=== PATIENT | female | born 1985 | race Caucasian/White ===

== ENCOUNTER 2021-06-15 12:58 | Emergency (ER) | payer OTHER, SELFPAY ==
[2021-06-15 12:59] VITALS: BP 177/148; PULSE 75; RESP 18; TEMP 36.6; O2SAT 100; BMI 33.0
--- NOTE | 2021-06-15 14:34 | CT_ITS ---
EXAM: CT ABDOMEN AND PELVIS WITH INTRAVENOUS CONTRAST CLINICAL INDICATION: LLQ pain TECHNIQUE: Helically acquired images were obtained of the abdomen and pelvis with intravenous contrast. This CT exam was performed using one or more of the following dose reduction techniques: automated exposure control, adjustment of the mA and/or kV according to patient size, and/or use of iterative reconstruction technique. This report was created using [employer] report generation technology. CONTRAST: IV 100mL Isovue-370 COMPARISON: None. FINDINGS: LOWER THORAX: Unremarkable. Lung bases are clear. No cardiomegaly. No significant pericardial effusion. ABDOMEN: LIVER: Unremarkable. Homogeneous. No focal mass. GALLBLADDER AND BILE DUCTS: Unremarkable. No calcified gallstones. No gallbladder distention or wall edema. No intra- or extrahepatic biliary ductal dilation. PANCREAS: Unremarkable. No focal cystic or solid mass. SPLEEN: Unremarkable. Normal size without focal cystic or solid mass. ADRENALS: Unremarkable. No nodules. KIDNEYS AND URETERS: 4 mm proximal left ureter calculus with mild hydronephrosis and delayed left renal enhancement. Mild stranding adjacent to the left kidney. Normal renal size and position. STOMACH AND BOWEL: Unremarkable. No stomach or bowel distention. No focal inflammatory change. PELVIS: APPENDIX: No evidence of acute appendicitis. BLADDER: Unremarkable. REPRODUCTIVE: Unremarkable as visualized. No mass. ABDOMEN and PELVIS: INTRAPERITONEAL SPACE: Unremarkable. No ascites or other fluid collection. No free air. BONES/JOINTS: Unremarkable. No suspicious lytic or blastic abnormality. SOFT TISSUES: Unremarkable. No discrete abdominal or pelvic wall hernia. VASCULATURE: Unremarkable. Abdominal aorta is non-dilated. LYMPH NODES: Unremarkable. No enlarged lymph nodes. CT/Abdomen/Pelvis W IV Cont ONLY IMPRESSION: 4 mm proximal left ureter calculus with mild hydronephrosis and delayed left renal enhancement. Electronically Signed: Gonzalez Robertson MD (Brooks) at 16:45 EST , Service support ,
--- NOTE | 2021-06-15 14:56 | EDS_ITS ---
HPI HPI - GI History of Present Illness Chief Complaint: Abd Pain Narrative Narrative: 36-year-old female presenting with left lower quadrant abdominal pain. She states that this started last evening and gradually progressed. She states it feels like pressure and sharp. Patient denies any diarrhea or constipation. She has no dysuria or hematuria. No history of kidney stones. Patient has no history of diverticulitis. She expresses that she has nausea wit hout vomiting. She states that she has had chills and subjective fevers overnight. She has no concern for . PFSH PFSH Medical History no medical history Home Medications norgestimate-ethinyl estradiol [Tri-Sprintec (28)] 1 tab PO DAILY 06/15/21 [History Last Taken Unknown] ondansetron 4 mg PO Q8H PRN PRN #14 tab 06/15/21 [Rx Last Taken Unknown] oxycodone 5 mg PO BID PRN 3 Days #12 cap 06/15/21 [Rx Last Taken Unknown] Allergy/AdvReac Type Severity Reaction Status Date / Time Penicillins Allergy Hives Verified 06/15/21 13:01 Social History Smoking Status: Never smoker ROS ROS ED Constitutional Constitutional ED: Reports chills and subjective ENT ENT ED: Denies rhinorrhea or sore throat Cardiovascular Cardiovascular: Denies chest pain or palpitations Respiratory/Chest Respiratory/Chest: Denies cough, dyspnea or sputum Gastrointestinal Gastrointestinal: Reports abdominal pain and nausea; Denies constipation, diarrhea or vomiting Genitourinary Genitourinary ED: Denies dysuria or hematuria Musculoskeletal Musculoskeletal: Denies arthralgias or myalgias Integumentary Denies rash Neurologic Neurologic: Denies headache(s), paresthesias or weakness EXAM Physical Exam Const Vital Signs: 06/15/21 12:59 Temperature 98 F Temperature Source Oral Pulse Rate 75 Respiratory Rate 18 Blood Pressure 177/148 H Blood Pressure Mean 157 Pulse Ox 100 Oxygen Delivery Method Room Air Positive well nourished General Appearance ED: NAD; Negative for pallor HEENT Reports moist mucous membranes normocephalic and atraumatic Eyes PERRL and EOMs intact bilaterally Resp normal respiratory effort and clear to auscultation bilaterally Cardio regular rate and regular rhythm GI GI Narrative: Tenderness to palpation of the left lower quadrant. No CVA tenderness. Palpation: soft Back/Spine no CVA tenderness Neuro Sensorium / Orientation: alert, oriented to person, oriented to place and oriented to time Psych mental status grossly normal and thought process normal Skin General Skin Exam: Negative for jaundice or pallor MDM MDM MDM Narrative Medical decision making narrative: Patient presenting with left lower quadrant abdominal pain. Patient given morphine and Zofran for pain and nausea. She was given a liter of IV fluids. Blood work was obtained and she has a leukocytosis of 11.7 with a slight left shift. Hemoglobin factor stable. Platelets are normal. Renal function electrolytes are normal. LFTs are normal. Urinalysis negative for infection it is noted that there is 50 occult blood. Patient reevaluated at 1615 and she is sitting on the edge of the bed. She states she feels fine if she is sitting in this position and does not want to lay back. He is offered more pain medication but declines. Lab work was discussed with her. She is currently pending a CT scan. CT of the abdomen pelvis shows a 4 mm left proximal ureteral stone. This was reevaluated at 1715 and stating that her pain is returning patient given morphine and oxycodone. She will be given follow-up with urology as well as a prescription for oxycodone and Zofran. Patient amenable this plan. Patient given return cautions. Impression: 1. Left ureteral stone 2. hematuria Lab Data Attestation: I reviewed the patient's lab results. Labs: Laboratory Results - last 24 hr 06/15/21 06/15/21 06/15/21 13:35 13:35 15:05 WBC 11.7 H RBC 4.35 Hgb 12.0 Hct 37.3 MCV 85.7 MCH 27.6 MCHC 32.2 RDW Std Deviation 43.7 RDW Coeff of [place] 14.0 Plt Count 350 MPV 10.5 Immature Gran % (Auto) 0.400 Neut % (Auto) 78.7 H Lymph % (Auto) 14.2 L [place] % (Auto) 6.4 Eos % (Auto) 0.1 Baso % (Auto) 0.2 Absolute Neuts (auto) 9.2 H Absolute Lymphs (auto) 1.65 Nucleated RBC % 0 Sodium 140 Potassium 3.5 Chloride 110 H Carbon Dioxide 22.0 Anion Gap 8 BUN 9 Creatinine 0.83 Estim Creat Clear Calc 72.07 Est GFR (MDRD) Af Amer 101 Est GFR (MDRD) Non-Af 83 BUN/Creatinine Ratio 10.8 Glucose 99 Calcium 8.9 Total Bilirubin 0.30 AST 19 ALT 19 Alkaline Phosphatase 40 L Total Protein 7.6 Albumin 3.5 Globulin 4.1 Albumin/Globulin Ratio 0.9 Lipase 56 L HCG, Quant Urine Color Yellow Urine Clarity Clear Urine pH 6.5 Ur Specific [place] 1.015 Urine Protein 15 H Urine Glucose (UA) Normal Urine Ketones 5 H Urine Occult Blood 50 H Urine Nitrite Negative Urine Bilirubin Negative Urine Urobilinogen Normal Ur Leukocyte Esterase Negative Urine RBC 0-5 SEEN Urine WBC 0-5 SEEN Ur Squamous Epith Cells 0-5 SEEN Urine Bacteria 0 SEEN Urine Mucus 0 SEEN 06/15/21 15:33 WBC RBC Hgb Hct MCV MCH MCHC RDW Std Deviation RDW Coeff of [place] Plt Count MPV Immature Gran % (Auto) Neut % (Auto) Lymph % (Auto) [place] % (Auto) Eos % (Auto) Baso % (Auto) Absolute Neuts (auto) Absolute Lymphs (auto) Nucleated RBC % Sodium Potassium Chloride Carbon Dioxide Anion Gap BUN Creatinine Estim Creat Clear Calc Est GFR (MDRD) Af Amer Est GFR (MDRD) Non-Af BUN/Creatinine Ratio Glucose Calcium Total Bilirubin AST ALT Alkaline Phosphatase Total Protein Albumin Globulin Albumin/Globulin Ratio Lipase HCG, Quant < 1 Urine Color Urine Clarity Urine pH Ur Specific [place] Urine Protein Urine Glucose (UA) Urine Ketones Urine Occult Blood Urine Nitrite Urine Bilirubin Urine Urobilinogen Ur Leukocyte Esterase Urine RBC Urine WBC Ur Squamous Epith Cells Urine Bacteria Urine Mucus Radiography Diagnostic Testing: Clinical Impression(s) from Imaging Studies Abdomen/Pelvis CT 06/15/21 14:34 IMPRESSION: 4 mm proximal left ureter calculus with mild hydronephrosis and delayed left renal enhancement. Electronically Signed: Gonzalez Robertson MD (Brooks) at 16:45 EST , Service support , Discharge Plan Triage Chief Complaint: Abd Pain ED Provider: Carter Dhillon Dx/Rx/DC Orders Instructions: ED Kidney Stone w/ Colic Prescriptions: New oxycodone 5 mg capsule 5 mg PO BID PRN (Reason: pain) 3 Days Qty: 12 RF: 0 ondansetron 4 mg tablet,disintegrating 4 mg PO Q8H PRN PRN (Reason: Nausea) Qty: 14 RF: 0 No Action norgestimate-ethinyl estradiol [Tri-Sprintec (28)] 0.18/0.215/0.25 mg-35 mcg (28) tablet 1 tab PO DAILY RF: 0 Primary Care Provider: Care Physician,No Primary Referrals: Hema Londono MD [STAFF PHYSICIAN] - As soon as possible Care Physician,No Primary [Primary Care Provider] - Disposition Disposition: Home, Self Care
[2021-06-15] MEDS: Morphine 4 MG/ML Syringe IV ×2 (15:00→17:21)
[2021-06-15] MEDS: Ondansetron 4 MG/2 ML Vial IV (15:00)
[2021-06-15] MEDS: 0.9% Normal Saline 1,000 ML 1000 ML IV (15:00)
[2021-06-15 15:01] LABS: Absolute Lymphocyte Count 1.65 X10^3/uL (0.83-4.51); Absolute Neutrophil Count 9.2 X10^3/uL (2.0-7.7); Basophil# 0.02 X10^3/uL; Basophil% 0.2 % (0-1); Eosinophil# 0.01 X10^3/uL; Eosinophils% 0.1 % (0-5); Hematocrit 37.3 % (37-47); Lymphocyte # 1.65 X10^3/ul (0.83-4.51); Lymphocyte % 14.2 % (19-41); Mean Corp Hgb Conc 32.2 g/dL (32-36); Mean Corpuscular Hgb 27.6 pg (27.0-32.0); Mean Corpuscular Volume 85.7 fL (81-99); Mean Platelet Vol. 10.5 fl (6.2-12.0); Monocyte# 0.75 X10^3/uL; Monocyte% 6.4 % (0-10); NRBC Flagged by Analyzer 0 % (0-5); Neutrophil # 9.17 X10^3/uL (2.7-7.7); Neutrophil % 78.7 % (47-70); Platelet Count 350 K/mm3 (150-450); RBC Distribution Width SD 43.7 fl (35.1-43.9); Red Blood Count 4.35 M/mm3 (4.2-5.4); White Blood Count 11.7 K/mm3 (4.4-11.0)
[2021-06-15 15:12] LABS: Bacteria 0 SEEN /hpf (None Seen); Mucous, Urine 0 SEEN /hpf (<or=2+)
[2021-06-15 15:14] LABS: Color, Urine Yellow (Yellow); Glucose, Dipstick Normal (Normal); Ketone-Dipstick 5 mg/dl (Negative); Leukocyte Esterase-Dipstick Negative /ul (Negative); Nitrite-Dipstick Negative (Negative); Occult Blood-Urine 50 /ul (Negative); Protein-Dipstick 15 mg/dl (Negative); Specific Gravity, Urine 1.015 (1.002-1.030); Urine Bilirubin Dipstick Negative (Negative); Urine Clarity Clear (Clear); Urine Urobilinogen Normal (Normal); Urine pH 6.5 (5.0 - 8.0)
[2021-06-15 15:16] LABS: ALB/GLOB Ratio 0.9 RATIO (0.9-2.4); AST(SGOT) 19 U/L (15-37); Alanine Aminotransfer ALT/SGPT 19 U/L (13-56); Albumin, Serum 3.5 g/dL (3.2-5.0); Alkaline Phosphatase 40 U/L (45-117); Anion Gap 8 (5-15); BUN 9 mg/dL (7-18); BUN/Creat Ratio 10.8 RATIO (10-20); Calcium,Total 8.9 mg/dL (8.5-10.1); Chloride 110 mmol/L (98-107); Creatinine, Serum 0.83 mg/dL (0.55-1.02); EST Glomerular Filtration Rate 83 mL/min (>60); Est Glom Filt Rate - Afr Amer 101 mL/min (>60); Estimated Creatinine Clearance 72.07 ml/min; Globulin 4.1 g/dL (2.2-4.2); Glucose 99 mg/dL (74-106); Lipase 56 U/L (73-393); Potassium 3.5 mmol/L (3.5-5.1); Protein, Total 7.6 g/dL (6.4-8.2); Sodium Level 140 mmol/L (136-145)
[2021-06-15 15:20] LABS: Red Blood Cells-Urine 0-5 SEEN /hpf (0-5)
[2021-06-15 15:21] LABS: Squamous Epithelial Cells - UA 0-5 SEEN /hpf (5-10); White Blood Cells 0-5 SEEN /hpf (0-5)
[2021-06-15 16:18] LABS: hCG Titer Quant., Serum < 1 mIU/mL (1-3)
[2021-06-15] MEDS: oxyCODONE 5 MG Tablet PO (17:33)
[2021-06-15 17:34] VITALS: BP 125/77; PULSE 81; RESP 16; O2SAT 100
== END 2021-06-15 17:37 | disposition home or self-care (01) ==
PROVIDERS: Emergency Provider Student in an Organized Health Care Education/Training Program
DX: N20.1 Calculus of ureter (principal)
CPT/HCPCS: 74177; 80053; 81001; 83690; 84702; 85025; 87426; 96361; 96374; 96375; 96376; 99284; Q9967; A4216; J2405

== ENCOUNTER 2021-06-16 19:52 | Observation (INO) | payer OTHER, SELFPAY ==
[2021-06-16 19:52] VITALS: BP 136/90; PULSE 78; RESP 16; TEMP 36.3; O2SAT 97; BMI 35.4
--- NOTE | 2021-06-16 20:14 | EX.ED.DYSGE1 ---
HPI History of Present Illness Chief Complaint: Flank Pain Informant: patient and parent Narrative Narrative: 36-year-old female arriving to the emergency department with left flank pain. Patient was seen in the emergency department yesterday and was diagnosed with a proximal left 4 mm ureteral stone. This is her first time ureterolithiasis. Patient was discharged home on oxycodone and Zofran. The patient states she made it through the night last night without any pain medicine woke up this morning took her pain medicine was doing good until around 1600 hrs. when she began to have severe pain in the left lower quadrant and into the back. Mom became concerned when the amount of urine she was producing was very small. Patient notes nausea and vomiting. She states today's pain is worse than yesterday's. Mom states the patient has been having intermittent fevers. But they have not been taking her temperature and it seems that whenever she breaks out into a sweat she feels very flushed and warm this is generally around the time she feels very nauseated and severe pain. PFSH PFS Medical History (Updated 06/16/21 @ 22:[address] Alonzo Agrawal DO) Kidney stones Home Medications norgestimate-ethinyl estradiol [Tri-Sprintec (28)] 1 tab PO DAILY 06/15/21 [History Last Taken Unknown] ondansetron 4 mg PO Q8H PRN PRN #14 tab 06/15/21 [Rx Last Taken Unknown] oxycodone 5 mg PO BID PRN 3 Days #12 cap 06/15/21 [Rx Last Taken Unknown] Allergy/AdvReac Type Severity Reaction Status Date / Time Penicillins Allergy Hives Verified 06/16/21 19:54 Social History (Updated 06/16/21 @ 20:[address] Alonzo Agrawal DO) Smoking Status: Never smoker substance use type: does not use ROS ROS ED Constitutional Constitutional ED: Denies chills or weight loss Eyes Eyes: Denies change in vision or diplopia ENT ENT ED: Denies ear pain, rhinorrhea or sore throat Cardiovascular Cardiovascular: Denies chest pain, orthopnea, palpitations or racing heartbeat Respiratory/Chest Respiratory/Chest: Denies cough, dyspnea or orthopnea Gastrointestinal Gastrointestinal: Reports abdominal pain, nausea and vomiting; Denies diarrhea Genitourinary Genitourinary ED: Reports other Details: Left flank pain ; Denies dysuria, hematuria or urinary frequency Musculoskeletal Musculoskeletal: Denies arthralgias or myalgias Integumentary Denies abscess or rash Neurologic Neurologic: Denies headache(s) or weakness Psychiatric Psychiatric: Denies anxiety, depression, suicidal ideation or suicidal thoughts Endocrine Endocrinology: Denies polydipsia, polyphagia or polyuria Allergic/Immunologic Allergic/Immunologic ED: Denies mouth swelling, tongue swelling or urticaria EXAM Physical Exam Narrative Exam Narrative: Patient appears in pain. Const Vital Signs: 06/16/21 19:52 Temperature 97.3 F L Temperature Source Temporal Pulse Rate 78 Respiratory Rate 16 Blood Pressure 136/90 H Blood Pressure Mean 105 Pulse Ox 97 Oxygen Delivery Method Room Air Positive well nourished and well developed General Appearance ED: well developed HEENT Reports normocephalic, head/scalp atraumatic, TM's clear and moist mucous membranes Negative for trauma Tympanic Membrane ED: Yes TM's clear Eyes PERRL and EOMs intact bilaterally Neck no lymphadenopathy, supple and no JVD Resp normal respiratory effort and clear to auscultation bilaterally Cardio regular rate, regular rhythm and no murmurs GI normal to inspection, nondistended, normoactive bowel sounds and non-tender Palpation: soft Back/Spine no CVA tenderness and normal ROM Extremity normal to inspection General Extremety ED: Negative for edema General Extremity: Negative for edema Neuro oriented x3 and CN's II-XII intact bilaterally Sensorium / Orientation: alert Motor Exam: strength 5/5 throughout Psych mental status grossly normal Mood & Affect: Negative for depressed or tearful Skin no rashes or lesions noted and no wounds MDM MDM MDM Narrative Medical decision making narrative: Creatinine 0.91. Urinalysis shows no overt infection. Patient received Toradol morphine and Zofran as well as IV fluids. She required redosing of morphine and Zofran. I spoke at length with the patient and her mother regarding outpatient pain management versus inpatient. The patient would like to stay for pain control. Lab Data Attestation: I reviewed the patient's lab results. Labs: Laboratory Results - last 24 hr 06/16/21 06/16/21 20:05 20:28 Sodium 137 Potassium 3.9 Chloride 108 H Carbon Dioxide 21.0 Anion Gap 8 BUN 9 Creatinine 0.91 Estim Creat Clear Calc 65.73 Est GFR (MDRD) Af Amer 91 Est GFR (MDRD) Non-Af 75 BUN/Creatinine Ratio 9.9 L Glucose 108 H Calcium 8.6 Urine Color Yellow Urine Clarity Sl. Cloudy Urine pH 7.0 Ur Specific [place] 1.015 Urine Protein Negative Urine Glucose (UA) Normal Urine Ketones 5 H Urine Occult Blood 25 H Urine Nitrite Negative Urine Bilirubin Negative Urine Urobilinogen Normal Ur Leukocyte Esterase 25 H Urine RBC 0-5 SEEN Urine WBC 0-5 SEEN Ur Squamous Epith Cells 0-5 SEEN Urine Bacteria 1+ Urine Mucus 1+ Discharge Plan Triage Chief Complaint: Flank Pain ED Provider: Alonzo Agrawal Dx/Rx/DC Orders Clinical Impression: Ureterolithiasis, Renal colic on left side, Vomiting, Intractable pain Prescriptions: No Action norgestimate-ethinyl estradiol [Tri-Sprintec (28)] 0.18/0.215/0.25 mg-35 mcg (28) tablet 1 tab PO DAILY RF: 0 oxycodone 5 mg capsule 5 mg PO BID PRN (Reason: pain) 3 Days Qty: 12 RF: 0 ondansetron 4 mg tablet,disintegrating 4 mg PO Q8H PRN PRN (Reason: Nausea) Qty: 14 RF: 0 Primary Care Provider: Care Physician,No Primary Referrals: Care Physician,No Primary [Primary Care Provider] - Disposition Disposition: [facility]
[2021-06-16] MEDS: 0.9% Normal Saline 1,000 ML 999 ML IV (20:22)
[2021-06-16] MEDS: Ketorolac 30 MG/ML Syringe IV (20:22)
[2021-06-16] MEDS: Morphine 4 MG/ML Syringe IV ×2 (20:22→22:12)
[2021-06-16] MEDS: Ondansetron 4 MG/2 ML Vial IV ×2 (20:22→22:12)
[2021-06-16 20:39] LABS: Anion Gap 8 (5-15); BUN 9 mg/dL (7-18); BUN/Creat Ratio 9.9 RATIO (10-20); Calcium,Total 8.6 mg/dL (8.5-10.1); Chloride 108 mmol/L (98-107); Creatinine, Serum 0.91 mg/dL (0.55-1.02); EST Glomerular Filtration Rate 75 mL/min (>60); Est Glom Filt Rate - Afr Amer 91 mL/min (>60); Estimated Creatinine Clearance 65.73 ml/min; Glucose 108 mg/dL (74-106); Potassium 3.9 mmol/L (3.5-5.1); Sodium Level 137 mmol/L (136-145)
[2021-06-16 20:42] LABS: Color, Urine Yellow (Yellow); Glucose, Dipstick Normal (Normal); Ketone-Dipstick 5 mg/dl (Negative); Leukocyte Esterase-Dipstick 25 /ul (Negative); Nitrite-Dipstick Negative (Negative); Occult Blood-Urine 25 /ul (Negative); Protein-Dipstick Negative (Negative); Specific Gravity, Urine 1.015 (1.002-1.030); Urine Bilirubin Dipstick Negative (Negative); Urine Clarity Sl. Cloudy (Clear); Urine Urobilinogen Normal (Normal)
[2021-06-16 20:55] LABS: Mucous, Urine 1+ /hpf (<or=2+); Squamous Epithelial Cells - UA 0-5 SEEN /hpf (5-10)
[2021-06-16 20:56] LABS: Bacteria 1+ /hpf (None Seen); Red Blood Cells-Urine 0-5 SEEN /hpf (0-5)
[2021-06-16 21:02] LABS: White Blood Cells 0-5 SEEN /hpf (0-5)
[2021-06-16 22:31] VITALS: BP 115/64; PULSE 71; RESP 18; TEMP 36.6; O2SAT 100
[2021-06-16 22:34] LABS: Internal QC Validated? YES +Cl - CLEAR BKGD; Pregnancy, Urine Negative Negative
--- NOTE | 2021-06-16 22:51 | HP.PCM.HOS_ITS ---
HPI - General General Date of Admission: 06/16/21 HPI Narrative URI CASTRO, is a 36 F with no previous significant medical history who presents to the emergency department with left lower quadrant pain that started 2 days before presentation. The pain is progressively getting worse and now it radiates to her left lower back. Movement made the pain worse. Sitting up and bending over and applying pressure improves the pain. States that her symptoms is nausea and vomiting. Patient was at the hospital a day before presentation and she was given oxycodone. She reported that even with taking oxycodone pain was not improving so she came to the emergency department for further evaluation and treatment. [facility] Medical History Kidney stones Home Medications norgestimate-ethinyl estradiol [Tri-Sprintec (28)] 1 tab PO DAILY 06/15/21 [History Last Taken Unknown] ondansetron 4 mg PO Q8H PRN PRN #14 tab 06/15/21 [Rx Last Taken Unknown] oxycodone 5 mg PO BID PRN 3 Days #12 cap 06/15/21 [Rx Last Taken Unknown] Allergy/AdvReac Type Severity Reaction Status Date / Time Penicillins Allergy Hives Verified 06/16/21 19:54 Family History Other Cancer Heart disease Surgical History no surgical history no surgical history Social History (Updated 06/16/21 @ 20:[address] Alonzo Agrawal, ) Smoking Status: Never smoker substance use type: does not use ROS ROS Narrative Constitutional: Reports objective fever and chills. Denies , fatigue, anorexia and change in weight Eyes: Denies blurry vision, change in eye color, change in vision, discharge from eye(s), double vision, erythema, eye pain, loss of vision or other HEENT: Denies abnormal hearing, dysphagia, ear pain, epistaxis, headache(s), hearing loss, nasal congestion, nasal discharge, post nasal drip, sinus pressure, sore throat or other Cardiovascular: Denies chest pain or palpitations. Denies dyspnea on exertion, orthopnea and paroxysmal nocturnal dyspnea Respiratory/Chest: Denies cough, excessive phlegm production, shortness of breath with exertion and wheezing Gastrointestinal: Reports nausea and vomiting denies abdominal pain, coffee ground emesis, constipation, diarrhea, dyspepsia, hematemesis, hematochezia, loose stools, melena, or other Genitourinary: Denies burning urination, difficulty urinating, dysuria, hematuria, nocturia, urinary frequency, urinary hesitancy, urinary incontinence, urinary urgency or other Musculoskeletal: Reports back pain. Denies arthralgias, joint pain, joint stiffness, joint swelling, myalgias, neck pain or other Neurologic: Denies abnormal gait, abnormal speech, confusion, disequilibrium, dizziness, focal weakness, headache(s), numbness, paresthesias, seizure-like activity, seizures, syncope, tingling, tremor(s) or other Psychiatric: Denies anxiety, depression, homicidal ideation, suicidal ideation or other Endocrinology: Denies change in body appearance, cold intolerance, excessive sweating, heat intolerance, polydipsia, polyuria or other Hematologic/Lymphatic: Denies anemia, easy bleeding, easy bruising, lymphadenopathy or other Integumentary: Denies rashes Allergic/Immunologic: Denies rhinitis, hives, eczema, asthma or other Vital Signs Vital Signs Vital Signs: 06/16/21 19:52 06/16/21 22:31 Temperature 97.3 F L 97.9 F Temperature Source Temporal Temporal Pulse Rate 78 71 Respiratory Rate 16 18 Blood Pressure 136/90 H 115/64 Blood Pressure Mean 105 81 Pulse Ox 97 100 Oxygen Delivery Method Room Air Room Air Weight Weight: 85 kg Body Mass Index (BMI) 35.4 Physical Exam Narrative Physical exam: General: Well-nourished, well-developed. Head: Normocephalic, atraumatic, no tenderness Eyes: PERRLA, EOMI ENT, no trauma, moist mucous membranes, no rhinorrhea Neck: Nontender, full range of motion, no spinal tenderness, deformities, step- off CVS: Regular rate and rhythm. S1-S2 present. No murmur, gallop or rub. Respiratory : clear to auscultation bilaterally, chest wall nontender, no wheezing Abdomen: Soft, nontender, nondistended, normal bowel sounds, no masses : Deferred Back: Nontender, no CVA tenderness, no midline spinal tenderness, deformities, step-offs Extremities: Nontender full range of motion, no trauma Skin: Normal color, no trauma, abrasions Neuro: Alert, oriented, cranial nerves II through XII grossly intact. Psychiatry: Normal mood. Normal affect. Not depressed. Not anxious. Results Lab / Micro Data Result Diagrams: 06/16/21 20:05 06/16/21 20:05 Labs: Laboratory Results - last 24 hr 06/16/21 20:05: Sodium 137, Potassium 3.9, Chloride 108 H, Carbon Dioxide 21.0, Anion Gap 8, BUN 9, Creatinine 0.91, Estim Creat Clear Calc 65.73, Est GFR (MDRD) Af Amer 91, Est GFR (MDRD) Non-Af 75, BUN/Creatinine Ratio 9.9 L, Glucose 108 H, Calcium 8.6 06/16/21 20:28: Urine Color Yellow, Urine Clarity Sl. Cloudy, Urine pH 7.0, Ur Specific [place] 1.015, Urine Protein Negative, Urine Glucose (UA) Normal, Urine Ketones 5 H, Urine Occult Blood 25 H, Urine Nitrite Negative, Urine Bilirubin Negative, Urine Urobilinogen Normal, Ur Leukocyte Esterase 25 H, Urine RBC 0-5 SEEN, Urine WBC 0-5 SEEN, Ur Squamous Epith Cells 0-5 SEEN, Urine Bacteria 1+, Urine Mucus 1+ 06/16/21 20:28: Urine Test Negative Assessment & Plan Assessment/Plan (1) Ureterolithiasis: PLAN: Ureterolithiasis Abdominal/pelvis CT on 06/15/2021 was remarkable for a 4 mm proximal left ureteral calculus with mild hydronephrosis and delayed left renal enhancement. Actual abdomen pelvis CT was independently interpreted and agree with the latest interpretation. Urinalysis showed urine occult blood of 25; urine leukocyte esterase of 25 IV Toradol and IV morphine as needed ordered. Flomax ordered. White count on 06/15/2021 showed mildly elevated white counts with neutrophilia and lymphopenia. BMP on 06/16/2021 was not impressive. Clear liquid ordered. DVT prophylaxis: Low risk. Charges/Coding Visit Charges OBSV E&M: 49094 Initial observation care L2
[2021-06-16 22:59] VITALS: BP 125/79; PULSE 76; RESP 17; TEMP 36.9; O2SAT 99
[2021-06-16 23:07] VITALS: BMI 35.3
[2021-06-16] MEDS: 0.9% Normal Saline 1,000 ML 75 ML IV (23:24)
[2021-06-16] MEDS: Tamsulosin HCl 0.4 MG Capsule PO (23:24)
--- NOTE | 2021-06-17 00:04 | PCS.PANDOC ---
PANDEMIC DOCUMENTATION INITIATED: Date: 03/05/2021 Time: 190
[2021-06-17] MEDS: Morphine 4 MG/ML Syringe IV ×2 (02:03→08:41)
[2021-06-17] MEDS: Ondansetron 4 MG/2 ML Vial IV (05:20)
[2021-06-17] MEDS: Ketorolac 30 MG/ML Syringe IV ×2 (05:23→11:56)
[2021-06-17 05:43] VITALS: BP 98/55; PULSE 72; RESP 17; TEMP 36.8; O2SAT 98
[2021-06-17 06:56] LABS: Absolute Lymphocyte Count 3.39 X10^3/uL (0.83-4.51); Absolute Neutrophil Count 6.1 X10^3/uL (2.0-7.7); Basophil# 0.03 X10^3/uL; Basophil% 0.3 % (0-1); Eosinophil# 0.03 X10^3/uL; Eosinophils% 0.3 % (0-5); Hematocrit 30.5 % (37-47); Lymphocyte # 3.39 X10^3/ul (0.83-4.51); Lymphocyte % 32.2 % (19-41); Mean Corp Hgb Conc 32.8 g/dL (32-36); Mean Corpuscular Volume 85.4 fL (81-99); Mean Platelet Vol. 10.5 fl (6.2-12.0); Monocyte# 0.91 X10^3/uL; Monocyte% 8.7 % (0-10); NRBC Flagged by Analyzer 0 % (0-5); Neutrophil # 6.12 X10^3/uL (2.7-7.7); Neutrophil % 58.1 % (47-70); Platelet Count 267 K/mm3 (150-450); RBC Distribution Width CV 14.2 % (11.6-14.6); RBC Distribution Width SD 44.2 fl (35.1-43.9); Red Blood Count 3.57 M/mm3 (4.2-5.4); White Blood Count 10.5 K/mm3 (4.4-11.0)
[2021-06-17 07:07] LABS: Anion Gap 7 (5-15); BUN 6 mg/dL (7-18); BUN/Creat Ratio 9.8 RATIO (10-20); Calcium,Total 7.6 mg/dL (8.5-10.1); Chloride 111 mmol/L (98-107); Creatinine, Serum 0.61 mg/dL (0.55-1.02); EST Glomerular Filtration Rate 119 mL/min (>60); Est Glom Filt Rate - Afr Amer 144 mL/min (>60); Estimated Creatinine Clearance 98.06 ml/min; Glucose 87 mg/dL (74-106); Potassium 3.2 mmol/L (3.5-5.1); Sodium Level 142 mmol/L (136-145)
[2021-06-17] MEDS: 0.9% Saline Lock 10 ML Syringe IV ×2 (08:41→11:57)
[2021-06-17 09:49] VITALS: BP 100/68; PULSE 71; RESP 18; TEMP 36.7; O2SAT 99
--- NOTE | 2021-06-17 10:08 | DCINST_ITS ---
Discharge Instructions Diet Discharge Diet: No restrictions Activity Discharge Activity: Return to Normal Activity Dressing / Incision Call your doctor if you observe: Fever of 101 or Higher, Shortness of breath, Dizziness, Fainting spells, Swelling in the ankles, Chest pain and Increased palpitations (irregular heartbeat) Follow Up Care Test Results: Test results from this visit will be discussed in further detail at your follow-up appointment, if applicable. Discharge Plan Admission Admit Date/Time: 06/16/21 22:16 Attending Provider: Alex Wilkins Primary Care Provider: Jg Phillips,Cleo Primary Instructions Additional Instructions / Restrictions: If pain worsens or does not resolve in the next 24 to 48 hours with passage of the 4 mm kidney stone, would recommend going to a different ER as we do not have urological coverage until early June Discharge Orders/Prescriptions Prescriptions: Continued norgestimate-ethinyl estradiol [Tri-Sprintec (28)] 0.18/0.215/0.25 mg-35 mcg ( 28) tablet 1 tab PO DAILY RF: 0 oxycodone 5 mg capsule 5 mg PO BID PRN (Reason: pain) 3 Days Qty: 12 RF: 0 ondansetron 4 mg tablet,disintegrating 4 mg PO Q8H PRN PRN (Reason: Nausea) Qty: 14 RF: 0 Referrals / Follow Up: Care Physician,No Primary [Primary Care Provider] - Disposition Disposition (needs filled in before D/C Order can be placed): Home, Self Care
--- NOTE | 2021-06-17 10:11 | PCM.DC.SUM ---
Providers Date of Admission: 06/16/21 Primary Care Physician: No Primary Care Phys Reason For Visit: URETERAL STONE Diagnosis Discharge Diagnosis (1) Ureterolithiasis: Status: Acute Code(s): N20.1 - Calculus of ureter Medications at Discharge Home Medications norgestimate-ethinyl estradiol [Tri-Sprintec (28)] 1 tab PO DAILY 06/15/21 ondansetron 4 mg PO Q8H PRN PRN #14 tab 06/15/21 oxycodone 5 mg PO BID PRN 3 Days #12 cap 06/15/21 tamsulosin 0.4 mg PO DAILY@1730 #7 cap 06/17/21 Hospital Course Operations None Procedures None Summary of Care Provided Minutes Spent on Discharge: 35 Hospital Course: Per HPI: URI CASTRO, is a 36 F with no previous significant medical history who presents to the emergency department with left lower quadrant pain that started 2 days before presentation. The pain is progressively getting worse and now it radiates to her left lower back. Movement made the pain worse. Sitting up and bending over and applying pressure improves the pain. States that her symptoms is nausea and vomiting. Patient was at the hospital a day before presentation and she was given oxycodone. She reported that even with taking oxycodone pain was not improving so she came to the emergency department for further evaluation and treatment. Hospital Course: 1. Left urolithiasis with mild hydronephrosis?36-year-old female has never had a kidney stone before presented to the hospital few days ago with left flank pain. She was discharged home with oxycodone and Zofran and we presented to the hospital with continued pain. She was having some issues with nausea and vomiting at home and cannot keep anything down so she presented to the hospital. Unfortunate there is no urological coverage therefore there is no intervention that could be provided here that cannot be done at home. She is feeling much better today and I discussed with her that if her pain worsens or does not resolve within the next 24 to 48hours that she should go to a different hospital that potentially has urological coverage as we do not have urology until about early June. We will continue with her previous home descriptions of Zofran and oxycodone and can also give her some Flomax. Also continue to encourage significant fluid intake to flush her kidneys. A 4 mm stone should pass. She did have a minor UA with leukocyte esterase of 25 and 1+ bacteria 1+ mucus, will hold off on any antibiotics at this time secondary to kidney stone and the fact that she gets a yeast infection with antibiotics. I do recommend that she follow-up with her PCP in 3 to 5 days and if he develops fevers to be started on antibiotic at that time. Physical Exam Const alert, oriented x3 and no apparent distress General Appearance: cooperative HEENT normocephalic and moist oral mucous membranes Eyes PERRL, EOMs intact bilaterally and conjunctivae normal Neck supple and no JVD Resp normal respiratory effort, no retractions, no use of accessory muscles and clear to auscultation bilaterally Auscultation: Negative for crackles, rales, rhonchi or wheezes Cardio regular rate, regular rhythm, S1 normal heart sound, S2 normal heart sound and no murmurs GI soft to palpation, non-tender and non-distended; Negative for hepatosplenomegaly no CVA tenderness Extremity no clubbing, cyanosis or edema Skin no rashes or lesions noted Neuro no focal motor deficits and no sensory deficits noted Psych affect normal Appearance: appropriate Weight / BMI Weight Weight: 186 lb 15.232 oz Body Mass Index (BMI) 35.3 ABG / Lab / Microbiology Data Result Diagrams: 06/17/21 06:01 06/17/21 06:01 Laboratory: Laboratory Results - last 24 hr 06/16/21 20:05: Sodium 137, Potassium 3.9, Chloride 108 H, Carbon Dioxide 21.0, Anion Gap 8, BUN 9, Creatinine 0.91, Estim Creat Clear Calc 65.73, Est GFR (MDRD) Af Amer 91, Est GFR (MDRD) Non-Af 75, BUN/Creatinine Ratio 9.9 L, Glucose 108 H, Calcium 8.6 06/16/21 20:28: Urine Color Yellow, Urine Clarity Sl. Cloudy, Urine pH 7.0, Ur Specific [place] 1.015, Urine Protein Negative, Urine Glucose (UA) Normal, Urine Ketones 5 H, Urine Occult Blood 25 H, Urine Nitrite Negative, Urine Bilirubin Negative, Urine Urobilinogen Normal, Ur Leukocyte Esterase 25 H, Urine RBC 0-5 SEEN, Urine WBC 0-5 SEEN, Ur Squamous Epith Cells 0-5 SEEN, Urine Bacteria 1+, Urine Mucus 1+ 06/16/21 20:28: Urine Test Negative 06/17/21 06:01: WBC 10.5, RBC 3.57 L, Hgb 10.0 L, Hct 30.5 L, MCV 85.4, MCH 28.0, MCHC 32.8, RDW Std Deviation 44.2 H, RDW Coeff of [place] 14.2, Plt Count 267, MPV 10.5, Immature Gran % (Auto) 0.400, Neut % (Auto) 58.1, Lymph % (Auto) 32.2, [place] % (Auto) 8.7, Eos % (Auto) 0.3, Baso % (Auto) 0.3, Absolute Neuts (auto) 6.1, Absolute Lymphs (auto) 3.39, Nucleated RBC % 0 06/17/21 06:01: Sodium 142, Potassium 3.2 L, Chloride 111 H, Carbon Dioxide 24.0, Anion Gap 7, BUN 6 L, Creatinine 0.61, Estim Creat Clear Calc 98.06, Est GFR (MDRD) Af Amer 144, Est GFR (MDRD) Non-Af 119, BUN/Creatinine Ratio 9.8 L, Glucose 87, Calcium 7.6 L D/C Instructions Discharge Diet: No restrictions Call your doctor if you observe: Fever of 101 or Higher, Shortness of breath, Dizziness, Fainting spells, Swelling in the ankles, Chest pain and Increased palpitations (irregular heartbeat) Meaningful Use Info Meaningful Use Diagnoses (Choose all that apply): None applicable Discharge Plan Admission Admit Date/Time: 06/16/21 22:16 Attending Provider: Alex Wilkins Primary Care Provider: Care Physician,No Primary Instructions Additional Instructions / Restrictions: If pain worsens or does not resolve in the next 24 to 48 hours with passage of the 4 mm kidney stone, would recommend going to a different ER as we do not have urological coverage until early June Discharge Orders/Prescriptions Prescriptions: New tamsulosin 0.4 mg Capsule 0.4 mg PO DAILY@1730 Qty: 7 RF: 0 Continued norgestimate-ethinyl estradiol [Tri-Sprintec (28)] 0.18/0.215/0.25 mg-35 mcg (28) tablet 1 tab PO DAILY RF: 0 oxycodone 5 mg capsule 5 mg PO BID PRN (Reason: pain) 3 Days Qty: 12 RF: 0 ondansetron 4 mg tablet,disintegrating 4 mg PO Q8H PRN PRN (Reason: Nausea) Qty: 14 RF: 0 Referrals / Follow Up: Care Physician,No Primary [Primary Care Provider] - Disposition Disposition (needs filled in before D/C Order can be placed): Home, Self Care Charges/Coding Visit Charges OBSV E&M: 38940 Observation care discharge
[2021-06-17] MEDS: Potassium Chloride Oral Tablet 20 MEQ 60 MEQ PO (10:26)
[2021-06-17] MEDS: 0.9% Normal Saline 1,000 ML 75 ML IV (10:27)
[2021-06-17 14:03] VITALS: BP 118/71; PULSE 70; RESP 18; TEMP 36.6; O2SAT 100
== END 2021-06-17 10:10 | disposition home or self-care (01) ==
LOC: ED 22:10 → PCU 22:48
PROVIDERS: Admitting Provider Hospitalist; Emergency Provider Emergency Medicine; Visit Provider Family Medicine
DX: N13.2 Hydronephrosis with renal and ureteral calculous obstruction (principal)
CPT/HCPCS: 36415; 80048; 81001; 81025; 85025; 96361; 96374; 96375; 96376; 99218; 99285; J7030; A4216; G0378; J2405

== ENCOUNTER → 2021-06-19 10:26 | Outpatient (CLI) | payer OTHER, SELFPAY ==
[2021-06-19 11:12] LABS: Hematocrit 36.6 % (37-47); Hemoglobin 11.7 g/dL (12.0-15.0); Mean Corpuscular Hgb 27.3 pg (27.0-32.0); Mean Corpuscular Volume 85.5 fL (81-99); Mean Platelet Vol. 10.3 fl (6.2-12.0); Platelet Count 339 K/mm3 (150-450); RBC Distribution Width CV 14.1 % (11.6-14.6); RBC Distribution Width SD 43.8 fl (35.1-43.9); Red Blood Count 4.28 M/mm3 (4.2-5.4); White Blood Count 8.2 K/mm3 (4.4-11.0)
[2021-06-19 11:25] LABS: Anion Gap 7 (5-15); BUN 6 mg/dL (7-18); BUN/Creat Ratio 6.8 RATIO (10-20); Calcium,Total 9.1 mg/dL (8.5-10.1); Chloride 105 mmol/L (98-107); Creatinine, Serum 0.88 mg/dL (0.55-1.02); EST Glomerular Filtration Rate 78 mL/min (>60); Est Glom Filt Rate - Afr Amer 94 mL/min (>60); Glucose 90 mg/dL (74-106); Potassium 3.9 mmol/L (3.5-5.1); Sodium Level 139 mmol/L (136-145)
== END ==
PROVIDERS: Referring Provider Urology; Visit Provider Urology
DX: Z01.812 Encounter for preprocedural laboratory examination (principal)
CPT/HCPCS: 36415; 80048; 85027

== ENCOUNTER → 2021-06-25 15:40 | Outpatient (CLI) | payer OTHER, SELFPAY ==
--- NOTE | 2021-06-25 | CALC_PTH ---
PATIENT: URI CASTRO LOC: [facility] U#:[id number] AGE/SX: 40/F ROOM: RE06/25/[address]: Dr. Hema Londono MD : 1985 BED: DIS: SPEC #: [id number] RECD: 06/25/21 15:01 STATUS: KIMBERLY ERAN #: [id number] PHUONG: 06/25/21 00:[address]: Hema Londono DEPT: SURGICAL PATHOLOGY RECD BY: Yfn Lira ENTERED: 06/26/21 12:47 SP TYPE: Calculi OTHR DR: No Primary Care Phys [facility] Tissues: CALCULI Procedures: Surgery Specimen Level I HEADER OPERATION: Left ureteroscopy, laser stone PRE-OP DIAGNOSIS: Calculus of left ureter TISSUE SUBMITTED: Left ureteral calculi GROSS DIAGNOSIS Left ureteral calculi, removal: Fragment of unremarkable calculus (gross diagnosis only). AM:zoe 06/27/2021 COMMENT The calculus is submitted in its entirety for chemical stone analysis. The results from this study will be reported separately. GROSS DESCRIPTION Received without fixative labeled with the patient's name and designated left ureteral calculi. The specimen consists of a light youngblood calculus measuring <0.1 x <0.1 x <0.1 cm. The entire specimen is submitted for stone analysis. / AM:zoe 06/26/21 CPT: 75458
== END ==
PROVIDERS: Visit Provider Urology
DX: N20.1 Calculus of ureter (principal)
CPT/HCPCS: 82360; 88300

== ENCOUNTER → 2023-08-26 | Outpatient (CLI) | payer BC, SELFPAY ==
--- NOTE | 2023-08-26 10:40 | CT_ITS ---
STUDY: CT ABDOMEN AND PELVIS WITHOUT CONTRAST REASON FOR EXAM: Female, 38 years old. R/O KIDNEY STONE. Left flank pain for one week. Gross hematuria. RADIATION DOSAGE (If Supplied By Facility): CTDIvol = ( 9.77 ) mGy, DLP = ( 485.62 ) mGycm TECHNIQUE: Transaxial images were obtained from the dome of the diaphragm to the symphysis pubis without oral contrast, and without intravenous contrast. Sagittal and coronal images were reconstructed. Individualized dose optimization techniques were used for this CT. COMPARISON: None. FINDINGS: The visualized lung bases are unremarkable. The visualized portions of the heart are within normal limits. Normal liver. Normal gallbladder and extrahepatic biliary system. Normal spleen. Normal pancreas. Normal bilateral adrenal glands. Nonobstructive punctate calculus in the upper pole calyx of the right kidney. Tiny nonobstructive punctate calculi seen in the lower pole calyx of the left kidney. Normal visualized stomach. Normal small intestine. Normal colon. The appendix is visualized and appears normal. Normal abdominal aorta. Normal inferior vena cava. Normal retroperitoneum. Normal urinary bladder. There is a 3.4 cm x 2.5 cm cyst in the right ovary. Normal abdominal wall. Normal osseous structures. CT/Abdomen/Pelvis without Cont IMPRESSION: Tiny bilateral nonobstructive intrarenal calculi. 3.4 cm right ovarian cyst. Electronically Signed: Sukhdeep Sawant MD at 11:12 EST ,
--- OUTSIDE RECORDS SUMMARY | 2023-08-26 12:34 | XMS RPT_ITS | CCD ---
Author Name Unknown Address [address] [place] [address] Organization [facility] Care Team Providers Care Rice Farmer Name Role Phone Jorge Saucedo Unavailable Unavailable Jorge Saucedo Unavailable Unavailable No Doctor Assigned, Nodr Unavailable Unavail able JIGNA PHAN Admitting Unavailable JIGNA PHAN Attending Unavailable JIGNA PHAN Primary Care Unavailable ERICA MONTANO Attending Unavailable ERICA MONTANO Primary Care Unavailable ERICA MONTANO Admitting Unavailable DILEEP LAWLER MD Primary Care Physician DILEEP LAWLER MD Attending Unavailable DILEEP LAWLER MD Primary Care Unavailable DILEEP LAWLER MD Attending Unavailable DILEEP LAWLER MD Primary Care Unavailable Allergies Allergy Classification Reported Allergen(s) Allergy Type Date of Onset Reaction(s) Facility (1 source) Penicillins; Translations: [penicillins] Propensity to adverse reactions to drug (disorder) [facility] Repository (1 source) Penicillin; Translations: [penicillin] Drug Allergy Weal (disorder) [facility] Medications Current Medications Medication Drug Class(es) Dates Sig (Normalized) Sig (Original) acetaminophen 325 mg / HYDROcodone bitartrate 5 mg oral tablet (1 source) Opioid Agonist Start: 09-06-2022 End: 09-13-2022 take 1 tablet by mouth every six hours as needed for pain [place] 325- 5 mg oral tablet Dose = 1 tab(s), Oral, q6h, PRN for pain, X 7 day(s), # 20 tab(s), 0 Refill(s), Pharmacy: [id number], Dysuria Low back pain, 161, cm, 09/06/22 10:53:00 EST, Height, 89.8 Start Date: 09/06/22 Stop Date: 09/13/22 Status: Ordered 200 actuat albuterol 0.09 mg/actuat dry powder inhaler (1 source) beta2-Adrenergic Agonist Start: 12-20-2021 take 2 puff(s) by inhalation every four hours as needed albuterol 90 mcg/inh inhalation powder 2 puff(s), Inhalation, q4h, PRN as needed, # 1 EA, 0 Refill(s) Start Date: 12/20/21 Status: Ordered {7 (Ethinyl Estradiol 0.035 MG / norgestimate 0.18 MG Oral Tablet) / 7 (Ethinyl Estradiol 0.035 MG / norgestimate 0.215 MG Oral Tablet) / 7 (Ethinyl Estradiol 0.035 MG / norgestimate 0.25 MG Oral Tablet) / 7 (Inert Ingredients 1 MG Oral Tablet) } Pack [Tr (1 source) Progestin, Estrogen Start: 12-07-2021 take 1 tablet by mouth once daily Tri-Sprintec oral tablet Dose = 1 tab(s), Oral, Daily, # 28 tab(s), 0 Refill(s) Start Date: 12/07/21 Status: Ordered fluconazole 100 mg oral tablet (1 source) Azole Antifungal Start: 09-06-2022 End: 09-13-2022 fluconazole 100 mg oral tablet Dose : 100 mg = 1 tab(s), Oral, qDay, X 7 day(s), # 7 tab(s), 0 Refill(s), 09/13/22 11:33:00 EST, Pharmacy: [id number], Nausea Headache, 161, cm, 09/06/22 10:53:00 EST, Height, 89.8 Start Date: 09/06/22 Stop Date: 09/13/22 Status: Ordered levoFLOXacin 750 mg oral tablet (1 source) Quinolone Antimicrobial Start: 09-06-2022 End: 09-16-2022 levoFLOXacin 750 mg oral tablet Dose : 750 mg = 1 tab(s), Oral, q24h, X 10 day(s), # 10 tab(s), 0 Refill(s), 09/16/22 11:33:00 EST, Pharmacy: [id number], Nausea Headache, 161, cm, 09/06/22 10:53:00 EST, Height, 89.8 Start Date: 09/06/22 Stop Date: 09/16/22 Status: Ordered ondansetron 4 mg oral tablet (1 source) Serotonin-3 Receptor Antagonist Start: 09-06-2022 End: 09-11-2022 Zofran 4 mg oral tablet Dose : 4 mg = 1 tab(s), Oral, q8h, PRN Nausea/Vomiting, X 5 day(s), # 15 tab(s), 0 Refill(s), 09/11/22 11:35:00 EST, Pharmacy: [id number], Nausea Headache, 161, cm, 09/06/22 10:53:00 EST, Height Start Date: 09/06/22 Stop Date: 09/11/22 Status: Ordered Problems Active Problems Problem Classification Problem Date Documented Date Episodic/Chronic Attention-deficit, conduct, and disruptive behavior disorders (1 source) Attention deficit hyperactivity disorder, 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 Genitourinary symptoms and ill-defined conditions (2 sources) Dysuria; Translations: [Stone in urine] 09-06-2022 Episodic Headache; including migraine (1 source) Headache 09-06-2022 Episodic Headache; including migraine (2 sources) Headache; including migraine; Translations: [Headache, unspecified] Onset: 09-06-2022 Immunizations and screening for infectious disease (2 sources) Contact with and (suspected) exposure to other viral communicable diseases; Translations: [Contact with and (suspected) exposure to other viral communicable diseases] Onset: 07-24-2020 Episodic Spondylosis; intervertebral disc disorders; other back problems (1 source) Low back pain 09-06-2022 Episodic Unclassified (1 source) COVID-19; Translations: [COVID-19] Onset: 07-24-2020 Unclassified (1 source) Low back pain, unspecified; Translations: [Low back pain, unspecified] Onset: 09-06-2022 Urinary tract infections (1 source) Cystitis 12-07-2021 Episodic Viral infection (1 source) Disease caused by 2019-nCoV 12-07-2021 Past or Other Problems Problem Classification Problem Date Documented Da te Episodic/Chronic Abdominal pain (3 sources) Left lower quadrant pain; Translations: [Left lower quadrant pain] Onset: 09-06-2022 09-06-2022 Episodic Calculus of urinary tract (3 sources) History of calculus of kidney; Translations: [Personal history of urinary calculi] Onset: 09-06-2022 12-07-2021 Episodic Nausea and vomiting (3 sources) Nausea; Translations: [Nausea] Onset: 09-06-2022 09-06-2022 Episodic Unclassified (1 source) Low back pain, unspecified; Translations: [Low back pain, unspecified] Onset: 09-06-2022 Results Test Name Value Interpretation Reference Range Facil ity Encounters Encounter Date Encounter Type Care Provider Facility Start: 09-11-2022 End: 09-12-2022 ambulatory DILEEP LAWLER MD Facility:B Start: 09-06-2022 End: 09-11-2022 ambulatory DILEEP LAWLER MD Facility:[facility] Start: 09-06-2022 End: 09-10-2022 Outreach Lab DILEEP LAWLER MD [facility] Start: 07-24-2020 End: 07-24-2020 Patient encounter procedure ERICA MONTANO [facility] Start: 02-17-2020 End: 02-17-2020 Patient encounter procedure JIGNA PHAN [facility] Start: 12-24-2017 End: 12-24-2017 Ambulatory Jorge Saucedo Facility:[facility] Payers Date Payer Category Payer Unknown [id number] 2017 Self-pay 1985 Unknown [id number] 1985 Unknown [id number] 1985 Unknown [id number] Unknown Social History Date Type Detail Facility Start: 12-07-2021 Tobacco smoking status Never s moked tobacco (finding) [facility] Sex Assigned At Sex [facility] Clinical Note 09-09-2022 Note Date & Type Note Facility 09-09-2022 Note . MICRO - Microbiology PROCEDURE: Urine Culture [*1] SOURCE: Urine, Clean Catch BODY SITE: COLLECTED DATE/TIME: 09/06/2022 16:51 EST RECEIVED DATE/TIME: 09/07/2022 16:07 EST START DATE/TIME: 09/07/2022 16:08 EST FREE TEXT SOURCE: FINAL REPORTS Final Report [] Verified Date/Time/Personnel: 09/09/2022 07:23 EST 10,000 - 50,000 cfu/ml Mixed growth consistent with normal urogenital anselmo. PRELIMINARY REPORTS Preliminary Report [] Verified Date/Time/Personnel: 09/08/2022 15:09 EST Culture results pending. Performing Locations *1: This test was performed at: [facility], [address] [place] [address] ([place]) Evaluation + Plan note LaboratoryRadiology Note Date & Type Note Facility Evaluation + Plan note Future Appointments Appointment Date:09/11/2022 02:00:00 PM Scheduled Provider: Location:[facility] Appointment Type:CT Abdomen and Pelvis w/o Contrast Future Scheduled TestsUrine Culture 09/06/22Urine Culture 09/03/22CT Abdomen and Pelvis w/o contrast 09/11/22 [facility] Hospital course Narrative Note Date & Type Note Facility Hospital course Narrative No data available for this section [facility] Hospital Discharge instructions Note Date & Type Note Facility Hospital Discharge instructions No data available for this section [facility] Progress note Note Date & Type Note Facility Progress note No data available for this section [facility] Summary Purpose Family History No Family History Records FoundNo Family History Records FoundNo Family History Records FoundNo Family History Records FoundNo Family History Records FoundNo Family History Records FoundNo Family History Records Found Advance Directives No Advanced Directives Records FoundNo Advanced Directives Records FoundNo Advanced Directives Records FoundNo Advanced Directives Records FoundNo Advanced Directives Records FoundNo Advanced Directives Records FoundNo Advanced Directives Records Found Additional Source Comments INFORMATION SOURCE (unrecogn ized section and content) DATE CREATED AUTHOR AUTHOR'S ORGANIZ ATION 01/26/2019 [facility] DATE CREATED AUTHOR AUTHOR'S ORGANIZ ATION 07/27/2020 [facility] DATE CREATED AUTHOR AUTHOR'S ORGANIZ ATION 07/29/2020 [facility] DATE CREATED AUTHOR AUTHOR'S ORGANIZ ATION 09/13/2021 [facility] DATE CREATED AUTHOR AUTHOR'S ORGANIZ ATION 09/15/2021 [facility] DATE CREATED AUTHOR AUTHOR'S ORGANIZ ATION 12/31/2022 Replaced by [facility] ([place]) Care Team (unrecognized sect ion and content) Care Team Personnel Name: DILEEP LAWLER MD Position: P4 Physician - Primary Care Member Role: Primary Care Physician Address: Address: [address] [place] [id number] [place] [address] Care Team Related Persons Name: NONE, NONE FOR RECORDS PERTAINING TO PATIENTS WHO ARE OR HAVE BEEN ENROLLED IN A CHEMICAL DEPENDENCY/SUBSTANCEABUSE PROGRAM, SOME INFORMATION MAY BE OMITTED. This clinical summary was aggregated from multiple sources. Caution should be exercised in using it in the provision of clinical care. This summary normalizes information from multiple sources, and as a consequence, information in this document may materially change the coding, format and clinical context of patient data. In addition, data may be omitted in some cases. CLINICAL DECISIONS SHOULD BE BASED ON THE PRIMARY CLINICAL RECORDS. [facility] [employer] [facility]. provides no warranty or guarantee of the accuracy or completeness of information in this document.
== END | disposition home or self-care (01) ==
PROVIDERS: PCP Family Medicine; Referring Provider Urology; Visit Provider Urology
DX: N20.0 Calculus of kidney (principal)
CPT/HCPCS: 74176

== ENCOUNTER 2023-09-24 14:13 | Emergency (ER) | payer BC, SELFPAY ==
[2023-09-24 14:14] VITALS: BP 148/105; PULSE 91; RESP 18; TEMP 36.2; O2SAT 100; BMI 33.7
[2023-09-24] MEDS: Ondansetron 4 MG/2 ML Vial IV (14:55)
[2023-09-24] MEDS: Ketorolac 15 MG/ML Vial IV (14:56)
[2023-09-24 15:00] LABS: Bacteria 0 SEEN /hpf (None Seen); Mucous, Urine 0 SEEN /hpf (<or=2+); Red Blood Cells-Urine 0 SEEN /hpf (0-5); Squamous Epithelial Cells - UA 0 SEEN /hpf (5-10); White Blood Cells 0 SEEN /hpf (0-5)
[2023-09-24] MEDS: 0.9% Normal Saline (1000mL) 1,000 ML 250 ML IV (15:01)
[2023-09-24 15:02] LABS: Absolute Lymphocyte Count 2.99 X10^3/uL (0.83-4.51); Absolute Neutrophil Count 5.2 X10^3/uL (2.0-7.7); Basophil# 0.06 X10^3/uL; Basophil% 0.7 % (0-1); Eosinophil# 0.04 X10^3/uL; Eosinophils% 0.5 % (0-5); Hematocrit 41.9 % (37-47); Lymphocyte # 2.99 X10^3/ul (0.83-4.51); Lymphocyte % 33.7 % (19-41); Mean Corp Hgb Conc 33.4 g/dL (32-36); Mean Corpuscular Hgb 30.1 pg (27.0-32.0); Mean Corpuscular Volume 90.1 fL (81-99); Monocyte# 0.53 X10^3/uL; NRBC Flagged by Analyzer 0 % (0-5); Neutrophil # 5.23 X10^3/uL (2.7-7.7); Neutrophil % 58.9 % (47-70); Platelet Count 295 K/mm3 (150-450); RBC Distribution Width CV 12.7 % (11.6-14.6); RBC Distribution Width SD 41.9 fl (35.1-43.9); Red Blood Count 4.65 M/mm3 (4.2-5.4); White Blood Count 8.9 K/mm3 (4.4-11.0)
[2023-09-24 15:12] LABS: Internal QC Validated? YES +Cl - CLEAR BKGD; Pregnancy, Serum, hCG Quali. NEGATIVE Negative
[2023-09-24 15:13] LABS: Record Kit Lot#, Serum Preg. HCG0000718086
[2023-09-24 15:15] LABS: Anion Gap 5 (5-15); BUN 8 mg/dL (7-18); BUN/Creat Ratio 10.7 RATIO (10-20); Chloride 110 mmol/L (98-107); Creatinine, Serum 0.74 mg/dL (0.55-1.02); EST Glomerular Filtration Rate 93 mL/min (>60); Est Glom Filt Rate - Afr Amer 113 mL/min (>60); Estimated Creatinine Clearance 101.44 ml/min; Glucose 106 mg/dL (74-106); Potassium 3.5 mmol/L (3.5-5.1); Sodium Level 141 mmol/L (136-145)
[2023-09-24 15:20] LABS: Color, Urine Yellow (Yellow); Glucose, Dipstick Normal (Normal); Ketone-Dipstick Negative (Negative); Leukocyte Esterase-Dipstick Negative /ul (Negative); Nitrite-Dipstick Negative (Negative); Occult Blood-Urine Negative /ul (Negative); Protein-Dipstick Negative (Negative); Urine Bilirubin Dipstick Negative (Negative); Urine Clarity Sl. Cloudy (Clear); Urine Urobilinogen Normal (Normal)
--- NOTE | 2023-09-24 15:23 | EDS_ITS ---
HPI History of Present Illness Chief Complaint: Complaint Detail of Chief Complaint: Numerous complaints and concerns Informant: patient Onset/Context/Timing Onset: Days and Weeks Context: Sudden Onset Timing: Intermittent Quality: Left-sided abdominal and flank pain. Location: Nausea Current Severity: Mild Worsened by: Nothing specific Relieved by: Nothing Associated Symptoms Associated Symptoms: Nausea, dysuria, frequency without gross hematuria Narrative Narrative: Patient is a 38-year-old woman. She has been seen by Dr. Londono was seen in August. She has known stones. She reports dysuria, urgency without gross hematuria. She also states she has history ovarian cyst. Last ultrasound revealed ovarian cyst on the right. Her pain and symptoms are on the left. Patient denies fever or chills. Patient does endorse nausea without vomiting or diarrhea. There is no history of trauma. She has not noted any skin lesions. Patient denies abnormal Pap smear. She denies vaginal bleeding. She does not endorse any symptoms of . Prior similar symptoms: Yes Recent Illness/Hospitalization: No PFSH PFSH Medical History Kidney stones Home Medications norgestimate-ethinyl estradiol 0.18 mg/0.215mg/0.25mg-35 mcg(28)tablet (Tri- Sprintec (28)) 1 tab PO DAILY hormones 06/15/21 [History Last Taken Unknown] ondansetron 4 mg disintegrating tablet 4 mg PO Q8H PRN PRN Nausea #14 tabs 06/15/21 [Rx Last Taken Unknown] oxycodone 5 mg capsule 5 mg PO BID PRN pain 3 days #12 caps 06/15/21 [Rx Last Taken Unknown] tamsulosin 0.4 mg capsule 0.4 mg PO DAILY@1730 #7 caps 06/17/21 [Rx Last Taken Unknown] Allergy/AdvReac Type Severity Reaction Status Date / Time Penicillins Allergy Hives Verified 09/24/23 14:13 Family History Other Cancer Heart disease Social History Smoking Status: Never smoker substance use type: does not use ROS ROS ED Constitutional Constitutional ED: Denies chills, fever(s), subjective or sweats Eyes Eyes: Denies blurry vision or change in vision ENT ENT ED: Denies ear pain, rhinorrhea or sore throat Cardiovascular Cardiovascular: Denies chest pain, palpitations or racing heartbeat Respiratory/Chest Respiratory/Chest: Denies cough, dyspnea or dyspnea on exertion Gastrointestinal Gastrointestinal: Reports abdominal pain and nausea; Denies constipation, diarrhea, melena or vomiting Genitourinary Genitourinary ED: Reports dysuria and urinary frequency; Denies hematuria Musculoskeletal Musculoskeletal: Reports back pain; Denies arthralgias, myalgias or neck pain Integumentary Denies rash Neurologic Neurologic: Denies headache(s) or paresthesias Psychiatric Psychiatric: Reports anxiety Endocrine Endocrinology: Denies cold intolerance or heat intolerance Hematologic/Lymphatic Hematologic/Lymphatic: Reports systems reviewed and no addt'l complaints, except as documented EXAM Physical Exam Const Vital Signs: 09/24/23 14:14 Temperature 97.2 F L Temperature Source Temporal Pulse Rate 91 Respiratory Rate 18 Blood Pressure 148/105 H Blood Pressure Mean 119 Pulse Ox 100 Oxygen Delivery Method Room Air Positive well nourished, well developed and obese General Appearance ED: well developed and NAD; Negative for cyanotic, diaph oretic or pallor Nutritional Appearance: obese HEENT Reports moist mucous membranes HEENT Narrative: Head is atraumatic and normocephalic. Ears normal. Nares patent. Posterior pharynx is normal. Eyes PERRL and EOMs intact bilaterally General Eye ED: Negative for pale conjunctiva or scleral icterus Neck no lymphadenopathy, supple and no JVD Chest Wall inspection of chest normal and palpation of chest normal Resp normal respiratory effort and clear to auscultation bilaterally Cardio regular rate, regular rhythm, S1 normal heart sound, S2 normal heart sound and no murmurs GI normal to inspection, nondistended, normoactive bowel sounds, non-tender, non- distended and no masses; Negative for hepatosplenomegaly Auscultation: normoactive bowel sounds Palpation: soft Back/Spine no CVA tenderness Extremity normal to inspection General Extremety ED: Negative for edema or tenderness General Extremity: Negative for edema Neuro oriented x3, CN's II-XII intact bilaterally and no sensory deficits noted Sensorium / Orientation: alert Motor Exam: strength 5/5 throughout Psych mental status grossly normal Skin no rashes or lesions noted, no wounds and skin turgor normal General Skin Exam: elasticity normal; Negative for jaundice or pallor MDM MDM MDM Narrative Medical decision making narrative: Differential diagnosis could include urinary tract infection, pyelonephritis, obstructing ureteral stone. Since she has known right ovarian cyst and pains on the left doubt this is due to ovarian cyst. Need to rule out . If test is positive we will need to consider ectopic . Lab Data Attestation: I reviewed the patient's lab results. Lab results narrative: CBC differential normal. Electrolyte panel normal. He UA normal. Serum test negative Labs: Laboratory Results - last 24 hr 09/24/23 09/24/23 14:30 14:55 WBC 8.9 RBC 4.65 Hgb 14.0 Hct 41.9 MCV 90.1 MCH 30.1 MCHC 33.4 RDW Std Deviation 41.9 RDW Coeff of [place] 12.7 Plt Count 295 MPV 10.0 Immature Gran % (Auto) 0.200 Neut % (Auto) 58.9 Lymph % (Auto) 33.7 [place] % (Auto) 6.0 Eos % (Auto) 0.5 Baso % (Auto) 0.7 Absolute Neuts (auto) 5.2 Absolute Lymphs (auto) 2.99 Nucleated RBC % 0 Sodium 141 Potassium 3.5 Chloride 110 H Carbon Dioxide 26.0 Anion Gap 5 BUN 8 Creatinine 0.74 Estim Creat Clear Calc 101.44 Est GFR (MDRD) Af Amer 113 Est GFR (MDRD) Non-Af 93 BUN/Creatinine Ratio 10.7 Glucose 106 Calcium 9.0 Serum , Qual NEGATIVE Urine Color Yellow Urine Clarity Sl. Cloudy Urine pH 7.0 Ur Specific [place] 1.010 Urine Protein Negative Urine Glucose (UA) Normal Urine Ketones Negative Urine Occult Blood Negative Urine Nitrite Negative Urine Bilirubin Negative Urine Urobilinogen Normal Ur Leukocyte Esterase Negative Urine RBC 0 SEEN Urine WBC 0 SEEN Ur Squamous Epith Cells 0 SEEN Urine Bacteria 0 SEEN Urine Mucus 0 SEEN Treatment and Re-Evaluation :: Patient's workup is negative. Patient was informed the cause of her left-sided pain is unknown. She does have history ovarian cyst. Urine reveals no evidence of blood or infection. Discharge Plan Triage Chief Complaint: Complaint ED Provider: Toni Parikh Dx/Rx/DC Orders Clinical Impression: Acute left flank pain, Ovarian cyst, Hx of renal calculi Instructions: ED Flank Pain, Uncertain Cause Prescriptions: No Action norgestimate-ethinyl estradiol [Tri-Sprintec (28)] 0.18/0.215/0.25 mg-35 mcg (28) tablet 1 tab PO DAILY oxycodone 5 mg capsule 5 mg PO BID PRN (Reason: pain) 3 Days Qty: 12 0RF ondansetron 4 mg tablet,disintegrating 4 mg PO Q8H PRN PRN (Reason: Nausea) Qty: 14 0RF tamsulosin 0.4 mg Capsule 0.4 mg PO DAILY@1730 Qty: 7 0RF Primary Care Provider: Reyes Lira Referrals: Reyes Lira MD [Primary Care Provider] - 3-5 Days if not improving Activity Restrictions/Additional Instructions: Take ibuprofen or Aleve for your pain. Disposition Disposition: Home, Self Care
[2023-09-24 16:33] VITALS: BP 118/74; PULSE 95; RESP 16; TEMP 37; O2SAT 99
== END 2023-09-24 16:34 | disposition home or self-care (01) ==
PROVIDERS: Emergency Provider Emergency Medicine; PCP Family Medicine; Visit Provider Emergency Medicine
DX: R10.9 Unspecified abdominal pain (principal); N83.209 Unspecified ovarian cyst, unspecified side; E66.9 Obesity, unspecified
CPT/HCPCS: 80048; 81001; 84703; 85025; 96374; 96375; 99283; J7030; J2405

== ENCOUNTER → 2023-10-24 | Outpatient (CLI) | payer BC, SELFPAY ==
--- NOTE | 2023-10-24 | BRBX_PTH ---
PATIENT: URI CASTRO LOC: [facility] U#:[id number] AGE/SX: 38/F ROOM: RE10/24/[address]: Dr. Ole Perdue MD : 1985 BED: DIS: 10/24/2023 SPEC #: [id number] RECD: 10/24/23 15:06 STATUS: KIMBERLY BARILLAS #: [id number] PHUONG: 10/24/23 00:[address]: Ole Perdue DEPT: SURGICAL PATHOLOGY RECD BY: Yfn Lira ENTERED: 10/27/23 10:25 SP TYPE: BREAST BX OTHR DR: Dr. Reyes Lira MD Tissues: Right breast, NOS Procedures: Surgery Specimen Level IV HEADER OPERATION: Ultrasound guided needle core biopsy right breast PRE-OP DIAGNOSIS: Abnormal mammogram TISSUE SUBMITTED: Right breast biopsy MICROSCOPIC DIAGNOSIS Right breast, Ultrasound guided core biopsy: Fibrocystic changes. Negative for atypia or malignancy. See comment. DAGOBERTO/mr 10/28/23 COMMENT Correlation with clinical, radiologic findings and appropriate follow up are necessary. MICROSCOPIC DESCRIPTION Slides are reviewed. GROSS DESCRIPTION Received in fixative is one container labeled with the patient's name and designated Right breast biopsy. The specimen consists of two irregular fragment of youngblood tissue that measures 0.6 x 0.5 x <0.1 cm. The specimen is totally submitted in one cassette. FÁTIMA/ 10/27/23 TC:5 CPT:14405
--- NOTE | 2023-10-24 13:31 | BI_ITS ---
MAMMOGRAPHY - BILATERAL DIAGNOSTIC REASON FOR EXAM: Female, 38 years old. Postbiopsy clip placement. PERTINENT HISTORY: Nodular density in the deep upper medial aspect of the right breast. TECHNIQUE: Mediolateral and craniocaudad views of the right breast were obtained. CAD: Full Field Digital Mammography with Computer Added Detection was performed. COMPARISON: None. FINDINGS: Breast Composition: The breasts are heterogeneously dense, which may obscure small masses. A tissue clip marker is seen within a nodular density in the deep upper slightly medial aspect of the right breast. No other significant abnormalities are identified. BI/DIAG MAMM W/CAD, BILAT IMPRESSION: A tissue clip marker is seen within a nodular density in the deep upper slightly medial aspect of the right breast. ASSESSMENT CATEGORY: BIRADS Category 2: Benign. A letter regarding these results will be sent to the patient by the facility within 30 days. Approximately 10% of breast cancers are not detected by mammography. A normal mammogram should not delay biopsy of a clinically suspicious abnormality. Electronically Signed: Sukhdeep Sawant MD at 14:51 EDT ,
== END | disposition home or self-care (01) ==
PROVIDERS: PCP Family Medicine; Referring Provider Surgery; Visit Provider Surgery
DX: R92.8 Other abnormal and inconclusive findings on diagnostic imaging of breast (principal)
CPT/HCPCS: 77066; 88305

== ENCOUNTER → 2023-10-27 | Outpatient (CLI) | payer BC, SELFPAY | END | disposition home or self-care (01) | LOC: LABSPEC 15:30 | PROVIDERS: PCP Family Medicine; Referring Provider Urology; Visit Provider Urology | DX: N20.0 Calculus of kidney (principal) | CPT/HCPCS: 82360 ==

== ENCOUNTER → 2024-06-07 | Outpatient (CLI) | payer BC, SELFPAY ==
--- NOTE | 2024-06-07 10:30 | RAD_ITS ---
EXAM: XR ABDOMEN, 1 VIEW CLINICAL INDICATION: CALCULUS OF KIDNEY TECHNIQUE: Frontal supine view of the abdomen/pelvis. COMPARISON: No relevant prior studies available. FINDINGS: GASTROINTESTINAL TRACT: Normal bowel gas pattern. ORGANS: No organomegaly. BONES/JOINTS: No acute abnormality. VASCULATURE: 7 mm calcification within the right lower quadrant may represent an appendicolith. Small bilateral pelvic calcifications appear to be phleboliths. RAD/Abdomen Single View IMPRESSION: No discrete evidence of urinary tract stone disease. As above. Electronically Signed: Aaron Daniel MD at 13:14 EST ,
== END | disposition home or self-care (01) ==
LOC: RAD 10:14
PROVIDERS: PCP Family Medicine; Referring Provider Urology; Visit Provider Urology
DX: N20.0 Calculus of kidney (principal)
CPT/HCPCS: 74018

== ENCOUNTER 2024-08-30 15:25 | Emergency (ER) | payer BC, SELFPAY ==
[2024-08-30 15:27] VITALS: BP 136/103; PULSE 93; RESP 18; TEMP 36.7; O2SAT 99; BMI 34.5
--- NOTE | 2024-08-30 17:39 | EX.ED.DYSGE1 ---
HPI History of Present Illness Chief Complaint: Fever Detail of Chief Complaint: Fever and cough Informant: patient Narrative Narrative: Patient presents the emergency department complaint of not feeling well for the last 4 to 5 days. She complains of a cough that is productive with phlegm and at times makes her vomit. She continues to complain of nausea. She had fever up to 103 at home. Patient states that she has been dealing with Queenie-Cardona virus illness since April of last year and she is seeing an infectious disease specialist for that. Patient complaining of headache and bodyaches. Denies sick contacts. She did just returned back to work last week. [facility] Medical History (Updated 08/30/24 @ 20:[address] Jordin Ibarra, DO) Abnormal mammogram of right breast Ovarian cyst Renal colic on left side Ureterolithiasis Kidney stones Unspecified renal colic Home Medications ?Medication ?Instructions ?Recorded ?Last Taken ?Type norgestimate-ethinyl estradiol 1 tab PO DAILY hormones 06/15/21 Unknown History 0.18 mg/0.215mg/0.25mg-35 mcg(28)tablet (Tri-Sprintec (28)) B-complex with vitamin C 1 cap PO DAILY 10/24/23 Unknown History cholecalciferol (vitamin D3) 250 250 mcg PO DAILY 10/24/23 Unknown History mcg (10,000 unit) capsule dextroamphetamine-amphetamine 20 20 mg PO DAILY 10/24/23 Unknown History mg tablet (Adderall) multivitamin 1 tab PO DAILY 10/24/23 Unknown History polyethylene glycol 3350 17 17 g PO BID 10/24/23 Unknown History gram/dose oral powder benzonatate 200 mg capsule 200 mg PO TID PRN cough #20 caps 08/30/24 Unknown Rx linaclotide 290 mcg capsule 290 mcg PO DAILY 08/30/24 Unknown History (Linzess) ondansetron 4 mg disintegrating 4 mg PO Q8H PRN PRN Nausea #10 tabs 08/30/24 Unknown Rx tablet Allergy/AdvReac Type Severity Reaction Status Date / Time Penicillins Allergy Hives Verified 08/30/24 15:30 Family History (Updated 10/24/23 @ 13:17 by Ele Guillermo) Aunt Breast cancer Aunts x2 Other Cancer Heart disease Surgical History History of lithotripsy Social History (Updated 10/24/23 @ 13:18 by Ele Guillermo) Smoking Status: Never smoker alcohol intake: never substance use type: does not use ROS ROS ED Review of Systems ROS Unobtainable: other Constitutional Constitutional ED: Reports chills, fever(s) and lethargy; Denies sweats or weight loss Eyes Eyes: Denies blurry vision, change in vision or diplopia ENT ENT ED: Denies rhinorrhea or sore throat Cardiovascular Cardiovascular: Reports chest pain and racing heartbeat; Denies orthopnea Respiratory/Chest Respiratory/Chest: Reports cough and sputum; Denies dyspnea, dyspnea on exertion or orthopnea Gastrointestinal Gastrointestinal: Reports nausea and vomiting; Denies abdominal pain or diarrhea Genitourinary Genitourinary ED: Denies dysuria, hematuria or urinary frequency Musculoskeletal Musculoskeletal: Reports myalgias; Denies arthralgias, back pain or neck pain Integumentary Denies abscess, Abrasions or rash Neurologic Neurologic: Denies headache(s) or weakness Psychiatric Psychiatric: Denies anxiety, depression or suicidal thoughts Endocrine Endocrinology: Denies polydipsia, polyphagia or polyuria Hematologic/Lymphatic Hematologic/Lymphatic: Denies easy bleeding, easy bruising or lymphadenopathy Allergic/Immunologic Allergic/Immunologic ED: Denies mouth swelling, tongue swelling or urticaria EXAM Physical Exam Const Vital Signs: 08/30/24 15:27 08/30/24 18:00 08/30/24 18:05 Temperature 98.1 F 99.0 F Temperature Source Oral Oral Pulse Rate 93 94 Respiratory Rate 18 18 Respiratory Effort Normal Respiratory Pattern Normal Blood Pressure 136/103 H 132/78 H Blood Pressure Mean 114 96 Pulse Ox 99 99 Oxygen Delivery Method Room Air Room Air 08/30/24 19:00 08/30/24 20:00 Temperature 99 F 98.8 F Temperature Source Oral Oral Pulse Rate 77 96 Respiratory Rate 16 16 Respiratory Effort Respiratory Pattern Blood Pressure 126/72 H 128/78 H Blood Pressure Mean 90 94 Pulse Ox 98 99 Oxygen Delivery Method Room Air Room Air Positive well nourished and well developed General Appearance ED: well developed and NAD HEENT Reports TM's clear and moist mucous membranes normocephalic and atraumatic; Negative for trauma or tenderness Tympanic Membrane ED: Yes TM's clear Eyes PERRL and EOMs intact bilaterally General Eye ED: Negative for pale conjunctiva or scleral icterus Neck no lymphadenopathy, supple and no JVD General: Negative for tenderness Chest Wall inspection of chest normal and palpation of chest normal Chest: Negative for tenderness Resp normal respiratory effort and clear to auscultation bilaterally Effort and Inspection: Negative for respiratory distress or pain with movement Auscultation: Negative for rhonchi, wheezes or diminished lung sounds Cardio regular rate, regular rhythm, S1 normal heart sound, S2 normal heart sound and no murmurs Peripheral Pulses: pulses 2+ throughout GI normal to inspection, nondistended, normoactive bowel sounds, soft to palpation, non-tender, non-distended and no masses Back/Spine no CVA tenderness and no thoracic nor lumbar tenderness Extremity normal to inspection General Extremety ED: Negative for edema General Extremity: Negative for edema Neuro oriented x3, CN's II-XII intact bilaterally, no sensory deficits noted and gait normal Sensorium / Orientation: awake, alert, oriented to person, oriented to place and oriented to time Motor Exam: strength 5/5 throughout and strength abnormal Psych mental status grossly normal Skin no rashes or lesions noted and no wounds MDM MDM MDM Narrative Medical decision making narrative: Patient presents with nausea and vomiting as well as fever and cough. Clinically looks well. Suspect likely viral syndrome. IV line established. CBC with differential count of 5.2 with hemoglobin 15.2 and platelet count of 168. Chemistries unremarkable other than a depressed potassium at 3.1 for which I will give her 40 mEq of potassium chloride p.o. LFTs were normal. Urinalysis was negative for infection but did show 150 ketones. Serum Prag was negative. 1 view chest x-ray was negative for infiltrate or acute process. COVID flu and RSV testing was positive for influenza A. At this point she is outside the 2-day window for starting Tamiflu. Will start on Zofran and Tessalon Perles. Advised to push fluids and follow-up primary care physician 5 to 7 days. Advised to return if increasing shortness of breath or condition worsening way Lab Data Attestation: I reviewed the patient's lab results. Labs: Laboratory Results - last 24 hr 08/30/24 17:57 WBC 5.2 RBC 4.93 Hgb 15.2 H Hct 44.3 MCV 89.9 MCH 30.8 MCHC 34.3 RDW Std Deviation 38.9 RDW Coeff of [place] 11.9 Plt Count 168 MPV 11.2 Immature Gran % (Auto) 0.200 Neut % (Auto) 58.6 Lymph % (Auto) 26.8 [place] % (Auto) 13.8 H Eos % (Auto) 0.0 Baso % (Auto) 0.6 Absolute Neuts (auto) 3.1 Absolute Lymphs (auto) 1.40 Nucleated RBC % 0 Sodium 138 Potassium 3.1 L Chloride 106 Carbon Dioxide 20.0 L Anion Gap 12 BUN 10 Creatinine 0.76 Estim Creat Clear Calc 99.01 Est GFR (MDRD) Af Amer 110 Est GFR (MDRD) Non-Af 91 BUN/Creatinine Ratio 13.2 Glucose 74 Calcium 8.4 L Total Bilirubin 0.20 AST 24 ALT 24 Alkaline Phosphatase 41 L Total Protein 7.3 Albumin 3.4 Globulin 3.9 Albumin/Globulin Ratio 0.9 Serum , Qual NEGATIVE Urine Color Yellow Urine Clarity Clear Urine pH 6.0 Ur Specific [place] 1.020 Urine Protein 30 H Urine Glucose (UA) Normal Urine Ketones 150 A* Urine Occult Blood 25 H Urine Nitrite Negative Urine Bilirubin 1 H Urine Urobilinogen 1 H Ur Leukocyte Esterase 25 H Urine RBC 0-5 SEEN Urine WBC 0-5 SEEN Ur Squamous Epith Cells 0-5 SEEN Ur Transition Epith Cell 0-5 SEEN Urine Bacteria 2+ Urine Mucus 3+ Radiography Diagnostic Testing: Clinical Impression(s) from Imaging Studies Chest X-Ray 08/30/24 18:11 IMPRESSION: NEGATIVE CHEST. Reading Location: [facility] 1 view chest x-ray obtained interpreted by myself as no evidence for infiltrate or pneumothorax or acute disease process. Radiology in agreement. Discharge Plan Triage Chief Complaint: Fever ED Provider: Jordin Ibarra Dx/Rx/DC Orders Clinical Impression: Influenza A Instructions: ED Influenza (Adult) Prescriptions: New ondansetron 4 mg tablet,disintegrating 4 mg PO Q8H PRN PRN (Reason: Nausea) Qty: 10 0RF benzonatate 200 mg capsule 200 mg PO TID PRN (Reason: cough) Qty: 20 0RF No Action multivitamin Tablet 1 tab PO DAILY cholecalciferol (vitamin D3) 250 mcg (10,000 unit) capsule 250 mcg PO DAILY polyethylene glycol 3350 17 gram/dose powder 17 g PO BID dextroamphetamine-amphetamine [Adderall] 20 mg tablet 20 mg PO DAILY B-complex with vitamin C Capsule 1 cap PO DAILY norgestimate-ethinyl estradiol [Tri-Sprintec (28)] 0.18/0.215/0.25 mg-35 mcg (28) tablet 1 tab PO DAILY Linzess 290 mcg capsule 290 mcg PO DAILY Primary Care Provider: Reyes Lira Referrals: Reyes Lira MD [Primary Care Provider] - 5-7 Days Print Language: Uruguayan
[2024-08-30] MEDS: Ketorolac 15 MG/ML Vial IV (17:59)
[2024-08-30] MEDS: 0.9% Normal Saline (1000mL) 1,000 ML 1000 ML IV (17:59)
[2024-08-30 18:00] VITALS: BP 132/78; PULSE 94; RESP 18; TEMP 37.2; O2SAT 99
[2024-08-30] MEDS: Ondansetron 4 MG/2 ML Vial IV (18:00)
--- NOTE | 2024-08-30 18:11 | RAD_ITS ---
PROCEDURE: CHEST 1 VIEW (PORTABLE) REASON FOR EXAM: 39-year-old female, recently diagnosed with mono, cough and fever. TECHNIQUE: Frontal view of the chest. COMPARISON: None. FINDINGS: The heart size is normal. The lungs are clear. No focal consolidation, pleural effusion or pneumothorax. The bones are unremarkable. RAD/Chest 1 View (Portable) IMPRESSION: NEGATIVE CHEST. Reading Location: [id number]
[2024-08-30 18:26] LABS: Color, Urine Yellow (Yellow); Glucose, Dipstick Normal (Normal); Leukocyte Esterase-Dipstick 25 /ul (Negative); Nitrite-Dipstick Negative (Negative); Occult Blood-Urine 25 /ul (Negative); Protein-Dipstick 30 mg/dl (Negative); Urine Clarity Clear (Clear); Urine Urobilinogen 1 mg/dl (Normal)
[2024-08-30 18:28] LABS: Absolute Neutrophil Count 3.1 X10^3/uL (2.0-7.7); Basophil# 0.03 X10^3/uL; Basophil% 0.6 % (0-1); Hematocrit 44.3 % (37-47); Hemoglobin 15.2 g/dL (12.0-15.0); Lymphocyte % 26.8 % (19-41); Mean Corp Hgb Conc 34.3 g/dL (32-36); Mean Corpuscular Hgb 30.8 pg (27.0-32.0); Mean Corpuscular Volume 89.9 fL (81-99); Mean Platelet Vol. 11.2 fl (6.2-12.0); Monocyte# 0.72 X10^3/uL; Monocyte% 13.8 % (0-10); NRBC Flagged by Analyzer 0 % (0-5); Neutrophil # 3.07 X10^3/uL (2.7-7.7); Neutrophil % 58.6 % (47-70); Platelet Count 168 K/mm3 (150-450); RBC Distribution Width CV 11.9 % (11.6-14.6); RBC Distribution Width SD 38.9 fl (35.1-43.9); Red Blood Count 4.93 M/mm3 (4.2-5.4); White Blood Count 5.2 K/mm3 (4.4-11.0)
[2024-08-30 18:36] LABS: ALB/GLOB Ratio 0.9 RATIO (0.9-2.4); AST(SGOT) 24 U/L (15-37); Alanine Aminotransfer ALT/SGPT 24 U/L (13-56); Albumin, Serum 3.4 g/dL (3.2-5.0); Alkaline Phosphatase 41 U/L (45-117); Anion Gap 12 (5-15); BUN 10 mg/dL (7-18); BUN/Creat Ratio 13.2 RATIO (10-20); Calcium,Total 8.4 mg/dL (8.5-10.1); Chloride 106 mmol/L (98-107); Creatinine, Serum 0.76 mg/dL (0.55-1.02); EST Glomerular Filtration Rate 91 mL/min (>60); Est Glom Filt Rate - Afr Amer 110 mL/min (>60); Estimated Creatinine Clearance 99.01 ml/min; Globulin 3.9 g/dL (2.2-4.2); Glucose 74 mg/dL (74-106); Potassium 3.1 mmol/L (3.5-5.1); Protein, Total 7.3 g/dL (6.4-8.2); Sodium Level 138 mmol/L (136-145)
[2024-08-30 18:38] LABS: Internal QC Validated? YES +Cl - CLEAR BKGD; Pregnancy, Serum, hCG Quali. NEGATIVE Negative
[2024-08-30 19:00] VITALS: BP 126/72; PULSE 77; RESP 16; TEMP 37.2; O2SAT 98
[2024-08-30] MEDS: Potassium Chloride Oral Tablet 20 MEQ 40 MEQ PO (19:19)
[2024-08-30 19:21] LABS: Urine Bilirubin Dipstick 1 mg/dL (Negative)
[2024-08-30 19:23] LABS: Ketone-Dipstick 150 mg/dl (Negative)
[2024-08-30 19:31] LABS: Bacteria 2+ /hpf (None Seen); Mucous, Urine 3+ /hpf (<or=2+); Red Blood Cells-Urine 0-5 SEEN /hpf (0-5); Squamous Epithelial Cells - UA 0-5 SEEN /hpf (5-10); Transitional Epithelial - Ur 0-5 SEEN /hpf (0-5); White Blood Cells 0-5 SEEN /hpf (0-5)
[2024-08-30 20:00] VITALS: BP 128/78; PULSE 96; RESP 16; TEMP 37.1; O2SAT 99
== END 2024-08-30 20:39 | disposition home or self-care (01) ==
LOC: ED 18:01
PROVIDERS: Emergency Provider Emergency Medicine; PCP Family Medicine; Visit Provider Emergency Medicine
DX: J10.1 Influenza due to other identified influenza virus with other respiratory manifestations (principal); E87.6 Hypokalemia; Z88.0 Allergy status to penicillin
CPT/HCPCS: 71045; 80053; 81001; 84703; 85025; 87631; 96361; 96374; 96375; 99284; A4216; J2405

== ENCOUNTER → 2025-03-18 | Outpatient (CLI) | payer BC, SELFPAY ==
--- NOTE | 2025-03-18 13:34 | BI_ITS ---
EXAM: SCRN MAMM (CAD)W/ALEK BILAT DATE: 03/18/2025 CLINICAL HISTORY: F, Age 40 y/o , SCREENING TECHNIQUE: Procedure Code: [id number] Modality: MG Procedure: SCRN MAMM (CAD)W/ALEK BILAT COMPARISON: Prior exam(s) were compared FINDINGS: TISSUE DENSITY: The breasts are heterogeneously dense, which may obscure small masses. Bilateral Breast Mammographic Findings: Right breast: There is questionable mass in the retroareolar region seen best on the CC view. Recommend additional imaging with diagnostic right breast mammogram spot compression views and ultrasound scanning of the retroareolar region of the right breast. Left breast: No suspicious masses, calcifications or other abnormalities are identified. BI/SCRN MAMM (CAD)W/ALEK BILAT IMPRESSION: Incomplete evaluation. Additional imaging is recommended of the right breast a s detailed above. OVERALL FINAL ASSESSMENT BI-RADS 0: INCOMPLETE - NEED ADDITIONAL IMAGING EVALUATION. RECOMMENDATION: Additional Views obtained/call backs A letter with findings and recommendations will be mailed to the patient. Reading Location: [id number]
--- OUTSIDE RECORDS SUMMARY | 2025-03-18 17:01 | XMS RPT_ITS | CCD ---
Author Organization [facility] Care Team Providers Care Senior Care Provider Name Role Phone Jorge Saucedo Unavailable Unavailable Jorge Saucedo Unavailable Unavailable No Doctor Assigned, Nodr Unavailable Unavail able JIGNA PHAN Admitting Unavailable JIGNA PHAN Attending Unavailable JIGNA PHAN Primary Care Unavailable ERICA MONTANO Attending Unavailable ERICA MONTANO Primary Care Unavailable ERICA MONTANO Admitting Unavailable DILEEP LIRA MD Primary Care Physician SHANIQUE GARSIA MD Attending Unavailable DILEEP LIRA MD Primary Care Unavailable SHANIQUE GARSIA MD Attending Unavailable DILEEP LIRA MD Primary Care Unavailable SHANIQUE GARSIA MD Attending Unavailable DILEEP LIRA MD Primary Care Unavailable DILEEP LIRA MD Attending Unavailable DILEEP LIRA MD Primary Care Unavailable DILEEP LIRA MD Attending Unavailable DILEEP LIRA MD Primary Care Unavailable DILEEP LIRA MD Primary Care Unavailable DILEEP LIRA MD Attending Unavailable DILEEP LIRA MD Attending Unavailable DILEEP LIRA MD Primary Care Unavailable Dr. Dileep Lira Primary Care Provider [phone] Dr. Dileep Lira Referring Provider Dr. Ole Perdue Attending Provider [phone] BAL GUTHRIE DO Attending Unavailable DILEEP LIRA MD Primary Care Unavailable DILEEP LIRA MD Primary Care Unavailable DILEEP LIRA MD Attending Unavailable DILEEP LIRA MD Primary Care Unavailable DILEEP LIRA MD Attending Unavailable DR MAGGI SIMMONS DO Attending UnavailDLIEEP Guillen MD Primary Care Unavailable PRESTON SOLIS MD Attending DILEEP Hawk MD Primary Care Unavailable PRESTON SOLIS MD Attending UnavailDILEEP Mckenzie MD Primary Care Unavailable DILEEP LIRA MD Primary Care Unavailable SAMANTHA DURAN MD, DR ALLY GARCIA Attending UnavailDILEEP Mckenzie MD Primary Care Unavailable REBECCA DOHERTY Attending Unavail DILEEP Soares MD Primary Care Unavailable DILEEP LIRA MD Attending Unavailable DILEEP LIRA MD Primary Care Unavailable DILEEP LIRA MD Attending Unavailable Hema Londono Attending Unavailable Hema Londono Referring Unavailable Dileep Lira Primary Care Unavailable Jordin Ibarra Attending Unavailable Dileep Lira Primary Care Unavailable Shanique Garsia Attending Unavailable Shanique Garsia Referring Unavailable Dileep Lira Primary Care Unavailable Allergies Allergy Classification Reported Allergen(s) Allergy Type Date of Onset Reaction(s) Facility (5 sources) Penicillins; Translations: [penicillins] Propensity to adverse reactions to drug (disorder) [facility] (15 sources) Penicillin; Translations: [penicillin] Drug Allergy Weal (disorder) [facility] (9 sources) Amitriptyline; Translations: [amitriptyline] Drug Allergy Pins and needles (finding), Headache (finding) [facility] Medications Current Medications Medication Drug Class(es) Dates Sig (Normalized) Sig (Original) acetaminophen 325 mg / HYDROcodone bitartrate 5 mg oral tablet (1 source) Opioid Agonist Start: 09-06-2022 End: 09-13-2022 take 1 tablet by mouth every six hours as needed for pain [place] 325- 5 mg oral tablet Dose = 1 tab(s), Oral, q6h, PRN for pain, X 7 day(s), # 20 tab(s), 0 Refill(s), Pharmacy: [id number], Dysuria Low back pain, 161, cm, 09/06/22 10:53:00 EST, Height, 89.8 Start Date: 09/06/22 Stop Date: 09/13/22 Status: Ordered 200 actuat albuterol 0.09 mg/actuat dry powder inhaler (5 sources) beta2-Adrenergic Agonist Start: 12-20-2021 take 2 puff(s) by inhalation every four hours as needed albuterol 90 mcg/inh inhalation powder 2 puff(s), Inhalation, q4h, PRN as needed, # 1 EA, 0 Refill(s) Start Date: 12/20/21 Status: Ordered albuterol MDI (90 mcg/inh) CFC free inhalation aerosol (2 sources) Start: 06-30-2024 take 1 puff(s) by inhalation every four hours as needed for wheezing albuterol MDI (90 mcg/inh) CFC free inhalation aerosol 1 puff(s), Inhalation, q4h, PRN as needed for wheezing, # 18 gram(s), 0 Refill(s), Pharmacy: [facility]/pharmacy #[id number], Acute bronchitis, 159, cm, 06/30/24 10:40:00 EST, Height, kg, 06/30/24 10:40:00 EST, Dosing Weight Start Date: 06/30/24 Status: Ordered Quantity: 18.0 Unit: g Repeat number: 1 Indications: Acute bronchitis, unspecified; amphetamine aspartate 5 mg / amphetamine sulfate 5 mg / dextroamphetamine saccharate 5 mg / dextroamphetamine sulfate 5 mg oral tablet (15 sources) Central Nervous System Stimulant Start: 11-23-2024 End: 2025 Adderall 20 mg oral tablet Dose : 20 mg = 1 tab(s), Oral, BID, # 60 tab(s), 0 Refill(s), Pharmacy: [facility]/pharmacy #[id number], Attention deficit disorder, 159, cm, 12/23/24 14:05:00 EDT, Height, 81, kg, 12/23/24 14:05:00 EDT, Dosing Weight Start Date: 12/23/24 Stop Date: 01/22/25 Status: Ordered Quantity: 60.0 Unit: tab(s) Repeat number: 1 Indications: 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 childhood and adolescence; Start: 05-14-2024 End: 06-13-2024 Adderall 20 mg oral tablet D ose : 20 mg = 1 tab(s), Oral, TID, # 90 tab(s), 0 Refill(s), Pharmacy: [facility]/pharmacy #[id number], Attention deficit disorder, 157.5, cm, 05/04/24 8:29:00 EDT, Height, 75, kg, 05/04/24 8:29:00 EDT, Dosing Weight Start Date: 05/14/24 Stop Date: 06/13/24 Status: Ordered Start: 04-06-2024 End: 05-06-2024 Adderall 20 mg oral tablet D ose : 20 mg = 1 tab(s), Oral, TID, # 90 tab(s), 0 Refill(s), Pharmacy: [facility]/pharmacy #[id number], Attention deficit disorder, 161, cm, 01/28/24 13:55:00 EDT, Height, 77.8, kg, 01/28/24 13:55:00 EDT, Dosing Weight Start Date: 04/06/24 Stop Date: 05/06/24 Status: Ordered Start: 08-26-2023 End: 10-23-2023 take 1 tablet by mouth once daily Dextroamphetamine-Amphetamine (Adderall) 20 mg tablet Active 20 MG PO DAILY October 24, 2023 12:00am Ascorbic Acid (9 sources) Vitamin C Start: 09-11-2023 Vitamin C qDay, 0 Refill(s) Start Date: 09/11/23 Status: Ordered B-Complex With Vitamin C (2 sources) Start: 10-24-2023 take 1 capsule by mouth once daily B-Complex With Vitamin C Active 1 CAP PO DAILY October 24, 2023 12:00am benzonatate 100 mg oral capsule (2 sources) Non-narcotic Antitussive Start: 06-30-2024 Tessalon Perles 100 mg oral capsule Dose : 100 mg = 1 cap(s), Oral, q8h, PRN as needed for cough, # 30 cap(s), 0 Refill(s), Pharmacy: [facility]/pharmacy #[id number], Acute bronchitis, 159, cm, 06/30/24 10:40:00 EST, Height, kg, 06/30/24 10:40:00 EST, Dosing Weight Start Date: 06/30/24 Status: Ordered Quantity: 30.0 Unit: cap(s) Repeat number: 1 Indications: Acute bronchitis, unspecified; cholecalciferol 0.25 mg oral capsule (2 sources) Vitamin D Start: 10-24-2023 take 250 ug by mouth once daily Cholecalciferol (Vitamin D3) Active 250 MCG PO DAILY October 24, 2023 12:00am diazePAM 5 mg oral tablet (4 sources) Benzodiazepine Start: 04-23-2024 End: 05-23-2024 diazePAM 5 mg oral tablet Dose : 5 mg = 1 tab(s), Oral, q6h, PRN as needed for anxiety, X 30 day(s), # 60 tab(s), 0 Refill(s), 05/23/24 2:17:00 PM EST, [id number], Attention deficit disorder Constipation, 160, cm, 04/23/24 13:25:00 EDT, Height, 76.2, kg, 04/23/24 13:25:00 EDT, Dosing Weight Start Date: 04/23/24 Stop Date: 05/23/24 Status: Ordered {7 (Ethinyl Estradiol 0.035 MG / norgestimate 0.18 MG Oral Tablet) / 7 (Ethinyl Estradiol 0.035 MG / norgestimate 0.215 MG Oral Tablet) / 7 (Ethinyl Estradiol 0.035 MG / norgestimate 0.25 MG Oral Tablet) / 7 (Inert Ingredients 1 MG Oral Tablet) } Pack [Tr (20 sources) Progestin, Estrogen Start: 03-11-2024 End: 02-10-2025 take 1 tablet by mouth once daily Tri-Sprintec oral tablet Dose = 1 tab(s), Oral, qDay, brand only, # 84 tab(s), 3 Refill(s), YADI, [id number], 161, cm, 01/28/24 13:55:00 EDT, Height, kg, 01/28/24 13:55:00 EDT, Dosing Weight Start Date: 03/11/24 Stop Date: 02/10/25 Status: Ordered Quantity: 84.0 Unit: tab(s) Repeat number: 4 Start: 03-11-2024 End: 02-10-2025 take 1 tablet by mouth once daily Tri-Sprintec oral tablet Dose = 1 tab(s), Oral, qDay, brand only, # 84 tab(s), 3 Refill(s), YADI, [id number], 161, cm, 01/28/24 13:55:00 EDT, Height, kg, 01/28/24 13:55:00 EDT, Dosing Weight Start Date: 03/11/24 Stop Date: 02/10/25 Status: Ordered Start: 01-15-2024 End: 04-08-2024 take 1 tablet by mouth once daily Tri-Sprintec oral tablet 35 mcg Dose = 1 tab(s), Oral, qDay, [facility], # [facility] tab(s), 0 Refill(s), Pharmacy: [facility]/pharmacy #[id number], 161, cm, 01/08/24 10:18:00 EDT, Height, kg, 01/08/24 10:18:00 EDT, Dosing Weight Start Date: 01/15/24 Stop Date: 04/08/24 Status: Ordered Start: 09-11-2023 End: 08-12-2024 take 1 tablet by mouth once daily Tri-Sprintec oral tablet 35 mcg Dose = 1 tab(s), Oral, qDay, # 84 tab(s), 3 Refill(s), Pharmacy: [facility] #[id number], 161, cm, 09/11/23 9:03:00 EST, Height, kg, 09/11/23 9:03:00 EST, Dosing Weight Start Date: 09/11/23 Stop Date: 08/12/24 Status: Ordered Start: 12-07-2021 take 1 tablet by wendy th once daily Tri-Sprintec oral tablet Dose = 1 tab(s), Oral, Daily, # 28 tab(s), 0 Refill(s) Start Date: 12/07/21 Status: Ordered Start: 06-15-2021 take 1 tablet by wendy th once daily Norgestimate-Ethinyl Estradiol (Tri-Sprintec (28)) 0.18/0.215/0.25 mg-35 mcg (28) tablet Active 1 TABLET PO DAILY June 15, 2021 1:00am Start: 06-15-2021 take 1 tablet by wendy th once daily Norgestimate-Ethinyl Estradiol (Tri-Sprintec (28)) 0.18/0.215/0.25 mg-35 mcg (28) tablet Active 1 TABLET PO DAILY June 15, 2021 12:00am fluconazole 200 mg oral tablet (4 sources) Azole Antifungal Start: 04-28-2024 End: 05-08-2024 fluconazole 200 mg oral tablet Dose : 200 mg = 1 tab(s), Oral, qDay, X 10 day(s), # 10 tab(s), 0 Refill(s), 05/08/24 1:49:00 PM EDT, Pharmacy: [facility]/pharmacy #[id number], Queenie Cardona virus infection Thyromegaly, 160, cm, 04/28/24 13:12:00 EDT, Height, 76.6, kg, 04/28/24 13:12:00 EDT, Dosing Weight Start Date: 04/28/24 Stop Date: 05/08/24 Status: Ordered Start: 09-09-2023 End: 09-16-2023 fluconazole 100 mg oral tabl et Dose : 100 mg = 1 tab(s), Oral, qDay, X 7 day(s), # 7 tab(s), 0 Refill(s), 09/16/23 10:57:00 AM EST, Pharmacy: [facility] #[id number], 161, cm, 09/09/23 10:29:00 EST, Height, 80.9, kg, 09/09/23 10:29:00 EST, Dosing Weight Start Date: 09/09/23 Stop Date: 09/16/23 Status: Ordered Start: 08-27-2023 End: 09-06-2023 fluconazole 100 mg oral tabl et Dose : 100 mg = 1 tab(s), Oral, qDay, X 10 day(s), # 10 tab(s), 0 Refill(s), 09/06/23 5:11:00 PM EST, Pharmacy: [facility] #[id number], Ureteral calculi Right ovarian cyst, 63.4, cm, 08/27/23 16:20:00 EST, Height, 80.1, kg, 08/27/23 16:20:00 EST, Dosing Weight Start Date: 08/27/23 Stop Date: 09/06/23 Status: Ordered Start: 09-06-2022 End: 09-13-2022 fluconazole 100 mg oral tabl et Dose : 100 mg = 1 tab(s), Oral, qDay, X 7 day(s), # 7 tab(s), 0 Refill(s), 09/13/22 11:33:00 EST, Pharmacy: [id number], Nausea Headache, 161, cm, 09/06/22 10:53:00 EST, Height, 89.8 Start Date: 09/06/22 Stop Date: 09/13/22 Status: Ordered levoFLOXacin 750 mg oral tablet (1 source) Quinolone Antimicrobial Start: 09-06-2022 End: 09-16-2022 levoFLOXacin 750 mg oral tablet Dose : 750 mg = 1 tab(s), Oral, q24h, X 10 day(s), # 10 tab(s), 0 Refill(s), 09/16/22 11:33:00 EST, Pharmacy: [id number], Nausea Headache, 161, cm, 09/06/22 10:53:00 EST, Height, 89.8 Start Date: 09/06/22 Stop Date: 09/16/22 Status: Ordered linaclotide 0.29 mg oral capsule (9 sources) Guanylate Cyclase-C Agonist Start: 07-28-2024 Linzess 290 mcg oral capsule Dose : 290 mcg = 1 cap(s), Oral, qDay, # 30 cap(s), 0 Refill(s) Start Date: 07/28/24 Status: Ordered Quantity: 30.0 Unit: cap(s) Repeat number: 1 Start: 04-23-2024 End: 10-20-2024 Linzess 72 mcg oral capsule Dose : 72 mcg = 1 cap(s), Oral, qDay, do not crush or chew, # 30 cap(s), 5 Refill(s), Pharmacy: [facility]/pharmacy #[id number], Attention deficit disorder Constipation, 160, cm, 04/23/24 13:25:00 EDT, Height, kg, 04/23/24 13:25:00 EDT, Dosing Weight Start Date: 04/23/24 Stop Date: 10/20/24 Status: Ordered Start: 01-08-2024 take 1 capsule by mo uth once daily Linzess 145 mcg oral capsule take 1 capsule by mouth once daily Start Date: 01/08/24 Status: Ordered Multivitamin preparation (13 sources) Start: 10-24-2023 take 1 tablet by mouth once daily Multivitamin Active 1 TABLET PO DAILY October 24, 2023 12:00am Start: 09-11-2023 take 1 tablet by wendy th once daily Multivitamin Dose = 1 tab(s), Oral, Daily, 0 Refill(s) Start Date: 09/11/23 Status: Ordered Repeat number: 1 Start: 09-11-2023 take 1 tablet by wendy th once daily Multivitamin Dose = 1 tab(s), Oral, Daily, 0 Refill(s) Start Date: 09/11/23 Status: Ordered nitrofurantoin, macrocrystals 25 mg / nitrofurantoin, monohydrate 75 mg oral capsule (1 source) Nitrofuran Antibacterial Start: 05-31-2024 End: 06-05-2024 Macrobid 100 mg oral capsule Dose : 100 mg = 1 cap(s), Oral, BID, Take with food, X 5 day(s), # 10 cap(s), 0 Refill(s), 06/05/24 10:35:00 AM EST, Pharmacy: [facility]/pharmacy #[id number], UTI (urinary tract infection), 157.5, cm, 05/18/24 8:01:00 EDT, Height, 77.9, kg, 05/18/24 8:01:00 EDT, Dosing Weight Start Date: 05/31/24 Stop Date: 06/05/24 Status: Ordered ondansetron 4 mg disintegrating oral tablet (7 sources) Serotonin-3 Receptor Antagonist Start: 09-06-2022 End: 09-11-2022 Zofran 4 mg oral tablet Dose : 4 mg = 1 tab(s), Oral, q8h, PRN Nausea/Vomiting, X 5 day(s), # 15 tab(s), 0 Refill(s), 09/11/22 11:35:00 EST, Pharmacy: [id number], Nausea Headache, 161, cm, 09/06/22 10:53:00 EST, Height Start Date: 09/06/22 Stop Date: 09/11/22 Status: Ordered Start: 06-15-2021 End: 09-04-2023 take 4 mg by mouth every eight hours as needed Ondansetron Active 4 MG PO EVERY 8 HOURS NEEDED June 15, 2021 1:00am pantoprazole 40 mg delayed release oral tablet (4 sources) Proton Pump Inhibitor Start: 03-04-2023 pantoprazole 40 mg oral enteric coated tablet Dose : 40 mg = 1 tab(s), Oral, qDay, # 90 tab(s), 1 Refill(s), Pharmacy: [facility] #[id number], Attention deficit disorder Skin tags, multiple acquired, 161, cm, 01/23/23 14:50:00 EDT, Height, kg, 01/23/23 14:50:00 EDT, Dosing Weight Start Date: 03/04/23 Status: Ordered polyethylene glycol 3350 17818 mg powder for oral solution (2 sources) Osmotic Laxative Start: 10-24-2023 take 1 g by mouth twice daily Polyethylene Glycol 3350 Active GM PO TWICE A DAY October 24, 2023 12:00am sulfamethoxazole 800 mg / trimethoprim 160 mg oral tablet (1 source) Dihydrofolate Reductase Inhibitor Antibacterial, Sulfonamide Antimicrobial Start: 08-27-2023 End: 09-06-2023 take 1 tablet by mouth twice daily Bactrim DS 800 mg-160 mg oral tablet Dose = 1 tab(s), Oral, BID, X 10 day(s), # 20 tab(s), 0 Refill(s), Pharmacy: [facility] #[id number], 63.4, cm, 08/27/23 16:20:00 EST, Height, 80.1, kg, 08/27/23 16:20:00 EST, Dosing Weight Start Date: 08/27/23 Stop Date: 09/06/23 Status: Ordered Vitamin B12 1000 mcg oral tablet (5 sources) Start: 05-18-2024 Vitamin B12 1000 mcg oral tablet Dose : 1,000 mcg = 1 tab(s), Oral, qDay, # 30 tab(s), 0 Refill(s) Start Date: 05/18/24 Status: Ordered Quantity: 30.0 Unit: tab(s) Repeat number: 1 Start: 05-18-2024 Vitamin B12 10 00 mcg oral tablet Dose : 1,000 mcg = 1 tab(s), Oral, qDay, # 30 tab(s), 0 Refill(s) Start Date: 05/18/24 Status: Ordered Vitamin D3 (11 sources) Start: 09-11-2023 Vitamin D3 qDa y, 0 Refill(s) Start Date: 09/11/23 Status: Ordered Repeat number: 1 Start: 09-11-2023 Vitamin D3 qDa y, 0 Refill(s) Start Date: 09/11/23 Status: Ordered Completed/Discontinued Medications Medication Drug Class(es) Dates Sig (Normalized) Sig (Original) oxyCODONE hydrochloride 5 mg oral capsule (3 sources) Opioid Agonist Start: 06-15-2021 End: 10-24-2023 take 5 mg by mouth twice daily Oxycodone Discontinued 5 MG PO TWICE A DAY 12 June 15, 2021 October 24, 2023 1:20pm tamsulosin hydrochloride 0.4 mg oral capsule (3 sources) alpha-Adrenergic Armando Start: 06-17-2021 End: 10-24-2023 take 0.4 mg by mouth once daily Tamsulosin Discontinued 0.4 MG PO DAILY@1730 June 17, 2021 1:00am October 24, 2023 1:20pm tiZANidine 4 mg oral tablet (3 sources) Central alpha-2 Adrenergic Agonist Start: 09-04-2023 End: 09-11-2023 tiZANidine 4 mg oral tablet Dose : 4 mg = 1 tab(s), Oral, q8h, PRN as needed for muscle spasm, # 21 tab(s), 0 Refill(s), Pharmacy: [facility] #[id number], Abdominal pain, left lower quadrant Low back pain, 161, cm, 09/04/23 13:28:00 EST, Height, kg, 09/04/23 13:28:00 EST, Dosing Weight Start Date: 09/04/23 Stop Date: 09/11/23 Status: Ordered Problems Active Problems Problem Classification Problem Date Documented Da te Episodic/Chronic Abdominal pain (20 sources) Left lower quadrant pain; Translations: [Left flank pain] Onset: 4 09-06-2022 Episodic Acute bronchitis (2 sources) Acute bronchitis 07-08-2024 Episodic Anxiety disorders (19 sources) Anxiety disorder; Translations: [Anxiety disorder, unspecified] Onset: Chronic Attention-deficit, conduct, and disruptive behavior disorders (15 sources) Attention deficit hyperactivity disorder, 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 Contraceptive and procreative management (10 sources) Oral contraception 01-08-2024 Episodic Disorders usually diagnosed in infancy, childhood, or adolescence (3 sources) 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 childhood and adolescence; Translations: [Behavioral and emotional disorder with onset in childhood] Onset: 4 Chronic Esophageal disorders (14 sources) Gastroesophageal reflux disease without esophagitis 12-26-2022 Chronic Genitourinary symptoms and ill-defined conditions (6 sources) Urinary incontinence 05-18-2024 Chronic Genitourinary symptoms and ill-defined conditions (20 sources) Dysuria; Translations: [Stone in urine] 09-06-2022 Episodic Headache; including migraine (15 sources) Headache 09-06-2022 Episodic Immunizations and screening for infectious disease (2 sources) Contact with and (suspected) exposure to other viral communicable diseases; Translations: [Contact with and (suspected) exposure to other viral communicable diseases] Onset: Episodic Lymphadenitis (9 sources) Lymphadenitis; Translations: [Generalized enlarged lymph nodes] 04-28-2024 Episodic Malaise and fatigue (16 sources) Fatigue; Translations: [Other fatigue] Onset: 4 08-27-2023 Episodic Mycoses (20 sources) Mycosis; Translations: [Candidiasis] 09-09-2023 Episodic Nausea and vomiting (18 sources) Nausea; Translations: [Vomiting] 09-06-2022 Episodic Nonmalignant breast conditions (20 sources) Breast tenderness; Translations: [Cyst of breast] 08-27-2023 Episodic Other complications of ; puerperium affecting management of mother (14 sources) Increased 08-27-2023 Episodic Other connective tissue disease (14 sources) Muscle pain 08-27-2023 Episodic Other connective tissue disease (2 sources) Myalgia, unspecified site; Translations: [Myalgia, unspecified site] Onset: 4 Episodic Other gastrointestinal disorders (9 sources) Irritable bowel syndrome 04-09-2024 Chronic Other gastrointestinal disorders (10 sources) Constipation 10-03-2023 Episodic Other gastrointestinal disorders (1 source) Constipation, unspecified; Translations: [Constipation, unspecified] Episodic Other screening for suspected conditions (not mental disorders or infectious disease) (7 sources) Encounter for screening for malignant neoplasm of cervix; Translations: [Mammography abnormal] Onset: 4 Episodic Other skin disorders (14 sources) Multiple skin tags 11-28-2022 Episodic Other skin disorders (1 source) Dystrophia unguium; Translations: [Nail dystrophy] Episodic Other skin disorders (9 sources) Trachyonychia 04-23-2024 Episodic Other skin disorders (2 sources) Loss of hair 12-16-2024 Episodic Other upper respiratory infections (2 sources) Chronic sinusitis 07-28-2024 Chronic Ovarian cyst (20 sources) Cyst of ovary; Translations: [Unspecified ovarian cyst, unspecified side] Onset: 08-27-2023 Episodic Residual codes; unclassified (3 sources) Pain; Translations: [Pain, unspecified] 06-23-2021 Episodic Residual codes; unclassified (1 source) Other general symptoms and signs; Translations: [Clinical finding (finding)] Episodic Residual codes; unclassified (9 sources) Intolerant of ambient temperature 04-23-2024 Episodic Residual codes; unclassified (8 sources) Insomnia 04-28-2024 Episodic Spondylosis; intervertebral disc disorders; other back problems (15 sources) Low back pain 09-06-2022 Episodic Thyroid disorders (8 sources) Goiter 04-28-2024 Chronic Thyroid disorders (2 sources) Disorder of thyroid gland 12-16-2024 Episodic Unclassified (1 source) COVID-19; Translations: [COVID-19] Onset: Unclassified (12 sources) Cancer cervix screening status 09-11-2023 Urinary tract infections (15 sources) Cystitis 12-07-2021 Episodic Viral infection (8 sources) Queenie-Cardona virus disease 04-28-2024 Episodic Viral infection (15 sources) Disease caused by 2019-nCoV 12-07-2021 Past or Other Problems Problem Classification Problem Date Documented Da te Episodic/Chronic Calculus of urinary tract (20 sources) History of calculus of kidney; Translations: [Ureteric stone] Onset: 08-28-2023 12-07-2021 Episodic Fever of unknown origin (7 sources) Pyrexia of unknown origin; Translations: [Fever, unspecified] Onset: 09-16-2024 05-18-2024 Episodic Results Test Name Value Interpretation Reference Range [facility] 12-26-2024 Cortisol Saliva 0.073 UG/DL Normal [facility] Comment on above: Result Comment: This test was developed and its performance characteristics determined by [employer]. It has not been cleared or approved by the Food and Drug Administration. Reference Range: Children and Adults: 8:00a.m.: 0.025 - 0.600 Noon: <0.010 - 0.330 4:00p.m.: 0.010 - 0.200 Bedtime (9:00p.m.-Midnight): <0.010 - 0.090 Performed At: [facility] [address] [place], [place] [id number] Linda Dye MD Ph:[phone] Performed By: #### [id number] #### [address] [address] US THYROIDon 12-24-2024 US THYROID ORIGINAL EXAMINATION: ULTRASOUND OF THE THYROID WITH COLOR DOPPLER FLOW EVALUATION12/24/2024 1:56 pm ULTRASOUND OF THE THYROID: COMPARISON: CT soft tissue neck 05/11/2024 TECHNIQUE: This report is based on interpretation of permanently recorded ultrasound images. HISTORY: ORDERING SYSTEM PROVIDED HISTORY: Reason for Exam: thyromegaly, patient complains of swollen thyroid, lethargy, family history of thyroid cancer in the mother FINDINGS: RIGHT lobe: 4.5 x 1.0 x 1.6 cm LEFT lobe: 4.1 x 0.9 x 1.1 cm Isthmus is 0.1. The gland is homogeneous with normal vascularity. No suspicious focal thyroid abnormality is seen. A tiny 3 mm hypoechoic nodule in the lower right lobe is considered a benign finding that requires no follow-up imaging. No lymphadenopathy is seen in the visualized portions of the neck. IMPRESSION: Nonenlarged thyroid. No suspicious thyroid nodule that requires follow-up imaging is seen. Interpreted by: Eloina Shah MD Preliminary Report By: Eloina Shah MD Electronically signed By Eloina Shah MD Dictated Date: 12/24/2024 3:00:04 PM Prelim Date: 12/24/2024 3:01:47 PM Sign Date: 12/24/2024 3:01:47 PM Ordering Provider: PRESTON Huffman [facility] TFTESTon 12-21-2024 Free Testost Direct 0.2 pg/mL Normal 0.0-4.2 [facility] Comment on above: Result Comment: Perf ormed At: [facility] [address] [id number] Danilo Merida MD Ph:[phone] Performed At: [facility] [address] [place], [place] [id number] Lupillo Saunders PhD Ph:[phone] Performed By: #### [id number] #### [place] [address] Testosterone Lvl 20 ng/dL Normal 8-60 [facility] Comment on above: Performed By: #### 5 [id number] #### [place] [address] April 12-21-2024 TSI <0.10 Normal 0.00-0.55 [facility] Comment on above: Result Comment: Perf ormed At: [facility] [address] [id number] Danilo Merida MD Ph:[phone] Performed By: #### 5 [id number] #### [place] [address] .Auto Diffon 12-18-2024 Basophil, Absolute 0.0 10 3/mcL Normal 0.0-0.3 [facility] Comment on above: Performed By: #### A DIFF, CBC, ANEU, TSH, FE, FT4 #### [place] [address] #### B12 #### [address] [address] Basophils/100 WBC (Bld) 0.8 % Normal 0.0-2.5 [facility] Comment on above: Performed By: #### A DIFF, CBC, ANEU, TSH, FE, FT4 #### [place] [address] #### B12 #### [address] [address] Eosinophil, Absolute 0.1 10 3/mcL Normal 0.0-0.[address] [facility] Comment on above: Performed By: #### A DIFF, CBC, ANEU, TSH, FE, FT4 #### [place] [address] #### B12 #### [address] [address] Eosinophils/100 WBC (Bld) 1.5 % Normal 0.0-6.0 [facility] Comment on above: Performed By: #### A DIFF, CBC, ANEU, TSH, FE, FT4 #### [address] [address] #### B12 #### [address] [address] Lymphocyte, Absolute 2.5 10 3/mcL Normal 0.9-4.[address] [facility] Comment on above: Performed By: #### A DIFF, CBC, ANEU, TSH, FE, FT4 #### [address] [address] #### B12 #### [address] [address] Lymphocytes/100 WBC (Bld) 43.4 % High 20.0-40.0 [facility] Comment on above: Performed By: #### A DIFF, CBC, ANEU, TSH, FE, FT4 #### [address] [address] #### B12 #### [address] [address] Monocyte, Absolute 0.5 10 3/mcL Normal 0.1-1.4 [facility] Comment on above: Performed By: #### A DIFF, CBC, ANEU, TSH, FE, FT4 #### [address] [address] #### B12 #### [address] [address] Monocytes/100 WBC (Bld) 7.7 % Normal 2.0-13.0 [facility] Comment on above: Performed By: #### A DIFF, CBC, ANEU, TSH, FE, FT4 #### [address] [address] #### B12 #### [address] [address] Neutrophils/100 WBC (Bld) 46.6 % Low 50.0-75.0 [facility] Comment on above: Performed By: #### A DIFF, CBC, ANEU, TSH, FE, FT4 #### [address] [address] #### B12 #### [address] [address] .GFRon 12-18-2024 Estimated Glomerular Filtration Rate 117 ml/min/1.73sqm Normal [facility] Comment on above: Result Comment: Stages of Chronic Kidney Disease (CKD) Stage Description eGFR(ml/min/1.73 sq.m.) CKD 1 Normal kidney function or >=90 normal kindney function with possible kidney damage (ex. Proteinuria) CKD 2 Kidney damage with mild loss 60-89 of kidney function CKD 3a Mild to moderate loss of kidney 45-59 function CKD 3b Moderate to severe loss of 30-44 of kindey function CKD 4 Severe loss of kidney function 15-29 CKD 5 Kidney failure <15 Note: (go live 2024) the eGFR calculation was updated to the 2020 CKD-EPI creatinine equation without a race factor to calculate the eGFR results. Performed By: #### A DIFF, CBC, ANEU, TSH, FE, FT4 #### [address] [address] #### B12 #### [address] [address] .NEUABSon 12-18-2024 Neutrophil, Absolute 2.7 10 3/mcL Normal 2.3-8.[address] [facility] Comment on above: Performed By: #### A DIFF, CBC, ANEU, TSH, FE, FT4 #### [address] [address] #### B12 #### [address] [address] A1Con 12-18-2024 Glucose [Mass/Vol] 100 mg/dL Normal [facility] Comment on above: Result Comment: Karen mated Average Glucose calculated by equation ((28.7xA1C)-46.7) Estimated average glucose (eAG) is a calculated value from Hemoglobin A1C and is product sales representative of the average blood glucose level in the last 2-3 month period. Normal range: less than 114 mg/dL Performed By: #### A DIFF, CBC, ANEU, TSH, FE, FT4 #### [address] [address] #### B12 #### [address] [address] HbA1c (Bld) [Mass fraction] 5.1 % Normal 4.3-6.4 [facility] Comment on above: Performed By: #### A DIFF, CBC, ANEU, TSH, FE, FT4 #### [address] [address] #### B12 #### [place] [address] B12on 12-18-2024 Cobalamin (Vitamin B12) [Mass/Vol] 443 pg/mL Normal 211-911 [facility] Comment on above: Performed By: #### A DIFF, CBC, ANEU, TSH, FE, FT4 #### [address] [address] #### B12 #### [place] [address] CBCon 12-18-2024 Erythrocyte distribution width (RBC) [Ratio] 13.1 % Normal 11.5-15.5 [facility] Comment on above: Performed By: #### A DIFF, CBC, ANEU, TSH, FE, FT4 #### [address] [address] #### B12 #### [place] [address] Hematocrit (Bld) [Volume fraction] 41.6 % Normal 34.0-46.0 [facility] Comment on above: Performed By: #### A DIFF, CBC, ANEU, TSH, FE, FT4 #### [address] [address] #### B12 #### [place] [address] Hgb 14.0 G/dL Normal 12.0-16.0 [facility] Comment on above: Performed By: #### A DIFF, CBC, ANEU, TSH, FE, FT4 #### [place] [address] #### B12 #### [place] [address] MCH (RBC) [Entitic mass] 30.9 pg Normal 27.0-33.0 [facility] Comment on above: Performed By: #### A DIFF, CBC, ANEU, TSH, FE, FT4 #### [place] [address] #### B12 #### [place] [address] MCHC 33.6 G/dL Normal 32.0-36.0 [facility] Comment on above: Performed By: #### A DIFF, CBC, ANEU, TSH, FE, FT4 #### [place] [address] #### B12 #### [place] [address] MCV (RBC) [Entitic vol] 91.9 fL Normal 80.0-99.0 [facility] Comment on above: Performed By: #### A DIFF, CBC, ANEU, TSH, FE, FT4 #### [place] [address] #### B12 #### [place] [address] Platelet 238 10 3/mcL Normal 150-450 [facility] Comment on above: Performed By: #### A DIFF, CBC, ANEU, TSH, FE, FT4 #### [place] [address] #### B12 #### [place] [address] Platelet mean volume (Bld) [Entitic vol] 9.1 fL Normal 6.6-10.5 [facility] Comment on above: Performed By: #### A DIFF, CBC, ANEU, TSH, FE, FT4 #### [address] [address] #### B12 #### [address] [address] RBC 4.53 10 6/mcL Normal 4.10-5.30 [facility] Comment on above: Performed By: #### A DIFF, CBC, ANEU, TSH, FE, FT4 #### [place] [address] #### B12 #### [place] [address] WBC 5.8 10 3/mcL Normal 4.5-10.8 [facility] Comment on above: Performed By: #### A DIFF, CBC, ANEU, TSH, FE, FT4 #### [place] [address] #### B12 #### [address] 12-18-2024 Albumin Level 3.5 G/dL Normal 3.5-5.0 [facility] Comment on above: Performed By: #### A DIFF, CBC, ANEU, TSH, FE, FT4 #### [place] [address] #### B12 #### [place] [address] Albumin/Globulin [Mass ratio] 1.1 {ratio} Normal 1.1-2.5 [facility] Comment on above: Performed By: #### A DIFF, CBC, ANEU, TSH, FE, FT4 #### [address] [address] #### B12 #### [place] [address] ALP [Catalytic activity/Vol] 44 U/L Normal 40-135 [facility] Comment on above: Performed By: #### A DIFF, CBC, ANEU, TSH, FE, FT4 #### [place] [address] #### B12 #### [address] [address] ALT [Catalytic activity/Vol] 19 U/L Normal 14-59 [facility] Comment on above: Performed By: #### A DIFF, CBC, ANEU, TSH, FE, FT4 #### [address] [address] #### B12 #### [address] [address] AST [Catalytic activity/Vol] 16 U/L Normal 10-40 [facility] Comment on above: Performed By: #### A DIFF, CBC, ANEU, TSH, FE, FT4 #### [place] [address] #### B12 #### [address] [address] Bili Total 0.4 mg/dL Normal 0.2-1.0 [facility] Comment on above: Result Comment: Use of this assay is not recommended for patients undergoing treatment with eltrombopag due to the potential for falsely elevated results. Performed By: #### A DIFF, CBC, ANEU, TSH, FE, FT4 #### [place] [address] #### B12 #### [address] [address] BUN/Creatinine Ratio 19 ratio Normal 7-27 [facility] Comment on above: Performed By: #### A DIFF, CBC, ANEU, TSH, FE, FT4 #### [place] [address] #### B12 #### [address] [address] Calcium [Mass/Vol] 8.5 mg/dL Normal 8.4-10.2 [facility] Comment on above: Performed By: #### A DIFF, CBC, ANEU, TSH, FE, FT4 #### [place] [address] #### B12 #### [address] [address] Chloride [Moles/Vol] 107 mmol/L Normal 98-107 [facility] Comment on above: Performed By: #### A DIFF, CBC, ANEU, TSH, FE, FT4 #### [place] [address] #### B12 #### [place] [address] CO2 [Moles/Vol] 25 mmol/L Normal 22-29 [facility] Comment on above: Performed By: #### A DIFF, CBC, ANEU, TSH, FE, FT4 #### [place] [address] #### B12 #### [place] [address] Creatinine [Mass/Vol] 0.63 mg/dL Normal 0.51-0.95 [facility] Comment on above: Performed By: #### A DIFF, CBC, ANEU, TSH, FE, FT4 #### [place] [address] #### B12 #### [place] [address] Electrolyte Balance 9.0 mEq/L Normal 4.0-15.0 [facility] Comment on above: Performed By: #### A DIFF, CBC, ANEU, TSH, FE, FT4 #### [place] [address] #### B12 #### [place] [address] Globulin 3.1 G/dL Normal 2.7-4.4 [facility] Comment on above: Performed By: #### A DIFF, CBC, ANEU, TSH, FE, FT4 #### [place] [address] #### B12 #### [place] [address] Glucose [Mass/Vol] 93 mg/dL Normal 70-105 [facility] Comment on above: Performed By: #### A DIFF, CBC, ANEU, TSH, FE, FT4 #### [place] [address] #### B12 #### [address] [address] Potassium [Moles/Vol] 3.9 mmol/L Normal 3.5-5.1 [facility] Comment on above: Performed By: #### A DIFF, CBC, ANEU, TSH, FE, FT4 #### [place] [address] #### B12 #### [place] [address] Sodium [Moles/Vol] 141 mmol/L Normal 136-145 [facility] Comment on above: Performed By: #### A DIFF, CBC, ANEU, TSH, FE, FT4 #### [place] [address] #### B12 #### [place] [address] Total Protein 6.6 G/dL Normal 6.4-8.2 [facility] Comment on above: Performed By: #### A DIFF, CBC, ANEU, TSH, FE, FT4 #### [place] [address] #### B12 #### [place] [address] Urea nitrogen [Mass/Vol] 12 mg/dL Normal 7-18 [facility] Comment on above: Performed By: #### A DIFF, CBC, ANEU, TSH, FE, FT4 #### [place] [address] #### B12 #### [address] [address] DHEASon 12-18-2024 DHEA-SO4 47.23 mcg/dL Normal 25.90-460.2 0 [facility] Comment on above: Result Comment: No te - New Reference Range in effect 20 Performed By: #### 5 [id number] #### [address] 12-18-2024 Erythrocyte Sed Rate 5 mm/hr Normal 0-20 [facility] Comment on above: Performed By: #### A DIFF, CBC, ANEU, TSH, FE, FT4 #### [place] [address] #### B12 #### [place] [address] FEon 12-18-2024 Iron [Mass/Vol] 96 ug/dL Normal 50-170 [facility] Comment on above: Performed By: #### A DIFF, CBC, ANEU, TSH, FE, FT4 #### [place] [address] #### B12 #### [place] [address] Karis 12-18-2024 Ferritin [Mass/Vol] 15.0 ng/mL Normal 8.0-252.0 [facility] Comment on above: Performed By: #### A DIFF, CBC, ANEU, TSH, FE, FT4 #### [place] [address] #### B12 #### [place] [address] FOL 12-18-2024 Folate 13.35 ng/mL Normal 5.38-24.00 [facility] Comment on above: Performed By: #### 5 [id number] #### [place] [address] FSHon 12-18-2024 FSH 5.8 mIU/mL Normal [facility] Comment on above: Result Comment: Adul t Female FSH Reference Ranges (06/13/99): Follicular phase 2.5 - 10.2 mIU/mL Midcycle phase 3.4 - 33.4 mIU/mL Luteal phase 1.5 - 9.1 mIU/mL Post menopausal 23.0 -116.3 mIU/mL Adult Male: 1.4 - 18.1 mIU/mL Performed By: #### 5 [id number] #### [place] [address] FT3on 12-18-2024 Free T3 [Mass/Vol] 2.69 pg/mL Normal 2.30-4.00 [facility] Comment on above: Performed By: #### A DIFF, CBC, ANEU, TSH, FE, FT4 #### [address] [address] #### B12 #### [place] [address] FT4on 12-18-2024 Free T4 [Mass/Vol] 0.76 ng/dL Normal 0.76-1.46 [facility] Comment on above: Performed By: #### A DIFF, CBC, ANEU, TSH, FE, FT4 #### [place] [address] #### B12 #### [place] [address] HOMOon 12-18-2024 Homocysteine 8.5 umol/l Normal 3.7-13.9 [facility] Comment on above: Result Comment: No te - New Reference Range in effect 20 Performed By: #### A DIFF, CBC, ANEU, TSH, FE, FT4 #### [place] [address] #### B12 #### [place] [address] IBCon 12-18-2024 TIBC 463 mcg/dL High 250-450 [facility] Comment on above: Performed By: #### A DIFF, CBC, ANEU, TSH, FE, FT4 #### [place] [address] #### B12 #### [place] [address] INSLNon 12-18-2024 Insulin 7.58 munit/L Normal 2.60-37.60 [facility] Comment on above: Performed By: #### 5 [id number] #### [place] [address] LABORATORYOrdered By: SYSTEM SYSTEM on 12-18-2024 Albumin BCP dye [Mass/Vol] 3.5 G/dL Normal 3.5 - 5.0 G/dL AO ADM SS Albumin/Globulin [Mass ratio] 1.1 {ratio} Normal 1.1 - 2.5 ratio AO ADM SS ALP [Catalytic activity/Vol] 44 U/L Normal 40 - 135 U/L AO ADM SS ALT With P-5'-P [Catalytic activity/Vol] 19 U/L Normal 14 - 59 U/L AO ADM SS AST With P-5'-P [Catalytic activity/Vol] 16 U/L Normal 10 - 40 U/L AO ADM SS Basophils (Bld) [#/Vol] 0.0 103/mcL Normal 0.0 - 0.3 10^3/mcL AO Workflow SS Basophils/100 WBC (Bld) 0.8 % Normal 0.0 - 2.5 % AO Workflow SS Bilirubin [Mass/Vol] 0.4 mg/dL Normal 0.2 - 1 .0 mg/dL AO ADM SS Comment on above: Interpretive Data: U se of this assay is not recommended for patients undergoing treatment with eltrombopag due to the potential for falsely elevated results. Calcium [Mass/Vol] 8.5 mg/dL Normal 8.4 - 10. 2 mg/dL AO ADM SS Chloride [Moles/Vol] 107 mmol/L Normal 98 - 10 7 mmol/L AO ADM SS CO2 [Moles/Vol] 25 mmol/L Normal 22 - 29 mmol/L AO ADM SS Cobalamin (Vitamin B12) [Mass/Vol] 443 pg/mL Normal 211 - 911 pg/mL AH ADM SS Creatinine [Mass/Vol] 0.63 mg/dL Normal 0.51 - 0.95 mg/dL AO ADM SS DHEA-S [Mass/Vol] 47.23 ug/dL Normal 25.90 - 460.20 mcg/dL AH ADM SS Comment on above: Interpretive Data: * *Note - New Reference Range in effect 20 Electrolyte Balance 9.0 mEq/L Normal 4.0 - 15 .0 mEq/L AO ADM SS Eosinophil, Absolute 0.1 103/mcL Normal 0.0 - 0 .7 10^3/mcL AO Workflow SS Eosinophils/100 WBC (Bld) 1.5 % Normal 0.0 - 6.0 % AO Workflow SS Erythrocyte distribution width (RBC) [Ratio] 13.1 % Normal 11.5 - 15.5 % AO Workflow SS Estimated Glomerular Filtration Rate 117 ml/min/1.73sqm Invalid Interpretation Code AO Chemistry S Comment on above: Interpretive Data: Stages of Chronic Kidney Disease (CKD) Stage Description eGFR(ml/min/1.73 sq.m.) CKD 1 Normal kidney function or >=90 normal kindney function with possible kidney damage (ex. Proteinuria) CKD 2 Kidney damage with mild loss 60-89 of kidney function CKD 3a Mild to moderate loss of kidney 45-59 function CKD 3b Moderate to severe loss of 30-44 of kindey function CKD 4 Severe loss of kidney function 15-29 CKD 5 Kidney failure <15 Note: (go live 2024) the eGFR calculation was updated to the 2020 CKD-EPI creatinine equation without a race factor to calculate the eGFR results. Ferritin [Mass/Vol] 15.0 ng/mL Normal 8.0 - 25 2.0 ng/mL AO ADM SS Folate [Mass/Vol] 13.35 ng/mL Normal 5.38 - 24.00 ng/mL AH ADM SS Follitropin Qn 5.8 m[IU]/mL Invalid Interpretation Code AH ADM SS Comment on above: Interpretive Data: A dult Female FSH Reference Ranges (06/13/99): Follicular phase 2.5 - 10.2 mIU/mL Midcycle phase 3.4 - 33.4 mIU/mL Luteal phase 1.5 - 9.1 mIU/mL Post menopausal 23.0 -116.3 mIU/mL Adult Male: 1.4 - 18.1 mIU/mL Free T3 [Mass/Vol] 2.69 pg/mL Normal 2.30 - 4. 00 pg/mL AO ADM SS Free T4 [Mass/Vol] 0.76 ng/dL Normal 0.76 - 1. 46 ng/dL AO ADM SS Globulin 3.1 G/dL Normal 2.7 - 4.4 G/dL AO ADM SS Glucose [Mass/Vol] 93 mg/dL Normal 70 - 105 mg/dL AO ADM SS Glucose [Mass/Vol] 100 mg/dL Invalid Interpretation Code AO Chemistry S Comment on above: Interpretive Data: E stimated average glucose (eAG) is a calculated value from Hemoglobin A1C and is product sales representative of the average blood glucose level in the last 2-3 month period. Normal range: less than 114 mg/dL HbA1c (Bld) [Mass fraction] 5.1 % Normal 4.3 - 6.4 % AO ADM SS Hematocrit (Bld) [Volume fraction] 41.6 % Normal 34.0 - 46.0 % AO Workflow SS Hemoglobin (Bld) [Mass/Vol] 14.0 G/dL Normal 12.0 - 16.0 G/dL AO Workflow SS Homocysteine [Moles/Vol] 8.5 umol/L Normal 3.7 - 13.9 umol/L ADM SS Comment on above: Interpretive Data: * *Note - New Reference Range in effect 20 Insulin Qn 7.58 munit/L Normal 2.60 - 37.60 mU/L ADM SS Iron [Mass/Vol] 96 ug/dL Normal 50 - 170 mcg/dL AO ADM SS Iron binding capacity [Mass/Vol] 463 mcg/dL High 250 - 450 mcg/dL AO ADM SS Lutropin Qn 6.5 m[IU]/mL Invalid Interpretation Code ADM SS Comment on above: Interpretive Data: * *Note - New Reference Range in effect 20Adult Female LH Reference Ranges: Follicular phase 1.9 - 12.5 mIU/mL Midcycle phase 8.7 - 76.3 mIU/mL Luteal phase 0.5 - 16.9 mIU/mL Post menopausal 5.0 - 55.2 mIU/mL Lymphocytes (Bld) [#/Vol] 2.5 103/mcL Normal 0.9 - 4.3 10^3/mcL AO Workflow SS Lymphocytes/100 WBC (Bld) 43.4 % High 20.0 - 40.0 % AO Workflow SS MCH (RBC) [Entitic mass] 30.9 pg Normal 27.0 - 33.0 pg AO Workflow SS MCHC 33.6 G/dL Normal 32.0 - 36.0 G/dL AO Workflow SS MCV (RBC) [Entitic vol] 91.9 fL Normal 80.0 - 99.0 fL AO Workflow SS Monocytes (Bld) [#/Vol] 0.5 103/mcL Normal 0.1 - 1.4 10^3/mcL AO Workflow SS Monocytes/100 WBC (Bld) 7.7 % Normal 2.0 - 13.0 % AO Workflow SS Neutrophils (Bld) [#/Vol] 2.7 103/mcL Normal 2.3 - 8.1 10^3/mcL AO Workflow SS Neutrophils/100 WBC (Bld) 46.6 % Low 50.0 - 75.0 % AO Workflow SS Platelet mean volume (Bld) [Entitic vol] 9.1 fL Normal 6.6 - 10.5 fL AO Workflow SS Platelets (Bld) [#/Vol] 238 103/mcL Normal 150 - 450 10^3/mcL AO Workflow SS Potassium [Moles/Vol] 3.9 mmol/L Normal 3.5 - 5.1 mmol/L AO ADM SS Prolactin [Mass/Vol] 16.5 ng/mL Normal 2.0 - 3 0.0 ng/mL AH ADM SS Protein [Mass/Vol] 6.6 G/dL Normal 6.4 - 8.2 G/dL AO ADM SS RBC (Bld) [#/Vol] 4.53 106/mcL Normal 4.10 - 5.3 0 10^6/mcL AO Workflow SS Sodium [Moles/Vol] 141 mmol/L Normal 136 - 145 mmol/L AO ADM SS Thyroglobulin Ab IA Qn 25 unit/mL Normal 15 - 60 unit/mL AH ADM SS TPO Ab IA Qn unit/mL Normal 0 - 60 unit/mL AH ADM SS Urea nitrogen [Mass/Vol] 12 mg/dL Normal 7 - 18 mg/dL AO ADM SS Urea nitrogen/Creatinine [Mass ratio] 19 ratio Normal 7 - 27 ratio AO ADM SS WBC (Bld) [#/Vol] 5.8 103/mcL Normal 4.5 - 10.8 10^3/mcL AO Workflow SS LABORATORYOrdered By: Alysia Krueger on 12-18-2024 Cholesterol [Mass/Vol] 151 mg/dL Normal 0 - 2 00 mg/dL AO ADM SS Comment on above: Interpretive Data: C holesterol Reference Interval: Less than 200 Desirable 200-239 Borderline high risk 240 and above High risk Cholesterol in HDL [Mass/Vol] 65 mg/dL High 40 - 60 mg/dL AO ADM SS Cholesterol in LDL [Mass/Vol] 76 mg/dL Normal 0 - 130 mg/dL AO ADM SS ESR Photometric method (Bld) [Velocity] 5 mm/hr Normal 0 - 20 mm/hr AO Man Heme SS Triglyceride [Mass/Vol] 49 mg/dL Normal 0 - 150 mg/dL AO ADM SS Comment on above: Interpretive Data: T riglyceride Reference Interval: Less than 150 Normal 150-199 Borderline high risk 200-499 High risk 500 or higher Very high risk LHon 12-18-2024 LH 6.5 mIU/mL Normal [facility] Comment on above: Result Comment: No te - New Reference Range in effect 20Adult Female LH Reference Ranges: Follicular phase 1.9 - 12.5 mIU/mL Midcycle phase 8.7 - 76.3 mIU/mL Luteal phase 0.5 - 16.9 mIU/mL Post menopausal 5.0 - 55.2 mIU/mL Performed By: #### 5 [id number] #### [address] [address] LIPIDon 12-18-2024 Cholesterol [Mass/Vol] 151 mg/dL Normal 0-[address] [facility] Comment on above: Result Comment: Chol esterol Reference Interval: Less than 200 Desirable 200-239 Borderline high risk 240 and above High risk Performed By: #### A DIFF, CBC, ANEU, TSH, FE, FT4 #### [place] [address] #### B12 #### [address] [address] Cholesterol in HDL [Mass/Vol] 65 mg/dL High 40-60 [facility] Comment on above: Performed By: #### A DIFF, CBC, ANEU, TSH, FE, FT4 #### [address] [address] #### B12 #### [address] [address] Cholesterol in LDL [Mass/Vol] 76 mg/dL Normal 0-130 [facility] Comment on above: Performed By: #### A DIFF, CBC, ANEU, TSH, FE, FT4 #### [address] [address] #### B12 #### [address] [address] Triglyceride [Mass/Vol] 49 mg/dL Normal 0-150 [facility] Comment on above: Result Comment: Trig lyceride Reference Interval: Less than 150 Normal 150-199 Borderline high risk 200-499 High risk 500 or higher Very high risk Performed By: #### A DIFF, CBC, ANEU, TSH, FE, FT4 #### [address] [address] #### B12 #### [facility] [address] [place] [address] PROLon 12-18-2024 Prolactin 16.5 ng/mL Normal 2.0-30.0 [facility] Comment on above: Performed By: #### 5 [id number] #### [address] [address] THYABon 12-18-2024 anti-Thyroid Peroxidase <28 Normal 0-60 [facility] Comment on above: Performed By: #### 5 [id number] #### [address] [address] Thyroglobulin Ab 25 units/ml Normal 15-60 [facility] Comment on above: Performed By: #### 5 [address] #### [address] [address] CBC W/Diff, Automatedon 02- 0-2024 Absolute Lymph 1.40 X10 3/uL Normal 0.83-4.51 [facility] Comment on above: Performed By: #### L 500.4050, L700.6800, L100.0100 #### [facility] [address] [facility] [place], [address] Absolute Neut 3.1 X10 3/uL Normal 2.0-7.7 [facility] Comment on above: Performed By: #### L 500.4050, [id number], L100.0100 #### [facility] [address] [place], [address] Basophils/100 WBC (Bld) 0.6 % Normal 0-1 [facility] Comment on above: Performed By: #### L 500.4050, [id number], L100.0100 #### [facility] [address] [place], [address] Eosinophils/100 WBC (Bld) 0.0 % Normal 0-5 [facility] Comment on above: Performed By: #### L 500.4050, [id number], L100.0100 #### [facility] [address] [place], [address] Erythrocyte distribution width (RBC) [Ratio] 11.9 % Normal 11.6-14.6 [facility] Comment on above: Performed By: #### L 500.4050, [id number], L100.0100 #### [facility] [address] [place], [address] Hematocrit (Bld) [Volume fraction] 44.3 % Normal 37-47 [facility] Comment on above: Performed By: #### L 500.4050, [id number], L100.0100 #### [facility] [address] [place], [address] Hemoglobin (Bld) [Mass/Vol] 15.2 g/dL High 12.0-15.0 [facility] Comment on above: Performed By: #### L 500.4050, [id number], L100.0100 #### [facility] [address] [place], [address] IG% 0.200 Normal 0.0-0.9 [facility] Comment on above: Result Comment: IG% - Immature Granulocytes (promyelocytes, myelocytes and metamyelocytes) > 1% indicates that a LEFT SHIFT is Present. Performed By: #### L 500.4050, [id number], L100.0100 #### [facility] [address] [place], [address] Lymphocytes/100 WBC (Bld) 26.8 % Normal 19-41 [facility] Comment on above: Performed By: #### L 500.4050, [id number], L100.0100 #### [facility] [address] [place], [address] MCH (RBC) [Entitic mass] 30.8 pg Normal 27.0-32.0 [facility] Comment on above: Performed By: #### L 500.4050, [id number], L100.0100 #### [facility] [address] [place], [address] MCHC (RBC) [Mass/Vol] 34.3 g/dL Normal 32-36 [facility] Comment on above: Performed By: #### L 500.4050, [id number], L100.0100 #### [facility] [address] [place], [address] MCV (RBC) [Entitic vol] 89.9 fL Normal 81-99 [facility] Comment on above: Performed By: #### L 500.4050, L700.6800, L100.0100 #### [facility] [address] [place], [address] Monocytes/100 WBC (Bld) 13.8 % High 0-10 [facility] Comment on above: Performed By: #### L 500.4050, L700.6800, L100.0100 #### [facility] [address] [place], [address] Neutrophils/100 WBC (Bld) 58.6 % Normal 47-70 [facility] Comment on above: Performed By: #### L 500.4050, L700.6800, L100.0100 #### [facility] [address] [place], [address] Nucleated RBC (Bld) [#/Vol] 0 10*3/uL Normal 0-5 [facility] Comment on above: Performed By: #### L 500.4050, L700.6800, L100.0100 #### [facility] [address] [place], [address] Platelet mean volume (Bld) [Entitic vol] 11.2 fL Normal 6.2-12.0 [facility] Comment on above: Performed By: #### L 500.4050, L700.6800, L100.0100 #### [facility] Laboratory [address] [place], [address] Platelets (Bld) [#/Vol] 168 10*3/uL Normal 150-450 [facility] Comment on above: Performed By: #### L 500.4050, L700.6800, L100.0100 #### [facility] [address] [place], [address] RBC (Bld) [#/Vol] 4.93 10*6/uL Normal 4.2-5.4 [facility] Comment on above: Performed By: #### L 500.4050, L700.6800, L100.0100 #### [facility] [address] [place], [address] RDW SD 38.9 fl Normal 35.1-43.9 [facility] Comment on above: Performed By: #### L 500.4050, L700.6800, L100.0100 #### [facility] [address] [place], [address] WBC (Bld) [#/Vol] 5.2 10*3/uL Normal 4.4-11.0 [facility] Comment on above: Performed By: #### L 500.4050, L700.6800, L100.0100 #### [facility] [address] [place], [address] Chest 1 View (Portable)on Chest 1 View (Portable) [facility] Imaging Services [address] [place] [address] Chest 1 View (Portable) MR#: [id number] Acct: [id number] Name: PATRICA BURTON Rep #: [id number] : 1985 F 39 From: Jeniffer Alba nd, MD PCP: Dr. Dileep Lira MD Status: REG ER Study: Chest 1 View (Portable) Date of Exam: 08/30/24 Exam# [id number] Ordering Dr: Jordin Ibarra DO PROCEDURE: CHEST 1 VIEW (PORTABLE) REASON FOR EXAM: 39-year-old female, recently diagnosed with mono, cough and fever. TECHNIQUE: Frontal view of the chest. COMPARISON: None. FINDINGS: The heart size is normal. The lungs are clear. No focal consolidation, pleural effusion or pneumothorax. The bones are unremarkable. RAD/Chest 1 View (Portable) IMPRESSION: NEGATIVE CHEST. Reading Location: [facility] CC: Dr. Jordin Ibarra DO; Dr. Dileep Lira MD Instructor Tap Dancing: Signed Normal [facility] Comprehensive Metabolic Prof ilon 08-30-2024 Albumin [Mass/Vol] 3.4 g/dL Normal 3.2-5.0 [facility] Comment on above: Performed By: #### L 500.4050, L700.6800, L100.0100 #### [facility] [address] [place], [address] Albumin/Globulin [Mass ratio] 0.9 {ratio} Normal 0.9-2.4 [facility] Comment on above: Performed By: #### L 500.4050, L700.6800, L100.0100 #### [facility] [address] [place] [place], [address] ALK P 41 U/L Low 45-117 [facility] Comment on above: Performed By: #### L 500.4050, L700.6800, L100.0100 #### [facility] [address] [place], [address] ALT [Catalytic activity/Vol] 24 U/L Normal 13-56 [facility] Comment on above: Performed By: #### L 500.4050, L700.6800, L100.0100 #### [facility] [address] [place], [address] AST [Catalytic activity/Vol] 24 U/L Normal 15-37 [facility] Comment on above: Performed By: #### L 500.4050, L700.6800, L100.0100 #### [facility] [address] [place], [address] Bilirubin [Mass/Vol] 0.20 mg/dL Normal 0.20-1.00 [facility] Comment on above: Result Comment: For patients on eltrombopag therapy, use of Dimension [place] TBIL is not recommended. Performed By: #### L 500.4050, L700.6800, L100.0100 #### [facility] [address] [place], [address] BUN/CRE 13.2 RATIO Normal 10-20 [facility] Comment on above: Performed By: #### L 500.4050, L700.6800, L100.0100 #### [facility] [address] [place], [address] CA,Total 8.4 mg/dL Low 8.5-10.1 [facility] Comment on above: Performed By: #### L 500.4050, L700.6800, L100.0100 #### [facility] [address] [place], [address] Chloride [Moles/Vol] 106 mmol/L Normal 98-107 [facility] Comment on above: Performed By: #### L 500.4050, L700.6800, L100.0100 #### [facility] [address] [place], [address] CO2 [Moles/Vol] 20.0 mmol/L Low 21.0-32.0 [facility] Comment on above: Performed By: #### L 500.4050, L700.6800, L100.0100 #### [facility] [address] [place], [address] Creatinine [Mass/Vol] 0.76 mg/dL Normal 0.55-1.02 [facility] Comment on above: Result Comment: The validity of the calculated GFR GFRAA in patients over 70 years has not been determined. Clinical correlation is essential. Performed By: #### L 500.4050, L700.6800, L100.0100 #### [facility] [address] [place], [address] ECRCL 99.01 ml/min Normal [facility] Comment on above: Performed By: #### L 500.4050, L700.6800, L100.0100 #### [facility] [address] [place], [address] EST GFR - AA 110 mL/min Normal >60 [facility] Comment on above: Result Comment: Afri can Slovak GFR Calc Performed By: #### L 500.4050, L700.6800, L100.0100 #### [facility] [address] [place], [address] GAP 12 Normal 5-15 [facility] Comment on above: Performed By: #### L 500.4050, L700.6800, L100.0100 #### [facility] [address] [place], [address] GFR/1.73 sq M.predicted among non-blacks MDRD (S/P/Bld) [Vol rate/Area] 91 mL/min/{1.73_m2} Normal >60 [facility] Comment on above: Result Comment: Non- GFR Calc Performed By: #### L 500.4050, L700.6800, L100.0100 #### [facility] [address] [place], [address] Globulin (S) [Mass/Vol] 3.9 g/dL Normal 2.2-4.2 [facility] Comment on above: Performed By: #### L 500.4050, L700.6800, L100.0100 #### [facility] [address] [place], [address] Glucose [Mass/Vol] 74 mg/dL Normal 74-106 [facility] Comment on above: Performed By: #### L 500.4050, L700.6800, L100.0100 #### [facility] [address] [place], [address] Potassium [Moles/Vol] 3.1 mmol/L Low 3.5-5.1 [facility] Comment on above: Performed By: #### L 500.4050, L700.6800, L100.0100 #### [facility] [address] [place], [address] Sodium [Moles/Vol] 138 mmol/L Normal 136-145 [facility] Comment on above: Performed By: #### L 500.4050, L700.6800, L100.0100 #### [facility] [address] [place], [address] T PROT 7.3 g/dL Normal 6.4-8.2 [facility] Comment on above: Performed By: #### L 500.4050, L700.6800, L100.0100 #### [facility] [address] [place], [address] Urea nitrogen [Mass/Vol] 10 mg/dL Normal 7-18 [facility] Comment on above: Performed By: #### L 500.4050, L700.6800, L100.0100 #### [facility] [address] [place], [address] Emergency Department Summary on 08-30-2024 Emergency Department Summary [facility] Medical Records Department [address] [place] [address] Emergency Department Summary 08/30/24 MR#: [id number] Acct: [id number] Name: PATRICA BURTON Rep #: [id number] : 1985 39 From: Jordin Ibarra DO PCP: Dr. Dileep Lira MD Status:DEP ER Location: ED HPI History of Present Illness Chief Complaint: Fever Detail of Chief Complaint: Fever and cough Informant: patient Narrative Narrative: Patient presents the emergency department complaint of not feeling well for the last 4 to 5 days. She complains of a cough that is productive with phlegm and at times makes her vomit. She continues to complain of nausea. She had fever up to 103 at home. Patient states that she has been dealing with Queenie-Cardona virus illness since April of last year and she is seeing an infectious disease specialist for that. Patient complaining of headache and bodyaches. Denies sick contacts. She did just returned back to work last week. [facility] Medical History (Updated 08/30/24 @ 20:[address] Jordin Ibarra DO) Abnormal mammogram of right breast Ovarian cyst Renal colic on left side Ureterolithiasis Kidney stones Unspecified renal colic Home Medications ???Medication ???Instructions ???Recorded ???Last Taken ???Type norgestimate-ethinyl estradiol 1 tab PO DAILY hormones 06/15/21 U nknown History 0.18 mg/0.215mg/0.25mg-35 mcg(28)tablet (Tri-Sprintec (28)) B-complex with vitamin C 1 cap PO DAILY 10/24/23 Unknown Hi story cholecalciferol (vitamin D3) 250 250 mcg PO DAILY 10/24/23 Unknown History mcg (10,000 unit) capsule dextroamphetamine-amphe tamine 20 20 mg PO DAILY 10/24/23 Unknown Hi story mg tablet (Adderall) multivitamin 1 tab PO DAILY 10/24/23 Unknown Hi story polyethylene glycol 3350 17 17 g PO BID 10/24/23 Unknown Histo ry gram/dose oral powder benzonatate 200 mg capsule 200 mg PO TID PRN cough #20 caps 0 08/30/24 Unknown Rx linaclotide 290 mcg capsule 290 mcg PO DAILY 08/30/24 Unknown History (Linzess) ondansetron 4 mg disintegrating 4 mg PO Q8H PRN PRN Nausea #10 tab s 08/30/24 Unknown Rx tablet Allergy/AdvReac Type Severity Reaction Status Date / Time Penicillins Allergy Hives Verified 08/30/24 15:30 Family History (Updated 10/24/23 @ 13:17 by Ele Alcantar) Aunt Breast cancer Aunts x2 Other Cancer Heart disease Surgical History History of lithotripsy Social History (Updated 10/24/23 @ 13:18 by Ele Alcantar) Smoking Status: Never smoker alcohol intake: never substance use type: does not use ROS ROS ED Review of Systems ROS Unobtainable: other Constitutional Constitutional ED: Reports chills, fever(s) and lethargy; Denies sweats or weight loss Eyes Eyes: Denies blurry vision, change in vision or diplopia ENT ENT ED: Denies rhinorrhea or sore throat Cardiovascular Cardiovascular: Reports chest pain and racing heartbeat; Denies orthopnea Respiratory/Chest Respiratory/Chest: Reports cough and sputum; Denies dyspnea, dyspnea on exertion or orthopnea Gastrointestinal Gastrointestinal: Reports nausea and vomiting; Denies abdominal pain or diarrhea Genitourinary Genitourinary ED: Denies dysuria, hematuria or urinary frequency Musculoskeletal Musculoskeletal: Reports myalgias; Denies arthralgias, back pain or neck pain Integumentary Denies abscess, Abrasions or rash Neurologic Neurologic: Denies headache(s) or weakness Psychiatric Psychiatric: Denies anxiety, depression or suicidal thoughts Endocrine Endocrinology: Denies polydipsia, polyphagia or polyuria Hematologic/Lymphatic Hematologic/Lymphatic: Denies easy bleeding, easy bruising or lymphadenopathy Allergic/Immunologic Allergic/Immunologic ED: Denies mouth swelling, tongue swelling or urticaria EXAM Physical Exam Const Vital Signs: 08/30/24 15:27 08/30/24 18:00 08/30/24 18:05 Temperature 98.1 F 99.0 F Temperature Source Oral Oral Pulse Rate 93 94 Respiratory Rate 18 18 Respiratory Effort Normal Respiratory Pattern Normal Blood Pressure 136/103 H 132/78 H Blood Pressure Mean 114 96 Pulse Ox 99 99 Oxygen Delivery Method Room Air Room Air 08/30/24 19:00 08/30/24 20:00 Temperature 99 F 98.8 F Temperature Source Oral Oral Pulse Rate 77 96 Respiratory Rate 16 16 Respiratory Effort Respiratory Pattern Blood Pressure 126/72 H 128/78 H Blood Pressure Mean 90 94 Pulse Ox 98 99 Oxygen Delivery Method Room Air Room Air Positive well nourished and well developed General Appearance ED: well developed and NAD HEENT Reports TM's clear and moist mucous membranes normocephalic and atraumatic; Negative for trauma or tenderness Tympanic Membrane ED: Yes TM's cindi (more content not included)... Normal [facility] M100.678on 08-30-2024 SARS-CoV-2 (COVID-19) Ab IA Ql FLUABV+SARS-CoV-2+RSV Pnl Resp MIKEL+probe Copy of report sent to Infection Control Printer [id number] 08/30/241924 CRISTOBAL. RESULTS CALLED TO CUONG ALEJANDRO 08/30/241924 Zehra Roman. REPORT READ BACK BY SAME. SARS-CoV-2 (COVID 19) Negative INFLUENZA A A Positive A INFLUENZA B Negative RSV PCR Negative INFLUENZAE A Normal [facility] Comment on above: Performed By: #### L 400.0001, M100.678 #### [facility] [address] [place], [place], [address] ,Serum,hCG Quali.on 08-30-2024 HCG, SERUM QUAL Negative Normal [facility] Comment on above: Performed By: #### L 500.4050, L700.6800, L100.0100 #### [facility] [address] [place], [address] Urinalysis, Completeon 08-30 BACTERIA 2+ /hpf Normal None Seen [facility] Comment on above: Order Comment: CLEAN CATCH Performed By: #### L 400.0001, M100.678 #### [facility] [address] [place], [address] EPI,SQUAMOUS 0-5 SEEN Normal 5-10 [facility] Comment on above: Order Comment: CLEAN CATCH Performed By: #### L 400.0001, M100.678 #### [facility] [address] [place], [address] EPI,TRANSITION 0-5 SEEN Normal 0-5 [facility] Comment on above: Order Comment: CLEAN CATCH Performed By: #### L 400.0001, M100.678 #### [facility] [address] [place], [address] Mucus Ql (Urine sed) 3+ /hpf Normal [facility] Comment on above: Order Comment: CLEAN CATCH Performed By: #### L 400.0001, M100.678 #### [facility] [address] [place], [address] RBC 0-5 SEEN Normal 0-5 [facility] Comment on above: Order Comment: CLEAN CATCH Performed By: #### L 400.0001, M100.678 #### [facility] [address] [place], [address] WBC 0-5 SEEN Normal 0-5 [facility] Comment on above: Order Comment: CLEAN CATCH Performed By: #### L 400.0001, M100.678 #### [facility] [address] [place], [address] [facility] LCon 07-12-2024 Order Number [id number] Normal [facility] Comment on above: Performed By: #### A DIFF, CBC, ANEU, TSH, FE, FT4 #### [address] [place] [address] [address] #### B12 #### [place] [address] LC Test Name EBV, Quantitative PCR Normal [facility] Comment on above: Performed By: #### A DIFF, CBC, ANEU, TSH, FE, FT4 #### [place] [address] #### B12 #### [place] [address] CMVon 07-09-2024 CMV IgG Antibody Negative Normal [facility] Comment on above: Result Comment: INTE RPRETATION OF CMV IgG BY EIA: Negative: No significant level of CMV IgG antibodies detected. Positive: Significant level of CMV IgG antibodies Detected. Indicative of Current or Previous infection. Equivocal: Equivocal for CMV antibodies. Repeat testing in 14 days is suggested. Performed By: #### A DIFF, CBC, ANEU, TSH, FE, FT4 #### [place] [address] #### B12 #### [place] [address] CMV IgM Antibody Negative Normal [facility] Comment on above: Result Comment: INTE RPRETATION OF CMV IgM BY EIA: Negative: No significant level of CMV IgM antibodies detected. Positive: Significant level of CMV IgM antibodies Detected. May be indicative of current or recent infection. Equivocal: Equivocal for CMV antibodies. Repeat testing in 14 days is suggested. Performed By: #### A DIFF, CBC, ANEU, TSH, FE, FT4 #### [place] [address] #### B12 #### [place] [address] CMVCSFon 07-09-2024 CMV PCR Negative Normal Negative [facility] Comment on above: Result Comment: No C ytomegalovirus DNA Detected. This test was developed and its performance characteristics [facility] It has not been cleared or approved by the Food and Drug Administration. The FDA has determined that such clearance or approval is not necessary. Performed At: [address] [id number] Danilo Merida MD Ph:[phone] Performed By: #### A DIFF, CBC, ANEU, TSH, FE, FT4 #### [place] [address] #### B12 #### [place] [address] Misc LCon 07-08-2024 [facility] Test Result COMMENT Normal [facility] Comment on above: Result Comment: Test Ordered: [id number] Queenie-Cardona DNA Quant, PCR EBV DNA, Quant PCR, Plasma Negative IU/mL Reference Range: Negative No EBV DNA detected. The linear range of this assay is 35 - 100,000,000 IU/mL Performed At: [facility] [address], [place] [id number] Lupillo Saunders PhD Ph:[phone] Performed At: [facility] [address] [id number] Danilo Merida MD Ph:[phone] Performed By: #### A DIFF, CBC, ANEU, TSH, FE, FT4 #### [place] [address] #### B12 #### [place] [address] RPRon 07-07-2024 Reagin Ab RPR Ql (S) Non-Reactive Normal Non-Miriam ctiv e [facility] Comment on above: Result Comment: The RPR test is a non-treponemal assay useful as an aid in the diagnosis of primary and secondary syphilis. It converts to positive generally within 2 weeks after the appearance of a lesion. This test is also useful for monitoring response to antibiotic therapy. A positive RPR screening test will be followed by the FTA ABS test. False positive RPR tests may occur in 1) patients with underlying autoimmune disorders, 2) elderly patients, 3) , and 4) other conditions with abnormal serum globulins. Performed By: #### A DIFF, CBC, ANEU, TSH, FE, FT4 #### [place] [address] #### B12 #### [place] [address] .Auto Diffon 07-06-2024 Basophil, Absolute 0.0 10 3/mcL Normal 0.0-0.2 [facility] Comment on above: Performed By: #### G FR, ESR, ANEU, 187094, HIVRP, ADIFF, CMP, CBC #### [address] [address] #### HEPAC, IMMUN, RPR, CMV #### [address] [address] Basophils/100 WBC (Bld) 0.5 % Normal 0.0-2.5 [facility] Comment on above: Performed By: #### G FR, ESR, ANEU, 857799, HIVRP, ADIFF, CMP, CBC #### [place] [address] #### HEPAC, IMMUN, RPR, CMV #### [address] [address] Eosinophil, Absolute 0.1 10 3/mcL Normal 0.0-0.[address] [facility] Comment on above: Performed By: #### G FR, ESR, ANEU, 950122, HIVRP, ADIFF, CMP, CBC #### [place] [address] #### HEPAC, IMMUN, RPR, CMV #### [address] [address] Eosinophils/100 WBC (Bld) 0.9 % Normal 0.0-7.0 [facility] Comment on above: Performed By: #### G FR, ESR, ANEU, 752421, HIVRP, ADIFF, CMP, CBC #### [address] [address] #### HEPAC, IMMUN, RPR, CMV #### [address] [address] Lymphocyte, Absolute 2.6 10 3/mcL Normal 0.9-4.[address] [facility] Comment on above: Performed By: #### G FR, ESR, ANEU, 600545, HIVRP, ADIFF, CMP, CBC #### [place] [address] #### HEPAC, IMMUN, RPR, CMV #### [address] [address] Lymphocytes/100 WBC (Bld) 33.0 % Normal 20.0-40.0 [facility] Comment on above: Performed By: #### G FR, ESR, ANEU, 646360, HIVRP, ADIFF, CMP, CBC #### [place] [address] #### HEPAC, IMMUN, RPR, CMV #### [address] [address] Monocyte, Absolute 0.5 10 3/mcL Normal 0.1-1.4 [facility] Comment on above: Performed By: #### G FR, ESR, ANEU, 567164, HIVRP, ADIFF, CMP, CBC #### [place] [address] #### HEPAC, IMMUN, RPR, CMV #### [address] [address] Monocytes/100 WBC (Bld) 5.8 % Normal 2.0-13.0 [facility] Comment on above: Performed By: #### G FR, ESR, ANEU, 767754, HIVRP, ADIFF, CMP, CBC #### [place] [address] #### HEPAC, IMMUN, RPR, CMV #### [address] [address] Neutrophils/100 WBC (Bld) 59.8 % Normal 50.0-75.0 [facility] Comment on above: Performed By: #### G FR, ESR, ANEU, 719369, HIVRP, ADIFF, CMP, CBC #### [place] [address] #### HEPAC, IMMUN, RPR, CMV #### [address] [address] .GFRon 07-06-2024 GFR 112 ml/min/1.73sqm Normal [facility] Comment on above: Result Comment: GFR Population mean for , Non- Americans Ages 20-29 = 116 mL/min/1.73 sq.m. Ages 30-39 = 107 mL/min/1.73 sq.m. Ages 40-49 = 99 mL/min/1.73 sq.m. Ages 50-59 = 93 mL/min/1.73 sq.m. Ages 60-69 = 85 mL/min/1.73 sq.m. Ages 70+ = 75 mL/min/1.73 sq.m. Chronic Kidney Disease: Less than 60 mL/min/1.73 square meters End Stage Renal Disease: Less than 15 mL/min/1.73 square meters Performed By: #### A DIFF, CBC, ANEU, TSH, FE, FT4 #### [address] [address] #### B12 #### [place] [address] GFR Non- 93 ml/min/1.73sqm Normal [facility] Comment on above: Result Comment: GFR Population mean for , Non- Americans Ages 20-29 = 116 mL/min/1.73 sq.m. Ages 30-39 = 107 mL/min/1.73 sq.m. Ages 40-49 = 99 mL/min/1.73 sq.m. Ages 50-59 = 93 mL/min/1.73 sq.m. Ages 60-69 = 85 mL/min/1.73 sq.m. Ages 70+ = 75 mL/min/1.73 sq.m. Chronic Kidney Disease: Less than 60 mL/min/1.73 square meters End Stage Renal Disease: Less than 15 mL/min/1.73 square meters Performed By: #### A DIFF, CBC, ANEU, TSH, FE, FT4 #### [address] [address] #### B12 #### [address] [address] .NEUABSon 07-06-2024 Neutrophil, Absolute 4.8 10 3/mcL Normal 2.3-8.1 [facility] Comment on above: Performed By: #### A DIFF, CBC, ANEU, TSH, FE, FT4 #### [address] [address] #### B12 #### [address] [address] CBCon 07-06-2024 Erythrocyte distribution width (RBC) [Ratio] 12.9 % Normal 11.5-15.5 [facility] Comment on above: Performed By: #### G FR, ESR, ANEU, 997658, HIVRP, ADIFF, CMP, CBC #### [place] [address] #### HEPAC, IMMUN, RPR, CMV #### [address] [address] Hematocrit (Bld) [Volume fraction] 43.9 % Normal 34.0-46.0 [facility] Comment on above: Performed By: #### G FR, ESR, ANEU, 469582, HIVRP, ADIFF, CMP, CBC #### [place] [address] #### HEPAC, IMMUN, RPR, CMV #### [address] [address] Hgb 15.0 G/dL Normal 12.0-16.0 [facility] Comment on above: Performed By: #### G FR, ESR, ANEU, 131308, HIVRP, ADIFF, CMP, CBC #### [place] [address] #### HEPAC, IMMUN, RPR, CMV #### [address] [address] MCH (RBC) [Entitic mass] 31.6 pg Normal 27.0-33.0 [facility] Comment on above: Performed By: #### G FR, ESR, ANEU, 656442, HIVRP, ADIFF, CMP, CBC #### [place] [address] #### HEPAC, IMMUN, RPR, CMV #### [address] [address] MCHC 34.2 G/dL Normal 32.0-36.0 [facility] Comment on above: Performed By: #### G FR, ESR, ANEU, 697984, HIVRP, ADIFF, CMP, CBC #### [address] [address] #### HEPAC, IMMUN, RPR, CMV #### [place] [address] MCV (RBC) [Entitic vol] 92.4 fL Normal 80.0-99.0 [facility] Comment on above: Performed By: #### G FR, ESR, ANEU, 197391, HIVRP, ADIFF, CMP, CBC #### [place] [address] #### HEPAC, IMMUN, RPR, CMV #### [place] [address] Platelet 304 10 3/mcL Normal 150-450 [facility] Comment on above: Performed By: #### G FR, ESR, ANEU, 778547, HIVRP, ADIFF, CMP, CBC #### [place] [address] #### HEPAC, IMMUN, RPR, CMV #### [place] [address] Platelet mean volume (Bld) [Entitic vol] 8.5 fL Normal 6.6-10.5 [facility] Comment on above: Performed By: #### G FR, ESR, ANEU, 162673, HIVRP, ADIFF, CMP, CBC #### [place] [address] #### HEPAC, IMMUN, RPR, CMV #### [place] [address] RBC 4.75 10 6/mcL Normal 4.10-5.30 [facility] Comment on above: Performed By: #### G FR, ESR, ANEU, 059544, HIVRP, ADIFF, CMP, CBC #### [place] [address] #### HEPAC, IMMUN, RPR, CMV #### [place] [address] WBC 8.0 10 3/mcL Normal 4.5-10.8 [facility] Comment on above: Performed By: #### G FR, ESR, ANEU, 773584, HIVRP, ADIFF, CMP, CBC #### [place] [address] #### HEPAC, IMMUN, RPR, CMV #### [place] [address] CMPon 07-06-2024 Albumin Level 3.5 G/dL Normal 3.5-5.0 [facility] Comment on above: Performed By: #### A DIFF, CBC, ANEU, TSH, FE, FT4 #### [place] [address] #### B12 #### [place] [address] Albumin/Globulin [Mass ratio] 1.0 {ratio} Low 1.1-2.5 [facility] Comment on above: Performed By: #### A DIFF, CBC, ANEU, TSH, FE, FT4 #### [place] [address] #### B12 #### [place] [address] ALP [Catalytic activity/Vol] 51 U/L Normal 40-135 [facility] Comment on above: Performed By: #### A DIFF, CBC, ANEU, TSH, FE, FT4 #### [place] [address] #### B12 #### [place] [address] ALT [Catalytic activity/Vol] 14 U/L Normal 14-59 [facility] Comment on above: Performed By: #### A DIFF, CBC, ANEU, TSH, FE, FT4 #### [place] [address] #### B12 #### [place] [address] AST [Catalytic activity/Vol] 15 U/L Normal 10-40 [facility] Comment on above: Performed By: #### A DIFF, CBC, ANEU, TSH, FE, FT4 #### [place] [address] #### B12 #### [place] [address] Bili Total 0.2 mg/dL Normal 0.2-1.0 [facility] Comment on above: Result Comment: Use of this assay is not recommended for patients undergoing treatment with eltrombopag due to the potential for falsely elevated results. Performed By: #### A DIFF, CBC, ANEU, TSH, FE, FT4 #### [place] [address] #### B12 #### [place] [address] BUN/Creatinine Ratio 14 ratio Normal 7-27 [facility] Comment on above: Performed By: #### A DIFF, CBC, ANEU, TSH, FE, FT4 #### [place] [address] #### B12 #### [place] [address] Calcium [Mass/Vol] 9.3 mg/dL Normal 8.4-10.2 [facility] Comment on above: Performed By: #### A DIFF, CBC, ANEU, TSH, FE, FT4 #### [place] [address] #### B12 #### [place] [address] Chloride [Moles/Vol] 105 mmol/L Normal 98-107 [facility] Comment on above: Performed By: #### A DIFF, CBC, ANEU, TSH, FE, FT4 #### [place] [address] #### B12 #### [address] [address] CO2 [Moles/Vol] 29 mmol/L Normal 22-29 [facility] Comment on above: Performed By: #### A DIFF, CBC, ANEU, TSH, FE, FT4 #### [address] [address] #### B12 #### [address] [address] Creatinine [Mass/Vol] 0.71 mg/dL Normal 0.55-1.02 [facility] Comment on above: Result Comment: Test ing performed on Siemens Dimension EXL analyzer using a modified kinetic Fani technique. Performed By: #### A DIFF, CBC, ANEU, TSH, FE, FT4 #### [address] [address] #### B12 #### [address] [address] Electrolyte Balance 9.0 mEq/L Normal 4.0-15.0 [facility] Comment on above: Performed By: #### A DIFF, CBC, ANEU, TSH, FE, FT4 #### [place] [address] #### B12 #### [address] [address] Globulin 3.5 G/dL Normal [facility] Comment on above: Performed By: #### A DIFF, CBC, ANEU, TSH, FE, FT4 #### [place] [address] #### B12 #### [address] [address] Glucose [Mass/Vol] 99 mg/dL Normal 70-105 [facility] Comment on above: Performed By: #### A DIFF, CBC, ANEU, TSH, FE, FT4 #### [address] [address] #### B12 #### [address] [address] Potassium [Moles/Vol] 4.1 mmol/L Normal 3.5-5.1 [facility] Comment on above: Performed By: #### A DIFF, CBC, ANEU, TSH, FE, FT4 #### [place] [address] #### B12 #### [place] [address] Sodium [Moles/Vol] 143 mmol/L Normal 136-145 [facility] Comment on above: Performed By: #### A DIFF, CBC, ANEU, TSH, FE, FT4 #### [place] [address] #### B12 #### [place] [address] Total Protein 7.0 G/dL Normal 6.4-8.2 [facility] Comment on above: Performed By: #### A DIFF, CBC, ANEU, TSH, FE, FT4 #### [place] [address] #### B12 #### [place] [address] Urea nitrogen [Mass/Vol] 10 mg/dL Normal 7-18 [facility] Comment on above: Performed By: #### A DIFF, CBC, ANEU, TSH, FE, FT4 #### [place] [address] #### B12 #### [place] [address] ESRon 07-06-2024 Erythrocyte Sed Rate 8 mm/hr Normal 0-20 [facility] Comment on above: Performed By: #### A DIFF, CBC, ANEU, TSH, FE, FT4 #### [place] [address] #### B12 #### [place] [address] HEPACon 07-06-2024 Hep A IgM Ab Non-Reactive Normal Non-Reactiv e [facility] Comment on above: Performed By: #### A DIFF, CBC, ANEU, TSH, FE, FT4 #### [place] [address] #### B12 #### [place] [address] Hep A IgM Ab Int Normal [facility] Comment on above: Result Comment: No s erological evidence of a current Hepatitis A infection. See Interp Performed By: #### A DIFF, CBC, ANEU, TSH, FE, FT4 #### [place] [address] #### B12 #### [place] [address] Hep B Core IgM Ab Non-Reactive Normal Non-Reacti v [facility] Comment on above: Performed By: #### A DIFF, CBC, ANEU, TSH, FE, FT4 #### [place] [address] #### B12 #### [place] [address] Hep B Core IgM Ab Int Normal [facility] Comment on above: Result Comment: Samp les with a value < 0.80 Index are considered nonreactive (negative) for IgM antibodies to hepatitis B core antigen. See Interp Performed By: #### A DIFF, CBC, ANEU, TSH, FE, FT4 #### [place] [address] #### B12 #### [place] [address] Hep B Surf Ag Non-Reactive Normal Non-Reactiv e [facility] Comment on above: Performed By: #### A DIFF, CBC, ANEU, TSH, FE, FT4 #### [place] [address] #### B12 #### [place] [address] Hep C Ab Non-Reactive Normal Non-Reactiv [facility] Comment on above: Performed By: #### A DIFF, CBC, ANEU, TSH, FE, FT4 #### [place] [address] #### B12 #### [place] [address] Hep C Ab Int Normal [facility] Comment on above: Result Comment: Nonr eactive: Samples with a value < 0.80 are considered nonreactive (negative) for antibodies to HCV. A negative test result does not exclude the possibility of exposure to or infection with HCV. HCV antibodies may be undetectable in some stages of the infection and in some clinical conditions. See Interp Performed By: #### A DIFF, CBC, ANEU, TSH, FE, FT4 #### [place] [address] #### B12 #### [place] [address] HIVRPon 07-06-2024 HIV p24 Antigen Non-Reactive Normal Non-Reactiv e [facility] Comment on above: Result Comment: Dete ction of p24 may be inhibited by biotin in the sample, causing false negative results in acute infection. Therefore do not test samples from patients who are taking biotin. Performed By: #### A DIFF, CBC, ANEU, TSH, FE, FT4 #### [place] [address] #### B12 #### [place] [address] HIV P24 Int Non-Reactive Invalid Interpretation Code [facility] Comment on above: Performed By: #### A DIFF, CBC, ANEU, TSH, FE, FT4 #### [place] [address] #### B12 #### [place] [address] Rapid HIV 1/2 Antibody Non-Reactive Normal Non-R eactiv e [facility] Comment on above: Performed By: #### A DIFF, CBC, ANEU, TSH, FE, FT4 #### [place] [address] #### B12 #### [place] [address] RHIV 1/2 Ab Int Non-Reactive Invalid Interpretation Code [facility] Comment on above: Performed By: #### A DIFF, CBC, ANEU, TSH, FE, FT4 #### [address] [address] #### B12 #### [address] [address] IMMUNon 07-06-2024 IgA [Mass/Vol] 252 mg/dL Normal 40-350 [facility] Comment on above: Result Comment: No te - New Reference Range in effect 20 Performed By: #### A DIFF, CBC, ANEU, TSH, FE, FT4 #### [address] [address] #### B12 #### [address] [address] IgG [Mass/Vol] 830 mg/dL Normal 650-1600 [facility] Comment on above: Result Comment: No te - New Reference Range in effect 20 Performed By: #### A DIFF, CBC, ANEU, TSH, FE, FT4 #### [address] [address] #### B12 #### [address] [address] IgM [Mass/Vol] 178 mg/dL Normal 50-300 [facility] Comment on above: Result Comment: No te - New Reference Range in effect 20 Performed By: #### A DIFF, CBC, ANEU, TSH, FE, FT4 #### [address] [address] #### B12 #### [address] [address] LABORATORYOrdered By: SYSTEM SYSTEM on 07-06-2024 Albumin BCP dye [Mass/Vol] 3.5 G/dL Normal 3.5 - 5.0 G/dL AO ADM SS Albumin/Globulin [Mass ratio] 1.0 {ratio} Low 1.1 - 2.5 ratio AO ADM SS ALP [Catalytic activity/Vol] 51 U/L Normal 40 - 135 U/L AO ADM SS ALT With P-5'-P [Catalytic activity/Vol] 14 U/L Normal 14 - 59 U/L AO ADM SS AST With P-5'-P [Catalytic activity/Vol] 15 U/L Normal 10 - 40 U/L AO ADM SS Basophils (Bld) [#/Vol] 0.0 103/mcL Normal 0.0 - 0.2 10^3/mcL AO Workflow SS Basophils/100 WBC (Bld) 0.5 % Normal 0.0 - 2.5 % AO Workflow SS Bilirubin [Mass/Vol] 0.2 mg/dL Normal 0.2 - 1 .0 mg/dL AO ADM SS Comment on above: Interpretive Data: U se of this assay is not recommended for patients undergoing treatment with eltrombopag due to the potential for falsely elevated results. Calcium [Mass/Vol] 9.3 mg/dL Normal 8.4 - 10. 2 mg/dL AO ADM SS Chloride [Moles/Vol] 105 mmol/L Normal 98 - 10 7 mmol/L AO ADM SS CO2 [Moles/Vol] 29 mmol/L Normal 22 - 29 mmol/L AO ADM SS Creatinine [Mass/Vol] 0.71 mg/dL Normal 0.55 - 1.02 mg/dL AO ADM SS Comment on above: Interpretive Data: T esting performed on Siemens Dimension EXL analyzer using a modified kinetic Fani technique. Electrolyte Balance 9.0 mEq/L Normal 4.0 - 15 .0 mEq/L AO ADM SS Eosinophil, Absolute 0.1 103/mcL Normal 0.0 - 0 .7 10^3/mcL AO Workflow SS Eosinophils/100 WBC (Bld) 0.9 % Normal 0.0 - 7.0 % AO Workflow SS Erythrocyte distribution width (RBC) [Ratio] 12.9 % Normal 11.5 - 15.5 % AO Workflow SS GFR/1.73 sq M.predicted among blacks MDRD (S/P/Bld) [Vol rate/Area] 112 ml/min/1.73sqm Invalid Interpretation Code AO Chemistry S Comment on above: Interpretive Data: GFR Population mean for , Non- Americans Ages 20-29 = 116 mL/min/1.73 sq.m. Ages 30-39 = 107 mL/min/1.73 sq.m. Ages 40-49 = 99 mL/min/1.73 sq.m. Ages 50-59 = 93 mL/min/1.73 sq.m. Ages 60-69 = 85 mL/min/1.73 sq.m. Ages 70+ = 75 mL/min/1.73 sq.m. Chronic Kidney Disease: Less than 60 mL/min/1.73 square meters End Stage Renal Disease: Less than 15 mL/min/1.73 square meters GFR/1.73 sq M.predicted among non-blacks MDRD (S/P/Bld) [Vol rate/Area] 93 ml/min/1.73sqm Invalid Interpretation Code AO Chemistry S Comment on above: Interpretive Data: GFR Population mean for , Non- Americans Ages 20-29 = 116 mL/min/1.73 sq.m. Ages 30-39 = 107 mL/min/1.73 sq.m. Ages 40-49 = 99 mL/min/1.73 sq.m. Ages 50-59 = 93 mL/min/1.73 sq.m. Ages 60-69 = 85 mL/min/1.73 sq.m. Ages 70+ = 75 mL/min/1.73 sq.m. Chronic Kidney Disease: Less than 60 mL/min/1.73 square meters End Stage Renal Disease: Less than 15 mL/min/1.73 square meters Globulin 3.5 G/dL Invalid Interpretation Code AO ADM SS Glucose [Mass/Vol] 99 mg/dL Normal 70 - 105 mg/dL AO ADM SS Hematocrit (Bld) [Volume fraction] 43.9 % Normal 34.0 - 46.0 % AO Workflow SS Hemoglobin (Bld) [Mass/Vol] 15.0 G/dL Normal 12.0 - 16.0 G/dL AO Workflow SS IgA [Mass/Vol] 252 mg/dL Normal 40 - 350 mg/dL ADM SS Comment on above: Interpretive Data: * *Note - New Reference Range in effect 20 IgG [Mass/Vol] 830 mg/dL Normal 650 - 1600 mg/dL ADM SS Comment on above: Interpretive Data: * *Note - New Reference Range in effect 20 IgM [Mass/Vol] 178 mg/dL Normal 50 - 300 mg/dL ADM SS Comment on above: Interpretive Data: * *Note - New Reference Range in effect 20 Lymphocytes (Bld) [#/Vol] 2.6 103/mcL Normal 0.9 - 4.3 10^3/mcL AO Workflow SS Lymphocytes/100 WBC (Bld) 33.0 % Normal 20.0 - 40.0 % AO Workflow SS MCH (RBC) [Entitic mass] 31.6 pg Normal 27.0 - 33.0 pg AO Workflow SS MCHC 34.2 G/dL Normal 32.0 - 36.0 G/dL AO Workflow SS MCV (RBC) [Entitic vol] 92.4 fL Normal 80.0 - 99.0 fL AO Workflow SS Monocytes (Bld) [#/Vol] 0.5 103/mcL Normal 0.1 - 1.4 10^3/mcL AO Workflow SS Monocytes/100 WBC (Bld) 5.8 % Normal 2.0 - 13.0 % AO Workflow SS Neutrophils (Bld) [#/Vol] 4.8 103/mcL Normal 2.3 - 8.1 10^3/mcL AO Workflow SS Neutrophils/100 WBC (Bld) 59.8 % Normal 50.0 - 75.0 % AO Workflow SS Platelet mean volume (Bld) [Entitic vol] 8.5 fL Normal 6.6 - 10.5 fL AO Workflow SS Platelets (Bld) [#/Vol] 304 103/mcL Normal 150 - 450 10^3/mcL AO Workflow SS Potassium [Moles/Vol] 4.1 mmol/L Normal 3.5 - 5.1 mmol/L AO ADM SS Protein [Mass/Vol] 7.0 G/dL Normal 6.4 - 8.2 G/dL AO ADM SS RBC (Bld) [#/Vol] 4.75 106/mcL Normal 4.10 - 5.3 0 10^6/mcL AO Workflow SS Sodium [Moles/Vol] 143 mmol/L Normal 136 - 145 mmol/L AO ADM SS Urea nitrogen [Mass/Vol] 10 mg/dL Normal 7 - 18 mg/dL AO ADM SS Urea nitrogen/Creatinine [Mass ratio] 14 ratio Normal 7 - 27 ratio AO ADM SS WBC (Bld) [#/Vol] 8.0 103/mcL Normal 4.5 - 10.8 10^3/mcL AO Workflow SS LABORATORYOrdered By: Otilio Roper on 07-06-2024 ESR Photometric method (Bld) [Velocity] 8 mm/hr Normal 0 - 20 mm/hr AO Man Heme SS HIV 1 p24 Ab Ql (S) Non-Reactive 6 (07/06/24 11:03 AM) Normal Non-Reactiv e AO Rapid Testing SS Comment on above: Interpretive Data: D etection of p24 may be inhibited by biotin in the sample, causing false negative results in acute infection. Therefore do not test samples from patients who are taking biotin. HIV 1 p24 Ab Ql (S) Non-Reactive Invalid Interpretation Code AO Rapid Testing SS HIV 1+2 Ab IA Ql Non-Reactive Invalid Interpretation Code AO Rapid Testing SS HIV 1+2 Ab IA.rapid Ql (Unsp spec) Non-Reactive (07/06/24 11:03 AM) Normal Non-Reactiv e AO Rapid Testing SS LABORATORYOrdered By: Dayna Pang on 07-06-2024 HAV IgM IA Ql Non-Reactive (07/06/24 11:03 AM) Normal Non-Reactiv e AH ADM SS HAV IgM IA Ql No serological evide nce of a current Hepatitis A infection. Invalid Interpretation Code Chemistry S HBV core IgM IA Ql Non-Reactive (07/06/24 11:03 AM) Normal Non-Reactiv e AH ADM SS HBV core IgM IA Ql Samples with a value < 0.80 Index are considered nonreactive (negative) for IgM antibodies to hepatitis B core antigen. Invalid Interpretation Code Chemistry S HBV surface Ag IA Ql Non-Reactive (07/06/24 11:03 AM) Normal Non-Reactiv e AH ADM SS HCV Ab IA Ql Non-Reactive (07/06/24 11:03 AM) Normal Non-Reactiv e AH ADM SS HCV Ab IA Ql Nonreactive: Samples with a value < 0.80 are considered nonreactive (negative) for antibodies to HCV.A negative test result does not exclude the possibility of exposure to or infection with HCV. HCV antibodies may be undetectable in some stages of the infection and in some clinical conditions. Invalid Interpretation Code AH Chemistry S Abdomen Single Viewon 2023 Abdomen Single View [facility] [address] [place], [place] [id number] Abdomen Single View MR#: [id number] Acct: [id number] Name: TERENCEPATRICA HERNANDEZ LEONE Rep #: [id number] : 1985 F 39 From: Aaron Daniel MD PCP: Dr. Dileep Lira MD Status: REG CLI Study: Abdomen Single View Date of Exam: 06/07/24 Exam# [id number] Ordering Dr: [place] [id number] EXAM: XR ABDOMEN, 1 VIEW CLINICAL INDICATION: CALCULUS OF KIDNEY TECHNIQUE: Frontal supine view of the abdomen/pelvis. COMPARISON: No relevant prior studies available. FINDINGS: GASTROINTESTINAL TRACT: Normal bowel gas pattern. ORGANS: No organomegaly. BONES/JOINTS: No acute abnormality. VASCULATURE: 7 mm calcification within the right lower quadrant may represent an appendicolith. Small bilateral pelvic calcifications appear to be phleboliths. RAD/Abdomen Single View IMPRESSION: No discrete evidence of urinary tract stone disease. As above. Electronically Signed: Aaron Daniel MD at 13:14 EST Reading Location ID and State: [address] [place] [address] Tel , Service support , CC: Dr. Hema Londono MD; Dr. Dileep Lira MD Instructor Tap Dancing: Signed [facility] US PELVIS NON-OB W/TRANSVAGI NALon 06-03-2024 US PELVIS NON-OB W/TRANSVAGINAL ORIGINAL EXAMINATION: TRANSVAGINAL PELVIC [id number]/14/2024 8:04 am Ultrasound Pelvis: Transabdominal and transvaginal study COMPARISON: CT abdomen/pelvis 05/26/2024 TECHNIQUE: This report is based on interpretation of permanently recorded ultrasound images. All images are recorded and archived. HISTORY: ORDERING SYSTEM PROVIDED HISTORY: Reason for Exam: pelvic pain, history of ovarian cysts and fibroids FINDINGS: The uterus is retroflexed 6.4 x 3.0 x 4.1 cm a heterogenous soft tissue mass is seen within the uterine fundus, statistically likely to represent a anterior intramural fibroid. This measures 1.1 x 1.0 x 1.2 cm. The endometrial double wall thickness is 3.1 mm. On some images there is trace fluid in the endometrial canal and some questionable echoes within it also. These are of uncertain significance. Right ovary: 2.1 x 3.2 x 2.5 cm, with a volume of 8.9 mL. 2 dominant ovarian follicles are seen, measuring 1.5 x 1.5 x 1.5 cm and 1.1 x 1.0 x 1.2 cm. Left ovary: Not visualized secondary to mobile bowel gas artifacts.. No concerning ovarian cyst or mass is seen. There is blood flow to the right ovary. No pelvic or adnexal masses or significant free fluid is seen. A small amount of free fluid is seen within the cervix, which is likely physiologic. IMPRESSION: No acute pelvic abnormality. 1 cm uterine fibroid. There is some fluid in the endometrial canal and some echoes within the canal also. These may be physiologic. Evaluate further if clinically warranted.. I have personally reviewed the images of this examination and agree with the resident's findings and interpretation. Interpreted by: Eloina Shah MD Preliminary Report By: Alice Sanchez Electronically signed By Eloina Shah MD Dictated Date: 06/03/2024 9:29:46 AM Prelim Date: 06/03/2024 11:49:53 AM Sign Date: 06/03/2024 11:49:53 AM Ordering Provider: REBECCA AMAYA [facility] CT ABDOMEN/PELVIS W/CONTRAST on 05-27-2024 CT ABDOMEN/PELVIS W/CONTRAST ORIGINAL EXAMINATION: CT OF THE ABDOMEN AND PELVIS WITH CONTRAST 05/26/2024 1:14 pm TECHNIQUE: CT of the abdomen and pelvis was performed with the administration of intravenous contrast. Multiplanar reformatted images are provided for review. Automated exposure control, iterative reconstruction, and/or weight based adjustment of the mA/kV was utilized to reduce the radiation dose to as low as reasonably achievable. COMPARISON: September 09, 2023 HISTORY: ORDERING SYSTEM PROVIDED HISTORY: Reason for Exam: Left upper quadrant pain FINDINGS: No osseous abnormality identified. The lung bases are unremarkable. Liver, spleen, adrenal glands and pancreas are unremarkable. No kidney abnormality seen allowing for cortical phase nephrograms. No adenopathy, free air or free fluid is evident. Solid pelvic organs and urinary bladder are grossly normal. No GI tract abnormality is visible. No additional contributory abnormality. IMPRESSION: No acute finding. No cause for pain seen on this exam. Interpreted by: Jorge Love MD Preliminary Report By: Jorge Love MD Electronically signed By Jorge Love MD Dictated Date: 05/27/2024 8:13:02 AM Prelim Date: 05/27/2024 8:15:00 AM Sign Date: 05/27/2024 8:15:00 AM Ordering Provider: DILEEP LIRA Normal [facility] EBVon 05-20-2024 EBV IgG Positive Normal Negative [facility] Comment on above: Result Comment: INTE RPRETATION OF EBV IgG BY EIA: Negative: No detectable EBV IgG antibody. Result does not exclude EBV infection. Positive: EBV IgG antibody detected. Indicative of current or past infection. Equivocal: Equivocal for antibodies to EBV. Repeat testing if still indicated. Performed By: #### A DIFF, CBC, ANEU, TSH, FE, FT4 #### [address] [address] #### B12 #### [place] [address] EBV IgM Negative Normal Negative [facility] Comment on above: Result Comment: INTE RPRETATION OF EBV IgM BY EIA: Negative: No detectable EBV IgM antibody. Result does not exclude EBV infection. An additional sample should be tested within 5-7 days if early infection is suspected. Positive: EBV IgM antibody detected. May be indicative of current or recent infection. Equivocal: Equivocal for antibodies to EBV. Repeat testing if still indicated. Performed By: #### A DIFF, CBC, ANEU, TSH, FE, FT4 #### [address] [address] #### B12 #### [place] [address] ANAIFSon 05-19-2024 Antinuclear Ab Screen Negative Normal Negative [facility] Comment on above: Result Comment: Anti -nuclear antibody test is used as an aid in diagnosis of systemic autoimmune diseases. Where positive and clinically warranted, follow-up using disease-specific testing is recommended. Low positive titers are not uncommon with advanced age, certain chronic infections, and malignancies among others. Test methodology: Indirect fluorescence immunoassay (IFA) using HEp-2 cells. Performed By: [facility] [address] [place] [address] Hoisting Engineer: Iván Navarrete III, M.D. CLIA#: [id number] Performed By: #### A DIFF, CBC, ANEU, TSH, FE, FT4 #### [place] [address] #### B12 #### [address] [address] .Auto Diffon 05-18-2024 Basophil, Absolute 0.0 10 3/mcL Normal 0.0-0.2 [facility] Comment on above: Performed By: #### A DIFF, CBC, ANEU, TSH, FE, FT4 #### [place] [address] #### B12 #### [address] [address] Basophils/100 WBC (Bld) 0.3 % Normal 0.0-2.5 [facility] Comment on above: Performed By: #### A DIFF, CBC, ANEU, TSH, FE, FT4 #### [place] [address] #### B12 #### [address] [address] Eosinophil, Absolute 0.1 10 3/mcL Normal 0.0-0.[address] [facility] Comment on above: Performed By: #### A DIFF, CBC, ANEU, TSH, FE, FT4 #### [place] [address] #### B12 #### [place] [id number] Eosinophils/100 WBC (Bld) 1.2 % Normal 0.0-7.0 [facility] Comment on above: Performed By: #### A DIFF, CBC, ANEU, TSH, FE, FT4 #### [place] [address] #### B12 #### [address] [address] Lymphocyte, Absolute 2.8 10 3/mcL Normal 0.9-4.[address] [facility] Comment on above: Performed By: #### A DIFF, CBC, ANEU, TSH, FE, FT4 #### [address] [address] #### B12 #### [address] [address] Lymphocytes/100 WBC (Bld) 33.0 % Normal 20.0-40.0 [facility] Comment on above: Performed By: #### A DIFF, CBC, ANEU, TSH, FE, FT4 #### [address] [address] #### B12 #### [address] [address] Monocyte, Absolute 0.7 10 3/mcL Normal 0.1-1.4 [facility] Comment on above: Performed By: #### A DIFF, CBC, ANEU, TSH, FE, FT4 #### [address] [address] #### B12 #### [address] [address] Monocytes/100 WBC (Bld) 8.2 % Normal 2.0-13.0 [facility] Comment on above: Performed By: #### A DIFF, CBC, ANEU, TSH, FE, FT4 #### [address] [address] #### B12 #### [address] [address] Neutrophils/100 WBC (Bld) 57.3 % Normal 50.0-75.0 [facility] Comment on above: Performed By: #### A DIFF, CBC, ANEU, TSH, FE, FT4 #### [address] [address] #### B12 #### [address] [address] .NEUABSon 05-18-2024 Neutrophil, Absolute 4.8 10 3/mcL Normal 2.3-8.[address] [facility] Comment on above: Performed By: #### A DIFF, CBC, ANEU, TSH, FE, FT4 #### [address] [address] #### B12 #### [place] [id number] ASOon 05-18-2024 ASO 53.0 IU/mL Normal 25.0-250.0 [facility] Comment on above: Result Comment: No te - New Reference Range in effect 20 Performed By: #### A DIFF, CBC, ANEU, TSH, FE, FT4 #### [place] [address] #### B12 #### [place] [address] CBCon 05-18-2024 Erythrocyte distribution width (RBC) [Ratio] 13.2 % Normal 11.5-15.5 [facility] Comment on above: Performed By: #### A DIFF, CBC, ANEU, TSH, FE, FT4 #### [place] [address] #### B12 #### [place] [address] Hematocrit (Bld) [Volume fraction] 42.1 % Normal 34.0-46.0 [facility] Comment on above: Performed By: #### A DIFF, CBC, ANEU, TSH, FE, FT4 #### [place] [address] #### B12 #### [place] [address] Hgb 14.2 G/dL Normal 12.0-16.0 [facility] Comment on above: Performed By: #### A DIFF, CBC, ANEU, TSH, FE, FT4 #### [place] [address] #### B12 #### [place] [address] MCH (RBC) [Entitic mass] 32.0 pg Normal 27.0-33.0 [facility] Comment on above: Performed By: #### A DIFF, CBC, ANEU, TSH, FE, FT4 #### [place] [address] #### B12 #### [place] [address] MCHC 33.8 G/dL Normal 32.0-36.0 [facility] Comment on above: Performed By: #### A DIFF, CBC, ANEU, TSH, FE, FT4 #### [place] [address] #### B12 #### [place] [address] MCV (RBC) [Entitic vol] 94.5 fL Normal 80.0-99.0 [facility] Comment on above: Performed By: #### A DIFF, CBC, ANEU, TSH, FE, FT4 #### [place] [address] #### B12 #### [place] [address] Platelet 269 10 3/mcL Normal 150-450 [facility] Comment on above: Performed By: #### A DIFF, CBC, ANEU, TSH, FE, FT4 #### [place] [address] #### B12 #### [place] [address] Platelet mean volume (Bld) [Entitic vol] 8.5 fL Normal 6.6-10.5 [facility] Comment on above: Performed By: #### A DIFF, CBC, ANEU, TSH, FE, FT4 #### [place] [address] #### B12 #### [place] [address] RBC 4.46 10 6/mcL Normal 4.10-5.30 [facility] Comment on above: Performed By: #### A DIFF, CBC, ANEU, TSH, FE, FT4 #### [place] [address] #### B12 #### [place] [address] WBC 8.3 10 3/mcL Normal 4.5-10.8 [facility] Comment on above: Performed By: #### A DIFF, CBC, ANEU, TSH, FE, FT4 #### [place] [address] [place], [place] [address] #### B12 #### [address] [address] ESRon 05-18-2024 Erythrocyte Sed Rate 7 mm/hr Normal 0-20 [facility] Comment on above: Performed By: #### A DIFF, CBC, ANEU, TSH, FE, FT4 #### [place] [address] [place], [place] [address] #### B12 #### [address] [address] LABORATORYOrdered By: SYSTEM SYSTEM on 05-18-2024 Basophils (Bld) [#/Vol] 0.0 103/mcL Normal 0.0 - 0.2 10^3/mcL AO Workflow SS Basophils/100 WBC (Bld) 0.3 % Normal 0.0 - 2.5 % AO Workflow SS Eosinophil, Absolute 0.1 103/mcL Normal 0.0 - 0 .7 10^3/mcL AO Workflow SS Eosinophils/100 WBC (Bld) 1.2 % Normal 0.0 - 7.0 % AO Workflow SS Erythrocyte distribution width (RBC) [Ratio] 13.2 % Normal 11.5 - 15.5 % AO Workflow SS Hematocrit (Bld) [Volume fraction] 42.1 % Normal 34.0 - 46.0 % AO Workflow SS Hemoglobin (Bld) [Mass/Vol] 14.2 G/dL Normal 12.0 - 16.0 G/dL AO Workflow SS Lymphocytes (Bld) [#/Vol] 2.8 103/mcL Normal 0.9 - 4.3 10^3/mcL AO Workflow SS Lymphocytes/100 WBC (Bld) 33.0 % Normal 20.0 - 40.0 % AO Workflow SS MCH (RBC) [Entitic mass] 32.0 pg Normal 27.0 - 33.0 pg AO Workflow SS MCHC 33.8 G/dL Normal 32.0 - 36.0 G/dL AO Workflow SS MCV (RBC) [Entitic vol] 94.5 fL Normal 80.0 - 99.0 fL AO Workflow SS Monocytes (Bld) [#/Vol] 0.7 103/mcL Normal 0.1 - 1.4 10^3/mcL AO Workflow SS Monocytes/100 WBC (Bld) 8.2 % Normal 2.0 - 13.0 % AO Workflow SS Neutrophils (Bld) [#/Vol] 4.8 103/mcL Normal 2.3 - 8.1 10^3/mcL AO Workflow SS Neutrophils/100 WBC (Bld) 57.3 % Normal 50.0 - 75.0 % AO Workflow SS Platelet mean volume (Bld) [Entitic vol] 8.5 fL Normal 6.6 - 10.5 fL AO Workflow SS Platelets (Bld) [#/Vol] 269 103/mcL Normal 150 - 450 10^3/mcL AO Workflow SS RBC (Bld) [#/Vol] 4.46 106/mcL Normal 4.10 - 5.3 0 10^6/mcL AO Workflow SS Streptolysin O Ab Qn 53.0 Int unit/mL Normal 25. 0 - 250.0 Int unit/mL AH ADM SS Comment on above: Interpretive Data: * *Note - New Reference Range in effect 20 TPO Ab IA Qn unit/mL Normal 0 - 60 unit/mL AH ADM SS Comment on above: Interpretive Data: * *Note - New Reference Range in effect 20 WBC (Bld) [#/Vol] 8.3 103/mcL Normal 4.5 - 10.8 10^3/mcL AO Workflow SS LABORATORYOrdered By: Alysia Krueger on 05-18-2024 ESR Photometric method (Bld) [Velocity] 7 mm/hr Normal 0 - 20 mm/hr AO Man Heme SS aTPOon 05-18-2024 anti-Thyroid Peroxidase <28 Normal 0-60 [facility] Comment on above: Result Comment: No te - New Reference Range in effect 20 Performed By: #### A DIFF, CBC, ANEU, TSH, FE, FT4 #### [address] [address] #### B12 #### [address] [address] [address] SOFT TISSUE NECK W/ CONTR Anatoliy 05-13-2024 CT SOFT TISSUE NECK W/ CONTRAST ORIGINAL EXAMINATION: CT neck with intravenous contrast TECHNIQUE: CT of the neck was performed following the uneventful administration of Omnipaque 300 intravenous contrast. Axial images were obtained through the neck with multiplanar reformats. Low dose CT acquisition technique included one of the following options: 1. Automated exposure control, 2. Adjustment of the MA and/or KV according to patient size, or 3. Use of iterative reconstruction. DICOM images are available. COMPARISON: None. HISTORY: ORDERING SYSTEM PROVIDED HISTORY: Reason for Exam: Thyromegaly, lymphadenitis FINDINGS: Soft tissues: No infectious/inflammatory process, mass, or abscess. Aerodigestive tract: No primary lesion identified within the nasopharynx, oropharynx, hypopharynx, larynx, and proximal trachea. Salivary glands: Unremarkable bilateral parotid and submandibular glands. Thyroid: Unremarkable. Lymph nodes : There are non-specific scattered sub-centimeter lymph nodes in the neck bilaterally. No pathologically enlarged or morphologically suspicious adenopathy. Vessels: Unremarkable. Bones: No acute osseous pathology. Straightening of the normal cervical lordosis. Visualized lung apices: Clear. Visualized brain parenchyma: No acute pathology. Paranasal sinuses: Small bilateral maxillary sinus retention cysts. IMPRESSION: 1. No primary lesion identified within the nasopharynx, oropharynx, hypopharynx, larynx, or proximal trachea. 2. No pathologically enlarged or morphologically suspicious adenopathy. 3. Unremarkable thyroid gland. Interpreted by: Ole Murphy MD Preliminary Report By: Ole Murphy MD Electronically signed By Ole Murphy MD Dictated Date: 05/13/2024 9:05:10 AM Prelim Date: 05/13/2024 9:09:22 AM Sign Date: 05/13/2024 9:09:22 AM Ordering Provider: DILEEP Huffman [facility] .Auto Diffon 05-04-2024 Basophil, Absolute 0.1 10 3/mcL Normal 0.0-0.2 [facility] Comment on above: Performed By: #### A DIFF, CBC, ANEU, TSH, FE, FT4 #### [facility] [address] [place], [place] [address] #### B12 #### [address] [address] Basophils/100 WBC (Bld) 0.6 % Normal 0.0-2.5 A [facility] Comment on above: Performed By: #### A DIFF, CBC, ANEU, TSH, FE, FT4 #### [address] [address] #### B12 #### [address] [address] Eosinophil, Absolute 0.0 10 3/mcL Normal 0.0-0.[address] [facility] Comment on above: Performed By: #### A DIFF, CBC, ANEU, TSH, FE, FT4 #### [place] [address] #### B12 #### [address] [address] Eosinophils/100 WBC (Bld) 0.5 % Normal 0.0-7.0 [facility] Comment on above: Performed By: #### A DIFF, CBC, ANEU, TSH, FE, FT4 #### [place] [address] #### B12 #### [address] [address] Lymphocyte, Absolute 2.6 10 3/mcL Normal 0.9-4.[address] [facility] Comment on above: Performed By: #### A DIFF, CBC, ANEU, TSH, FE, FT4 #### [place] [address] #### B12 #### [address] [address] Lymphocytes/100 WBC (Bld) 25.3 % Normal 20.0-40.0 [facility] Comment on above: Performed By: #### A DIFF, CBC, ANEU, TSH, FE, FT4 #### [place] [address] #### B12 #### [address] [address] Monocyte, Absolute 0.5 10 3/mcL Normal 0.1-1.4 [facility] Comment on above: Performed By: #### A DIFF, CBC, ANEU, TSH, FE, FT4 #### [address] [address] #### B12 #### [address] [address] Monocytes/100 WBC (Bld) 4.5 % Normal 2.0-13.0 [facility] Comment on above: Performed By: #### A DIFF, CBC, ANEU, TSH, FE, FT4 #### [address] [address] #### B12 #### [address] [address] Neutrophils/100 WBC (Bld) 69.1 % Normal 50.0-75.0 [facility] Comment on above: Performed By: #### A DIFF, CBC, ANEU, TSH, FE, FT4 #### [place] [address] #### B12 #### [address] [address] .GFRon 05-04-2024 GFR Non- 96 ml/min/1.73sqm Normal [facility] Comment on above: Result Comment: GFR Population mean for , Non- Americans Ages 20-29 = 116 mL/min/1.73 sq.m. Ages 30-39 = 107 mL/min/1.73 sq.m. Ages 40-49 = 99 mL/min/1.73 sq.m. Ages 50-59 = 93 mL/min/1.73 sq.m. Ages 60-69 = 85 mL/min/1.73 sq.m. Ages 70+ = 75 mL/min/1.73 sq.m. Chronic Kidney Disease: Less than 60 mL/min/1.73 square meters End Stage Renal Disease: Less than 15 mL/min/1.73 square meters Performed By: #### A DIFF, CBC, ANEU, TSH, FE, FT4 #### [address] [address] #### B12 #### [address] [address] GFR 116 ml/min/1.73sqm Normal [facility] Comment on above: Result Comment: GFR Population mean for , Non- Americans Ages 20-29 = 116 mL/min/1.73 sq.m. Ages 30-39 = 107 mL/min/1.73 sq.m. Ages 40-49 = 99 mL/min/1.73 sq.m. Ages 50-59 = 93 mL/min/1.73 sq.m. Ages 60-69 = 85 mL/min/1.73 sq.m. Ages 70+ = 75 mL/min/1.73 sq.m. Chronic Kidney Disease: Less than 60 mL/min/1.73 square meters End Stage Renal Disease: Less than 15 mL/min/1.73 square meters Performed By: #### A DIFF, CBC, ANEU, TSH, FE, FT4 #### [address] [address] #### B12 #### [place] [address] .MDWon 05-04-2024 Monocyte Distribution Width 18.30 Normal 0.00-20.00 [facility] Comment on above: Result Comment: For ED adult patients suspected of sepsis, MDW<=20.0 does not rule out sepsis or risk of sepsis Performed By: #### A DIFF, CBC, ANEU, TSH, FE, FT4 #### [address] [address] #### B12 #### [place] [address] .NEUABSon 05-04-2024 Neutrophil, Absolute 7.1 10 3/mcL Normal 2.3-8.[address] [facility] Comment on above: Performed By: #### A DIFF, CBC, ANEU, TSH, FE, FT4 #### [address] [address] #### B12 #### [address] [address] BMPon 05-04-2024 BUN/Creatinine Ratio 12 ratio Normal 7-27 [facility] Comment on above: Performed By: #### A DIFF, CBC, ANEU, TSH, FE, FT4 #### [place] [address] #### B12 #### [address] [address] Calcium [Mass/Vol] 8.9 mg/dL Normal 8.4-10.2 [facility] Comment on above: Performed By: #### A DIFF, CBC, ANEU, TSH, FE, FT4 #### [place] [address] #### B12 #### [address] [address] Chloride [Moles/Vol] 103 mmol/L Normal 98-107 [facility] Comment on above: Performed By: #### A DIFF, CBC, ANEU, TSH, FE, FT4 #### [place] [address] #### B12 #### [place] [address] CO2 [Moles/Vol] 27 mmol/L Normal 22-29 [facility] Comment on above: Performed By: #### A DIFF, CBC, ANEU, TSH, FE, FT4 #### [place] [address] #### B12 #### [address] [address] Creatinine [Mass/Vol] 0.69 mg/dL Normal 0.55-1.02 [facility] Comment on above: Result Comment: Test ing performed on Siemens Dimension EXL analyzer using a modified kinetic Fani technique. Performed By: #### A DIFF, CBC, ANEU, TSH, FE, FT4 #### [place] [address] #### B12 #### [address] [address] Electrolyte Balance 10.0 mEq/L Normal 4.0-15.0 [facility] Comment on above: Performed By: #### A DIFF, CBC, ANEU, TSH, FE, FT4 #### [address] [address] #### B12 #### [address] [address] Glucose [Mass/Vol] 99 mg/dL Normal 70-105 [facility] Comment on above: Performed By: #### A DIFF, CBC, ANEU, TSH, FE, FT4 #### [place] [address] #### B12 #### [address] [address] Potassium [Moles/Vol] 4.1 mmol/L Normal 3.5-5.1 [facility] Comment on above: Performed By: #### A DIFF, CBC, ANEU, TSH, FE, FT4 #### [place] [address] #### B12 #### [address] [address] Sodium [Moles/Vol] 140 mmol/L Normal 136-145 [facility] Comment on above: Performed By: #### A DIFF, CBC, ANEU, TSH, FE, FT4 #### [place] [address] #### B12 #### [address] [address] Urea nitrogen [Mass/Vol] 8 mg/dL Normal 7-18 [facility] Comment on above: Performed By: #### A DIFF, CBC, ANEU, TSH, FE, FT4 #### [address] [address] #### B12 #### [address] [address] CBCon 05-04-2024 Erythrocyte distribution width (RBC) [Ratio] 12.5 % Normal 11.5-15.5 [facility] Comment on above: Performed By: #### A DIFF, CBC, ANEU, TSH, FE, FT4 #### [place] [address] #### B12 #### [address] [address] Hematocrit (Bld) [Volume fraction] 42.9 % Normal 34.0-46.0 [facility] Comment on above: Performed By: #### A DIFF, CBC, ANEU, TSH, FE, FT4 #### [address] [address] #### B12 #### [place] [address] Hgb 14.5 G/dL Normal 12.0-16.0 [facility] Comment on above: Performed By: #### A DIFF, CBC, ANEU, TSH, FE, FT4 #### [place] [address] #### B12 #### [address] [address] MCH (RBC) [Entitic mass] 31.4 pg Normal 27.0-33.0 [facility] Comment on above: Performed By: #### A DIFF, CBC, ANEU, TSH, FE, FT4 #### [place] [address] #### B12 #### [place] [address] MCHC 33.8 G/dL Normal 32.0-36.0 [facility] Comment on above: Performed By: #### A DIFF, CBC, ANEU, TSH, FE, FT4 #### [place] [address] #### B12 #### [place] [address] MCV (RBC) [Entitic vol] 92.9 fL Normal 80.0-99.0 [facility] Comment on above: Performed By: #### A DIFF, CBC, ANEU, TSH, FE, FT4 #### [place] [address] #### B12 #### [place] [address] Platelet 270 10 3/mcL Normal 150-450 [facility] Comment on above: Performed By: #### A DIFF, CBC, ANEU, TSH, FE, FT4 #### [place] [address] #### B12 #### [address] [address] Platelet mean volume (Bld) [Entitic vol] 8.2 fL Normal 6.6-10.5 [facility] Comment on above: Performed By: #### A DIFF, CBC, ANEU, TSH, FE, FT4 #### [place] [address] #### B12 #### [place] [address] RBC 4.61 10 6/mcL Normal 4.10-5.30 [facility] Comment on above: Performed By: #### A DIFF, CBC, ANEU, TSH, FE, FT4 #### [place] [address] #### B12 #### [place] [address] WBC 10.3 10 3/mcL Normal 4.5-10.8 [facility] Comment on above: Performed By: #### A DIFF, CBC, ANEU, TSH, FE, FT4 #### [place] [address] #### B12 #### [place] [address] CVFLURVon 05-04-2024 FLU A PCR Negative Normal Negative [facility] Comment on above: Performed By: #### A DIFF, CBC, ANEU, TSH, FE, FT4 #### [place] [address] #### B12 #### [place] [address] FLU B PCR Negative Normal Negative [facility] Comment on above: Performed By: #### A DIFF, CBC, ANEU, TSH, FE, FT4 #### [place] [address] #### B12 #### [facility] [address] [place] [address] RSV PCR Negative Normal Negative [facility] Comment on above: Performed By: #### A DIFF, CBC, ANEU, TSH, FE, FT4 #### [address] [address] #### B12 #### [place] [address] SARS-CoV-2 (COVID-19) RNA MIKEL+probe Ql (Unsp spec) Negative Normal Negative [facility] Comment on above: Result Comment: Resu lts from the Xpert Xpress CoV-2/Flu/RSV plus test should be correlated with the clinical history, epidemiological data, and other data available to the clinical evaluating the patient. Performance of the Xpert Xpress CoV-2/Flu/RSV plus test has only been established in nasopharyngeal swab specimen. Erroneous test results might occur from improper specimen collection, failure to follow the recommended sample collection, handling and storage procedures, technical error, or sample mix-up. False negative results may occur if a virus is present at a level below the analytical limit of detection. Viral nucleic acid may persist in vivo, independent of virus viability. Detection of analyte target(s) does not imply that the corresponding virus(es) are infectious or are the causative agents for clinical symptoms. Recent patient exposure to FluMist or other live attenuated influenza vaccines may cause inaccurate positive results. Performed By: #### A DIFF, CBC, ANEU, TSH, FE, FT4 #### [address] [address] #### B12 #### [place] [address] LABORATORYOrdered By: SYSTEM SYSTEM on 05-04-2024 Basophils (Bld) [#/Vol] 0.1 103/mcL Normal 0.0 - 0.2 10^3/mcL AO Workflow SS Basophils/100 WBC (Bld) 0.6 % Normal 0.0 - 2.5 % AO Workflow SS Calcium [Mass/Vol] 8.9 mg/dL Normal 8.4 - 10. 2 mg/dL AO ADM SS Chloride [Moles/Vol] 103 mmol/L Normal 98 - 10 7 mmol/L AO ADM SS CO2 [Moles/Vol] 27 mmol/L Normal 22 - 29 mmol/L AO ADM SS Creatinine [Mass/Vol] 0.69 mg/dL Normal 0.55 - 1.02 mg/dL AO ADM SS Comment on above: Interpretive Data: T esting performed on Siemens Dimension EXL analyzer using a modified kinetic Fani technique. Electrolyte Balance 10.0 mEq/L Normal 4.0 - 15 .0 mEq/L AO ADM SS Eosinophil, Absolute 0.0 103/mcL Normal 0.0 - 0 .7 10^3/mcL AO Workflow SS Eosinophils/100 WBC (Bld) 0.5 % Normal 0.0 - 7.0 % AO Workflow SS Erythrocyte distribution width (RBC) [Ratio] 12.5 % Normal 11.5 - 15.5 % AO Workflow SS GFR/1.73 sq M.predicted among blacks MDRD (S/P/Bld) [Vol rate/Area] 116 ml/min/1.73sqm Invalid Interpretation Code AO Chemistry S Comment on above: Interpretive Data: GFR Population mean for , Non- Americans Ages 20-29 = 116 mL/min/1.73 sq.m. Ages 30-39 = 107 mL/min/1.73 sq.m. Ages 40-49 = 99 mL/min/1.73 sq.m. Ages 50-59 = 93 mL/min/1.73 sq.m. Ages 60-69 = 85 mL/min/1.73 sq.m. Ages 70+ = 75 mL/min/1.73 sq.m. Chronic Kidney Disease: Less than 60 mL/min/1.73 square meters End Stage Renal Disease: Less than 15 mL/min/1.73 square meters GFR/1.73 sq M.predicted among non-blacks MDRD (S/P/Bld) [Vol rate/Area] 96 ml/min/1.73sqm Invalid Interpretation Code AO Chemistry S Comment on above: Interpretive Data: GFR Population mean for , Non- Americans Ages 20-29 = 116 mL/min/1.73 sq.m. Ages 30-39 = 107 mL/min/1.73 sq.m. Ages 40-49 = 99 mL/min/1.73 sq.m. Ages 50-59 = 93 mL/min/1.73 sq.m. Ages 60-69 = 85 mL/min/1.73 sq.m. Ages 70+ = 75 mL/min/1.73 sq.m. Chronic Kidney Disease: Less than 60 mL/min/1.73 square meters End Stage Renal Disease: Less than 15 mL/min/1.73 square meters Glucose [Mass/Vol] 99 mg/dL Normal 70 - 105 mg/dL AO ADM SS Hematocrit (Bld) [Volume fraction] 42.9 % Normal 34.0 - 46.0 % AO Workflow SS Hemoglobin (Bld) [Mass/Vol] 14.5 G/dL Normal 12.0 - 16.0 G/dL AO Workflow SS Lymphocytes (Bld) [#/Vol] 2.6 103/mcL Normal 0.9 - 4.3 10^3/mcL AO Workflow SS Lymphocytes/100 WBC (Bld) 25.3 % Normal 20.0 - 40.0 % AO Workflow SS MCH (RBC) [Entitic mass] 31.4 pg Normal 27.0 - 33.0 pg AO Workflow SS MCHC 33.8 G/dL Normal 32.0 - 36.0 G/dL AO Workflow SS MCV (RBC) [Entitic vol] 92.9 fL Normal 80.0 - 99.0 fL AO Workflow SS Monocyte distribution width Auto (Bld) [Entitic vol] 18.30 1 Normal 0.00 - 20.00 AO Workflow SS Comment on above: Result Comment: For ED adult patients suspected of sepsis, MDW<=20.0 does not rule out sepsis or risk of sepsis Monocytes (Bld) [#/Vol] 0.5 103/mcL Normal 0.1 - 1.4 10^3/mcL AO Workflow SS Monocytes/100 WBC (Bld) 4.5 % Normal 2.0 - 13.0 % AO Workflow SS Neutrophils (Bld) [#/Vol] 7.1 103/mcL Normal 2.3 - 8.1 10^3/mcL AO Workflow SS Neutrophils/100 WBC (Bld) 69.1 % Normal 50.0 - 75.0 % AO Workflow SS Platelet mean volume (Bld) [Entitic vol] 8.2 fL Normal 6.6 - 10.5 fL AO Workflow SS Platelets (Bld) [#/Vol] 270 103/mcL Normal 150 - 450 10^3/mcL AO Workflow SS Potassium [Moles/Vol] 4.1 mmol/L Normal 3.5 - 5.1 mmol/L AO ADM SS RBC (Bld) [#/Vol] 4.61 106/mcL Normal 4.10 - 5.3 0 10^6/mcL AO Workflow SS Sodium [Moles/Vol] 140 mmol/L Normal 136 - 145 mmol/L AO ADM SS Urea nitrogen [Mass/Vol] 8 mg/dL Normal 7 - 18 mg/dL AO ADM SS Urea nitrogen/Creatinine [Mass ratio] 12 ratio Normal 7 - 27 ratio AO ADM SS WBC (Bld) [#/Vol] 10.3 103/mcL Normal 4.5 - 10.8 10^3/mcL AO Workflow SS LABORATORYOrdered By: Araceli Carlson on 05-04-2024 FLUAV RNA MIKEL+probe Ql (Resp) Negative (05/04/24 9:01 AM) Normal Negative AO Auto Urine SS FLUBV RNA MIKEL+probe Ql (Resp) Negative (05/04/24 9:01 AM) Normal Negative AO Auto Urine SS RSV RNA MIKEL+probe Ql (Resp) Negative (05/04/24 9:01 AM) Normal Negative AO Auto Urine SS SARS-CoV-2 (COVID-19) RNA MIKEL+probe Ql (Resp) Negative 3 (05/04/24 9:01 AM) Normal Negative AO Auto Urine SS Comment on above: Interpretive Data: R esults from the Xpert Xpress CoV-2/Flu/RSV plus test should be correlated with the clinical history, epidemiological data, and other data available to the clinical evaluating the patient. Performance of the Xpert Xpress CoV-2/Flu/RSV plus test has only been established in nasopharyngeal swab specimen. Erroneous test results might occur from improper specimen collection, failure to follow the recommended sample collection, handling and storage procedures, technical error, or sample mix-up. False negative results may occur if a virus is present at a level below the analytical limit of detection. Viral nucleic acid may persist in vivo, independent of virus viability. Detection of analyte target(s) does not imply that the corresponding virus(es) are infectious or are the causative agents for clinical symptoms. Recent patient exposure to FluMist or other live attenuated influenza vaccines may cause inaccurate positive results. XR CHEST 1 VIEWon 05-04-2024 XR CHEST 1 VIEW ORIGINAL EXAMINATION: ONE XRAY VIEW OF THE CHEST05/04/2024 9:21 am COMPARISON: None. HISTORY: ORDERING SYSTEM PROVIDED HISTORY: Reason for Exam: SOB/cough/fever FINDINGS: The cardiomediastinal silhouette is unremarkable. There is no pulmonary vascular congestion. There is no focal consolidation. No significant volume pleural effusion. No pneumothorax. IMPRESSION: No acute cardiopulmonary process. I have personally reviewed the images of this examination and agree with the resident's findings and interpretation. Interpreted by: Velasquez Hills MD Preliminary Report By: Jorge Garcia Electronically signed By Velasquez Hills MD Dictated Date: 05/04/2024 9:23:42 AM Prelim Date: 05/04/2024 9:39:38 AM Sign Date: 05/04/2024 9:39:38 AM Ordering Provider: BAL Huffman [facility] 04-28-2024 Estradiol 71.1 pg/mL Normal [facility] Comment on above: Result Comment: Adul t Female Range Follicular phase 12.5 - 166.0 Ovulation phase 85.8 - 498.0 Luteal phase 43.8 - 211.0 Postmenopausal <6.0 - 54.7 1st trimester 215.0 - >4300.0 Lashawn ECLIA methodology Performed At: [facility] [address] [id number] Danilo Merida MD Ph:[phone] Performed At: [facility] [address] [id number] Lupillo Saunders PhD Ph:[phone] Performed By: #### A DIFF, CBC, ANEU, TSH, FE, FT4 #### [address] [address] #### B12 #### [address] [address] Estrone 37 pg/mL Normal 27-231 [facility] Comment on above: Result Comment: Rang e Adult (Premenopausal) 27 - 231 Menstrual Cycle (1-10 days) 19 - 149 Menstrual Cycle (11-20 days) 32 - 176 Menstrual Cycle (21-30 days) 37 - 200 Performed By: #### A DIFF, CBC, ANEU, TSH, FE, FT4 #### [place] [id number] #### B12 #### [place] [address] ANAIFSon 04-26-2024 Antinuclear Ab Screen Negative Normal Negative [facility] Comment on above: Result Comment: Anti -nuclear antibody test is used as an aid in diagnosis of systemic autoimmune diseases. Where positive and clinically warranted, follow-up using disease-specific testing is recommended. Low positive titers are not uncommon with advanced age, certain chronic infections, and malignancies among others. Test methodology: Indirect fluorescence immunoassay (IFA) using HEp-2 cells. Performed By: [facility] [address] [place] [address] Hoisting Engineer: Iván Navarrete III, M.D. CLIA#: [id number] Performed By: #### A DIFF, CBC, ANEU, TSH, FE, FT4 #### [place] [address] #### B12 #### [place] [address] EBVPNLon 04-26-2024 EBV Interp Comment Normal [facility] Comment on above: Result Comment: EBV Interpretation Chart [place]: Antibody Present + Antibody Absent - Interpretation VCA-IgM VCA-IgG EBNA-IgG No previous infection/ - - - Susceptible Primary infection (new + + - or recent) Past Infection +or- + + See comment below* + - - *Results indicate infection with EBV at some time however cannot predict the timing of the infection since antibodies to EBNA usually develop after primary infection or, alternatively, approximately 5-10% of patients with EBV never develop antibodies to EBNA. Performed At: [facility] [id number] Lupillo Saunders PhD Ph:[phone] Performed By: #### A DIFF, CBC, ANEU, TSH, FE, FT4 #### [place] [address] #### B12 #### [place] [address] EBV Nuc Ag IgG 63.3 units/ml High 0.0-17.9 [facility] Comment on above: Result Comment: Nega tive <18.0 Equivocal 18.0 - 21.9 Positive >21.9 Performed By: #### A DIFF, CBC, ANEU, TSH, FE, FT4 #### [place] [address] #### B12 #### [place] [address] EBV VCA IgG Ab >600.0 High 0.0-17.9 [facility] Comment on above: Result Comment: Nega tive <18.0 Equivocal 18.0 - 21.9 Positive >21.9 Performed By: #### A DIFF, CBC, ANEU, TSH, FE, FT4 #### [place] [address] #### B12 #### [place] [address] EBV VCA IgM Ab <36.0 Normal 0.0-35.9 [facility] Comment on above: Result Comment: Nega tive <36.0 Equivocal 36.0 - 43.9 Positive >43.9 Performed By: #### A DIFF, CBC, ANEU, TSH, FE, FT4 #### [place] [address] #### B12 #### [place] [address] LMERLYon 04-24-2024 Lyme Total Antibody LILIAM Negative Normal Negative [facility] Comment on above: Result Comment: Lyme antibodies not detected. Reflex testing is not indicated. No laboratory evidence of infection with B. burgdorferi (Lyme disease). Negative results may occur in patients recently infected (less than or equal to 14 days) with B. burgdorferi. If recent infection is suspected, repeat testing on a new sample collected in 7 to 14 days is recommended. Performed At: [facility] [id number] Lupillo Saunders PhD Ph:[phone] Performed By: #### A DIFF, CBC, ANEU, TSH, FE, FT4 #### [place] [address] #### B12 #### [address] [address] .Auto Diffon 04-23-2024 Basophil, Absolute 0.0 10 3/mcL Normal 0.0-0.2 [facility] Comment on above: Performed By: #### A DIFF, CBC, ANEU, TSH, FE, FT4 #### [address] [address] #### B12 #### [address] [address] Basophils/100 WBC (Bld) 0.5 % Normal 0.0-2.5 [facility] Comment on above: Performed By: #### A DIFF, CBC, ANEU, TSH, FE, FT4 #### [address] [address] #### B12 #### [address] [address] Eosinophil, Absolute 0.1 10 3/mcL Normal 0.0-0.[address] [facility] Comment on above: Performed By: #### A DIFF, CBC, ANEU, TSH, FE, FT4 #### [address] [address] #### B12 #### [address] [address] Eosinophils/100 WBC (Bld) 0.8 % Normal 0.0-7.0 [facility] Comment on above: Performed By: #### A DIFF, CBC, ANEU, TSH, FE, FT4 #### [address] [address] #### B12 #### [address] [address] Lymphocyte, Absolute 2.9 10 3/mcL Normal 0.9-4.[address] [facility] Comment on above: Performed By: #### A DIFF, CBC, ANEU, TSH, FE, FT4 #### [address] [address] #### B12 #### [address] [address] Lymphocytes/100 WBC (Bld) 40.3 % High 20.0-40.0 [facility] Comment on above: Performed By: #### A DIFF, CBC, ANEU, TSH, FE, FT4 #### [address] [address] #### B12 #### [address] [address] Monocyte, Absolute 0.5 10 3/mcL Normal 0.1-1.4 [facility] Comment on above: Performed By: #### A DIFF, CBC, ANEU, TSH, FE, FT4 #### [address] [address] #### B12 #### [address] [address] Monocytes/100 WBC (Bld) 7.0 % Normal 2.0-13.0 [facility] Comment on above: Performed By: #### A DIFF, CBC, ANEU, TSH, FE, FT4 #### [address] [address] #### B12 #### [address] [address] Neutrophils/100 WBC (Bld) 51.4 % Normal 50.0-75.0 [facility] Comment on above: Performed By: #### A DIFF, CBC, ANEU, TSH, FE, FT4 #### [address] [address] #### B12 #### [address] [address] .GFRon 04-23-2024 GFR 107 ml/min/1.73sqm Normal [facility] Comment on above: Result Comment: GFR Population mean for , Non- Americans Ages 20-29 = 116 mL/min/1.73 sq.m. Ages 30-39 = 107 mL/min/1.73 sq.m. Ages 40-49 = 99 mL/min/1.73 sq.m. Ages 50-59 = 93 mL/min/1.73 sq.m. Ages 60-69 = 85 mL/min/1.73 sq.m. Ages 70+ = 75 mL/min/1.73 sq.m. Chronic Kidney Disease: Less than 60 mL/min/1.73 square meters End Stage Renal Disease: Less than 15 mL/min/1.73 square meters Performed By: #### A DIFF, CBC, ANEU, TSH, FE, FT4 #### [address] [address] #### B12 #### [address] [address] GFR Non- 88 ml/min/1.73sqm Normal [facility] Comment on above: Result Comment: GFR Population mean for , Non- Americans Ages 20-29 = 116 mL/min/1.73 sq.m. Ages 30-39 = 107 mL/min/1.73 sq.m. Ages 40-49 = 99 mL/min/1.73 sq.m. Ages 50-59 = 93 mL/min/1.73 sq.m. Ages 60-69 = 85 mL/min/1.73 sq.m. Ages 70+ = 75 mL/min/1.73 sq.m. Chronic Kidney Disease: Less than 60 mL/min/1.73 square meters End Stage Renal Disease: Less than 15 mL/min/1.73 square meters Performed By: #### A DIFF, CBC, ANEU, TSH, FE, FT4 #### [address] [address] #### B12 #### [address] [address] .NEUABSon 04-23-2024 Neutrophil, Absolute 3.7 10 3/mcL Normal 2.3-8.[address] [facility] Comment on above: Performed By: #### A DIFF, CBC, ANEU, TSH, FE, FT4 #### [address] [address] #### B12 #### [address] [address] B12on 04-23-2024 Cobalamin (Vitamin B12) [Mass/Vol] 286 pg/mL Normal 211-911 [facility] Comment on above: Performed By: #### A DIFF, CBC, ANEU, TSH, FE, FT4 #### [place] [address] #### B12 #### [place] [address] CBCon 04-23-2024 Erythrocyte distribution width (RBC) [Ratio] 12.7 % Normal 11.5-15.5 [facility] Comment on above: Performed By: #### A DIFF, CBC, ANEU, TSH, FE, FT4 #### [place] [address] #### B12 #### [place] [address] Hematocrit (Bld) [Volume fraction] 41.5 % Normal 34.0-46.0 [facility] Comment on above: Performed By: #### A DIFF, CBC, ANEU, TSH, FE, FT4 #### [place] [address] #### B12 #### [place] [address] Hgb 14.3 G/dL Normal 12.0-16.0 [facility] Comment on above: Performed By: #### A DIFF, CBC, ANEU, TSH, FE, FT4 #### [place] [address] #### B12 #### [place] [address] MCH (RBC) [Entitic mass] 32.3 pg Normal 27.0-33.0 [facility] Comment on above: Performed By: #### A DIFF, CBC, ANEU, TSH, FE, FT4 #### [place] [address] #### B12 #### [place] [address] MCHC 34.3 G/dL Normal 32.0-36.0 [facility] Comment on above: Performed By: #### A DIFF, CBC, ANEU, TSH, FE, FT4 #### [place] [address] #### B12 #### [place] [address] MCV (RBC) [Entitic vol] 94.2 fL Normal 80.0-99.0 [facility] Comment on above: Performed By: #### A DIFF, CBC, ANEU, TSH, FE, FT4 #### [place] [address] #### B12 #### [place] [address] Platelet 265 10 3/mcL Normal 150-450 [facility] Comment on above: Performed By: #### A DIFF, CBC, ANEU, TSH, FE, FT4 #### [place] [address] #### B12 #### [place] [address] Platelet mean volume (Bld) [Entitic vol] 8.5 fL Normal 6.6-10.5 [facility] Comment on above: Performed By: #### A DIFF, CBC, ANEU, TSH, FE, FT4 #### [place] [address] #### B12 #### [place] [address] RBC 4.41 10 6/mcL Normal 4.10-5.30 [facility] Comment on above: Performed By: #### A DIFF, CBC, ANEU, TSH, FE, FT4 #### [place] [address] #### B12 #### [place] [address] WBC 7.2 10 3/mcL Normal 4.5-10.8 [facility] Comment on above: Performed By: #### A DIFF, CBC, ANEU, TSH, FE, FT4 #### [place] [address] #### B12 #### [address] 04-23-2024 Albumin Level 4.1 G/dL Normal 3.5-5.0 [facility] Comment on above: Performed By: #### A DIFF, CBC, ANEU, TSH, FE, FT4 #### [place] [address] #### B12 #### [place] [address] Albumin/Globulin [Mass ratio] 1.4 {ratio} Normal 1.1-2.5 [facility] Comment on above: Performed By: #### A DIFF, CBC, ANEU, TSH, FE, FT4 #### [place] [address] #### B12 #### [place] [address] ALP [Catalytic activity/Vol] 50 U/L Normal 40-135 [facility] Comment on above: Performed By: #### A DIFF, CBC, ANEU, TSH, FE, FT4 #### [place] [address] #### B12 #### [place] [address] ALT [Catalytic activity/Vol] 18 U/L Normal 14-59 [facility] Comment on above: Performed By: #### A DIFF, CBC, ANEU, TSH, FE, FT4 #### [place] [address] #### B12 #### [place] [address] AST [Catalytic activity/Vol] 14 U/L Normal 10-40 [facility] Comment on above: Performed By: #### A DIFF, CBC, ANEU, TSH, FE, FT4 #### [place] [address] #### B12 #### [place] [address] Bili Total 0.5 mg/dL Normal 0.2-1.0 [facility] Comment on above: Result Comment: Use of this assay is not recommended for patients undergoing treatment with eltrombopag due to the potential for falsely elevated results. Performed By: #### A DIFF, CBC, ANEU, TSH, FE, FT4 #### [place] [address] #### B12 #### [address] [address] BUN/Creatinine Ratio 14 ratio Normal 7-27 [facility] Comment on above: Performed By: #### A DIFF, CBC, ANEU, TSH, FE, FT4 #### [place] [address] #### B12 #### [place] [address] Calcium [Mass/Vol] 8.9 mg/dL Normal 8.4-10.2 [facility] Comment on above: Performed By: #### A DIFF, CBC, ANEU, TSH, FE, FT4 #### [place] [address] #### B12 #### [address] [address] Chloride [Moles/Vol] 105 mmol/L Normal 98-107 [facility] Comment on above: Performed By: #### A DIFF, CBC, ANEU, TSH, FE, FT4 #### [place] [address] #### B12 #### [address] [address] CO2 [Moles/Vol] 25 mmol/L Normal 22-29 [facility] Comment on above: Performed By: #### A DIFF, CBC, ANEU, TSH, FE, FT4 #### [place] [address] #### B12 #### [address] [address] Creatinine [Mass/Vol] 0.74 mg/dL Normal 0.55-1.02 [facility] Comment on above: Result Comment: Test ing performed on Siemens Dimension EXL analyzer using a modified kinetic Fani technique. Performed By: #### A DIFF, CBC, ANEU, TSH, FE, FT4 #### [place] [address] #### B12 #### [place] [address] Electrolyte Balance 9.0 mEq/L Normal 4.0-15.0 [facility] Comment on above: Performed By: #### A DIFF, CBC, ANEU, TSH, FE, FT4 #### [place] [address] #### B12 #### [place] [address] Globulin 3.0 G/dL Normal [facility] Comment on above: Performed By: #### A DIFF, CBC, ANEU, TSH, FE, FT4 #### [place] [address] #### B12 #### [place] [address] Glucose [Mass/Vol] 72 mg/dL Normal 70-105 [facility] Comment on above: Performed By: #### A DIFF, CBC, ANEU, TSH, FE, FT4 #### [place] [address] #### B12 #### [place] [address] Potassium [Moles/Vol] 3.8 mmol/L Normal 3.5-5.1 [facility] Comment on above: Performed By: #### A DIFF, CBC, ANEU, TSH, FE, FT4 #### [place] [address] #### B12 #### [place] [address] Sodium [Moles/Vol] 139 mmol/L Normal 136-145 [facility] Comment on above: Performed By: #### A DIFF, CBC, ANEU, TSH, FE, FT4 #### [place] [address] #### B12 #### [place] [address] Total Protein 7.1 G/dL Normal 6.4-8.2 [facility] Comment on above: Performed By: #### A DIFF, CBC, ANEU, TSH, FE, FT4 #### [address] [address] #### B12 #### [place] [address] Urea nitrogen [Mass/Vol] 10 mg/dL Normal 7-18 [facility] Comment on above: Performed By: #### A DIFF, CBC, ANEU, TSH, FE, FT4 #### [place] [address] #### B12 #### [place] [address] CRPon 04-23-2024 C-Reactive Protein 0.1 mg/dL Normal 0.0-0.3 [facility] Comment on above: Performed By: #### A DIFF, CBC, ANEU, TSH, FE, FT4 #### [place] [address] #### B12 #### [place] [address] ESRon 04-23-2024 Erythrocyte Sed Rate 8 mm/hr Normal 0-20 [facility] Comment on above: Performed By: #### A DIFF, CBC, ANEU, TSH, FE, FT4 #### [place] [address] #### B12 #### [place] [address] FSHon 04-23-2024 FSH 10.7 mIU/mL Normal [facility] Comment on above: Result Comment: Adul t Female FSH Reference Ranges (06/13/99): Follicular phase 2.5 - 10.2 mIU/mL Midcycle phase 3.4 - 33.4 mIU/mL Luteal phase 1.5 - 9.1 mIU/mL Post menopausal 23.0 -116.3 mIU/mL Adult Male: 1.4 - 18.1 mIU/mL Performed By: #### A DIFF, CBC, ANEU, TSH, FE, FT4 #### [address] [address] #### B12 #### [place] [address] FT3on 04-23-2024 Free T3 [Mass/Vol] 3.17 pg/mL Normal 2.30-4.00 [facility] Comment on above: Performed By: #### A DIFF, CBC, ANEU, TSH, FE, FT4 #### [place] [address] #### B12 #### [place] [address] FT4on 04-23-2024 Free T4 [Mass/Vol] 0.89 ng/dL Normal 0.76-1.46 [facility] Comment on above: Performed By: #### A DIFF, CBC, ANEU, TSH, FE, FT4 #### [place] [address] #### B12 #### [place] [address] LABORATORYOrdered By: SYSTEM SYSTEM on 04-23-2024 25-hydroxyvitamin D3 [Mass/Vol] 47.2 ng/mL Invalid Interpretation Code AO ADM SS Comment on above: Interpretive Data: I nterpretive Values Based on Total 25(OH) Vitamin D: Deficient <20 ng/mL Insufficient 20 - <30 ng/mL Sufficient 30-100 ng/mL Albumin BCP dye [Mass/Vol] 4.1 G/dL Normal 3.5 - 5.0 G/dL AO ADM SS Albumin/Globulin [Mass ratio] 1.4 {ratio} Normal 1.1 - 2.5 ratio AO ADM SS ALP [Catalytic activity/Vol] 50 U/L Normal 40 - 135 U/L AO ADM SS ALT With P-5'-P [Catalytic activity/Vol] 18 U/L Normal 14 - 59 U/L AO ADM SS AST With P-5'-P [Catalytic activity/Vol] 14 U/L Normal 10 - 40 U/L AO ADM SS Basophils (Bld) [#/Vol] 0.0 103/mcL Normal 0.0 - 0.2 10^3/mcL AO Workflow SS Basophils/100 WBC (Bld) 0.5 % Normal 0.0 - 2.5 % AO Workflow SS Bilirubin [Mass/Vol] 0.5 mg/dL Normal 0.2 - 1 .0 mg/dL AO ADM SS Comment on above: Interpretive Data: U se of this assay is not recommended for patients undergoing treatment with eltrombopag due to the potential for falsely elevated results. Calcium [Mass/Vol] 8.9 mg/dL Normal 8.4 - 10. 2 mg/dL AO ADM SS Chloride [Moles/Vol] 105 mmol/L Normal 98 - 10 7 mmol/L AO ADM SS CO2 [Moles/Vol] 25 mmol/L Normal 22 - 29 mmol/L AO ADM SS Cobalamin (Vitamin B12) [Mass/Vol] 286 pg/mL Normal 211 - 911 pg/mL AH ADM SS Creatinine [Mass/Vol] 0.74 mg/dL Normal 0.55 - 1.02 mg/dL AO ADM SS Comment on above: Interpretive Data: T esting performed on Siemens Dimension EXL analyzer using a modified kinetic Fani technique. CRP [Mass/Vol] 0.1 mg/dL Normal 0.0 - 0.3 mg/dL AO ADM SS Electrolyte Balance 9.0 mEq/L Normal 4.0 - 15 .0 mEq/L AO ADM SS Eosinophil, Absolute 0.1 103/mcL Normal 0.0 - 0 .7 10^3/mcL AO Workflow SS Eosinophils/100 WBC (Bld) 0.8 % Normal 0.0 - 7.0 % AO Workflow SS Erythrocyte distribution width (RBC) [Ratio] 12.7 % Normal 11.5 - 15.5 % AO Workflow SS Follitropin Qn 10.7 m[IU]/mL Invalid Interpretation Code AH ADM SS Comment on above: Interpretive Data: A dult Female FSH Reference Ranges (06/13/99): Follicular phase 2.5 - 10.2 mIU/mL Midcycle phase 3.4 - 33.4 mIU/mL Luteal phase 1.5 - 9.1 mIU/mL Post menopausal 23.0 -116.3 mIU/mL Adult Male: 1.4 - 18.1 mIU/mL Free T3 [Mass/Vol] 3.17 pg/mL Normal 2.30 - 4. 00 pg/mL AO ADM SS Free T4 [Mass/Vol] 0.89 ng/dL Normal 0.76 - 1. 46 ng/dL AO ADM SS GFR/1.73 sq M.predicted among blacks MDRD (S/P/Bld) [Vol rate/Area] 107 ml/min/1.73sqm Invalid Interpretation Code AO Chemistry S Comment on above: Interpretive Data: GFR Population mean for , Non- Americans Ages 20-29 = 116 mL/min/1.73 sq.m. Ages 30-39 = 107 mL/min/1.73 sq.m. Ages 40-49 = 99 mL/min/1.73 sq.m. Ages 50-59 = 93 mL/min/1.73 sq.m. Ages 60-69 = 85 mL/min/1.73 sq.m. Ages 70+ = 75 mL/min/1.73 sq.m. Chronic Kidney Disease: Less than 60 mL/min/1.73 square meters End Stage Renal Disease: Less than 15 mL/min/1.73 square meters GFR/1.73 sq M.predicted among non-blacks MDRD (S/P/Bld) [Vol rate/Area] 88 ml/min/1.73sqm Invalid Interpretation Code AO Chemistry S Comment on above: Interpretive Data: GFR Population mean for , Non- Americans Ages 20-29 = 116 mL/min/1.73 sq.m. Ages 30-39 = 107 mL/min/1.73 sq.m. Ages 40-49 = 99 mL/min/1.73 sq.m. Ages 50-59 = 93 mL/min/1.73 sq.m. Ages 60-69 = 85 mL/min/1.73 sq.m. Ages 70+ = 75 mL/min/1.73 sq.m. Chronic Kidney Disease: Less than 60 mL/min/1.73 square meters End Stage Renal Disease: Less than 15 mL/min/1.73 square meters Globulin 3.0 G/dL Invalid Interpretation Code AO ADM SS Glucose [Mass/Vol] 72 mg/dL Normal 70 - 105 mg/dL AO ADM SS Hematocrit (Bld) [Volume fraction] 41.5 % Normal 34.0 - 46.0 % AO Workflow SS Hemoglobin (Bld) [Mass/Vol] 14.3 G/dL Normal 12.0 - 16.0 G/dL AO Workflow SS Lutropin Qn 2.6 m[IU]/mL Invalid Interpretation Code AH ADM SS Comment on above: Interpretive Data: * *Note - New Reference Range in effect 20Adult Female LH Reference Ranges: Follicular phase 1.9 - 12.5 mIU/mL Midcycle phase 8.7 - 76.3 mIU/mL Luteal phase 0.5 - 16.9 mIU/mL Post menopausal 5.0 - 55.2 mIU/mL Lymphocytes (Bld) [#/Vol] 2.9 103/mcL Normal 0.9 - 4.3 10^3/mcL AO Workflow SS Lymphocytes/100 WBC (Bld) 40.3 % High 20.0 - 40.0 % AO Workflow SS MCH (RBC) [Entitic mass] 32.3 pg Normal 27.0 - 33.0 pg AO Workflow SS MCHC 34.3 G/dL Normal 32.0 - 36.0 G/dL AO Workflow SS MCV (RBC) [Entitic vol] 94.2 fL Normal 80.0 - 99.0 fL AO Workflow SS Monocytes (Bld) [#/Vol] 0.5 103/mcL Normal 0.1 - 1.4 10^3/mcL AO Workflow SS Monocytes/100 WBC (Bld) 7.0 % Normal 2.0 - 13.0 % AO Workflow SS Neutrophils (Bld) [#/Vol] 3.7 103/mcL Normal 2.3 - 8.1 10^3/mcL AO Workflow SS Neutrophils/100 WBC (Bld) 51.4 % Normal 50.0 - 75.0 % AO Workflow SS Platelet mean volume (Bld) [Entitic vol] 8.5 fL Normal 6.6 - 10.5 fL AO Workflow SS Platelets (Bld) [#/Vol] 265 103/mcL Normal 150 - 450 10^3/mcL AO Workflow SS Potassium [Moles/Vol] 3.8 mmol/L Normal 3.5 - 5.1 mmol/L AO ADM SS Protein [Mass/Vol] 7.1 G/dL Normal 6.4 - 8.2 G/dL AO ADM SS RBC (Bld) [#/Vol] 4.41 106/mcL Normal 4.10 - 5.3 0 10^6/mcL AO Workflow SS Sodium [Moles/Vol] 139 mmol/L Normal 136 - 145 mmol/L AO ADM SS TPO Ab IA Qn unit/mL Normal 0 - 60 unit/mL AH ADM SS Comment on above: Interpretive Data: * *Note - New Reference Range in effect 20 TSH Qn 1.38 m[IU]/L Normal 0.36 - 3.74 mcIU/mL AO ADM SS Urea nitrogen [Mass/Vol] 10 mg/dL Normal 7 - 18 mg/dL AO ADM SS Urea nitrogen/Creatinine [Mass ratio] 14 ratio Normal 7 - 27 ratio AO ADM SS WBC (Bld) [#/Vol] 7.2 103/mcL Normal 4.5 - 10.8 10^3/mcL AO Workflow SS LABORATORYOrdered By: Otilio Roper on 04-23-2024 ESR Photometric method (Bld) [Velocity] 8 mm/hr Normal 0 - 20 mm/hr AO Man Heme SS LHon 04-23-2024 LH 2.6 mIU/mL Normal [facility] Comment on above: Result Comment: No te - New Reference Range in effect 20Adult Female LH Reference Ranges: Follicular phase 1.9 - 12.5 mIU/mL Midcycle phase 8.7 - 76.3 mIU/mL Luteal phase 0.5 - 16.9 mIU/mL Post menopausal 5.0 - 55.2 mIU/mL Performed By: #### A DIFF, CBC, ANEU, TSH, FE, FT4 #### [address] [address] #### B12 #### [address] [address] TSHon 04-23-2024 TSH Qn 1.38 m[IU]/L Normal 0.36-3.74 [facility] Comment on above: Performed By: #### A DIFF, CBC, ANEU, TSH, FE, FT4 #### [address] [address] #### B12 #### [address] [address] VIDHon 04-23-2024 Vit. D 25-Hydroxy 47.2 ng/mL Normal [facility] Comment on above: Result Comment: Inte rpretive Values Based on Total 25(OH) Vitamin D: Deficient <20 ng/mL Insufficient 20 - <30 ng/mL Sufficient 30-100 ng/mL Performed By: #### A DIFF, CBC, ANEU, TSH, FE, FT4 #### [place] [address] #### B12 #### [place] [address] aTPOon 04-23-2024 anti-Thyroid Peroxidase <28 Normal 0-60 [facility] Comment on above: Result Comment: No te - New Reference Range in effect 20 Performed By: #### A DIFF, CBC, ANEU, TSH, FE, FT4 #### [place] [address] #### B12 #### [place] [address] .Auto Diffon 04-07-2024 Basophil, Absolute 0.0 10 3/mcL Normal 0.0-0.2 [facility] Comment on above: Performed By: #### A DIFF, CBC, ANEU, TSH, FE, FT4 #### [place] [address] #### B12 #### [place] [address] Basophils/100 WBC (Bld) 0.7 % Normal 0.0-2.5 [facility] Comment on above: Performed By: #### A DIFF, CBC, ANEU, TSH, FE, FT4 #### [place] [address] #### B12 #### [place] [address] Eosinophil, Absolute 0.1 10 3/mcL Normal 0.0-0.[address] [facility] Comment on above: Performed By: #### A DIFF, CBC, ANEU, TSH, FE, FT4 #### [address] [address] #### B12 #### [address] [address] Eosinophils/100 WBC (Bld) 1.2 % Normal 0.0-7.0 [facility] Comment on above: Performed By: #### A DIFF, CBC, ANEU, TSH, FE, FT4 #### [address] [address] #### B12 #### [address] [address] Lymphocyte, Absolute 2.2 10 3/mcL Normal 0.8-3.[address] [facility] Comment on above: Performed By: #### A DIFF, CBC, ANEU, TSH, FE, FT4 #### [address] [address] #### B12 #### [address] [address] Lymphocytes/100 WBC (Bld) 33.0 % Normal 10.0-50.0 [facility] Comment on above: Performed By: #### A DIFF, CBC, ANEU, TSH, FE, FT4 #### [address] [address] #### B12 #### [address] [address] Monocyte, Absolute 0.5 10 3/mcL Normal 0.2-1.0 [facility] Comment on above: Performed By: #### A DIFF, CBC, ANEU, TSH, FE, FT4 #### [address] [address] #### B12 #### [address] [address] Monocytes/100 WBC (Bld) 7.4 % Normal 1.7-13.0 [facility] Comment on above: Performed By: #### A DIFF, CBC, ANEU, TSH, FE, FT4 #### [place] [address] #### B12 #### [address] [address] Neutrophils/100 WBC (Bld) 57.7 % Normal 37.0-80.0 [facility] Comment on above: Performed By: #### A DIFF, CBC, ANEU, TSH, FE, FT4 #### [address] [address] #### B12 #### [address] [address] .NEUABSon 04-07-2024 Neutrophil, Absolute 3.9 10 3/mcL Normal 2.9-6.[address] [facility] Comment on above: Performed By: #### A DIFF, CBC, ANEU, TSH, FE, FT4 #### [address] [address] #### B12 #### [address] [address] B12on 04-07-2024 Cobalamin (Vitamin B12) [Mass/Vol] 208 pg/mL Low 211-911 [facility] Comment on above: Performed By: #### A DIFF, CBC, ANEU, TSH, FE, FT4 #### [address] [address] #### B12 #### [address] [address] CBCon 04-07-2024 Erythrocyte distribution width (RBC) [Ratio] 12.5 % Normal 11.5-14.5 [facility] Comment on above: Performed By: #### A DIFF, CBC, ANEU, TSH, FE, FT4 #### [address] [address] #### B12 #### [address] [address] Hematocrit (Bld) [Volume fraction] 43.4 % Normal 37.0-47.0 [facility] Comment on above: Performed By: #### A DIFF, CBC, ANEU, TSH, FE, FT4 #### [address] [address] #### B12 #### [place] [address] Hgb 14.7 G/dL Normal 12.0-16.0 [facility] Comment on above: Performed By: #### A DIFF, CBC, ANEU, TSH, FE, FT4 #### [place] [address] #### B12 #### [place] [address] MCH (RBC) [Entitic mass] 31.5 pg High 27.0-31.2 [facility] Comment on above: Performed By: #### A DIFF, CBC, ANEU, TSH, FE, FT4 #### [place] [address] #### B12 #### [place] [address] MCHC 33.8 G/dL Normal 33.0-37.0 [facility] Comment on above: Performed By: #### A DIFF, CBC, ANEU, TSH, FE, FT4 #### [place] [address] #### B12 #### [place] [address] MCV (RBC) [Entitic vol] 93.3 fL Normal 80.0-94.0 [facility] Comment on above: Performed By: #### A DIFF, CBC, ANEU, TSH, FE, FT4 #### [place] [address] #### B12 #### [place] [address] Platelet 248 10 3/mcL Normal 130-400 [facility] Comment on above: Performed By: #### A DIFF, CBC, ANEU, TSH, FE, FT4 #### [place] [address] #### B12 #### [place] [address] Platelet mean volume (Bld) [Entitic vol] 8.8 fL Normal 7.4-10.4 [facility] Comment on above: Performed By: #### A DIFF, CBC, ANEU, TSH, FE, FT4 #### [place] [address] #### B12 #### [place] [address] RBC 4.65 10 6/mcL Normal 4.20-5.40 [facility] Comment on above: Performed By: #### A DIFF, CBC, ANEU, TSH, FE, FT4 #### [place] [address] #### B12 #### [place] [address] WBC 6.7 10 3/mcL Normal 4.6-10.8 [facility] Comment on above: Performed By: #### A DIFF, CBC, ANEU, TSH, FE, FT4 #### [place] [address] #### B12 #### [place] [address] FEon 04-07-2024 Iron [Mass/Vol] 83 ug/dL Normal 50-170 [facility] Comment on above: Performed By: #### A DIFF, CBC, ANEU, TSH, FE, FT4 #### [place] [address] #### B12 #### [place] [address] FT4on 04-07-2024 Free T4 [Mass/Vol] 0.86 ng/dL Normal 0.76-1.46 [facility] Comment on above: Performed By: #### A DIFF, CBC, ANEU, TSH, FE, FT4 #### [place] [address] #### B12 #### [place] [address] LABORATORYOrdered By: SYSTEM SYSTEM on 04-07-2024 Basophils (Bld) [#/Vol] 0.0 103/mcL Normal 0.0 - 0.2 10^3/mcL AO Workflow SS Basophils/100 WBC (Bld) 0.7 % Normal 0.0 - 2.5 % AO Workflow SS Cobalamin (Vitamin B12) [Mass/Vol] 208 pg/mL Low 211 - 911 pg/mL AH ADM SS Eosinophil, Absolute 0.1 103/mcL Normal 0.0 - 0 .4 10^3/mcL AO Workflow SS Eosinophils/100 WBC (Bld) 1.2 % Normal 0.0 - 7.0 % AO Workflow SS Erythrocyte distribution width (RBC) [Ratio] 12.5 % Normal 11.5 - 14.5 % AO Workflow SS Free T4 [Mass/Vol] 0.86 ng/dL Normal 0.76 - 1. 46 ng/dL AO ADM SS Hematocrit (Bld) [Volume fraction] 43.4 % Normal 37.0 - 47.0 % AO Workflow SS Hemoglobin (Bld) [Mass/Vol] 14.7 G/dL Normal 12.0 - 16.0 G/dL AO Workflow SS Iron [Mass/Vol] 83 ug/dL Normal 50 - 170 mcg/dL AO ADM SS Lymphocytes (Bld) [#/Vol] 2.2 103/mcL Normal 0.8 - 3.9 10^3/mcL AO Workflow SS Lymphocytes/100 WBC (Bld) 33.0 % Normal 10.0 - 50.0 % AO Workflow SS MCH (RBC) [Entitic mass] 31.5 pg High 27.0 - 31.2 pg AO Workflow SS MCHC 33.8 G/dL Normal 33.0 - 37.0 G/dL AO Workflow SS MCV (RBC) [Entitic vol] 93.3 fL Normal 80.0 - 94.0 fL AO Workflow SS Monocytes (Bld) [#/Vol] 0.5 103/mcL Normal 0.2 - 1.0 10^3/mcL AO Workflow SS Monocytes/100 WBC (Bld) 7.4 % Normal 1.7 - 13.0 % AO Workflow SS Neutrophils (Bld) [#/Vol] 3.9 103/mcL Normal 2.9 - 6.2 10^3/mcL AO Workflow SS Neutrophils/100 WBC (Bld) 57.7 % Normal 37.0 - 80.0 % AO Workflow SS Platelet mean volume (Bld) [Entitic vol] 8.8 fL Normal 7.4 - 10.4 fL AO Workflow SS Platelets (Bld) [#/Vol] 248 103/mcL Normal 130 - 400 10^3/mcL AO Workflow SS RBC (Bld) [#/Vol] 4.65 106/mcL Normal 4.20 - 5.4 0 10^6/mcL AO Workflow SS TSH Qn 1.23 m[IU]/L Normal 0.36 - 3.74 mcIU/mL AO ADM SS WBC (Bld) [#/Vol] 6.7 103/mcL Normal 4.6 - 10.8 10^3/mcL AO Workflow SS TSHon 04-07-2024 TSH Qn 1.23 m[IU]/L Normal 0.36-3.74 [facility] Comment on above: Performed By: #### A DIFF, CBC, ANEU, TSH, FE, FT4 #### [facility] [address], [place] [address] #### B12 #### [facility] [address] [place] [id number] XR ABDOMEN APon 09-27-2023 XR ABDOMEN AP ORIGINAL EXAMINATION: ONE SUPINE XRAY VIEW(S) OF THE ABDOMEN; 3 XRAY VIEWS OF THE LUMBAR SPINE 09/26/2023 11:14 am COMPARISON: CT abdomen and pelvis on 09/09/2023 HISTORY: ORDERING SYSTEM PROVIDED HISTORY: Reason for Exam: Constipation FINDINGS: Abdomen x-ray demonstrates a nonobstructive bowel gas pattern. There is moderate fecal retention in the colon without fecal impaction or obstruction. No abnormal gas collection is present. No pathologic calcifications are detected, including no evidence of any urinary tract stones. X-rays of the lumbar spine demonstrate there are 5 lumbar vertebrae. The lumbar spine alignment is normal. The vertebral bodies are normal in height with no fracture. Disc spaces are maintained. Facet joints and posterior elements are normal. Sacroiliac joints have a normal appearance. Pelvic ring is intact with no osseous lesion of the pelvis. Hips are unremarkable. IMPRESSION: Moderate fecal retention in the colon consistent with constipation. No bowel obstruction. Normal lumbar spine. Interpreted by: William Dial MD Preliminary Report By: William Dial MD Electronically signed By William Dial MD Dictated Date: 09/27/2023 2:53:39 AM Prelim Date: 09/27/2023 2:57:13 AM Sign Date: 09/27/2023 2:57:13 AM Ordering Provider: DILEEP LIRA [facility] ([place]) XR SPINE LUMBOSACRAL 2 OR 3 VIEWSon 09-27-2023 XR SPINE LUMBOSACRAL 2 OR 3 VIEWS ORIGINAL EXAMINATION: ONE SUPINE XRAY VIEW(S) OF THE ABDOMEN; 3 XRAY VIEWS OF THE LUMBAR SPINE 09/26/2023 11:14 am COMPARISON: CT abdomen and pelvis on 09/09/2023 HISTORY: ORDERING SYSTEM PROVIDED HISTORY: Reason for Exam: Constipation FINDINGS: Abdomen x-ray demonstrates a nonobstructive bowel gas pattern. There is moderate fecal retention in the colon without fecal impaction or obstruction. No abnormal gas collection is present. No pathologic calcifications are detected, including no evidence of any urinary tract stones. X-rays of the lumbar spine demonstrate there are 5 lumbar vertebrae. The lumbar spine alignment is normal. The vertebral bodies are normal in height with no fracture. Disc spaces are maintained. Facet joints and posterior elements are normal. Sacroiliac joints have a normal appearance. Pelvic ring is intact with no osseous lesion of the pelvis. Hips are unremarkable. IMPRESSION: Moderate fecal retention in the colon consistent with constipation. No bowel obstruction. Normal lumbar spine. Interpreted by: William Dial MD Preliminary Report By: William Dial MD Electronically signed By William Dial MD Dictated Date: 09/27/2023 2:53:39 AM Prelim Date: 09/27/2023 2:57:13 AM Sign Date: 09/27/2023 2:57:13 AM Ordering Provider: DILEEP LIRA [facility] ([place]) Absolute lymphocyte countOrd ered By: Toni Parikh on 09-24-2023 Lymphocytes Auto (Unsp spec) [#/Vol] 2.99 10*3/uL 0.83-4.51 [facility] Automated lymphocyte count a s percentage of total leukocytesOrdered By: Toni Jl on 09-24-2023 Lymphocytes/100 WBC Auto (Unsp spec) 33.7 % 19-41 [facility] Basophil percentageOrdered B y: Toni Parikh on 09-24-2023 Basophils/100 WBC (Bld) 0.7 % 0-1 [facility] Chloride [Moles/Vol] 110 mmol/L 98-107 [facility] Eosinophils/100 WBC (Bld) 0.5 % 0-5 [facility] Glucose [Mass/Vol] 106 mg/dL 74-106 [facility] Comment on above: Fasting Glucose resu lt from 100 to 125 mg/dL suggests IMPAIRED HOMEOSTASIS per A.D.A. criteria. Hemoglobin (Bld) [Mass/Vol] 14.0 g/dL 12.0-15.0 [facility] Monocytes/100 WBC (Bld) 6.0 % 0-10 [facility] Neutrophils (Bld) [#/Vol] 5.2 10*3/uL 2.0-7.7 [facility] Neutrophils/100 WBC (Bld) 58.9 % 47-70 [facility] Potassium [Moles/Vol] 3.5 mmol/L 3.5-5.1 [facility] Sodium [Moles/Vol] 141 mmol/L 136-145 [facility] WBC (Bld) [#/Vol] 8.9 10*3/uL 4.4-11.0 [facility] Basophil percentage 0 SEEN /hpf 0-5 [facility] Bilirubin Test strip Ql (U)O rdered By: Toni Parikh on 09-24-2023 Bilirubin Ql (U) Negative Negative [facility] Determination of erythrocyte mean corpuscular volume (MCV)Ordered By: Toni Parikh on 09-24-2023 MCV (RBC) [Entitic vol] 90.1 fL 81-99 [facility] Erythrocyte distribution wid th ratioOrdered By: Toni Parikh on 09-24-2023 Erythrocyte distribution width (RBC) [Ratio] 12.7 % 11.6-14.6 [facility] Erythrocyte distribution wid th standard deviationOrdered By: Tonitricia Parikh on 09-24-2023 Erythrocyte distribution width (RBC) [Entitic vol] 41.9 fL 35.1-43.9 [facility] Hematocrit Auto (Bld) [Volum e fraction]Ordered By: Toni Parikh on 09-24-2023 Hematocrit (Bld) [Volume fraction] 41.9 % 37-47 [facility] Immature granulocytes/100 WB C Auto (Bld)Ordered By: Toni Parikh on 09-24-2023 Immature granulocytes/100 WBC (Bld) 0.200 % 0.0-0.9 [facility] Comment on above: IG% - Immature Granu locytes (promyelocytes, myelocytes and metamyelocytes) > 1% indicates that a LEFT SHIFT is Present. Ketones Test strip Ql (U)Ord ered By: Toni Parikh on 09-24-2023 Ketones Ql (U) Negative Negative [facility] Laboratory - Chemistry and C hemistry - challengeOrdered By: Toni Parikh on 09-24-2023 CO2 [Moles/Vol] 26.0 mmol/L 21.0-32.0 [facility] Urea nitrogen/Creatinine [Mass ratio] 10.7 mg/mg 10-20 [facility] Laboratory - Hematology and Cell countsOrdered By: Toni Parikh on 09-24-2023 MCH (RBC) [Entitic mass] 30.1 pg 27.0-32.0 [facility] MCHC (RBC) [Mass/Vol] 33.4 g/dL 32-36 [facility] Nucleated RBC/100 WBC (Bld) [Ratio] 0 % 0-5 [facility] Platelet mean volume (Bld) [Entitic vol] 10.0 fL 6.2-12.0 [facility] Platelets (Bld) [#/Vol] 295 10*3/uL 150-450 [facility] Mucus LM Ql (Urine sed)Order ed By: Toni Parikh on 09-24-2023 Mucus Ql (Urine sed) 0 SEEN /hpf [facility] Nitrite Test strip Ql (U)Ord ered By: Toni Parikh on 09-24-2023 Nitrite Ql (U) Negative Negative [facility] No Panel InformationOrdered By: Toni Parikh on 09-24-2023 Estimated Creatinine Clearance Calc 101.44 ml/min [facility] Estimated GFR (MDRD) Amer 113 mL/min >60 [facility] Comment on above: GFR Calc Estimated GFR (MDRD) Non-Af Amer 93 mL/min >60 [facility] Comment on above: Non- GFR Calc Urine RBC 0 SEEN /hpf 0-5 [facility] Protein Test strip Ql (U)Ord ered By: Toni Parikh on 09-24-2023 Protein Ql (U) Negative Negative [facility] RBC Auto (Bld) [#/Vol]Ordere d By: Toni Parikh on 09-24-2023 RBC (Bld) [#/Vol] 4.65 10*6/uL 4.2-5.4 [facility] Serum or plasma calcium jorge urement (mass/volume)Ordered By: Toni Parikh on 09-24-2023 Calcium [Mass/Vol] 9.0 mg/dL 8.5-10.1 [facility] Serum or plasma choriogonado tropin detectionOrdered By: Toni Parikh on 09-24-2023 HCG ( test) Ql Negative [facility] Serum or plasma creatinine m easurement (mass/volume)Ordered By: Tonitricia Parikh on 09-24-2023 Creatinine [Mass/Vol] 0.74 mg/dL 0.55-1.02 [facility] Comment on above: The validity of the calculated GFR & GFRAA in patients over 70 years has not been determined. Clinical correlation is essential. Serum or plasma urea nitroge n measurement (mass/volume)Ordered By: Toni Parikh on 09-24-2023 Urea nitrogen [Mass/Vol] 8 mg/dL 7-18 [facility] Squamous epithelial cells de tection in urine sediment by light microscopyOrdered By: Tonitricia Parikh on 09-24-2023 Epithelial cells.squamous LM Ql (Urine sed) 0 SEEN /hpf 5-10 [facility] Thin prep Papanicolaou smear with manual screeningOrdered By: Tonitricia Parikh on 09-24-2023 Thin prep Papanicolaou smear with manual screening 5 5-15 [facility] US BREAST RIGHT LIMITEDon US BREAST RIGHT LIMITED ORIGINAL FROM: [facility] [address] [address] PROCEDURE FOR: PATRICA BURTON [address] [place] [phone] Home: PID#: [id number] Exam#: [id number] : 1985 Age: 38 TO: SHANIQUE GARSIA MD [address] [address] Fax: NO FAX EXAMINATION: ULTRASOUND OF THE RIGHT BREAST 09/24/2023 8:54 am TECHNIQUE: Color flow and real-time targeted ultrasound of the 1 o'clock region were performed. COMPARISON: Mammogram September 17, 2023 HISTORY: ORDERING SYSTEM PROVIDED HISTORY: Reason for Exam: abnormal mammo FINDINGS: There is a 1.3 cm well-circumscribed oval lobulated hypoechoic mass within the right breast at 1 o'clock, 6-7 cm from the nipple. There are thin internal septations and internal echoes. No increased vascularity. This probably correlates with the mammographic finding. IMPRESSION: The 1.3 cm oval hypoechoic mass within the right breast resembles a cluster of cysts/septated cyst and appears probably benign. A six-month follow-up right breast ultrasound and right diagnostic mammogram are recommended to demonstrate stability. BIRADS: MAMMOGRAM BI-RADS: 3: Probably benign RECALL: 6 month follow-up RECALL TYPE: Right mammo+US LETTER SENT: Probably Benign BI-RADS 3 Interpreted by: Brook Phan MD Preliminary Report By: Brook Phan MD Electronically signed By Brook Phan MD Dictated Date: 09/24/2023 5:42:57 PM Prelim Date: 09/24/2023 5:46:24 PM Sign Date: 09/24/2023 5:46:24 PM Ordering Provider: SHANIQUE GARSIA CLINICAL: MAMMOGRAPHIC DENSITY RIGHT BREAST. Ladies Locker Room Attendant: PANKAJ REED [facility] letter sent: Probably Benign BI-RADS 3 Ultrasound BI-RADS: 3 Probably benign Normal [facility] ([place]) Urine blood detectionOrdered By: Toni Parikh on 09-24-2023 RBC Ql (U) Negative Negative [facility] Urine clarityOrdered By: Toni Parikh on 09-24-2023 Clarity (U) Sl. Cloudy Clear [facility] Urine color determinationOrd ered By: Toni Parikh on 09-24-2023 Color (U) Yellow Yellow [facility] Urine glucose detectionOrder ed By: Toni Parikh on 09-24-2023 Glucose Ql (U) Normal mg/dl Normal [facility] Urine leukocyte esterase det ection by dipstickOrdered By: Toni Parikh on 09-24-2023 Leukocyte esterase Test strip Ql (U) Negative Negative [facility] Urine pHOrdered By: Toni clarke on 09-24-2023 pH (U) 7.0 [pH] 5.0 - 8.0 [facility] Urine sediment bacteria coun t by microscopy (number/high power field)Ordered By: Toni Parikh on 09-24-2023 Bacteria LM.HPF (Urine sed) [#/Area] 0 /[HPF] None Seen [facility] Urine specific gravity measu rementOrdered By: Toni Parikh on 09-24-2023 Specific gravity (U) [Rel density] 1.010 1.002-1.030 [facility] Urine urobilinogen measureme ntOrdered By: Toni Parikh on 09-24-2023 Urobilinogen Ql (U) Normal mg/dl Normal [facility] [employer] Supervisor Cytology Reporton 2023 Cell[facility] Supervisor Cytology Report . Pathology Reports Accession: Collected Date/Time: Received Date/Time: Pathologist: [id number] 09/11/2023 09:32 EST 09/11/2023 18:00 EST [facility] Super[facility] Cytology Report SPECIMEN: Specimen Description: Liquid Prep w/ HPV Specimen: Cervical/Endocervical Screening or Diagnostic: Screening RELEVANT HISTORY: LMP: 09/13 Control: Yes SPECIMEN ADEQUACY: SATISFACTORY FOR EVALUATION Endocervical/Transforma tional zone component present INTERPRETATION/RESULTS: NEGATIVE FOR INTRAEPITHELIAL LESION OR MALIGNANCY HIGH RISK HPV TESTING: Event Code Result HPV Interp See Interp HPVN HPV Interp Text: High Risk HPV Typing: NEGATIVE HPV types 16, 18, 31, 33, 35, 39, 45, 51, 52, 56, 58, 59, 66 and 68 DNA were undetectable or below the pre-set threshold. The ana High-Risk HPV DNA Test is not intended for use as a screening device for Pap normal women under age 30 and is not intended to substitute for regular Pap screening. The ana High-Risk HPV DNA Test is designed to augment existing methods for the detection of cervical disease and should be used in conjunction with clinical information derived from other diagnostic and screening tests, physical examinations and full medical history in accordance with appropriate patient management procedures. NOTE: A negative result does not preclude the presence of HPV infection because results depend on adequate specimen collection, absence of inhibitors and sufficient DNA to be detected. As of: 09/19/23 14:44 EST COMMENT: This Pap Test was successfully processed and evaluated with the assistance of the [employer] ThinPrep Test Imaging System. Pathology Reports Accession: Collected Date/Time: Received Date/Time: Pathologist: [id number] 09/11/2023 09:32 EST 09/11/2023 18:00 EST Electronically Signed by Pathology report verified by [facility] Screened by: [place] Electronically signed by Stephanie RIVERA (ASC) Sign-Out Date: 09/19/2023 14:45 Performing Lab: [facility], [address] [place] [address] Pathology Dept Disclaimer The Pap test is a screening test for cervical cancer. As evidenced by published data, it is subject to both inherent false negative and false positive results. Your patient's results should be interpreted in context with pertinent clinical history including gynecological examination. Normal [facility] ([place]) MA MAMMOGRAM SCREENING BILAT ERAL W/TOMOon 09-17-2023 MA MAMMOGRAM SCREENING BILATERAL W/MANINDER ORIGINAL FROM: [place] [address] PROCEDURE FOR: PATRICA BURTON [address] [place] [phone] Home: PID#: [id number] Exam#: [id number] : 1985 Age: 38 TO: SHANIQUE GARSIA MD [address] [place] [address] Fax: NO FAX EXAMINATION: SCREENING DIGITAL BILATERAL MAMMOGRAM WITH TOMOSYNTHESIS, 09/17/2023 2:07 pm TECHNIQUE: Screening mammography of the bilateral breasts was performed with tomosynthesis. 2D standard and 3D tomosynthesis combination imaging performed through both breasts in the MLO and CC projection. Computer aided detection was utilized in the interpretation of this exam. COMPARISON: None. HISTORY: Breast cancer screening. FINDINGS: BREAST DENSITY: Heterogeneously dense There is a 1.3 cm irregular mass with obscured margins in the right breast at 1 o'clock posterior depth. This is confirmed on additional tomographic views. There are no other significant masses, calcifications, or other findings. IMPRESSION: The 1.3 cm irregular mass in the right breast at 1 o'clock is indeterminate. A right breast ultrasound is recommended. We will contact the patient to arrange for the exam. Mariamasteve Zendejasashanti risk calculations, generated with the history provided, report this patient's 10 year risk and lifetime risk for developing breast cancer at 1.0% and 12.4%, respectively. Based on this assessment tool, if the patient's calculated lifetime risk is below 20%, then the patient is considered at average risk for developing breast cancer. If the patient's calculated lifetime risk is at or above 20%, then the patient is considered high risk for developing breast cancer and may be a candidate for supplemental breast MRI screening in addition to annual mammographic screening per the [employer]. BIRADS: MAMMOGRAM BI-RADS: 0: Needs addl evaluation RECALL: immediate RECALL TYPE: Right US LETTER SENT: Abnormal-Needs additional work up BI-RADS 0 Interpreted by: Shanique Osborn MD Preliminary Report By: Shanique Osborn MD Electronically signed By Shanique Osborn MD Dictated Date: 09/17/2023 5:19:34 PM Prelim Date: 09/17/2023 5:26:59 PM Sign Date: 09/17/2023 5:26:59 PM Ordering Provider: SHANIQUE GARSIA CLINICAL: BASELINE. Ladies Locker Room Attendant: GRAHAM BABCOCK RT(R)(M)(CT) letter sent: Abnormal-Needs additional work up BI-RADS 0 Mammogram BI-RADS: 0 Indeterminate Normal [facility] ([place]) HPVon 09-15-2023 HPV Interp Normal See Interp HPVN [facility] ([place]) Comment on above: Order Comment: Order placed by AP_HPV_ORDER rule from [id number] Result Comment: High Risk HPV Typing: NEGATIVE HPV types 16, 18, 31, 33, 35, 39, 45, 51, 52, 56, 58, 59, 66 and 68 DNA were undetectable or below the pre-set threshold. The ana High-Risk HPV DNA Test is not intended for use as a screening device for Pap normal women under age 30 and is not intended to substitute for regular Pap screening. The ana High-Risk HPV DNA Test is designed to augment existing methods for the detection of cervical disease and should be used in conjunction with clinical information derived from other diagnostic and screening tests, physical examinations and full medical history in accordance with appropriate patient management procedures. NOTE: A negative result does not preclude the presence of HPV infection because results depend on adequate specimen collection, absence of inhibitors and sufficient DNA to be detected. See Interp HPVN Performed By: #### H PV #### [address] [address] HPV Source Cervix Normal [facility] ([place]) Comment on above: Order Comment: Order placed by AP_HPV_ORDER rule from [id number] Performed By: #### H PV #### [address] [address] [address] ABDOMEN/PELVIS W/CONTRAST on 09-11-2023 CT ABDOMEN/PELVIS W/CONTRAST ORIGINAL EXAMINATION: CT OF THE ABDOMEN AND PELVIS WITH CONTRAST 09/09/2023 2:45 pm TECHNIQUE: CT of the abdomen and pelvis was performed with the administration of intravenous contrast. Multiplanar reformatted images are provided for review. Automated exposure control, iterative reconstruction, and/or weight based adjustment of the mA/kV was utilized to reduce the radiation dose to as low as reasonably achievable. COMPARISON: September 11, 2022 HISTORY: ORDERING SYSTEM PROVIDED HISTORY: Reason for Exam: Worsening left-sided abdominal pain FINDINGS: No osseous abnormality identified. The lung bases are unremarkable. There is a small area of fatty infiltration of the liver adjacent to the falciform ligament fissure. No other liver lesion seen. Spleen, adrenal glands and pancreas are unremarkable, and there is no renal finding. There is a 3.4 cm right ovarian cyst. The solid pelvic organs and urinary bladder are otherwise unremarkable. No adenopathy, free air, or free fluid seen. A tiny fat containing umbilical hernia is incidentally seen. No GI tract abnormality seen. The appendix is unremarkable. No additional contributory finding. IMPRESSION: No acute abnormality identified on this exam. No cause for pain seen. RECOMMENDATIONS: 3.4 cm right ovarian simple-appearing cyst. No follow-up imaging is recommended. Reference: JACR 2019;17(2):248-254 Interpreted by: Jorge Love MD Preliminary Report By: Jorge Love MD Electronically signed By Jorge Love MD Dictated Date: 09/11/2023 9:29:44 AM Prelim Date: 09/11/2023 9:32:14 AM Sign Date: 09/11/2023 9:32:14 AM Ordering Provider: DILEEP Huffman [facility] ([place]) EBVon 09-01-2023 EBV IgG Positive Normal Negative [facility]) Comment on above: Result Comment: INTE RPRETATION OF EBV IgG BY EIA: Negative: No detectable EBV IgG antibody. Result does not exclude EBV infection. Positive: EBV IgG antibody detected. Indicative of current or past infection. Equivocal: Equivocal for antibodies to EBV. Repeat testing if still indicated. Performed By: #### T SH, ANEU, [id number], CMP, GFR, VIDH, LIPID, URIC, ESR, A1C, FERR, CRP, CBC, ADIFF, FT4 ####[address] [place], [place] [address]#### PROL, CPEP, EBV, ASO, PEYTON ####[place] [address] EBV IgM Negative Normal Negative [facility]) Comment on above: Result Comment: INTE RPRETATION OF EBV IgM BY EIA: Negative: No detectable EBV IgM antibody. Result does not exclude EBV infection. An additional sample should be tested within 5-7 days if early infection is suspected. Positive: EBV IgM antibody detected. May be indicative of current or recent infection. Equivocal: Equivocal for antibodies to EBV. Repeat testing if still indicated. Performed By: #### T SH, ANEU, [id number], CMP, GFR, VIDH, LIPID, URIC, ESR, A1C, FERR, CRP, CBC, ADIFF, FT4 ####[address] [place], [place] [address]#### PROL, CPEP, EBV, ASO, PEYTON ####[place] [address] ANAon 08-29-2023 Nuclear Ab IF (S) [Titer] 40 {titer} Normal Neg 40 [facility]) Comment on above: Result Comment: PEYTON Screen and Titer methodology is an immunofluorescent technique utilizing Hep2 Substrate. Performed By: #### T SH, ANEU, [id number], CMP, GFR, VIDH, LIPID, URIC, ESR, A1C, FERR, CRP, CBC, ADIFF, FT4 ####[place] [address]#### PROL, CPEP, EBV, ASO, PEYTON ####[place] [address] ASOon 08-29-2023 ASO 63.4 IU/mL Normal 25.0-250.0 [facility] ([place]) Comment on above: Result Comment: No te - New Reference Range in effect 20 Performed By: #### T SH, ANEU, [id number], CMP, GFR, VIDH, LIPID, URIC, ESR, A1C, FERR, CRP, CBC, ADIFF, FT4 ####[place] [address]#### PROL, CPEP, EBV, ASO, PEYTON ####[place] [address] CPEPon 08-29-2023 C-Peptide 1.28 ng/mL Normal 0.81-3.85 [facility] ([place]) Comment on above: Performed By: #### T SH, ANEU, 136292, CMP, GFR, VIDH, LIPID, URIC, ESR, A1C, FERR, CRP, CBC, ADIFF, FT4 ####[place] [address]#### PROL, CPEP, EBV, ASO, PEYTON ####[place] [address] LMERLYon 08-29-2023 Lyme Total Antibody LILIAM Negative Normal Negative A [facility] ([place]) Comment on above: Result Comment: Lyme antibodies not detected. Reflex testing is not indicated. No laboratory evidence of infection with B. burgdorferi (Lyme disease). Negative results may occur in patients recently infected (less than or equal to 14 days) with B. burgdorferi. If recent infection is suspected, repeat testing on a new sample collected in 7 to 14 days is recommended. Performed At: [facility] [id number] Lupillo Saunders PhD Ph:[phone] Performed By: #### T SH, ANEU, [id number], CMP, GFR, VIDH, LIPID, URIC, ESR, A1C, FERR, CRP, CBC, ADIFF, FT4 ####[address] [address]#### PROL, CPEP, EBV, ASO, PEYTON ####[address] [address] PROLon 08-29-2023 Prolactin 15.5 ng/mL Normal 2.0-30.0 [facility] ([place]) Comment on above: Performed By: #### T SH, ANEU, [id number], CMP, GFR, VIDH, LIPID, URIC, ESR, A1C, FERR, CRP, CBC, ADIFF, FT4 ####[address] [address]#### PROL, CPEP, EBV, ASO, PEYTON ####[address] [address] .Auto Diffon 08-28-2023 Basophil, Absolute 0.0 10 3/mcL Normal 0.0-0.2 [facility] ([place]) Comment on above: Performed By: #### T SH, ANEU, [id number], CMP, GFR, VIDH, LIPID, URIC, ESR, A1C, FERR, CRP, CBC, ADIFF, FT4 #### [address] [address] #### PROL, CPEP, EBV, ASO, PEYTON #### [address] [address] Basophils/100 WBC (Bld) 0.5 % Normal 0.0-2.5 A [facility] ([place]) Comment on above: Performed By: #### T SH, ANEU, [id number], CMP, GFR, VIDH, LIPID, URIC, ESR, A1C, FERR, CRP, CBC, ADIFF, FT4 #### [address] [address] #### PROL, CPEP, EBV, ASO, PEYTON #### [address] [address] Eosinophil, Absolute 0.0 10 3/mcL Normal 0.0-0.4 [facility] [place] Comment on above: Performed By: #### T SH, ANEU, [id number], CMP, GFR, VIDH, LIPID, URIC, ESR, A1C, FERR, CRP, CBC, ADIFF, FT4 #### [address] [address] #### PROL, CPEP, EBV, ASO, PEYTON #### [address] [address] Eosinophils/100 WBC (Bld) 0.5 % Normal 0.0-7.0 [facility] ([place] Comment on above: Performed By: #### T SH, ANEU, 433162, CMP, GFR, VIDH, LIPID, URIC, ESR, A1C, FERR, CRP, CBC, ADIFF, FT4 #### [address] [address] #### PROL, CPEP, EBV, ASO, PEYTON #### [address] [address] Lymphocyte, Absolute 2.9 10 3/mcL Normal 0.8-3.9 [facility] [place] Comment on above: Performed By: #### T SH, ANEU, 498242, CMP, GFR, VIDH, LIPID, URIC, ESR, A1C, FERR, CRP, CBC, ADIFF, FT4 #### [address] [address] #### PROL, CPEP, EBV, ASO, PEYTON #### [address] [address] Lymphocytes/100 WBC (Bld) 34.4 % Normal 10.0-50.0 [facility] ([place] Comment on above: Performed By: #### T SH, ANEU, 448751, CMP, GFR, VIDH, LIPID, URIC, ESR, A1C, FERR, CRP, CBC, ADIFF, FT4 #### [address] [address] #### PROL, CPEP, EBV, ASO, PEYTON #### [address] [address] Monocyte, Absolute 0.5 10 3/mcL Normal 0.2-1.0 [facility] ([place]) Comment on above: Performed By: #### T SH, ANEU, 023870, CMP, GFR, VIDH, LIPID, URIC, ESR, A1C, FERR, CRP, CBC, ADIFF, FT4 #### [address] [address] #### PROL, CPEP, EBV, ASO, PEYTON #### [address] [address] Monocytes/100 WBC (Bld) 6.1 % Normal 1.7-13.0 A [facility] ([place]) Comment on above: Performed By: #### T SH, ANEU, [id number], CMP, GFR, VIDH, LIPID, URIC, ESR, A1C, FERR, CRP, CBC, ADIFF, FT4 #### [address] [address] #### PROL, CPEP, EBV, ASO, PEYTON #### [address] [address] Neutrophils/100 WBC (Bld) 58.5 % Normal 37.0-80.0 [facility] ([place] Comment on above: Performed By: #### T SH, ANEU, 837861, CMP, GFR, VIDH, LIPID, URIC, ESR, A1C, FERR, CRP, CBC, ADIFF, FT4 #### [address] [address] #### PROL, CPEP, EBV, ASO, PEYTON #### [address] [address] .GFRon 08-28-2023 GFR Non- 84 ml/min/1.73sqm Normal [facility] ([place]) Comment on above: Result Comment: GFR Population mean for , Non- Americans Ages 20-29 = 116 mL/min/1.73 sq.m. Ages 30-39 = 107 mL/min/1.73 sq.m. Ages 40-49 = 99 mL/min/1.73 sq.m. Ages 50-59 = 93 mL/min/1.73 sq.m. Ages 60-69 = 85 mL/min/1.73 sq.m. Ages 70+ = 75 mL/min/1.73 sq.m. Chronic Kidney Disease: Less than 60 mL/min/1.73 square meters End Stage Renal Disease: Less than 15 mL/min/1.73 square meters Performed By: #### T SH, ANEU, [id number], CMP, GFR, VIDH, LIPID, URIC, ESR, A1C, FERR, CRP, CBC, ADIFF, FT4 ####[place] [address]#### PROL, CPEP, EBV, ASO, PEYTON ####[place] [address] GFR 101 ml/min/1.73sqm Normal [facility] ([place]) Comment on above: Result Comment: GFR Population mean for , Non- Americans Ages 20-29 = 116 mL/min/1.73 sq.m. Ages 30-39 = 107 mL/min/1.73 sq.m. Ages 40-49 = 99 mL/min/1.73 sq.m. Ages 50-59 = 93 mL/min/1.73 sq.m. Ages 60-69 = 85 mL/min/1.73 sq.m. Ages 70+ = 75 mL/min/1.73 sq.m. Chronic Kidney Disease: Less than 60 mL/min/1.73 square meters End Stage Renal Disease: Less than 15 mL/min/1.73 square meters Performed By: #### T SH, ANEU, 857577, CMP, GFR, VIDH, LIPID, URIC, ESR, A1C, FERR, CRP, CBC, ADIFF, FT4 ####[place] [address]#### PROL, CPEP, EBV, ASO, PEYTON ####[place] [address] .NEUABSon 08-28-2023 Neutrophil, Absolute 4.8 10 3/mcL Normal 2.9-6.2 [facility] [place] Comment on above: Performed By: #### T SH, ANEU, 559702, CMP, GFR, VIDH, LIPID, URIC, ESR, A1C, FERR, CRP, CBC, ADIFF, FT4 #### [place] [address] #### PROL, CPEP, EBV, ASO, PEYTON #### [address] [address] A1Con 08-28-2023 HbA1c (Bld) [Mass fraction] 4.7 % Normal 4.3-6.4 [facility] ([place]) Comment on above: Performed By: #### T SH, ANEU, 467236, CMP, GFR, VIDH, LIPID, URIC, ESR, A1C, FERR, CRP, CBC, ADIFF, FT4 ####[address] [address]#### PROL, CPEP, EBV, ASO, PEYTON ####[place] [address] CBCon 08-28-2023 Erythrocyte distribution width (RBC) [Ratio] 13.5 % Normal 11.5-14.5 [facility] ([place] Comment on above: Performed By: #### T SH, ANEU, 642932, CMP, GFR, VIDH, LIPID, URIC, ESR, A1C, FERR, CRP, CBC, ADIFF, FT4 #### [address] [address] #### PROL, CPEP, EBV, ASO, PEYTON #### [place] [address] Hematocrit (Bld) [Volume fraction] 40.4 % Normal 37.0-47.0 [facility] ([place]) Comment on above: Performed By: #### T SH, ANEU, 769576, CMP, GFR, VIDH, LIPID, URIC, ESR, A1C, FERR, CRP, CBC, ADIFF, FT4 #### [address] [address] #### PROL, CPEP, EBV, ASO, PEYTON #### [place] [address] Hgb 13.7 G/dL Normal 12.0-16.0 [facility] ([place] Comment on above: Performed By: #### T SH, ANEU, 514162, CMP, GFR, VIDH, LIPID, URIC, ESR, A1C, FERR, CRP, CBC, ADIFF, FT4 #### [address] [address] #### PROL, CPEP, EBV, ASO, PEYTON #### [address] [address] MCH (RBC) [Entitic mass] 30.5 pg Normal 27.0-31.2 [facility] ([place] Comment on above: Performed By: #### T SH, ANEU, 066493, CMP, GFR, VIDH, LIPID, URIC, ESR, A1C, FERR, CRP, CBC, ADIFF, FT4 #### [address] [address] #### PROL, CPEP, EBV, ASO, PEYTON #### [address] [address] MCHC 33.9 G/dL Normal 33.0-37.0 [facility] ([place] Comment on above: Performed By: #### T SH, ANEU, 586579, CMP, GFR, VIDH, LIPID, URIC, ESR, A1C, FERR, CRP, CBC, ADIFF, FT4 #### [address] [address] #### PROL, CPEP, EBV, ASO, PEYTON #### [address] [address] MCV (RBC) [Entitic vol] 90.2 fL Normal 80.0-94.0 [facility] ([place]) Comment on above: Performed By: #### T SH, ANEU, 286914, CMP, GFR, VIDH, LIPID, URIC, ESR, A1C, FERR, CRP, CBC, ADIFF, FT4 #### [address] [address] #### PROL, CPEP, EBV, ASO, PEYTON #### [address] [address] Platelet 271 10 3/mcL Normal 130-400 [facility] ([place]) Comment on above: Performed By: #### T SH, ANEU, 643212, CMP, GFR, VIDH, LIPID, URIC, ESR, A1C, FERR, CRP, CBC, ADIFF, FT4 #### [address] [place] [address] #### PROL, CPEP, EBV, ASO, PEYTON #### [address] [address] Platelet mean volume (Bld) [Entitic vol] 8.2 fL Normal 7.4-10.4 [facility] ([place] Comment on above: Performed By: #### T SH, ANEU, 588578, CMP, GFR, VIDH, LIPID, URIC, ESR, A1C, FERR, CRP, CBC, ADIFF, FT4 #### [address] [address] #### PROL, CPEP, EBV, ASO, PEYTON #### [place] [address] RBC 4.48 10 6/mcL Normal 4.20-5.40 [facility] ([place] Comment on above: Performed By: #### T SH, ANEU, 907694, CMP, GFR, VIDH, LIPID, URIC, ESR, A1C, FERR, CRP, CBC, ADIFF, FT4 #### [place] [address] #### PROL, CPEP, EBV, ASO, PEYTON #### [place] [id number] WBC 8.3 10 3/mcL Normal 4.6-10.8 [facility] ([place] Comment on above: Performed By: #### T SH, ANEU, 155365, CMP, GFR, VIDH, LIPID, URIC, ESR, A1C, FERR, CRP, CBC, ADIFF, FT4 #### [address] [address] #### PROL, CPEP, EBV, ASO, PEYTON #### [place] [address] CMPon 08-28-2023 Albumin Level 3.8 G/dL Normal 3.5-5.0 [facility] ([place]) Comment on above: Performed By: #### T SH, ANEU, 854890, CMP, GFR, VIDH, LIPID, URIC, ESR, A1C, FERR, CRP, CBC, ADIFF, FT4 ####[place] [address] [place], [place] [address]#### PROL, CPEP, EBV, ASO, PEYTON ####[address] [address] Albumin/Globulin [Mass ratio] 1.2 {ratio} Normal 1.1-2.5 [facility] ([place]) Comment on above: Performed By: #### T SH, ANEU, 365294, CMP, GFR, VIDH, LIPID, URIC, ESR, A1C, FERR, CRP, CBC, ADIFF, FT4 ####[address] [address]#### PROL, CPEP, EBV, ASO, PEYTON ####[address] [address] ALP [Catalytic activity/Vol] 42 U/L Normal 40-135 [facility] ([place]) Comment on above: Performed By: #### T SH, ANEU, 844775, CMP, GFR, VIDH, LIPID, URIC, ESR, A1C, FERR, CRP, CBC, ADIFF, FT4 ####[address] [address]#### PROL, CPEP, EBV, ASO, PEYTON ####[address] [address] ALT [Catalytic activity/Vol] 15 U/L Normal 14-59 [facility] ([place] Comment on above: Performed By: #### T SH, ANEU, 028605, CMP, GFR, VIDH, LIPID, URIC, ESR, A1C, FERR, CRP, CBC, ADIFF, FT4 ####[address] [address]#### PROL, CPEP, EBV, ASO, PEYTON ####[address] [address] AST [Catalytic activity/Vol] 16 U/L Normal 10-40 [facility] ([place]) Comment on above: Performed By: #### T SH, ANEU, 601338, CMP, GFR, VIDH, LIPID, URIC, ESR, A1C, FERR, CRP, CBC, ADIFF, FT4 ####[place] [address]#### PROL, CPEP, EBV, ASO, PEYTON ####[place] [address] Bili Total 0.4 mg/dL Normal 0.2-1.0 [facility] ([place]) Comment on above: Result Comment: Use of this assay is not recommended for patients undergoing treatment with eltrombopag due to the potential for falsely elevated results. Performed By: #### T SH, ANEU, 046194, CMP, GFR, VIDH, LIPID, URIC, ESR, A1C, FERR, CRP, CBC, ADIFF, FT4 ####[place] [address]#### PROL, CPEP, EBV, ASO, PEYTON ####[place] [address] BUN/Creatinine Ratio 13 ratio Normal 7-27 [facility] ([place]) Comment on above: Performed By: #### T SH, ANEU, 529577, CMP, GFR, VIDH, LIPID, URIC, ESR, A1C, FERR, CRP, CBC, ADIFF, FT4 ####[place] [address]#### PROL, CPEP, EBV, ASO, PEYTON ####[place] [address] Calcium [Mass/Vol] 8.9 mg/dL Normal 8.4-10.2 [facility] ([place]) Comment on above: Performed By: #### T SH, ANEU, 225678, CMP, GFR, VIDH, LIPID, URIC, ESR, A1C, FERR, CRP, CBC, ADIFF, FT4 ####[place] [address]#### PROL, CPEP, EBV, ASO, PEYTON ####[place] [address] Chloride [Moles/Vol] 104 mmol/L Normal 98-107 [facility] ([place]) Comment on above: Performed By: #### T SH, ANEU, 044132, CMP, GFR, VIDH, LIPID, URIC, ESR, A1C, FERR, CRP, CBC, ADIFF, FT4 ####[address] [address]#### PROL, CPEP, EBV, ASO, PEYTON ####[address] [address] CO2 [Moles/Vol] 24 mmol/L Normal 22-29 [facility] ([place] Comment on above: Performed By: #### T SH, ANEU, 139904, CMP, GFR, VIDH, LIPID, URIC, ESR, A1C, FERR, CRP, CBC, ADIFF, FT4 ####[address] [address]#### PROL, CPEP, EBV, ASO, PEYTON ####[address] [address] Creatinine [Mass/Vol] 0.78 mg/dL Normal 0.55-1.02 [facility] ([place]) Comment on above: Performed By: #### T SH, ANEU, 158252, CMP, GFR, VIDH, LIPID, URIC, ESR, A1C, FERR, CRP, CBC, ADIFF, FT4 ####[address] [address]#### PROL, CPEP, EBV, ASO, PEYTON ####[address] [address] Electrolyte Balance 13.0 mEq/L Normal 4.0-15.0 [facility] ([place] Comment on above: Performed By: #### T SH, ANEU, 444617, CMP, GFR, VIDH, LIPID, URIC, ESR, A1C, FERR, CRP, CBC, ADIFF, FT4 ####[address] [address]#### PROL, CPEP, EBV, ASO, PEYTON ####[address] [address] Globulin 3.3 G/dL Normal [facility] ([place] Comment on above: Performed By: #### T SH, ANEU, 124920, CMP, GFR, VIDH, LIPID, URIC, ESR, A1C, FERR, CRP, CBC, ADIFF, FT4 ####[facility] [place], [place] [address]#### PROL, CPEP, EBV, ASO, PEYTON ####[address] [address] Glucose [Mass/Vol] 71 mg/dL Normal 70-105 [facility] ([place]) Comment on above: Performed By: #### T SH, ANEU, 866384, CMP, GFR, VIDH, LIPID, URIC, ESR, A1C, FERR, CRP, CBC, ADIFF, FT4 ####[place] [address] [place], [place] [address]#### PROL, CPEP, EBV, ASO, PEYTON ####[address] [address] Potassium [Moles/Vol] 4.0 mmol/L Normal 3.5-5.1 [facility] ([place] Comment on above: Performed By: #### T SH, ANEU, 107264, CMP, GFR, VIDH, LIPID, URIC, ESR, A1C, FERR, CRP, CBC, ADIFF, FT4 ####[place] [address] [place], [place] [address]#### PROL, CPEP, EBV, ASO, PEYTON ####[address] [address] Sodium [Moles/Vol] 141 mmol/L Normal 136-145 [facility] ([place]) Comment on above: Performed By: #### T SH, ANEU, 571612, CMP, GFR, VIDH, LIPID, URIC, ESR, A1C, FERR, CRP, CBC, ADIFF, FT4 ####[place] [address] [place], [place] [address]#### PROL, CPEP, EBV, ASO, PEYTON ####[address] [address] Total Protein 7.1 G/dL Normal 6.4-8.2 [facility] ([place] Comment on above: Performed By: #### T SH, ANEU, 148352, CMP, GFR, VIDH, LIPID, URIC, ESR, A1C, FERR, CRP, CBC, ADIFF, FT4 ####[place] [address]#### PROL, CPEP, EBV, ASO, PEYTON ####[place] [address] Urea nitrogen [Mass/Vol] 10 mg/dL Normal 7-18 [facility] ([place] Comment on above: Performed By: #### T SH, ANEU, 662359, CMP, GFR, VIDH, LIPID, URIC, ESR, A1C, FERR, CRP, CBC, ADIFF, FT4 ####[place] [address]#### PROL, CPEP, EBV, ASO, PEYTON ####[place] [address] CRPon 08-28-2023 C-Reactive Protein 0.3 mg/dL Normal 0.0-0.3 [facility] ([place]) Comment on above: Performed By: #### T SH, ANEU, 654461, CMP, GFR, VIDH, LIPID, URIC, ESR, A1C, FERR, CRP, CBC, ADIFF, FT4 ####[place] [address]#### PROL, CPEP, EBV, ASO, PEYTON ####[place] [address] ESRon 08-28-2023 Erythrocyte Sed Rate 7 mm/hr Normal 0-20 [facility] ([place] Comment on above: Performed By: #### T SH, ANEU, 249562, CMP, GFR, VIDH, LIPID, URIC, ESR, A1C, FERR, CRP, CBC, ADIFF, FT4 ####[place] [address]#### PROL, CPEP, EBV, ASO, PEYTON ####[place] [address] Karis 08-28-2023 Ferritin [Mass/Vol] 26.0 ng/mL Normal 8.0-252.0 [facility] ([place] Comment on above: Performed By: #### T SH, ANEU, 096776, CMP, GFR, VIDH, LIPID, URIC, ESR, A1C, FERR, CRP, CBC, ADIFF, FT4 ####[place] [address]#### PROL, CPEP, EBV, ASO, PEYTON ####[address] [address] FT4on 08-28-2023 Free T4 [Mass/Vol] 0.99 ng/dL Normal 0.76-1.46 [facility] ([place]) Comment on above: Performed By: #### T SH, ANEU, 740068, CMP, GFR, VIDH, LIPID, URIC, ESR, A1C, FERR, CRP, CBC, ADIFF, FT4 ####[place] [address]#### PROL, CPEP, EBV, ASO, PEYTON ####[place] [address] LIPIDon 08-28-2023 Cholesterol [Mass/Vol] 170 mg/dL Normal 0-200 [facility] [place] Comment on above: Result Comment: Chol esterol Reference Interval: Less than 200 Desirable 200-239 Borderline high risk 240 and above High risk Performed By: #### T SH, ANEU, 981563, CMP, GFR, VIDH, LIPID, URIC, ESR, A1C, FERR, CRP, CBC, ADIFF, FT4 ####[place] [address]#### PROL, CPEP, EBV, ASO, PEYTON ####[place] [address] Cholesterol in HDL [Mass/Vol] 64 mg/dL High 40-60 [facility] ([place] Comment on above: Performed By: #### T SH, ANEU, 701711, CMP, GFR, VIDH, LIPID, URIC, ESR, A1C, FERR, CRP, CBC, ADIFF, FT4 ####[place] [address]#### PROL, CPEP, EBV, ASO, PEYTON ####[place] [address] Cholesterol in LDL [Mass/Vol] 94 mg/dL Normal 0-130 [facility] ([place] Comment on above: Performed By: #### T SH, ANEU, 691264, CMP, GFR, VIDH, LIPID, URIC, ESR, A1C, FERR, CRP, CBC, ADIFF, FT4 ####[place] [address]#### PROL, CPEP, EBV, ASO, PEYTON ####[place] [address] Triglyceride [Mass/Vol] 61 mg/dL Normal 0-150 [facility] ([place]) Comment on above: Result Comment: Trig lyceride Reference Interval: Less than 150 Normal 150-199 Borderline high risk 200-499 High risk 500 or higher Very high risk Performed By: #### T SH, ANEU, 859133, CMP, GFR, VIDH, LIPID, URIC, ESR, A1C, FERR, CRP, CBC, ADIFF, FT4 ####[place] [address]#### PROL, CPEP, EBV, ASO, PEYTON ####[place] [address] No Panel Informationon 08-28 Culture Urine 50,000 - 100,000 cfu /ml Mixed growth consistent with normal urogenital anselmo. [facility] Work Phone: TSHon 08-28-2023 TSH Qn 1.74 m[IU]/L Normal 0.36-3.74 [facility] ([place]) Comment on above: Performed By: #### T SH, ANEU, 434446, CMP, GFR, VIDH, LIPID, URIC, ESR, A1C, FERR, CRP, CBC, ADIFF, FT4 ####[place] [address]#### PROL, CPEP, EBV, ASO, PEYTON ####[place] [address] URICon 08-28-2023 Uric Acid Lvl 4.9 mg/dL Normal 2.6-6.2 [facility] ([place] Comment on above: Performed By: #### T SH, ANEU, 829676, CMP, GFR, VIDH, LIPID, URIC, ESR, A1C, FERR, CRP, CBC, ADIFF, FT4 ####[facility] [place], [place] [address]#### PROL, CPEP, EBV, ASO, PEYTON ####[address] [address] VIDHon 08-28-2023 Vit. D 25-Hydroxy 58.5 ng/mL Normal [facility] ([place]) Comment on above: Result Comment: Inte rpretive Values Based on Total 25(OH) Vitamin D: Deficient <20 ng/mL Insufficient 20 - <30 ng/mL Sufficient 30-100 ng/mL Performed By: #### T SH, ANEU, 151773, CMP, GFR, VIDH, LIPID, URIC, ESR, A1C, FERR, CRP, CBC, ADIFF, FT4 ####[facility] [place], [place] [address]#### PROL, CPEP, EBV, ASO, PEYTON ####[place] [address] LABORATORYOrdered By: Roberto Adam on 09-06-2022 C. trachomatis DNA MIKEL+probe Ql (Unsp spec) Negative (09/06/22 4:51 PM) Invalid Interpretation Code Negative Auto Viro/Sero SS C. trachomatis DNA MIKEL+probe Ql (Unsp spec) C. trachomatis DNA not detected. Specimen is presumptive negative forC. trachomatis.A negative result does not preclude C. trachomatis infection becauseresults depend on adequate specimen collection, absence of inhibitors,and sufficient DNA to be detected. Invalid Interpretation Code See CT Interp N AH Auto Viro/Sero SS N. gonorrhoeae DNA MIKEL+probe Ql (Unsp spec) Negative (09/06/22 4:51 PM) Invalid Interpretation Code Negative AH Auto Viro/Sero SS N. gonorrhoeae DNA MIKEL+probe Ql (Unsp spec) N. gonorrhoeae DNA not detected. Specimen is presumptive negative forN. gonorrhoeae. A negative result does not preclude Neisseria gonorrhoeaeinfection because results depend on adequate specimen collection, absenceof inhibitors, and sufficient DNA to be detected. Invalid Interpretation Code See NG Interp N AH Auto Viro/Sero SS Laboratory - Specimen inform ationOrdered By: Roberto Adam on 09-06-2022 Specimen source Nom (Unsp spec) Urine (09/06/22 4:51 PM) Invalid Interpretation Code AH Auto Viro/Sero SS No Panel Informationon 09-06 Culture Urine 10,000 - 50,000 cfu/ ml Mixed growth consistent with normal urogenital anselmo. [facility] Work Phone: CORONAVIRUS 2019 BY PCRon SARS-CoV-2 (COVID-19) RNA MIKEL+probe Ql (Unsp spec) Not detected Normal Not Detected [facility] Comment on above: Result Comment: . This assay is designed to detect the N, ORF1ab and/or S genes of SARS-CoV-2 via nucleic acid amplification. A Negative (NOT DETECTED) result does not preclude 2019-nCoV infection since the adequacy of sample collection and/or low viral burden may result in presence of viral nucleic acids below the clinical sensitivity of this test method. Negative (NOT DETECTED) result should not be used as the sole basis for treatment or other patient management decisions. Rather negative results should be combined with clinical observations, patient history, and epidemiological information to make patient management decisions. Fact sheet for providers: https://www.fda.gov/media/415433/download Fact sheet for patients: https://www.fda.gov/media/079133/download This test has received FDA Emergency Use Authorization (EUA) and has been verified by [facility] ([facility]). This test is only authorized for the duration of time that circumstances exist to justify the authorization of the emergency use of in vitro diagnostic tests for the detection of SARS-CoV-2 virus and/or diagnosis of COVID-19 infection under section 564(b)(1) of the Act, 21 U.S.C. 360bbb-3(b)(1), unless the authorization is terminated or revoked sooner. [facility] is certified under CLIA-88 as qualified to perform high complexity testing. Testing is performed in the [facility] laboratories located at [address] [place] [address]. Performed By: #### C OV19 #### [place] [address] Covid 19 Resultson 2 SARS-CoV-2 (COVID-19) RNA MIKEL+probe Ql (Unsp spec) NEGATIVE COVID-19 Test Coronaviruses are common world-wide and are the cause of many common colds. SARS-COV2 is a new coronavirus that began circulating worldwide in 2019 so we are calling it COVID-19. It has been estimated that four out of five patients with COVID-19 will recover at home without the need for medical attention. Symptoms of COVID-19 may include cough, fever, shortness of breath, loss of taste or smell and other flu-like symptoms including chills, sore muscles, sore throat, and headache. Severe illness is more common in older people and people with other health problems such as high blood pressure, obesity, and immune system problems. If the test is positive, you have COVID-19. You will be contacted by the ordering physicians office and instructed to remain on home isolation, in accordance with CDC guidelines. You may also be contacted by the [facility] to see if any of your close contacts may have been exposed to the virus and need to quarantine. If the test is negative, you likely do not have COVID-19 at this time, but you still may have a different illness that can spread to other people (like Influenza, or the Flu) and could still be at risk for getting COVID-19. We recommend that you stay away from other people to limit the spread of illness until your symptoms are improving and you are fever-free for 24 hours without the use of fever lowering medications such as acetaminophen or ibuprofen. No test is 100% accurate so if you are still concerned you may have COVID-19, talk to your doctor about the need to continue to stay away from others. Medicines Unless your provider told you not to use the following: Acetaminophen (Tylenol and others) is generally safe. Anti-inflammatory medications, such as Ibuprofen (Advil or Motrin) or Naproxen (Aleve) can also be used. Gxkq-ojk-hrywwfj cough and cold medicines can be used according to the instructions on the package. Some bbpg-xjf-ynvhwnk medicines also contain acetaminophen. Make sure you are not taking more than your recommended dose. For those not hospitalized, there is no specific treatment available for this illness. Antibiotics do not treat Coronaviruses. Follow-Up Follow up with your doctor by scheduling a virtual visit or consider follow-up at one of our urgent care fever clinics. If you are having difficulty breathing, or are very weak and having difficulty standing, this is a medical emergency. Call 911 or have someone take you to the nearest emergency room immediately. If possible, wear a facemask. Additional guidance from the CDC for patients who tested POSITIVE for COVID-19 How to isolate: Isolate yourself in a specific room at home and limit your contact with others. Use a separate bathroom from other members of the household, when possible. Leave home only to get essential medical care. Do not go to work, school or public areas. Avoid using public transportation, ride-sharing, or taxis. Restrict contact with pets and other animals. If you must care for your pet or be around animals while you are sick, wash your hands before and after your interaction and wear a facemask. Make sure that shared spaces in the home have good airflow, such as by an air conditioner or an opened window, weather permitting. Personal Hygiene Procedures: Wear a face mask when in the same room as other people or pets. If a face mask interferes with your breathing, others should wear a mask when sharing space with you. Frequent hand-washing: wash your hands with soap and water for at least 20 seconds. If soap and water are not available, use alcohol-based hand motor vehicle or caravan salesperson. Avoid touching your eyes, nose, and mouth with unwashed hands. Household Hygiene Procedures: Avoid sharing personal household items such as dishes, glassware, cups, eating utensils, towels or bedding with other people or pets in your home. After use, these items should be washed with soap and hot water. Disinfect all high-touch surfaces every day with antibacterial cleaning solutions such as Lysol wipes, bleach, cleansers, etc. High-touch surfaces include tabletops, doorknobs, bathroom fixtures, toilets, phones, keyboards, tablets and bedside tables. Immediately clean any surfaces that may have blood, poop or body fluids on them, using antibacterial cleaning solutions such as Lysol wipes, bleach, cleansers, etc. If clothing or bedding come into contact with blood, poop or body fluids, they should be washed immediately. Follow the directions on the laundry detergent and clothing labels but hot water is recommended when possible. Stopping home isolation precautions: If possible, consult your doctor before stopping home isolation precautions. According to the CDC, you can discontinue home isolation precautions when you have met both of these criteria: Your fever and respiratory symptoms have been gone for 24 swetha (more content not included)... Normal [facility] CORONAVIRUS 2019 BY PCRon DATE OF SYMPTOM ONSET [[id number]]? 08/13/21 Normal [facility] Comment on above: Performed By: #### C OV19 #### [facility] [address] [place] [address] Lab Specimen Source Nasal, Nasopharyngeal Normal [facility] Comment on above: Performed By: #### C OV19 #### [facility] [address] [place] [address] Provider Note - ED v3on 08-22 Provider Note - ED v3 Provider Note: Chart Review HISTORY OF PRESENTING ILLNESS PATRICA is a 36 year old Female and was seen by me at 12-Sep-2021 11:28. The historian is the patientmother. Triage Information: Most recent Vital Sign Value Date PAST MEDICAL HISTORY ALLERGIES/INTOLERANCES: Allergy Allergen: penicillin Type: Drug Reaction: Hives/Urticaria HEALTH HISTORY: No known health issues. Family history: no pertinent history. Social history: Non-smoker. 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 OUTPATIENT MEDICATIONS: Home Medications Review Status for Reconciliation: Complete Med Status: Patient Currently Takes Medications Drug Name: albuterol 90 mcg/inh inhalation aerosol Instructions: 1-2 puff(s) inhaled every 4 hours, As Needed for wheezing or shortness of breath Drug Name: Zithromax Z-Tobi 250 mg oral tablet Instructions: 2 tab(s) by mouth at once on day 1, then 1 tablet once a day on days 2-5 Drug Name: benzonatate 100 mg oral capsule Instructions: 1-2 cap(s) orally every 8 hours, As Needed for cough Drug Name: Diflucan 150 mg oral tablet Instructions: 1 tab(s) orally once at first sign of yeast infection; can repeat in 72 hours if symptoms persist Drug Name: Tri-Sprintec oral tablet Instructions: 1 tab(s) orally once a day SIGNIFICANT EVENTS: History of lithotripsy in 05/2021. No other known significant events or other known past surgical history. Received 2 doses of the COVID-19 vaccine (2nd dose in Spring 2020); received the [id number] influenza vaccine. FINANCIAL SYSTEMS ANALYST: Is : no Is : no CRITICAL CARE VITAL SIGNS: T PRBP SpO2O2(LPM) %FiO2 Method 12-Sep-2021 11:29:[id number] 99 MDM MDM/ED COURSE: This note was generated with voice recognition software and may contain errors including spelling, grammar, syntax, and misrecognization of what was dictated CHIEF COMPLAINT persistent cough, intermittent wheezing, itchiness HISTORY OF PRESENT ILLNESS Patient presents today with complaints of fatigue, a persistent, non-productive cough that she attributes to a tickle at the back of her throat, nasal congestion (not much drainage but occasionally clear mucus), intermittent wheezing during/after coughing fits, and intermittent itchiness. Per pt's mom, she recently noticed hives/welts on pt's arms/neck/face, but none today, although pt states she still has generalized itchiness that comes and goes. She reports sxs started with what felt like a sinus infection (sinus pressure/congestion) ~4 weeks ago, and have persisted since then. Feels the sinus pressure has improved a little, but still has trouble breathing out of her nose at times d/t the stuffiness. Her ears feel itchy. She denies any difficulty swallowing or any swelling/rash to her oral/perioral area. She had fever/chills/aches at onset of sxs, but these have resolved. She denies any sore throat, abdominal pain, chest pain, urinary symptoms, nausea/vomiting, and diarrhea. Denies any changes in mental status. Appetite is normal and is able to drink fluids without difficulty; denies any loss of sense of taste/smell. Aside from Mucinex, which has not been helpful, has not tried any other xqsx-yhg-scgwysz medications or home remedies for symptom management. No known ill contacts. Has received 2 doses of the COVID-19 vaccine (2nd dose was in Spring 2020); reports had COVD infection in 07/2020. Received a flu vaccine this winter. Does not currently have a PCP. REVIEW OF SYSTEMS 10 systems reviewed negative with exception of history of present illness listed above PHYSICAL EXAMINATION General: Mildly ill-appearing, well nourished female; alert and oriented; in no acute distress. Sitting comfortably on exam table. Non-dyspneic. Accompanied by her mother, who helps contribute to history. Eyes: Pupils equal, round and reactive to light. No conjunctival erythema; no scleral icterus. HENT: + mild maxillary sinus tenderness; + audible nasal congestion. Airway patent, TMs and ear canals clear bilaterally. Nasal mucosa injected and edematous. Oral mucosa moist; no oropharyngeal lesions or swelling noted. Posterior pharynx pink but without vesicles or oropharyngeal exudate aside from PND. Uvula is midline. Managing oral secretions without difficulty. Neck: Supple. Tender, mobile anterior cervical lymphadenopathy bilat. Trachea is midline. Respiratory: Respirations easy and unlabored, Breath sounds equal. Lungs are clear to auscultation; no wheezes, rhonchi, or rales; has good air movement throughout. + non-productive cough noted only upon request. Non-dyspneic with ambulation; able to maintain SpO2. Cardiovascular: Normal rate, Regular rhythm. Normal S1S2. No m/r/g. No peripheral edema. Gastrointestinal: Soft, non-tender, non-distended; no palpable masses or organomegaly. Bowel s (more content not included)... Normal [facility] CORONAVIRUS PCR [CCL]on SEND TO IC? YES Normal [facility] Comment on above: Performed By: #### 2 [id number] #### [facility],[address] [place] [address] COVID 19 Result PUBLIC DEFENDER Positive Abnormal [facility] Comment on above: Result Comment: Posi tive for COVID19 (SARS CoV2) by PCR.(*) This test was developed and its performance characteristics determined by [facility]. This test has been authorized by FDA under an Emergency Use Authorization (EUA). This test has been validated in accordance with the FDA's Guidance Document Policy for Diagnostics Testing in Laboratories Certified to Perform High Complexity Testing under CLIA prior to Emergency use Authorization for Coronavirus Disease 2019 during the Public Health Emergency issued on September 18, 2019. [facility] [address] [place] [address] Iván Navarrete III, M.D. [id number] Performed By: #### 2 [id number] #### [facility],[address] [place] [address] COVID 19 Source PUBLIC DEFENDER Nasopharyngeal Swab Normal [facility] Comment on above: Result Comment: Lonny ected on 07/26 AT 0200: Previously reported as PUBLIC DEFENDER SWAB Performed By: #### 2 [id number] #### [facility],[address] [place] [address] Coronavirus 2019on 1 COVID 19 Result PUBLIC DEFENDER Abnormal Negative for COVID19 (SARS CoV2) by PCR. [facility] Comment on above: Result Comment: Posi tive for This test was developed and its performance characteristics determined by [facility]. This test has been authorized by FDA under an Emergency Use Authorization (EUA). This test has been validated in accordance with the FDA's Guidance Document Policy for Diagnostics Testing in Laboratories Certified to Perform High Complexity Testing under CLIA prior to Emergency use Authorization for Coronavirus Disease 2019 during the Public Health Emergency issued on September 18, 2019. COVID19 (SARS This test was developed and its performance characteristics determined by [facility]. This test has been authorized by FDA under an Emergency Use Authorization (EUA). This test has been validated in accordance with the FDA's Guidance Document Policy for Diagnostics Testing in Laboratories Certified to Perform High Complexity Testing under CLIA prior to Emergency use Authorization for Coronavirus Disease 2019 during the Public Health Emergency issued on September 18, 2019. CoV2) by This test was developed and its performance characteristics determined by [facility]. This test has been authorized by FDA under an Emergency Use Authorization (EUA). This test has been validated in accordance with the FDA's Guidance Document Policy for Diagnostics Testing in Laboratories Certified to Perform High Complexity Testing under CLIA prior to Emergency use Authorization for Coronavirus Disease 2019 during the Public Health Emergency issued on September 18, 2019. PCR.(*) This test was developed and its performance characteristics determined by [facility]. This test has been authorized by FDA under an Emergency Use Authorization (EUA). This test has been validated in accordance with the FDA's Guidance Document Policy for Diagnostics Testing in Laboratories Certified to Perform High Complexity Testing under CLIA prior to Emergency use Authorization for Coronavirus Disease 2019 during the Public Health Emergency issued on September 18, 2019. COVID 19 Source PUBLIC DEFENDER Normal [facility] Comment on above: Result Comment: Naso pharyngeal Corrected on 07/26 AT 0200: Previously reported as PUBLIC DEFENDER SWAB Swab Corrected on 07/26 AT 0200: Previously reported as PUBLIC DEFENDER SWAB HEP B SURFACE AB, QUANT [CCL ]on 02-21-2020 HepB SurfaceAb,Quant 39.70 mIU/mL High <8.[address] [facility] Comment on above: Result Comment: Thes e results are consistent with previous exposure and/or immunity to the hepatitis B virus antigen. [facility] [address] Iván Navarrete III, M.D. [id number] Performed By: #### 2 [id number] #### [place] [id number] MEASLES IGG ANTIBODY [CCL]on 02-21-2020 Measles IgG Ab, Qual Positive Abnormal NEGAT [facility] Comment on above: Result Comment: Pres ence of detectable measles virus IgG antibodies. A positive result generally indicates exposure to measles virus or previous vaccination. Performed By: #### 2 21195 #### [facility],[address] [place], [place] [id number] Measles IgG Antibody 132.0 AU/mL Normal [facility] Comment on above: Result Comment: AU/m L Value interpreted as follows: Negative Specimens <13.5 Equivocal Specimens >=13.5 to <16.5 Positive Specimens >=16.5 The magnitude of the measured result, above the cutoff, is not indicative of the amount of antibody present. [facility] [place] [address] Iván Navarrete III, M.D. [id number] Performed By: #### 2 20634 #### [address] [address] MUMPS IGG AB [CCL]on 020 Mumps IgG Ab 96.0 AU/mL Normal [facility] Comment on above: Result Comment: AU/m L Values interpreted as follows: Negative Specimens <9.0 Equivocal specimens 9.0 to 10.9 Positive specimens >10.9 The magnitude of the measured result, above the cutoff, is not indicative of the amount of antibody present. [facility] [address] [place] [address] Iván Navarrete III, M.D. [id number] Performed By: #### 2 21565 #### [address] [address] Mumps IgG, Qual Positive Abnormal NEGAT [facility] Comment on above: Result Comment: Pres ence of detectable mumps virus IgG antibodies. A positive result generally indicates past exposure to mumps virus or previous vaccination. Performed By: #### 2 09284 #### [address] [address] Measles IgG Antibodyon 02-20 Measles IgG Ab, Qual Abnormal Negative [facility] Comment on above: Result Comment: Posi tive Presence of detectable measles virus IgG antibodies. A positive result generally indicates exposure to measles virus or previous vaccination. Performed By: #### M EASLG, RUBIGG, AHBSQ, MUMPSG #### [facility] Routine Lab [address] [place] [id number] Measles IgG Antibody Normal [facility] Comment on above: Result Comment: 132. 0 AU/mL Negative Specimens <13.5 Equivocal Specimens >=13.5 to <16.5 Positive Specimens >=16.5 The magnitude of the measured result, above the cutoff, is not indicative of the amount of antibody present. Value Negative Specimens <13.5 Equivocal Specimens >=13.5 to <16.5 Positive Specimens >=16.5 The magnitude of the measured result, above the cutoff, is not indicative of the amount of antibody present. interpreted as Negative Specimens <13.5 Equivocal Specimens >=13.5 to <16.5 Positive Specimens >=16.5 The magnitude of the measured result, above the cutoff, is not indicative of the amount of antibody present. follows: Negative Specimens <13.5 Equivocal Specimens >=13.5 to <16.5 Positive Specimens >=16.5 The magnitude of the measured result, above the cutoff, is not indicative of the amount of antibody present. Performed By: #### M EASLG, RUBIGG, AHBSQ, MUMPSG #### [facility] Routine [facility] [place] [address] Mumps IgG Abon 02-21-2020 Mumps IgG Ab 96.0 AU/mL Normal [facility] Comment on above: Performed By: #### M EASLG, RUBIGG, AHBSQ, MUMPSG #### [facility] [address] [place] [address] Mumps IgG, Qual Positive Abnormal Negative [facility] Comment on above: Performed By: #### M EASLG, RUBIGG, AHBSQ, MUMPSG #### [facility] [address] [place] [address] RUBELLA IgG ANTIBODY [CCL]on 02-21-2020 Rubella IgG Ab 24.60 Indexlue Normal [facility] Comment on above: Result Comment: Inde x values are interpreted as follows: Negative specimens <0.90 Equivocol specimens 0.90 to 0.99 Positive specimens >0.99 The magnitude of the measured result is not indicative of the amount of antibody present. [place] [id number] [place] [address] Iván Navarrete III, M.D. [id number] Performed By: #### 2 05773 #### [facility],[address] [place] [address] Rubella IgG Antibodyon 02-20 Rubella IgG Ab 24.60 Index Value Normal [facility] Comment on above: Performed By: #### M EASLG, RUBIGG, AHBSQ, MUMPSG #### [facility] [address] [place] [phone] Rubella IgG Ab, Qual Positive Abnormal NEGAT [facility] Comment on above: Performed By: #### M EASLG, RUBIGG, AHBSQ, MUMPSG #### [facility]ine [facility] [address] [place] [phone] Result Comment: Samp le is considered positive for IgG antibodies to rubella virus. A positive result indicates previous exposure to Rubella virus or vaccination. Performed By: #### 2 25633 #### [facility],[address] [place], [place] [id number] HepB SurfaceAb,Quanton 02-18 HepB SurfaceAb,Quant 39.70 mIU/mL High <8.00 [facility] Comment on above: Performed By: #### M EASLG, RUBIGG, AHBSQ, MUMPSG #### [facility] [address] [place] [phone] GLUCOSEon 02-17-2020 Glucose [Mass/Vol] 93 mg/dL Normal 74 - [address] [facility] Comment on above: Performed By: #### 2 48466 #### [facility],[address] [place], [place] [id number] LIPID PROFILEon 02-17-2020 Cholesterol [Mass/Vol] 157 mg/dL Normal 0 - [address] [facility] Comment on above: Performed By: #### 2 22699 #### [facility],[address] [place], [place] [id number] Cholesterol in HDL [Mass/Vol] 57 mg/dL Normal 40 - [address] [facility] Comment on above: Performed By: #### 2 90892 #### [facility] [place] [address] Cholesterol in LDL [Mass/Vol] 81 mg/dL Normal 0 - [address] [facility] Comment on above: Performed By: #### 2 59739 #### [facility],[address] [place] [address] Cholesterol.total/Linda sterol in HDL [Mass ratio] 2.8 {ratio} Normal 0.0 - 5.[address] [facility] Comment on above: Performed By: #### 2 13635 #### [facility],[address] [place] [address] Lipid 1996 panel Normal [facility] Comment on above: Result Comment: LIPI D PROFILE Performed By: #### 2 13331 #### [facility],[address] [place] [address] Triglyceride [Mass/Vol] 93 mg/dL Normal 0 - 150 [facility] Comment on above: Performed By: #### 2 06247 #### [facility],[address] [place] [address] URINE COTININE TEST [[facility]]on 02-17-2020 COTININE Negative Normal NORMAL: NEGATIVE [facility] Comment on above: Result Comment: The COT One Step Cotinine Device (Urine) yields a positve result when the Cotinine in urine exceeds 200 ng/mL. A Cotinine concentration > 200 ng/mL indicates an active tobacco product user. The window of detection for Cotinine in urine at a cutoff level of 200 ng/mL is expected to be up to 2-3 days after nicotine use. Performed By: #### 2 93497 #### [facility],[address] [place] [address] Percy 01-14-2019 CNOV Office Visit ([facility] ) PATRICA BURTON ([id number]) 1985 F Date Time Provider Department 01/14/19 8:00 AM UMU CAVAZOS [facility] During your visit today, we recorded the following information about you: Temperature Pulse Respiration Blood pressure 98.1 degrees 74/minute 16/minute 120/80 Weight 83.9 kg Umu Cavazos APRN.CNP 01/14/2019 8:06 AM Addendum ASSESSMENT/PLAN: 1. Acute lower UTI - ICD9: 599.0, ICD10: N39.0 (primary diagnosis) acute - UA positive for suzette esterase, hematuria and proteinuria - Send urine for culture - Begin treatment with Bactrim DS BID for 3 days - Patient education for prevention given - PHENAZOPYRIDINE 100 MG TABLET 2. Dysuria - ICD9: 788.1, ICD10: R30.0 Urinary tract infection (UTI) We will send the urine for culture, which shows us what organism, if any, we are treating. If we need to change the antibiotic coverage, you will receive a call in 48-72 hours. * Seek medical care immediately, call 911, or go to ER if you have high fevers, severe flank or low back pain, blood in your urine. * Follow up with primary care provider if symptoms persist or worsen - UA DIP, URINE (POC) - URINE CULTURE - SULFAMETHOXAZOLE 800 MG-TRIMETHOPRIM 160 MG TABLET 3. Feared condition not demonstrated - ICD9: V65.5, ICD10: Z71.1 Start with onset of symptoms and repeat in 3 days - FLUCONAZOLE 150 MG TABLET Patient Education for Adult Female Urinary Tract Infections Possible complications: Pyelonephritis Renal abscess Expected course/prognosis: * Symptoms resolve within 2-3 days after starting treatment in almost all patients * One-fourth of women with simple UTI experience a second UTI within 6 months, and half at some time during lifetime. * Women with frequent or intercourse-related UTI should empty bladder immediately before and following intercourse. Instructions: * Maintain good hydration * Avoid sexual intercourse when symptoms present *Take antibiotic as directed * Return if symptoms not resolved or markedly improved within 48 hours * If taking prophylactic antibiotics, take at bedtime * Take showers instead of tub baths * Avoid feminine hygiene sprays and scented douches * Wipe urethra from front to back *Go to the Emergency room if fever, chills, or flank pain develop Please call your PCP if you are not feeling better in 3-5 days. You can try taking OTC Uristat (pyridium) if needed for burning. *Beware that it will turn your urine orange/red. *Avoid wearing contacts if taking pyridium it could discolor the lenses. Umu Cavazos APRN.JAIME 01/14/2019 8:37 AM Signed Subjective The history is provided by the patient. No english language learner teacher was used. HPI Patrica Burton is a 33 year old female who presents today for CC of burning with urination, urgency and frequency. This started today. She denies any vaginal discharge itching or odor. She is sexaully active. BP 120/80 Pulse 74 Temp 36.7 ?C (98.1 ?F) (Tympanic) Resp 16 Wt 83.9 kg (185 lb) SpO2 98% BMI 33.84 kg/m? 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 Family is estranged because they did not approve of her moving in with her boyfriend. This has been a burden for her, and she thinks is probably contributing to he feeling of depression and lonely ness PAST MEDICAL HISTORY Diagnosis Date - NEGATIVE MEDICAL HISTORY I have confirmed and edited as necessary, the [facility] Review of Systems Constitutional: Negative for chills and fever. Gastrointestinal: Negative for abdominal pain. Genitourinary: Positive for dysuria, frequency and urgency. Negative for flank pain and hematuria. Denies vaginal discharge or odor Objective Physical Exam Constitutional: She is oriented to person, place, and time and well-developed, well-nourished, and in no distress. Pulmonary/Chest: Effort normal. Abdominal: Normal appearance and bowel sounds are normal. She exhibits no abdominal bruit, no pulsatile midline mass and no mass. There is no hepatosplenomegaly. There is no tenderness. There is no rigidity, no rebound, no guarding, no CVA tenderness, no tenderness at McBurney's point and negative Roper's sign. Neurological: She is alert and oriented to person, place, and time. Psychiatric: Affect normal. Nursing note and vitals reviewed. ASSESSMENT/PLAN: 1. Acute lower UTI - ICD9: 599.0, ICD10: N39.0 (primary diagnosis) acute - UA positive for suzette esterase, hematuria and proteinuria - Send urine for culture - Begin treatment with Bactrim DS BID for 3 days - Patient education for prevention given - PHENAZOPYRIDINE 100 MG TABLET 2. Dysuria - ICD9: 788.1, ICD10: R30.0 Urinary tract infection (UTI) We will send the urine for culture, which shows us what organism, if any, we are treating. If we need to change the antibiotic coverage, you will receive a call in 48-72 hours. * Seek medical care immediately, call 911, or go to ER if you have high fevers, severe flank or low back pain, blood in your urine. * Follow up with primary care provider if symptoms persist or worsen - UA DIP, URINE (POC) - URINE CULTURE - SULFAMETHOXAZOLE 800 MG-TRIMETHOPRIM 160 MG TABLET 3. Feared condition not demonstrated - ICD9: V65.5, ICD10: Z71.1 Start with onset of symptoms and repeat in 3 days - FLUCONAZOLE 150 MG TABLET Diagnosis and treatment plan were discussed and questions were answered to the patient's satisfaction. Pt acknowledged understanding of concepts and follow up plan. Specific signs and symptoms that would indicate the need for higher level of care were discussed in detail warranting prompt ER evaluation. Umu Cavazos APRN.MANAGER LAND Referring Provider: SELF [200] Allergies As of Date: 01/14/2019 Noted Allergy Reaction PENICILLIN G 12/31/2012 4 - Hives Date Reviewed: 01/14/2019 Reviewed by: Sherrie Bain Dairy Frozen Manager - Fully Assessed Reason for Visit: UTI [116] Cmt: burning with urination and frequency x 2 days Primary Visit Diagnosis:Acute lower UTI [N39.0] Other Visit Diagnoses:Dysuria [R30.0] Feared condition not demonstrated [Z71.1] Order(s):UA DIP, URINE (POC) [2393932] Order #: [id number]. #:[id number] URINE CULTURE [SQURCUL] Order #: [id number] phenazopyridine (PYRIDIUM) 100 mg tabletTake 1 tablet by mouth three times daily as needed.Disp: 6 tabletRfl: 0 sulfamethoxazole-trimet hoprim (BACTRIM DS) 800-160 mg per tabletTake 1 tablet by mouth twice daily for 3 days.Disp: 6 tabletRfl: 0 fluconazole (DIFLUCAN) 150 mg tabletTake 1 tablet by mouth one time only for 1 dose. Repeat in 3 days as needed.Disp: 2 tabletRfl: 0 Prescriptions as of 01/14/2019 Sig: NORGESTIMATE-ETHINYL ESTRADIO* Take by mouth. PHENAZOPYRIDINE 100 MG TABLET Take 1 tablet by mouth three * SULFAMETHOXAZOLE 800 MG-TRIME* Take 1 tablet by mouth twice * FLUCONAZOLE 150 MG TABLET Take 1 tablet by mouth one ti* Problem List As Of Date 01/14/2019 Noted Resolved Pelvic pain in female [R10.2] INVALID FOR* Weight gain [R63.5] INVALID FOR* Depression [F32.9] INVALID FOR* ASCUS with positive high risk HPV cervical [R87*INVALID FOR* More... Other instructions from your clinician: ASSESSMENT/PLAN: 1. Acute lower UTI - ICD9: 599.0, ICD10: N39.0 (primary diagnosis) acute - UA positive for suzette esterase, hematuria and proteinuria - Send urine for culture - Begin treatment with Bactrim DS BID for 3 days - Patient education for prevention given - PHENAZOPYRIDINE 100 MG TABLET 2. Dysuria - ICD9: 788.1, ICD10: R30.0 Urinary tract infection (UTI) We will send the urine for culture, which shows us what organism, if any, we are treating. If we need to change the antibiotic coverage, you will receive a call in 48-72 hours. * Seek medical care immediately, call 911, or go to ER if you have high fevers, severe flank or low back pain, blood in your urine. * Follow up with primary care provider if symptoms persist or worsen - UA DIP, URINE (POC) - URINE CULTURE - SULFAMETHOXAZOLE 800 MG-TRIMETHOPRIM 160 MG TABLET 3. Feared condition not demonstrated - ICD9: V65.5, ICD10: Z71.1 Start with onset of symptoms and repeat in 3 days - FLUCONAZOLE 150 MG TABLET Patient Education for Adult Female Urinary Tract Infections Possible complications: Pyelonephritis Renal abscess Expected course/prognosis: * Symptoms resolve within 2-3 days after starting treatment in almost all patients * One-fourth of women with simple UTI experience a second UTI within 6 months, and half at some time during lifetime. * Women with frequent or intercourse-related UTI should empty bladder immediately before and following intercourse. Instructions: * Maintain good hydration * Avoid sexual intercourse when symptoms present *Take antibiotic as directed * Return if symptoms not resolved or markedly improved within 48 hours * If taking prophylactic antibiotics, take at bedtime * Take showers instead of tub baths * Avoid feminine hygiene sprays and scented douches * Wipe urethra from front to back *Go to the Emergency room if fever, chills, or flank pain develop Please call your PCP if you are not feeling better in 3-5 days. You can try taking OTC Uristat (pyridium) if needed for burning. *Beware that it will turn your urine orange/red. *Avoid wearing contacts if taking pyridium it could discolor the lenses. Prescriptions ordered this encounter Disp Refills Start End PHENAZOPYRIDINE 100 MG TABLET 6 ta* 0 01/14/2019 Route: ORAL Sig: Take 1 tablet by mouth three times daily as needed. SULFAMETHOXAZOLE 800 MG-TRIMETHOPRIM* 6 ta* 0 01/14/2019 01/17/2019 Route: ORAL Sig: Take 1 tablet by mouth twice daily for 3 days. FLUCONAZOLE 150 MG TABLET 2 ta* 0 01/14/2019 01/14/2019 Route: ORAL Sig: Take 1 tablet by mouth one time only for 1 dose. Repeat in 3 days as needed. Encounter Status:Closed by UMU CAVAZOS CNP on 01/14/19 Normal [facility] PROGRESSon 01-14-2019 PROGRESS HNO ID: [id number] Author: Umu Cavazos Service: ? Author Type: Nurse Practitioner Type: Progress Notes Filed: 01/14/2019 8:37 AM Note Text: Subjective The history is provided by the patient. No english language learner teacher was used. HPI Patrica Burton is a 33 year old female who presents today for CC of burning with urination, urgency and frequency. This started today. She denies any vaginal discharge itching or odor. She is sexaully active. BP 120/80 Pulse 74 Temp 36.7 ?C (98.1 ?F) (Tympanic) Resp 16 Wt 83.9 kg (185 lb) SpO2 98% BMI 33.84 kg/m? 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 Family is estranged because they did not approve of her moving in with her boyfriend. This has been a burden for her, and she thinks is probably contributing to he feeling of depression and lonely ness PAST MEDICAL HISTORY Diagnosis Date - NEGATIVE MEDICAL HISTORY I have confirmed and edited as necessary, the [facility] Review of Systems Constitutional: Negative for chills and fever. Gastrointestinal: Negative for abdominal pain. Genitourinary: Positive for dysuria, frequency and urgency. Negative for flank pain and hematuria. Denies vaginal discharge or odor Objective Physical Exam Constitutional: She is oriented to person, place, and time and well-developed, well-nourished, and in no distress. Pulmonary/Chest: Effort normal. Abdominal: Normal appearance and bowel sounds are normal. She exhibits no abdominal bruit, no pulsatile midline mass and no mass. There is no hepatosplenomegaly. There is no tenderness. There is no rigidity, no rebound, no guarding, no CVA tenderness, no tenderness at McBurney's point and negative Roper's sign. Neurological: She is alert and oriented to person, place, and time. Psychiatric: Affect normal. Nursing note and vitals reviewed. ASSESSMENT/PLAN: 1. Acute lower UTI - ICD9: 599.0, ICD10: N39.0 (primary diagnosis) acute - UA positive for suzette esterase, hematuria and proteinuria - Send urine for culture - Begin treatment with Bactrim DS BID for 3 days - Patient education for prevention given - PHENAZOPYRIDINE 100 MG TABLET 2. Dysuria - ICD9: 788.1, ICD10: R30.0 Urinary tract infection (UTI) We will send the urine for culture, which shows us what organism, if any, we are treating. If we need to change the antibiotic coverage, you will receive a call in 48-72 hours. * Seek medical care immediately, call 911, or go to ER if you have high fevers, severe flank or low back pain, blood in your urine. * Follow up with primary care provider if symptoms persist or worsen - UA DIP, URINE (POC) - URINE CULTURE - SULFAMETHOXAZOLE 800 MG-TRIMETHOPRIM 160 MG TABLET 3. Feared condition not demonstrated - ICD9: V65.5, ICD10: Z71.1 Start with onset of symptoms and repeat in 3 days - FLUCONAZOLE 150 MG TABLET Diagnosis and treatment plan were discussed and questions were answered to the patient's satisfaction. Pt acknowledged understanding of concepts and follow up plan. Specific signs and symptoms that would indicate the need for higher level of care were discussed in detail warranting prompt ER evaluation. Umu Cavazos APRN.[employer] Normal [facility] Urine Cultureon 01-14-2019 Bacteria identified Cx Nom (U) Sp. Request/Comment: - Specimen received in preservative Culture Result - >=100,000 CFU/ml Staphylococcus saprophyticus --> ABNORMAL ALERT Routine testing of urine isolates of Staphylococcus saprophyticus is not recommended by the National Committee for Clinical Laboratory Standards for acute, uncomplicated urinary tract infections. --> ABNORMAL ALERT This organism responds to antimicrobial drug concentrations achieved in urine of commonly used antibiotics (i.e. nitrofurantoin, trimethoprim with and without sulfamethoxazole, or a fluroquinolone). --> ABNORMAL ALERT Critically abnormal [facility] Comment on above: Performed By: #### U RCUL ####[facility] [id number] [place], [place] [phone] CNOVon 11-20-2018 CNOV Office Visit (WOOB) PATRICA BURTON ([id number]) 1985 F Date Time Provider Department 11/20/18 2:50 PM BONNIE ANNE WOOB During your visit today, we recorded the following information about you: Blood pressure Weight Last Period 116/74 89.8 kg 11/11/18 [facility] 11/20/2018 2:32 PM Addendum YOUR RECOVERY It may take a few weeks for your cervix to heal. While your cervix heals, you may have: - Vaginal bleeding (less than a normal menstrual period) - Mild cramping - A brown-black vaginal discharge (similar to coffee grounds) which is a result of the paste used to help stop bleeding from the procedure Do NOT put anything in the vagina for 1 week after your colposcopy if your doctor does a biopsy of your cervix. This includes sex, tampons, and douches. If you have any discomfort, you may take an over the counter pain medication (motrin, advil, ibuprofen, tylenol, etc). If this does not relieve your discomfort, contact your doctor's office for a prescription strength pain medication. It is okay to wear a sanitary pad until the discharge and spotting stops. RISKS Although problems seldom occur with colposcopy, there can be some complications. You may feel faint during and shortly after the procedure as well as have some bleeding and vaginal discharge after the procedure. There is also a risk of infection after the procedure. These complications are rare and can be easily treated. You should contact you doctor is you have any of the following: - Heavy bleeding (more than your normal period) - Bleeding with clots - Severe abdominal pain - Fever (more than 100.4F) - Foul smelling vaginal discharge RESULTS If a biopsy was taken, we will have the results of your biopsy in 1-2 weeks. If you do not hear the results of your biopsy after 2 weeks, please contact your physicians office for the results. Depending on the biopsy results, your doctor will determine your follow up plan which may include further testing or treatments. STAYING HEALTHY After the procedure, you will need to see your doctor for follow up visits during the year. At these visits your doctor will check the health of your cervix with a pap smear. After three normal pap smears, your doctor will allow you to return to having exams once a year. If you have another abnormal pap smear, you may need closer follow up for longer or you may need additional treatment. By making a few lifestyle changes after the procedure, you can help protect the health of your cervix: - Have regular pelvic exams and pap smears as ordered by your doctor. - Stop smoking as smoking increases your risk of developing a cancer of the cervix - If you have more than one sexual partner, limit your number of partners and use condoms to reduce your risks of STDs. If you have any additional questions, please contact your doctor's office. YOUR RECOVERY It may take a few weeks for your cervix to heal. While your cervix heals, you may have: - Vaginal bleeding (less than a normal menstrual period) - Mild cramping - A brown-black vaginal discharge (similar to coffee grounds) which is a result of the paste used to help stop bleeding from the procedure Do NOT put anything in the vagina for 1 week after your colposcopy if your doctor does a biopsy of your cervix. This includes sex, tampons, and douches. If you have any discomfort, you may take an over the counter pain medication (motrin, advil, ibuprofen, tylenol, etc). If this does not relieve your discomfort, contact your doctor's office for a prescription strength pain medication. It is okay to wear a sanitary pad until the discharge and spotting stops. RISKS Although problems seldom occur with colposcopy, there can be some complications. You may feel faint during and shortly after the procedure as well as have some bleeding and vaginal discharge after the procedure. There is also a risk of infection after the procedure. These complications are rare and can be easily treated. You should contact you doctor is you have any of the following: - Heavy bleeding (more than your normal period) - Bleeding with clots - Severe abdominal pain - Fever (more than 100.4F) - Foul smelling vaginal discharge RESULTS If a biopsy was taken, we will have the results of your biopsy in 1-2 weeks. If you do not hear the results of your biopsy after 2 weeks, please contact your physicians office for the results. Depending on the biopsy results, your doctor will determine your follow up plan which may include further testing or treatments. STAYING HEALTHY After the procedure, you will need to see your doctor for follow up visits during the year. At these visits your doctor will check the health of your cervix with a pap smear. After three normal pap smears, your doctor will allow you to return to having exams once a year. If you have another abnormal pap smear, you may need closer follow up for longer or you may need additional treatment. By making a few lifestyle changes after the procedure, you can help protect the health of your cervix: - Have regular pelvic exams and pap smears as ordered by your doctor. - Stop smoking as smoking increases your risk of developing a cancer of the cervix - If you have more than one sexual partner, limit your number of partners and use condoms to reduce your risks of STDs. If you have any additional questions, please contact your doctor's office. Bonnie Anne MD 11/20/2018 3:18 PM Signed COLPOSCOPY PROCEDURE Date/Time: 11/20/2018 3:11 PM Performed by: Bonnie Anne Authorized by: Bonnie Anne Informed Consent / [place] Protocol: Written Consent Obtained: yes Sign In Communication: completed Time Out completed. The Time-Out verifies the correct patient, procedure, side/site, position (if applicable) and completion and review of fire risk assessment/protocols (if appropriate): Affirmation of Time Out: yes Signout DIscussion: yes Indication: HPV + ASC-US Diagnosis: (R87.610, R87.810) Atypical squamous cell changes of undetermined significance (ASCUS) on cervical cytology with positive high risk human papilloma virus (HPV) (primary encounter diagnosis) Patient's last menstrual period was 11/11/2018 (exact date). Pre-Procedure Details: Pre-meds: None Local anesthetic: None Procedure Details: Procedure: Colposcopy of Vagina with biopsy of cervix Trimble speculum was placed in the vagina. Acetic acid placed on cervix. Under colposcopic examination the transition zone was seen in entirety. Biopsy done. Location: 6 o'clock Location details: Small amount of AW at 4-6 oclock Specimen sent to pathology. ECC not done. Post-Procedure Details: Impression: HPV changes Patient tolerated the procedure well with no immediate complications. Follow-Up: patient will call office for results Bonnie Anne MD Referring Provider: BONNIE ANNE [[id number]] Allergies As of Date: 11/20/2018 Noted Allergy Reaction PENICILLIN G 12/31/2012 4 - Hives Date Reviewed: 11/20/2018 Reviewed by: Carmencita Rubio Ma - Fully Assessed Reason for Visit: Colposcopy [[id number]] Primary Visit Diagnosis:Atypical squamous cell changes of undetermined significance (ASCUS) on cervical cytology with positive high risk human papilloma virus (HPV) [R87.610, R87.810] Order(s):HCG QUAL UR B/O [[id number]] Order #: [id number] COLPOSCOPY PROCEDURE (W NOTE) [PRO96] Order #: [id number] SURGICAL PATHOLOGY [[id number]] Order #: [id number] Prescriptions as of 11/20/2018 Sig: NORGESTIMATE-ETHINYL ESTRADIO* Take by mouth. Problem List As Of Date 11/20/2018 Noted Resolved Pelvic pain in female [R10.2] INVALID FOR* Weight gain [R63.5] INVALID FOR* Depression [F32.9] INVALID FOR* Other instructions from your clinician: YOUR RECOVERY It may take a few weeks for your cervix to heal. While your cervix heals, you may have: - Vaginal bleeding (less than a normal menstrual period) - Mild cramping - A brown-black vaginal discharge (similar to coffee grounds) which is a result of the paste used to help stop bleeding from the procedure Do NOT put anything in the vagina for 1 week after your colposcopy if your doctor does a biopsy of your cervix. This includes sex, tampons, and douches. If you have any discomfort, you may take an over the counter pain medication (motrin, advil, ibuprofen, tylenol, etc). If this does not relieve your discomfort, contact your doctor's office for a prescription strength pain medication. It is okay to wear a sanitary pad until the discharge and spotting stops. RISKS Although problems seldom occur with colposcopy, there can be some complications. You may feel faint during and shortly after the procedure as well as have some bleeding and vaginal discharge after the procedure. There is also a risk of infection after the procedure. These complications are rare and can be easily treated. You should contact you doctor is you have any of the following: - Heavy bleeding (more than your normal period) - Bleeding with clots - Severe abdominal pain - Fever (more than 100.4F) - Foul smelling vaginal discharge RESULTS If a biopsy was taken, we will have the results of your biopsy in 1-2 weeks. If you do not hear the results of your biopsy after 2 weeks, please contact your physicians office for the results. Depending on the biopsy results, your doctor will determine your follow up plan which may include further testing or treatments. STAYING HEALTHY After the procedure, you will need to see your doctor for follow up visits during the year. At these visits your doctor will check the health of your cervix with a pap smear. After three normal pap smears, your doctor will allow you to return to having exams once a year. If you have another abnormal pap smear, you may need closer follow up for longer or you may need additional treatment. By making a few lifestyle changes after the procedure, you can help protect the health of your cervix: - Have regular pelvic exams and pap smears as ordered by your doctor. - Stop smoking as smoking increases your risk of developing a cancer of the cervix - If you have more than one sexual partner, limit your number of partners and use condoms to reduce your risks of STDs. If you have any additional questions, please contact your doctor's office. YOUR RECOVERY It may take a few weeks for your cervix to heal. While your cervix heals, you may have: - Vaginal bleeding (less than a normal menstrual period) - Mild cramping - A brown-black vaginal discharge (similar to coffee grounds) which is a result of the paste used to help stop bleeding from the procedure Do NOT put anything in the vagina for 1 week after your colposcopy if your doctor does a biopsy of your cervix. This includes sex, tampons, and douches. If you have any discomfort, you may take an over the counter pain medication (motrin, advil, ibuprofen, tylenol, etc). If this does not relieve your discomfort, contact your doctor's office for a prescription strength pain medication. It is okay to wear a sanitary pad until the discharge and spotting stops. RISKS Although problems seldom occur with colposcopy, there can be some complications. You may feel faint during and shortly after the procedure as well as have some bleeding and vaginal discharge after the procedure. There is also a risk of infection after the procedure. These complications are rare and can be easily treated. You should contact you doctor is you have any of the following: - Heavy bleeding (more than your normal period) - Bleeding with clots - Severe abdominal pain - Fever (more than 100.4F) - Foul smelling vaginal discharge RESULTS If a biopsy was taken, we will have the results of your biopsy in 1-2 weeks. If you do not hear the results of your biopsy after 2 weeks, please contact your physicians office for the results. Depending on the biopsy results, your doctor will determine your follow up plan which may include further testing or treatments. STAYING HEALTHY After the procedure, you will need to see your doctor for follow up visits during the year. At these visits your doctor will check the health of your cervix with a pap smear. After three normal pap smears, your doctor will allow you to return to having exams once a year. If you have another abnormal pap smear, you may need closer follow up for longer or you may need additional treatment. By making a few lifestyle changes after the procedure, you can help protect the health of your cervix: - Have regular pelvic exams and pap smears as ordered by your doctor. - Stop smoking as smoking increases your risk of developing a cancer of the cervix - If you have more than one sexual partner, limit your number of partners and use condoms to reduce your risks of STDs. If you have any additional questions, please contact your doctor's office. Encounter Status:Closed by BONNEI ANNE MD on 11/20/18 [facility] PROCEDUREon 11-20-2018 PROCEDURE HNO ID: [id number] Author: Bonnie Anne Service: ? Author Type: Physician Type: Procedures Filed: 11/20/2018 3:18 PM Note Text: COLPOSCOPY PROCEDURE Date/Time: 11/20/2018 3:11 PM Performed by: Bonnie Anne Authorized by: Bonnie Anne Informed Consent / [place] Protocol: Written Consent Obtained: yes Sign In Communication: completed Time Out completed. The Time-Out verifies the correct patient, procedure, side/site, position (if applicable) and completion and review of fire risk assessment/protocols (if appropriate): Affirmation of Time Out: yes Signout DIscussion: yes Indication: HPV + ASC-US Diagnosis: (R87.610, R87.810) Atypical squamous cell changes of undetermined significance (ASCUS) on cervical cytology with positive high risk human papilloma virus (HPV) (primary encounter diagnosis) Patient's last menstrual period was 11/11/2018 (exact date). Pre-Procedure Details: Pre-meds: None Local anesthetic: None Procedure Details: Procedure: Colposcopy of Vagina with biopsy of cervix Trimble speculum was placed in the vagina. Acetic acid placed on cervix. Under colposcopic examination the transition zone was seen in entirety. Biopsy done. Location: 6 o'clock Location details: Small amount of AW at 4-6 oclock Specimen sent to pathology. ECC not done. Post-Procedure Details: Impression: HPV changes Patient tolerated the procedure well with no immediate complications. Follow-Up: patient will call office for results Bonnie Anne MD Normal [facility] SURGICAL PATHOLOGYon 019 SURGICAL PATHOLOGY Specimen originated from [facility] Specimen #: [id number] Submitting Physician: BONNIE ANNE M.D. ([id number]) FINAL DIAGNOSIS Ectocervix, 6 o'clock, biopsy Chronic cervicitis, negative for neoplasm. CB/BRITT/rw 11/23/2018 Pito Devine M.D. (Electronic Signature) SPECIMEN SUBMITTED A: ECTOCERVIX BIOPSY, 6 OCLOCK CLINICAL DATA ASCUS + HPV GROSS DESCRIPTION A. Received in formalin is one piece of youngblood, soft tissue admixed with mucinous material measuring 0.5 x 0.3 x 0.2 cm. Totally submitted in one cassette. Gross examination performed at [facility], [address] [place] [address] 11/21/2018 3:04:48 AM Date of Report: 11/24/2018 Date of Procedure: 11/20/2018 Date of Receipt: 11/20/2018 Submitted by: BONNIE ANNE M.D. ([id number]) Location: [facility] Diagnostic interpretation performed at [facility], [address] [place] [address]. CLIA Number: [id number] Normal [facility] CNOVon 10-23-2018 CNOV Office Visit (WOOB) PATRICA BURTON ([id number]) 1985 F Date Time Provider Department 10/23/18 3:15 PM MARIAM RYAN (MANAGER [employer]) WOOB During your visit today, we recorded the following information about you: Blood pressure Weight Height Last Period 120/60 88.6 kg 1.575 m 10/14/18 Mariam Ryan APRN.[employer]NA[employer] 10/23/2018 3:45 PM Signed Patrica Burton is a 33 year old who presents for her annual gynecologic exam without complaints. -multiple females with hx of breast cancer- does not believe any genetic component Menses: cycles every 21-25 days and 4 days of flow. Contraception: oral contraceptives HPV vaccine: No Last Pap: ?? History of abnormal pap: No Last mammogram: never Sexually active: Yes Patient concerns for STD exposure: No. Pain with intercourse: No Postcoital bleeding: No OB History T0 L0 SAB0 TAB0 Ectopic0 Multiple0 Live Births0 PAST MEDICAL HISTORY Diagnosis Date - NEGATIVE MEDICAL HISTORY PAST SURGICAL HISTORY Procedure Laterality Date - [place] INGROWN TOENAIL FAMILY HISTORY Problem Relation Age of Onset - other (Ovarian Cysts) Mother - Diabetes Maternal Grandmother - Diabetes Maternal Grandfather - Diabetes Paternal Grandmother - Diabetes Paternal Grandfather - COPD Paternal Grandfather 87 COPD, pneumonia complications after hernia repair surgery - Breast Cancer Other maternal - Breast Cancer Other maternal SOCIAL HISTORY Social History Tobacco Use - Smoking status: Never Smoker - Smokeless tobacco: Never Used Substance Use Topics - Alcohol use: Yes Comment: Rarely-wine - Drug use: No REVIEW OF SYSTEMS Abdomen: No abdominal pain, nausea, vomiting, diarrhea, or constipation. No bloating, early satiety, indigestion, or increased flatulence. Bladder: No dysuria, gross hematuria, urinary frequency, urinary urgency, or incontinence. Breast: No breast lumps, nipple d/c, overlying skin changes, redness or skin retraction. Allergies and current medication updated:Yes EXAM: Ht 5' 2 (1.58m) Wt 195 lb 6.4 oz (88.6kg) LMP 10/14/2018 BMI 35.73 kg/(m2). GENERAL: pleasant, female in no apparent distress HEENT: Normocephalic, atraumatic, mucus membranes moist and no lesions NECK: Supple, full range of motion, no adenopathy and thyroid normal DERMATOLOGY: Normal, without lesions, non-icteric and non-hirsute BREAST: soft, non-tender, symmetric, no dominant mass, normal nipple-areolar complex, no lymphadenopathy and no nipple discharge CHEST: Normal inspiratory effort ABDOMEN: soft, non-tender and no masses PELVIC: external genitalia normal, normal Bartholin's glands, urethra, Eden's glands, no vulvar lesions, no cervical lesions, good vaginal support, physiologic discharge present, normal appearing perineal body and perianal region, well estrogenized BIMANUAL: uterus normal size, shape and consistency, no adnexal masses, non-tender and no cervical motion tenderness RECTOVAGINAL: deferred. NEURO: alert and oriented x3,exam grossly non-focal EXTREMITIES: normal ASSESSMENT/PLAN: 1) Health maintenance: Pap done with HPV. Mammogram starting age 40. Nutrition, exercise and routine health maintenance exams reviewed. Calcium/Vitamin D supplementation information provided. 2) Contraception: oral contraceptives . Contraceptive options reviewed and information provided. 3) STD screening: Declined STD check. 4) Follow up one year or sooner as needed 5) will call when she needs a refill on the OCP Mariam Ryan APRN.JAIME Referring Provider: SELF [[id number]] Allergies As of Date: 10/23/2018 Noted Allergy Reaction PENICILLIN G 12/31/2012 4 - Hives Date Reviewed: 10/23/2018 Reviewed by: Mariam (Jaime) Gail - Fully Assessed Reason for Visit: Yearly Exam [187] Primary Visit Diagnosis:Encounter for gynecological examination (general) (routine) without abnormal findings [Z01.419] Other Visit Diagnoses:Screening for cervical cancer [Z12.4] Encounter for screening for human papillomavirus (HPV) [Z11.51] Encounter for surveillance of contraceptive pills [Z30.41] Order(s):PAP FLUID CERVICAL SCREENING [6210354] Order #: [id number] Prescriptions as of 10/23/2018 Sig: NORGESTIMATE-ETHINYL ESTRADIO* Take by mouth. Problem List As Of Date 10/23/2018 Noted Resolved Pelvic pain in female [R10.2] INVALID FOR* Weight gain [R63.5] INVALID FOR* Depression [F32.9] INVALID FOR* Medications Discontinued During This Encounter fluconazole (DIFLUCAN) 150 mg tablet 2 ta* 0 10/17/2018 10/23/2018 Sig: Take 1 tablet today, and repeat dose in 3 days as needed. Patient not taking: Reported on 10/23/2018 Disc: Reason for discontinue is not on file. phenazopyridine (PYRIDIUM) 200 mg ta* 6 ta* 0 10/15/2018 10/23/2018 Route: ORAL Sig: Take 1 tablet by mouth three times daily as needed. Patient not taking: Reported on 10/23/2018 Disc: Reason for discontinue is not on file. sulfamethoxazole-trimet hoprim (BACTR* 6 ta* 0 10/15/2018 10/23/2018 Route: ORAL Sig: Take 1 tablet by mouth twice daily. Patient not taking: Reported on 10/23/2018 Disc: Reason for discontinue is not on file. Disposition: Return in 1 year (on 10/24/2019) for Annual Exam. Follow-up and Disposition History Recorded Encounter Status:Closed by MARIAM RYAN on 10/23/18 Normal [facility] CYTOLOGYon 10-23-2018 CYTOLOGY ADDITIONAL PROCEDURES PRESENT ---Abnormal Pap Test - Epithelial Cell Abnormality--- Specimen originated from [facility] Specimen #: [id number] Submitting Physician: MARIAM RYAN SPECIMEN SUBMITTED A: CERVICAL, SCREENING, FLUID FINAL DIAGNOSIS A. CERVICAL, SCREENING, FLUID Satisfactory for interpretation. No endocervical component. Epithelial cell abnormality. Atypical squamous cells of undetermined significance (ASC-US). This specimen has been analyzed by the ThinPrep Imaging System, an automated imaging and review system, which assists the laboratory in evaluating cells on ThinPrep Pap tests. Following automated imaging, selected regan from every slide are reviewed by a air support control officer. Yifan Prado M.D. Ph.D. (Electronic Signature) ADDITIONAL PROCEDURE(S) HUMAN PAPILLOMA VIRUS Date Ordered: 10/26/2018 Date Reported: 10/27/2018 Procedure Results and Interpretation Negative for HPV DNA high risk type 16 by PCR. Negative for HPV DNA high risk type 18 by PCR. Positive for one or more of the following HPV DNA high risk types: 31,33,35,39,45,51,52,56 ,58,59,66,68 by PCR(*) This test was developed and its performance characteristics determined by [facility] ([facility]). It has not been cleared or approved by the FDA. -[facility] is regulated under CLIA as qualified to perform high-complexity testing. This test is used for clinical purposes. It should not be regarded as investigational or for research. CLINICAL DATA ROUTINE EXAM, HPV Testing: Yes, automatic HPV patients over 30 Date of Last Menstrual Period: 10/14/2018 STAINS A: CERVICAL, SCREENING, FLUID THIN PREP UTILITY WORKER Date of Report: 10/29/2018 Date of Procedure: 10/23/2018 Date of Receipt: 10/26/2018 Submitted by: MARIAM RYAN Location: [facility] Diagnostic interpretation performed at [facility], [address] [place] [address]. CLIA Number: [id number] The Pap Smear is a screening test for cervical cancer. False negative results occur with all screening tests, emphasizing the need for rescreening at recommended intervals, and clinical correlation. Critically abnormal [facility] HPV w/Genotypeon 10-23-2018 HPV HighRisk Other Positive for one or more of the following HPV DNA high risk types: 31,33,35,39,45,51,52,56 ,58,59,66,68 by PCR Critically abnormal [facility] Comment on above: Result Comment: This test was developed and its performance characteristics determined by [facility] ([facility]). It has not been cleared or approved by the FDA. -[facility] is regulated under CLIA as qualified to perform high-complexity testing. This test is used for clinical purposes. It should not be regarded as investigational or for research. Performed By: #### H PVHRR #### [place] [address] HPV HighRisk Type 16 Negative Normal [facility] Comment on above: Performed By: #### H PVHRR #### [facility] [address] [place], [place] [address] HPV HighRisk Type 18 Negative [facility] Comment on above: Performed By: #### H PVHRR #### [facility] [address] [place], [place] [address] PROGRESSon 10-23-2018 PROGRESS HNO ID: [id number] Author: Mariam Ryan Service: ? Author Type: Nurse Practitioner Type: Progress Notes Filed: 10/23/2018 3:45 PM Note Text: Patrica Burton is a 33 year old who presents for her annual gynecologic exam without complaints. -multiple females with hx of breast cancer- does not believe any genetic component Menses: cycles every 21-25 days and 4 days of flow. Contraception: oral contraceptives HPV vaccine: No Last Pap: ?? History of abnormal pap: No Last mammogram: never Sexually active: Yes Patient concerns for STD exposure: No. Pain with intercourse: No Postcoital bleeding: No OB History T0 L0 SAB0 TAB0 Ectopic0 Multiple0 Live Births0 PAST MEDICAL HISTORY Diagnosis Date - NEGATIVE MEDICAL HISTORY PAST SURGICAL HISTORY Procedure Laterality Date - [place] INGROWN TOENAIL FAMILY HISTORY Problem Relation Age of Onset - other (Ovarian Cysts) Mother - Diabetes Maternal Grandmother - Diabetes Maternal Grandfather - Diabetes Paternal Grandmother - Diabetes Paternal Grandfather - COPD Paternal Grandfather 87 COPD, pneumonia complications after hernia repair surgery - Breast Cancer Other maternal - Breast Cancer Other maternal SOCIAL HISTORY Social History Tobacco Use - Smoking status: Never Smoker - Smokeless tobacco: Never Used Substance Use Topics - Alcohol use: Yes Comment: Rarely-wine - Drug use: No REVIEW OF SYSTEMS Abdomen: No abdominal pain, nausea, vomiting, diarrhea, or constipation. No bloating, early satiety, indigestion, or increased flatulence. Bladder: No dysuria, gross hematuria, urinary frequency, urinary urgency, or incontinence. Breast: No breast lumps, nipple d/c, overlying skin changes, redness or skin retraction. Allergies and current medication updated:Yes EXAM: Ht 5' 2 (1.58m) Wt 195 lb 6.4 oz (88.6kg) LMP 10/14/2018 BMI 35.73 kg/(m2). GENERAL: pleasant, female in no apparent distress HEENT: Normocephalic, atraumatic, mucus membranes moist and no lesions NECK: Supple, full range of motion, no adenopathy and thyroid normal DERMATOLOGY: Normal, without lesions, non-icteric and non-hirsute BREAST: soft, non-tender, symmetric, no dominant mass, normal nipple-areolar complex, no lymphadenopathy and no nipple discharge CHEST: Normal inspiratory effort ABDOMEN: soft, non-tender and no masses PELVIC: external genitalia normal, normal Bartholin's glands, urethra, Eden's glands, no vulvar lesions, no cervical lesions, good vaginal support, physiologic discharge present, normal appearing perineal body and perianal region, well estrogenized BIMANUAL: uterus normal size, shape and consistency, no adnexal masses, non-tender and no cervical motion tenderness RECTOVAGINAL: deferred. NEURO: alert and oriented x3,exam grossly non-focal EXTREMITIES: normal ASSESSMENT/PLAN: 1) Health maintenance: Pap done with HPV. Mammogram starting age 40. Nutrition, exercise and routine health maintenance exams reviewed. Calcium/Vitamin D supplementation information provided. 2) Contraception: oral contraceptives . Contraceptive options reviewed and information provided. 3) STD screening: Declined STD check. 4) Follow up one year or sooner as needed 5) will call when she needs a refill on the OCP Mariam Ryan APRN.CNP Normal [facility] CNOVon 10-17-2018 CNOV Office Visit (UCWSTR ) PATRICA BURTON ([id number]) 1985 F Date Time Provider Department 10/17/18 9:15 AM UMU CAVAZOS (JAIME) WS During your visit today, we recorded the following information about you: Temperature Pulse Respiration Blood pressure 98.2 degrees 72/minute 16/minute 128/82 Weight 86.8 kg Umu Cavazos APRN.CNP 10/17/2018 9:32 AM Signed ASSESSMENT/PLAN: 1. Acute vaginitis - ICD9: 616.10, ICD10: N76.0 Stop medications for UTI Start fluconazole today, and repeat dose on Friday Follow up with UTILITY WORKER for further issues Umu Cavazos APRN.JAIME 10/17/2018 9:45 AM Signed Subjective HPI Patrica Burton is a 33 year old female who presents today for CC of vaginal itching and burning. This started 4 days ago and is slowly worsening. Patient is on her menses now and declines exam. She was started on Bactrim for a UTI, and culture was negative. She has a h/o yeast infections in the past, and recently started new BCP, she has had this happen before when she had to change BCP meds. BP 128/82 Pulse 72 Temp 36.8 ?C (98.2 ?F) (Left Tympanic) Resp 16 Wt 86.8 kg (191 lb 6.4 oz) BMI 34.45 kg/m? 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 Family is estranged because they did not approve of her moving in with her boyfriend. This has been a burden for her, and she thinks is probably contributing to he feeling of depression and lonely ness PAST MEDICAL HISTORY Diagnosis Date - NEGATIVE MEDICAL HISTORY I have confirmed and edited as necessary, the [facility] Review of Systems Constitutional: Negative for chills and fever. Genitourinary: Positive for vaginal discharge. Vaginal discharge, itching or burning. On menses All other systems reviewed and are negative. Objective Physical Exam Constitutional: She is oriented to person, place, and time and well-developed, well-nourished, and in no distress. Neurological: She is alert and oriented to person, place, and time. Skin: Skin is warm and dry. Psychiatric: Affect normal. Nursing note and vitals reviewed. Refused UTILITY WORKER exam ASSESSMENT/PLAN: 1. Acute vaginitis - ICD9: 616.10, ICD10: N76.0 Stop medications for UTI Start fluconazole today, and repeat dose on Friday Follow up with UTILITY WORKER for further issues Diagnosis and treatment plan were discussed and questions were answered to the patient's satisfaction. Pt acknowledged understanding of concepts and follow up plan. Specific signs and symptoms that would indicate the need for higher level of care were discussed in detail warranting prompt ER evaluation. Umu Cavazos APRN.MANAGER LAND Referring Provider: SELF [200] Allergies As of Date: 10/17/2018 Noted Allergy Reaction PENICILLIN G 12/31/2012 4 - Hives Date Reviewed: 10/17/2018 Reviewed by: Umu (Sales Correspondence Clerk) Dirk - Fully Assessed Reason for Visit: Vaginal Problem [117] Cmt: possible yeast infection Primary Visit Diagnosis:Acute vaginitis [N76.0] Order(s):fluconazole (DIFLUCAN) 150 mg tabletTake 1 tablet today, and repeat dose in 3 days as needed.Disp: 2 tabletRfl: 0 Prescriptions as of 10/17/2018 Sig: NORGESTIMATE-ETHINYL ESTRADIO* Take by mouth. SULFAMETHOXAZOLE 800 MG-TRIME* Take 1 tablet by mouth twice * PHENAZOPYRIDINE 200 MG TABLET Take 1 tablet by mouth three * FLUCONAZOLE 150 MG TABLET Take 1 tablet today, and repe* Problem List As Of Date 10/17/2018 Noted Resolved Pelvic pain in female [R10.2] INVALID FOR* Weight gain [R63.5] INVALID FOR* Depression [F32.9] INVALID FOR* Other instructions from your clinician: ASSESSMENT/PLAN: 1. Acute vaginitis - ICD9: 616.10, ICD10: N76.0 Stop medications for UTI Start fluconazole today, and repeat dose on Friday Follow up with UTILITY WORKER for further issues Prescriptions ordered this encounter Disp Refills Start End FLUCONAZOLE 150 MG TABLET 2 ta* 0 10/17/2018 Sig: Take 1 tablet today, and repeat dose in 3 days as needed. Encounter Status:Closed by UMU CAVAZOS CNP on 10/17/18 Normal [facility] PROGRESSon 10-17-2018 PROGRESS HNO ID: [id number] Author: Umu Andrea) Dirk Service: ? Author Type: Nurse Practitioner Type: Progress Notes Filed: 10/17/2018 9:45 AM Note Text: Subjective HPI Patrica Burton is a 33 year old female who presents today for CC of vaginal itching and burning. This started 4 days ago and is slowly worsening. Patient is on her menses now and declines exam. She was started on Bactrim for a UTI, and culture was negative. She has a h/o yeast infections in the past, and recently started new BCP, she has had this happen before when she had to change BCP meds. BP 128/82 Pulse 72 Temp 36.8 ?C (98.2 ?F) (Left Tympanic) Resp 16 Wt 86.8 kg (191 lb 6.4 oz) BMI 34.45 kg/m? 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 Family is estranged because they did not approve of her moving in with her boyfriend. This has been a burden for her, and she thinks is probably contributing to he feeling of depression and lonely ness PAST MEDICAL HISTORY Diagnosis Date - NEGATIVE MEDICAL HISTORY I have confirmed and edited as necessary, the [facility] Review of Systems Constitutional: Negative for chills and fever. Genitourinary: Positive for vaginal discharge. Vaginal discharge, itching or burning. On menses All other systems reviewed and are negative. Objective Physical Exam Constitutional: She is oriented to person, place, and time and well-developed, well-nourished, and in no distress. Neurological: She is alert and oriented to person, place, and time. Skin: Skin is warm and dry. Psychiatric: Affect normal. Nursing note and vitals reviewed. Refused UTILITY WORKER exam ASSESSMENT/PLAN: 1. Acute vaginitis - ICD9: 616.10, ICD10: N76.0 Stop medications for UTI Start fluconazole today, and repeat dose on Friday Follow up with UTILITY WORKER for further issues Diagnosis and treatment plan were discussed and questions were answered to the patient's satisfaction. Pt acknowledged understanding of concepts and follow up plan. Specific signs and symptoms that would indicate the need for higher level of care were discussed in detail warranting prompt ER evaluation. Umu Cavazos APRN.JAIME Normal [facility] CNOVon 10-15-2018 CNOV Office Visit (WSTR ) PATRICA BURTON ([id number]) 1985 F Date Time Provider Department 10/15/18 9:45 AM STEPHANIE BOYLE ([facility]) [facility]STR During your visit today, we recorded the following information about you: Temperature Pulse Respiration Blood pressure 98.5 degrees 74/minute 18/minute 136/80 Weight 88.9 kg Stephanie Boyle APRN.CNP 10/15/2018 10:16 AM Signed Subjective HPI Patrica Burton is a 33 year old female who presents with urinary frequency and urgency and dysuria since last night. She took one diflucan at home last night. Review of Systems Constitutional: Negative. Negative for fever. Respiratory: Negative. Cardiovascular: Negative. Gastrointestinal: Positive for nausea. Negative for abdominal pain. Genitourinary: Positive for dysuria, frequency and urgency. BP 136/80 Pulse 74 Temp 36.9 ?C (98.5 ?F) (Tympanic) Resp 18 Wt 88.9 kg (196 lb) BMI 35.28 kg/m? PAST MEDICAL HISTORY Diagnosis Date - NEGATIVE MEDICAL HISTORY PAST SURGICAL HISTORY Procedure Laterality Date - [place] INGROWN TOENAIL ALLERGIES Penicillin G MEDICATIONS Norgestimate-Ethinyl Estradiol (TRI-SPRINTEC) 0.18/0.215/0.25 mg-35 mcg (28) tab Take by mouth. Norgestimate-Ethinyl Estradiol (TRINESSA) 0.18/0.215/0.25 mg-35 mcg (28) tab Take by mouth. FAMILY HISTORY Problem Relation Age of Onset - other (Ovarian Cysts) Mother - Diabetes Maternal Grandmother - Diabetes Maternal Grandfather - Diabetes Paternal Grandmother - Diabetes Paternal Grandfather - COPD Paternal Grandfather 87 COPD, pneumonia complications after hernia repair surgery - Breast Cancer Other maternal - Breast Cancer Other maternal Social History Tobacco Use - Smoking status: Never Smoker - Smokeless tobacco: Never Used Substance Use Topics - Alcohol use: Yes Comment: Rarely-wine - Drug use: No Objective Physical Exam Constitutional: She is well-developed, well-nourished, and in no distress. Cardiovascular: Normal rate, regular rhythm and normal heart sounds. Pulmonary/Chest: Effort normal and breath sounds normal. No respiratory distress. She has no wheezes. She has no rales. Abdominal: Soft. She exhibits no distension and no mass. There is no hepatosplenomegaly. There is no tenderness. There is no guarding and no CVA tenderness. Neurological: She is alert. Skin: Skin is warm and dry. Nursing note and vitals reviewed. ASSESSMENT/PLAN: 1. Dysuria - ICD9: 788.1, ICD10: R30.0 (primary diagnosis) acute - UA positive for suzette esterase and hematuria - Send urine for culture - Begin treatment with Bactrim DS BID for 3 days - Patient education for prevention given - UA DIP, URINE (POC) 2. Acute cystitis with hematuria - ICD9: 595.0, ICD10: N30.01 - URINE CULTURE - SULFAMETHOXAZOLE 800 MG-TRIMETHOPRIM 160 MG TABLET - PHENAZOPYRIDINE 200 MG TABLET - Follow-up with your PCP in 3-5 days if symptoms have not improved or sooner if symptoms worsen - Discussed red flags and need for immediate medical evaluation if any occur. - Discussed supportive care treatment with fluids, rest and analgesia. - Discussed expected course of illness CIRILO James APRN.CNP 10/15/2018 10:12 AM Addendum ASSESSMENT/PLAN: 1. Dysuria - ICD9: 788.1, ICD10: R30.0 (primary diagnosis) acute - UA positive for suzette esterase and hematuria - Send urine for culture - Begin treatment with Bactrim DS BID for 3 days - Patient education for prevention given - UA DIP, URINE (POC) 2. Acute cystitis with hematuria - ICD9: 595.0, ICD10: N30.01 - URINE CULTURE - SULFAMETHOXAZOLE 800 MG-TRIMETHOPRIM 160 MG TABLET - PHENAZOPYRIDINE 200 MG TABLET - Follow-up with your PCP in 3-5 days if symptoms have not improved or sooner if symptoms worsen - Discussed red flags and need for immediate medical evaluation if any occur. - Discussed supportive care treatment with fluids, rest and analgesia. - Discussed expected course of illness Stephanie Boyle APRN.CNP Patient Education for Adult Female Urinary Tract Infections Possible complications: Pyelonephritis Renal abscess Expected course/prognosis: * Symptoms resolve within 2-3 days after starting treatment in almost all patients * One-fourth of women with simple UTI experience a second UTI within 6 months, and half at some time during lifetime. * Women with frequent or intercourse-related UTI should empty bladder immediately before and following intercourse. Instructions: * Maintain good hydration * Avoid sexual intercourse when symptoms present *Take antibiotic as directed * Return if symptoms not resolved or markedly improved within 48 hours * If taking prophylactic antibiotics, take at bedtime * Take showers instead of tub baths * Avoid feminine hygiene sprays and scented douches * Wipe urethra from front to back *Go to the Emergency room if fever, chills, or flank pain develop Please call your PCP if you are not feeling better in 3-5 days. You can try taking OTC Uristat (pyridium) if needed for burning. *Beware that it will turn your urine orange/red. *Avoid wearing contacts if taking pyridium it could discolor the lenses. Referring Provider: SELF [200] Allergies As of Date: 10/15/2018 Noted Allergy Reaction PENICILLIN G 12/31/2012 4 - Hives Date Reviewed: 10/15/2018 Reviewed by: Stephanie PerezBeth Israel Deaconess Medical CenterHolly Boyle - Fully Assessed Reason for Visit: UTI [116] Cmt: dysuria, possible uti x 1 day Primary Visit Diagnosis:Dysuria [R30.0] Other Visit Diagnosis:Acute cystitis with hematuria [N30.01] Order(s):UA DIP, URINE (POC) [[id number]] Order #: [id number] URINE CULTURE [SQURCUL] Order #: [id number] UA DIP, URINE (POC) [[id number]] Order #: [id number]. #:[id number] sulfamethoxazole-trimet hoprim (BACTRIM DS,SEPTRA DS) 800-160 mg per tabletTake 1 tablet by mouth twice daily.Disp: 6 tabletRfl: 0 phenazopyridine (PYRIDIUM) 200 mg tabletTake 1 tablet by mouth three times daily as needed.Disp: 6 tabletRfl: 0 Prescriptions as of 10/15/2018 Sig: NORGESTIMATE-ETHINYL ESTRADIO* Take by mouth. SULFAMETHOXAZOLE 800 MG-TRIME* Take 1 tablet by mouth twice * PHENAZOPYRIDINE 200 MG TABLET Take 1 tablet by mouth three * Problem List As Of Date 10/15/2018 Noted Resolved Pelvic pain in female [R10.2] INVALID FOR* Weight gain [R63.5] INVALID FOR* Depression [F32.9] INVALID FOR* Other instructions from your clinician: ASSESSMENT/PLAN: 1. Dysuria - ICD9: 788.1, ICD10: R30.0 (primary diagnosis) acute - UA positive for suzette esterase and hematuria - Send urine for culture - Begin treatment with Bactrim DS BID for 3 days - Patient education for prevention given - UA DIP, URINE (POC) 2. Acute cystitis with hematuria - ICD9: 595.0, ICD10: N30.01 - URINE CULTURE - SULFAMETHOXAZOLE 800 MG-TRIMETHOPRIM 160 MG TABLET - PHENAZOPYRIDINE 200 MG TABLET - Follow-up with your PCP in 3-5 days if symptoms have not improved or sooner if symptoms worsen - Discussed red flags and need for immediate medical evaluation if any occur. - Discussed supportive care treatment with fluids, rest and analgesia. - Discussed expected course of illness Stephanie Boyle APRN.[facility] Patient Education for Adult Female Urinary Tract Infections Possible complications: Pyelonephritis Renal abscess Expected course/prognosis: * Symptoms resolve within 2-3 days after starting treatment in almost all patients * One-fourth of women with simple UTI experience a second UTI within 6 months, and half at some time during lifetime. * Women with frequent or intercourse-related UTI should empty bladder immediately before and following intercourse. Instructions: * Maintain good hydration * Avoid sexual intercourse when symptoms present *Take antibiotic as directed * Return if symptoms not resolved or markedly improved within 48 hours * If taking prophylactic antibiotics, take at bedtime * Take showers instead of tub baths * Avoid feminine hygiene sprays and scented douches * Wipe urethra from front to back *Go to the Emergency room if fever, chills, or flank pain develop Please call your PCP if you are not feeling better in 3-5 days. You can try taking OTC Uristat (pyridium) if needed for burning. *Beware that it will turn your urine orange/red. *Avoid wearing contacts if taking pyridium it could discolor the lenses. Prescriptions ordered this encounter Disp Refills Start End SULFAMETHOXAZOLE 800 MG-TRIMETHOPRIM* 6 ta* 0 10/15/2018 Route: ORAL Sig: Take 1 tablet by mouth twice daily. PHENAZOPYRIDINE 200 MG TABLET 6 ta* 0 10/15/2018 Route: ORAL Sig: Take 1 tablet by mouth three times daily as needed. Medications Discontinued During This Encounter Norgestimate-Ethinyl Estradiol (NUNU* 0 11/04/2013 10/15/2018 Class: Historical Med Route: ORAL Sig: Take by mouth. Disc: Reason for discontinue is not on file. Letter Text Encounter Status:Closed by STEPHANIE BOYLE on 10/15/18 Normal [facility] PROGRESSon 10-15-2018 PROGRESS HNO ID: [id number] Author: Stephanie (Jaime) [place] Service: ? Author Type: Nurse Practitioner Type: Progress Notes Filed: 10/15/2018 10:16 AM Note Text: Subjective HPI Patrica Burton is a 33 year old female who presents with urinary frequency and urgency and dysuria since last night. She took one diflucan at home last night. Review of Systems Constitutional: Negative. Negative for fever. Respiratory: Negative. Cardiovascular: Negative. Gastrointestinal: Positive for nausea. Negative for abdominal pain. Genitourinary: Positive for dysuria, frequency and urgency. BP 136/80 Pulse 74 Temp 36.9 ?C (98.5 ?F) (Tympanic) Resp 18 Wt 88.9 kg (196 lb) BMI 35.28 kg/m? PAST MEDICAL HISTORY Diagnosis Date - NEGATIVE MEDICAL HISTORY PAST SURGICAL HISTORY Procedure Laterality Date - [place] INGROWN TOENAIL ALLERGIES Penicillin G MEDICATIONS Norgestimate-Ethinyl Estradiol (TRI-SPRINTEC) 0.18/0.215/0.25 mg-35 mcg (28) tab Take by mouth. Norgestimate-Ethinyl Estradiol (TRINESSA) 0.18/0.215/0.25 mg-35 mcg (28) tab Take by mouth. FAMILY HISTORY Problem Relation Age of Onset - other (Ovarian Cysts) Mother - Diabetes Maternal Grandmother - Diabetes Maternal Grandfather - Diabetes Paternal Grandmother - Diabetes Paternal Grandfather - COPD Paternal Grandfather 87 COPD, pneumonia complications after hernia repair surgery - Breast Cancer Other maternal - Breast Cancer Other maternal Social History Tobacco Use - Smoking status: Never Smoker - Smokeless tobacco: Never Used Substance Use Topics - Alcohol use: Yes Comment: Rarely-wine - Drug use: No Objective Physical Exam Constitutional: She is well-developed, well-nourished, and in no distress. Cardiovascular: Normal rate, regular rhythm and normal heart sounds. Pulmonary/Chest: Effort normal and breath sounds normal. No respiratory distress. She has no wheezes. She has no rales. Abdominal: Soft. She exhibits no distension and no mass. There is no hepatosplenomegaly. There is no tenderness. There is no guarding and no CVA tenderness. Neurological: She is alert. Skin: Skin is warm and dry. Nursing note and vitals reviewed. ASSESSMENT/PLAN: 1. Dysuria - ICD9: 788.1, ICD10: R30.0 (primary diagnosis) acute - UA positive for suzette esterase and hematuria - Send urine for culture - Begin treatment with Bactrim DS BID for 3 days - Patient education for prevention given - UA DIP, URINE (POC) 2. Acute cystitis with hematuria - ICD9: 595.0, ICD10: N30.01 - URINE CULTURE - SULFAMETHOXAZOLE 800 MG-TRIMETHOPRIM 160 MG TABLET - PHENAZOPYRIDINE 200 MG TABLET - Follow-up with your PCP in 3-5 days if symptoms have not improved or sooner if symptoms worsen - Discussed red flags and need for immediate medical evaluation if any occur. - Discussed supportive care treatment with fluids, rest and analgesia. - Discussed expected course of illness Stephanie Boyle APRN.[employer] Normal [facility] Urine Cultureon 10-15-2018 Bacteria identified Cx Nom (U) Sp. Request/Comment: - Specimen received in preservative Culture Result - <10,000 CFU/ml Normal urogenital anselmo Normal [facility] Comment on above: Performed By: #### U RCUL #### [facility] [address] [address] Vital Signs Date Time Vital Sign Value Performing Clinician Facility 05-04-2024 10:48-0400 Blood Pressure Location BAL GUTHRIE DO [facility] 05-04-2024 10:48-0400 Blood Pressure Method BAL GUTHRIE DO [facility] 05-04-2024 10:48-0400 Diastolic Blood Pressure Non-Invasive 81 mm[Hg] BAL GUTHRIE DO [facility] 05-04-2024 10:48-0400 Heart rate 71 /min BAL GUTHRIE DO [facility] 05-04-2024 10:48-0400 Respiratory rate 20 /min BAL GUTHRIE DO [facility] 05-04-2024 10:48-0400 Systolic Blood Pressure Non-Invasive 117 mm[Hg] BAL GUTHRIE DO [facility] 05-04-2024 08:29-0400 Blood Pressure Location BAL GUTHRIE DO [facility] 05-04-2024 08:29-0400 Blood Pressure Method BAL GUTHRIE DO [facility] 05-04-2024 08:29-0400 Body height 157.5 cm BAL GUTHRIE DO [facility] 05-04-2024 08:29-0400 Body temperature 97.88 [degF] BAL GUTHRIE DO [facility] 05-04-2024 08:29-0400 Body weight 75 kg BAL GUTHRIE DO [facility] 05-04-2024 08:29-0400 Diastolic Blood Pressure Non-Invasive 64 mm[Hg] BAL GUTHRIE DO [facility] 05-04-2024 08:29-0400 Heart rate 86 /min BAL GUTHRIE DO [facility] 05-04-2024 08:29-0400 Respiratory rate 20 /min BAL GUTHRIE DO [facility] 05-04-2024 08:29-0400 Systolic Blood Pressure Non-Invasive 113 mm[Hg] BAL GUTHRIE DO [facility] 10-24-2023 13:18-0400 Body height 154.[address] Dileep Lira Work Phone: [facility] 10-24-2023 13:18-0400 Body mass index (BMI) [Ratio] 33.1 kg/m2 Dr. Dileep Lira Work Phone: [facility] 10-24-2023 13:18-0400 Body temperature 97.6 [degF] Dr. Dileep Lira Work Phone: [facility] 10-24-2023 13:18-0400 Body weight 79.[address] Dileep Lira Work Phone: [facility] 10-24-2023 13:18-0400 Diastolic blood pressure 84 mm[Hg] Dr. Dileep Lira Work Phone: [facility] 10-24-2023 13:18-0400 Heart rate 80 /min Dr. Dileep Lira Work Phone: [facility] 10-24-2023 13:18-0400 Respiratory rate 18 /min Dr. Dileep Lira Work Phone: [facility] 10-24-2023 13:18-0400 SaO2% (BldA) [Mass fraction] 100 % Dr. Dileep Lira Work Phone: [facility] 10-24-2023 13:18-0400 Systolic blood pressure 125 mm[Hg] Dr. Dileep Lira Work Phone: [facility] 09-24-2023 16:33-0500 Body temperature 98.6 [degF] [facility] 09-24-2023 16:33-0500 Diastolic blood pressure 74 mm[Hg] [facility] 09-24-2023 16:33-0500 Heart rate 95 /min [facility] 09-24-2023 16:33-0500 Respiratory rate 16 /min [facility] 09-24-2023 16:33-0500 SaO2% (BldA) [Mass fraction] 99 % [facility] 09-24-2023 16:33-0500 Systolic blood pressure 118 mm[Hg] [facility] 09-24-2023 14:14-0500 Body height 154.94 cm [facility] 09-24-2023 14:14-0500 Body mass index (BMI) [Ratio] 33.7 kg/m2 [facility] 09-24-2023 14:14-0500 Body weight 81.14 kg [facility] Encounters Encounter Date Encounter Type Care Provider Facility Start: 03-18-2025 ambulatory Shanique Garsia Facility: [facility] Start: 12-24-2024 End: 12-24-2024 ambulatory PRESTON SOLIS MD Facility:[facility] Start: 12-24-2024 End: 12-24-2024 Patient encounter procedure PRESTON SOLIS MD [facility] Start: 12-18-2024 End: 12-18-2024 ambulatory PRESTON SOLIS MD Facility:[facility] Start: 12-18-2024 End: 12-18-2024 Patient encounter procedure PRESTON SOLIS MD [facility] Start: 08-30-2024 End: 08-30-2024 Emergency department patient visit Sharitaus Ibarra Facility:[facility] Start: 07-06-2024 End: 07-06-2024 ambulatory DILEEP LIRA MD [facility] Start: 07-06-2024 End: 07-06-[address] ALLY SHER MD [facility] Start: 06-07-2024 End: 06-07-2024 ambulatory Hema Londono Facility:[facility] Start: 06-03-2024 End: 06-03-2024 ambulatory DILEEP LIRA MD [facility] Start: 06-03-2024 End: 06-03-2024 Patient encounter procedure REBECCA AMAYA CHIEF MEDICAL TECHNOLOGIST-[employer] Start: 05-26-2024 End: 05-26-2024 ambulatory DILEEP LIRA MD [facility] Start: 05-26-2024 End: 05-26-2024 Patient encounter procedure DILEEP LIRA MD [facility] Start: 05-18-2024 End: 05-18-2024 ambulatory DILEEP LIRA MD [facility] Start: 05-18-2024 End: 05-18-2024 Patient encounter procedure DILEEP LIRA MD [facility] Start: 05-11-2024 End: 05-11-2024 ambulatory DILEEP LIRA MD Facility:[facility] Start: 05-11-2024 End: 05-11-2024 Patient encounter procedure DILEEP LIRA MD [facility] Start: 05-04-2024 End: 05-04-2024 Emergency department patient visit BAL GUTHRIE DO [facility] Start: 04-23-2024 End: 04-23-2024 ambulatory DILEEP LIRA MD Facility:[facility] Start: 04-23-2024 End: 04-23-2024 Patient encounter procedure DILEEP LIRA MD [facility] Start: 04-07-2024 End: 04-07-[address] MAGGI SIMMONS DO Facility:[facility] Start: 04-07-2024 End: 04-07-[address] MAGGI SIMMONS DO [facility] Start: 10-27-2023 End: 10-27-[address] Dileep Lira Work Phone: [facility] Work Phone: Start: 10-27-2023 End: 10-27-[address] Dileep iLra Work Phone: [facility]-Laboratory, Specimen Work Phone: Start: 10-24-2023 End: 10-24-[address] Dileep Lira Work Phone: [facility] Work Phone: Start: 10-24-2023 End: 10-24-[address] Dileep Lira Work Phone: [facility]-Out[facility] Work Phone: Start: 10-24-2023 End: 10-24-[address] Dileep Lira Work Phone: [facility] Work Phone: Start: 09-26-2023 End: 09-27-2023 ambulatory DILEEP LIRA MD Facility:[facility] Start: 09-24-2023 End: 09-24-2023 Emergency department patient visit [facility] Work Phone: Start: 09-24-2023 End: 09-25-2023 ambulatory SHANIQUE GARSIA MD Facility:[facility] Start: 09-24-2023 End: 09-24-2023 Patient encounter procedure SHANIQUE GARSIA MD [facility] Start: 09-17-2023 End: 09-18-2023 ambulatory SHANIQUE GARSIA MD Facility:[facility] Start: 09-17-2023 End: 09-17-2023 Patient encounter procedure SHANIQUE GARSIA MD [facility] Start: 09-11-2023 End: 09-16-2023 ambulatory SHANIQUE GARSIA MD Facility:[facility] Start: 09-09-2023 End: 09-10-2023 ambulatory DILEEP LIRA MD Facility:[facility] Start: 09-09-2023 End: 09-09-2023 Patient encounter procedure DILEEP LIRA MD [facility] Start: 08-28-2023 End: 09-02-2023 ambulatory DILEEP LIRA MD Facility:[facility] Start: 08-28-2023 End: 09-01-2023 Outreach Lab DILEEP LIRA MD [facility] Start: 08-28-2023 End: 08-29-2023 ambulatory DILEEP LIRA MD Facility:[facility] Start: 08-26-2023 End: 08-26-2023 Patient encounter procedure [facility] Work Phone: Start: 09-06-2022 End: 09-10-2022 Outreach Lab DILEEP LIRA MD [facility] Start: 07-24-2020 End: 07-24-2020 Patient encounter procedure ERICA MONTANO [facility] Start: 02-17-2020 End: 02-17-2020 Patient encounter procedure JIGNA PHAN [facility] Start: 12-24-2017 End: 12-24-2017 Ambulatory Regan Bitner Facility:[facility] Procedures Date Procedure Procedure Detail Performing Clinician Start: 10-24-2023 Bilateral mammography Mary Lira Work Phone: Start: 10-24-[address] CORNELIO SIMMONS DO Comment on above: benign complex cyst, clip in place Start: 08-26-2023 CT of abdomen and pe lvis without contrast Lithotripsy SHANIQUE GARSIA MD Plan of Treatment Date Care Activity Detail Author Start: 09-24-2023 [facility] Calculus analysis [facility] Measurement of weigh t of calculus [facility] Patient Education ED Flank Pain, Uncertain Cause [facility] Work Phone: Patient referral [facility] Work Phone: Specimen color determination [facility] Immunizations Immunization Date Immunization Notes Care Provider Fa cili 04-16-2023 influenza virus vaccine, unspecified formulation DILEEP LIRA MD [facility] 04-30-2022 influenza virus vaccine, unspecified formulation DILEEP LIRA MD [facility] 04-30-2021 influenza virus vaccine, unspecified formulation DILEEP LIRA MD [facility] 04-24-2021 Influenza virus vaccine [facility] 08-18-2020 SARS-CoV-2 (COVID-19 ) [id number] vaccine DILEEP LIRA MD [facility] 07-19-2020 SARS-CoV-2 (COVID-19 ) [id number] vaccine DILEEP LIRA MD [facility] 04-07-2020 influenza virus vaccine, unspecified formulation DILEEP LIRA MD [facility] 05-12-2019 influenza virus vaccine, unspecified formulation DILEEP LIRA MD [facility] 04-28-2017 influenza virus vaccine, unspecified formulation DILEEP LIRA MD [facility] Payers Date Payer Category Payer Private Health Insurance [id number] 2024 Unknown 2023 Unknown [id number] 2017 Self-pay 1987 Unknown [id number] 1987 Unknown [id number] 1987 Unknown [id number] .[id number] 1987 Unknown [id number] 2.840.1.743303.3.579.2. 1987 Unknown [id number] 2.840.1.102519.3.579.2 1987 Unknown [id number] 2.840.1.003642.3.579.2. 1987 Unknown [id number] 2.840.1.546972.3.579.2 1987 Unknown [id number] 2.16.840.1.345266.3.579.2.627 1987 Unknown [id number] 2.16.840.1.016388.3.579.2. 1987 Unknown [id number] 2.16.840.1.967066.3.579.2. 1987 Unknown [id number] 2.16.840.1.241400.3.579.2. 1987 Unknown [id number] 2.16.840.1.817821.3.579.2. 1987 Unknown [id number] 2.16.840.1.702003.3.579.2. 1987 Unknown [id number] 2.16.840.1.922639.3.579.2. 1987 Unknown [id number] 2.16840.1.039005.3.579.2. 1987 Unknown [id number] 2.16840.1.997256.3.579.2. 1987 Unknown [id number] 2.16.840.1.956958.3.579.2. 1987 Unknown [id number] 2.16.840.1.134076.3.579.2.62 Unknown [facility] [id number] Unknown [facility] [id number] Unknown [id number] 2.16840.1.153066.3.579.2.462 Unknown [id number] 2.16840.1.951922.3.579.2.462 Unknown [id number] 2.16840.1.736963.3.579.2.462 Social History Date Type Detail Facility Start: 12-07-2021 Tobacco smoking status Never s moked tobacco (finding) [facility] Kamari Sex Assigned At [facility] Start: 09-24-2023 End: 10-24-2023 Tobacco smoking status NHIS Unknown if ever smoked [facility] Start: 1985 Sex Assigned At Female [facility] Sex Female (finding) [facility] Functional Status Date Assessment Result Facility 05-04-2024 Functional Status Independent [facility] 05-04-2024 Functional Status ID band on, Allergy Band on, Call device within reach, Bed in low position, Wheels locked, Upper/Half-Length side-rails up, Safety level maintained [facility] Mental Status Date Assessment Result Facility 05-04-2024 Mental Status Orientation Oriented x 4 [facility] 05-04-2024 [facility] Status [facility] Clinical Notes 08-30-2023 to 12-24-2024 Note Date & Type Note Facility 12-24-2024 Note Exam Date Time Procedure Performing Provider Status 12/24/24 1:55 PM US Thyroid ELOINA SHAH MD; Auth (Ve rified) [id number] ORIGINAL EXAMINATION: ULTRASOUND OF THE THYROID WITH COLOR DOPPLER FLOW EVALUATION12/24/2024 1:56 pm ULTRASOUND OF THE THYROID: COMPARISON: CT soft tissue neck 05/11/2024 TECHNIQUE: This report is based on interpretation of permanently recorded ultrasound images. HISTORY: ORDERING SYSTEM PROVIDED HISTORY: Reason for Exam: thyromegaly, patient complains of swollen thyroid, lethargy, family history of thyroid cancer in the mother FINDINGS: RIGHT lobe: 4.5 x 1.0 x 1.6 cm LEFT lobe: 4.1 x 0.9 x 1.1 cm Isthmus is 0.1. The gland is homogeneous with normal vascularity. No suspicious focal thyroid abnormality is seen. A tiny 3 mm hypoechoic nodule in the lower right lobe is considered a benign finding that requires no follow-up imaging. No lymphadenopathy is seen in the visualized portions of the neck. IMPRESSION: Nonenlarged thyroid. No suspicious thyroid nodule that requires follow-up imaging is seen. Interpreted by: Eloina Shah MD Preliminary Report By: Eloina Shah MD Electronically signed By Eloina Shah MD Dictated Date: 12/24/2024 3:00:04 PM Prelim Date: 12/24/2024 3:01:47 PM Sign Date: 12/24/2024 3:01:47 PM Ordering Provider: PRESTON SOLIS [facility]11-14-2024 Note ORIGINAL EXAMINATION: TRANSVAGINAL PELVIC EMUSLFFOUD19/14/2024 8:04 am Ultrasound Pelvis: Transabdominal and transvaginal study COMPARISON: CT abdomen/pelvis 05/26/2024 TECHNIQUE: This report is based on interpretation of permanently recorded ultrasound images. All images are recorded and archived. HISTORY: ORDERING SYSTEM PROVIDED HISTORY: Reason for Exam: pelvic pain, history of ovarian cysts and fibroids FINDINGS: The uterus is retroflexed 6.4 x 3.0 x 4.1 cm a heterogenous soft tissue mass is seen within the uterine fundus, statistically likely to represent a anterior intramural fibroid. This measures 1.1 x 1.0 x 1.2 cm. The endometrial double wall thickness is 3.1 mm. On some images there is trace fluid in the endometrial canal and some questionable echoes within it also. These are of uncertain significance. Right ovary: 2.1 x 3.2 x 2.5 cm, with a volume of 8.9 mL. 2 dominant ovarian follicles are seen, measuring 1.5 x 1.5 x 1.5 cm and 1.1 x 1.0 x 1.2 cm. Left ovary: Not visualized secondary to mobile bowel gas artifacts.. No concerning ovarian cyst or mass is seen. There is blood flow to the right ovary. No pelvic or adnexal masses or significant free fluid is seen. A small amount of free fluid is seen within the cervix, which is likely physiologic. IMPRESSION: No acute pelvic abnormality. 1 cm uterine fibroid. There is some fluid in the endometrial canal and some echoes within the canal also. These may be physiologic. Evaluate further if clinically warranted.. I have personally reviewed the images of this examination and agree with the resident's findings and interpretation. Interpreted by: Eloina Shah MD Preliminary Report By: Alice Sanchez Electronically signed By Eloina Shah MD Dictated Date: 06/03/2024 9:29:46 AM Prelim Date: 06/03/2024 11:49:53 AM Sign Date: 06/03/2024 11:49:53 AM [facility]ing [id number] Discharge instructions Patient Education 05/04/2024 09:58:15 Anxiety Reaction Anxiety Reaction Anxiety is the feeling we all get when we think something bad might happen. It is a normal responseto stress and usually causes only a mild reaction. When anxiety becomes more severe, it can interfere with daily life. In some cases, you may not even be aware of what it is you re anxious about. There may also be a genetic link or it may be a learned behavior in the home. Both psychological and physical triggers cause stress reaction. It's often a response to fear or emotional stress, real or imagined. This stress may come from home, family, work, or social relationships. During an anxiety reaction, you may feel: Helpless Nervous Depressed Irritable Your body may show signs of anxiety in many ways. You may experience: Dry mouth Shakiness Dizziness Weakness Trouble breathing Breathing fast (hyperventilating) Chest pressure Sweating Headache Nausea Diarrhea Tiredness Inability to sleep Sexual problems Home care Try to locate the sources of stress in your life. They may not be obvious. These may include: oDaily hassles of life (such as traffic jams, missed appointments, or car troubles) oMajor life changes, both good (new baby or job promotion) and bad (loss of job or loss of loved one) oOverload: feeling that you have too many responsibilities and can't take care of all of them at once oFeeling helpless or feeling that your problems are beyond what you re able to solve Notice how your body reacts to stress. Learn to listen to your body signals. This will help you take action before the stress becomes severe. When you can, do something about the source of your stress. (Avoid hassles, limit the amount of change that happens in your life at one time and take a break when you feel overloaded). Unfortunately, many stressful situations can't be avoided. It is necessary to learn how to better manage stress. There are many proven methods that will reduce your anxiety. These include simple things like exercise, good nutrition, and adequate rest. Also, there are certain techniques that are helpful: oRelaxation oBreathing exercises oVisualization oBiofeedback oMeditation For more information about this, consult your healthcare provider or go to a local bookstore and review the many books and tapes available on this subject. Follow-up care If you feel that your anxiety is not responding to self-help measures, contact your healthcare provider or make an appointment with a counselor. You may need short-term psychological counseling and temporary medicine to help you manage stress. Call 911 Call 911 if any of these happen: Trouble breathing Confusion Drowsiness or trouble wakening Fainting or loss of consciousness Rapid heart rate Seizure New chest pain that becomes more severe, lasts longer, or spreads into your shoulder, arm, neck, jaw, or back When to seek medical advice Call your healthcare provider right away if any of these happen: Your symptoms get worse Severe headache not relieved by rest and mild pain reliever [id number] [employer]. [address] [place] [address]. All rights reserved. This information is not intended as a substitute for professional medical care. Always follow yourhealthcare professional's instructions. Follow Up Care 05/04/2024 08:20:55 With:DILEEP LIRA MD Address: [address] [place] [address]- When:2-4 days [facility] 10-15-2024 Note Discharge Instructions Thank you for allowing [facility] to assist you with your healthcare needs. The following is importantdischarge information regarding your hospital visit. Diagnosis from Today's Visit Stress reaction What to Do Next Instructions from Your Care Team No qualifying data available. Post Acute Orders No qualifying data available. You Need to Schedule the Following Appointments Follow Up with DILEEP LIRA MD When:Within 2-4 days Where:[place] [address]- Allergies amitriptyline Tingling, Headache penicillin Hives Medications Please ask your primary doctor or pharmacist before taking any other medication not listed, including over the counter drugs, herbal medications, vitamins and or supplements as they may interact withyour home medications. What How Much When Why Instructions Last Dose Unchanged amphetamine- dextroamphetamine (Adderall 20 mg oral tablet) 1 tab(s) by mouth Three (3) times a day Attention deficit disorder Duration: 30 Days Unchanged ascorbic acid (Vitamin C) Once a day Unchanged cholecalciferol (Vitamin D3) Once a day Unchanged diazePAM (diazePAM 5 mg oral tablet) 1 tab(s) by mouth Every 6 hours as needed for as needed for anxiety Attention deficit disorder Constipation Duration: 30 Days Unchanged ethinyl estradiol-norgestimate (Tri-Sprintec oral tablet) 1 tab(s) by mouth Once a day Duration: 84 Days disregard one [facility] script sent earlier Unchanged ethinyl estradiol-norgestimate (Tri-Sprintec oral tablet) 1 tab(s) by mouth Once a day Duration: 84 Days brand only Unchanged fluconazole (fluconazole 200 mg oral tablet) 1 tab(s) by mouth Once a day Queenie Cardona virus infection Thyromegaly Duration: 10 Days Unchanged linaclotide (Linzess 72 mcg oral capsule) 1 cap by mouth Once a day Attention deficit disorder Constipation Duration: 30 Days do not crush or chew Unchanged multivitamin (Multivitamin) 1 tab(s) by mouth Every day Please take this list to your next doctor s visit. Bring all medications you take, including over the counter medications, herbals and other supplements with you to your doctor s visit. Patients and families are reminded to discard old lists and to update any records with all medication providers or retail pharmacies. Education Materials Anxiety Reaction Anxiety is the feeling we all get when we think something bad might happen. It is a normal responseto stress and usually causes only a mild reaction. When anxiety becomes more severe, it can interfere with daily life. In some cases, you may not even be aware of what it is you re anxious about. There may also be a genetic link or it may be a learned behavior in the home. Both psychological and physical triggers cause stress reaction. It's often a response to fear or emotional stress, real or imagined. This stress may come from home, family, work, or social relationships. During an anxiety reaction, you may feel: Helpless Nervous Depressed Irritable Your body may show signs of anxiety in many ways. You may experience: Dry mouth Shakiness Dizziness Weakness Trouble breathing Breathing fast (hyperventilating) Chest pressure Sweating Headache Nausea Diarrhea Tiredness Inability to sleep Sexual problems Home care Try to locate the sources of stress in your life. They may not be obvious. These may include: oDaily hassles of life (such as traffic jams, missed appointments, or car troubles) oMajor life changes, both good (new baby or job promotion) and bad (loss of job or loss of loved one) oOverload: feeling that you have too many responsibilities and can't take care of all of them at once oFeeling helpless or feeling that your problems are beyond what you re able to solve Notice how your body reacts to stress. Learn to listen to your body signals. This will help you take action before the stress becomes severe. When you can, do something about the source of your stress. (Avoid hassles, limit the amount of change that happens in your life at one time and take a break when you feel overloaded). Unfortunately, many stressful situations can't be avoided. It is necessary to learn how to better manage stress. There are many proven methods that will reduce your anxiety. These include simple things like exercise, good nutrition, and adequate rest. Also, there are certain techniques that are helpful: oRelaxation oBreathing exercises oVisualization oBiofeedback oMeditation For more information about this, consult your healthcare provider or go to a local bookstore and review the many books and tapes available on this subject. Follow-up care If you feel that your anxiety is not responding to self-help measures, contact your healthcare provider or make an appointment with a counselor. You may need short-term psychological counseling and temporary medicine to help you manage stress. Call 911 Call 911 if any of these happen: Trouble breathing Confusion Drowsiness or trouble wakening Fainting or loss of consciousness Rapid heart rate Seizure New chest pain that becomes more severe, lasts longer, or spreads into your shoulder, arm, neck, jaw, or back When to seek medical advice Call your healthcare provider right away if any of these happen: Your symptoms get worse Severe headache not relieved by rest and mild pain reliever [id number] [employer]. [address] [facility], [place] [address]. All rights reserved. This information is not intended as a substitute for professional medical care. Always follow yourhealthcare professional's instructions. Additional Information VACCINATE! IT SAVES LIVES! Members of the community who have not yet received the COVID-19 vaccine and would like to receive it can visit one of [facility] vaccine clinics. There are many vaccine clinic locations within the [facility]. For locations and available times, please visit www.gettheshot.coronavirus.[place].gov/. It is important to note that some COVID mobile vaccine clinics are held outdoors and may be canceled in rainy or stormy conditions. To learn more about pediatric vaccinations (ages 5-11), we invite you to visit the [facility] webpage. https://www.[facility].org/pages/1560-Sglrv-Wmngvucbuve-Vkrlwdvegw-Gwkxr-Tye stions.htmlTo learn more about the COVID-19 vaccine, we invite you to visit the CDC website for a list of frequently asked questions. https://www.cdc.gov/coronavirus/2019-ncov/vaccines/faq.html [facility] Patient Portal Access Instructions: Stay connected with your healthcare team and access your personal medical information anytime with the [facility] Patient Portal. If you would like a full copy of your medical records please contact the [facility] Medical Records Department Friday through Friday between 8a.m. and 4:30p.m. Please follow the directions below to access the portal: 1.Access the email account you provided upon registration to the hospital.2.Look for an invitation email from [facility].3.Open the email and access the invitation link: Accept Invitation to [facility]4.Fill in the required regan to create your account. Sign into www.[employer] with your username and password that you created in the above steps to stay up to date. You can then view a summary of results, a summary of your visits, and the ability to download your summaries to your computer or send the information securely to a physician. Remember that your healthcare information is confidential, so carefully consider who you will allow to register on the [facility] Patient Portal for access to your information. You can also access the [facility] Patient Portal on the [employer]. Simply click on Health Records under [employer] and then click on the [facility] logo. HOW TO SAFELY DISPOSE OF PRESCRIPTION MEDICATIONS Please use one of the following methods to safely dispose of your unused medications. 1.Use a drug disposal kit: the drug disposal pouch allows you to safely discard your old and unuseddrugs. Ask your nurse to give you one when you are discharged.2.Visit a local take-back location: Many local pharmacies and police departments have programs that collect old and unwanted prescriptiondrugs. Call your local pharmacy or go to http://[employer].PlayFirst/8H1Xw0m to find one close to you.3.Make use of household items: Use cat litter or old coffee grounds to dispose medications if other options arenot available. Mix your drugs with these household products, seal them in an airtight container andthrow it into the garbage. Call [facility]: [phone] to be sure your drugs can be disposed of in this way. Some medicines may require a different approach.4.Never flush your medications down the toilet. IF YOU HAVE BEEN PRESCRIBED AN OPIOIDS FOR PAIN If you have been prescribed an opioid (such as hydrocodone, oxycodone or morphine), it is critical to understand the possible side effects and risks of opioid pain medications. Even when taken as directed, opioids can have several side effects including: Tolerance, meaning you might need to take more of a medication for the same pain relief. Nausea, vomiting and/or constipation. Sleepiness, dizziness, dry mouth, confusion, depression or itching. Physical dependence, meaning you have withdrawal symptoms when a medication is stopped ? this can develop within a few days. KNOW YOUR RESPONSIBILITIES It is important to know exactly how much and how often to take the opioid pain medications you are prescribed. Never take opioids in higher amounts or more often than prescribed. Do not combine opioids with alcohol or other drugs that cause drowsiness, such as benzodiazepines, also known as benzos,including diazepam and alprazolam, muscle relaxants or sleep aids. Never sell or share prescriptionopioids. This is illegal. Store opioids in a secure place and out of reach of others (including children, family, friends and visitors). The last page(s) of this document has been signed and retained as a CHART COPY Signatures Patient Education Materials Anxiety Reaction Medication Leaflets My discharge plan and instructions have been reviewed and explained to me and IGLORIA KAYLA M understand my current condition and have read and understand these discharge instructions. I have received a written copy of the plan/instructions. If I have questions, I am aware that I should contact my doctor. 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 HISTORY: ORDERING SYSTEM PROVIDED HISTORY: Reason for Exam: SOB/cough/fever FINDINGS: The cardiomediastinal silhouette is unremarkable. There is no pulmonary vascular congestion. There is no focal consolidation. No significant volume pleural effusion. No pneumothorax. IMPRESSION: No acute cardiopulmonary process. I have personally reviewed the images of this examination and agree with the resident's findings and interpretation. Interpreted by: Velasquez Hills MD Preliminary Report By: Jorge Garcia Electronically signed By Velasquez Hills MD Dictated Date: 05/04/2024 9:23:42 AM Prelim Date: 05/04/2024 9:39:38 AM Sign Date: 05/04/2024 9:39:38 AM [facility]ing [facility] Note Sinus rhythm Nonspecific intraventricular conduction delay Electronic Signature: BAL GUTHRIE DO 05/04/2024 09:22:14[facility] 03-06-2024 Discharge summary Author Toni Parikh [facility] September 24, 2023 4:19pm Note Date/Time September 24, 2023 3:28 pm [facility] Medical Records Department [address] [place] [address] Emergency Department Summary 09/24/23 MR#: [id number] Acct: [id number] Name: PATRICA BURTON Rep #:[id number] : 1985 38 From: Toni Parikh MD PCP: Dr. Dileep Lira MD Status:REG ER Location: ED HPI History of Present Illness Chief Complaint: Complaint Detail of Chief Complaint: Numerous complaints and concerns Informant: patient Onset/Context/Timing Onset: Days and Weeks Context: Sudden Onset Timing: Intermittent Quality: Left-sided abdominal and flank pain. Location: Nausea Current Severity: Mild Worsened by: Nothing specific Relieved by: Nothing Associated Symptoms Associated Symptoms: Nausea, dysuria, frequency without gross hematuria Narrative Narrative: Patient is a 38-year-old woman. She has been seen by Dr. Londono was seen in August. She has known stones. She reports dysuria, urgency without gross hematuria. She also states she has history ovarian cyst. Last ultrasound revealed ovarian cyst on the right. Her pain and symptoms are on the left. Patient denies fever or chills. Patient does endorse nausea without vomiting or diarrhea. There is no history of trauma. She has not noted any skin lesions. Patient denies abnormal Pap smear. She denies vaginal bleeding. She does not endorse any symptoms of . Prior similar symptoms: Yes Recent Illness/Hospitalization: No PFSH PFSH Medical History Kidney stones Home Medications norgestimate-ethinyl estradiol 0.18 mg/0.215mg/0.25mg-35 mcg(28)tablet (Tri- Sprintec (28)) 1 tab PO DAILY hormones 06/15/21 [History Last Taken Unknown] ondansetron 4 mg disintegrating tablet 4 mg PO Q8H PRN PRN Nausea #14 tabs 06/15/21 [Rx Last Taken Unknown] oxycodone 5 mg capsule 5 mg PO BID PRN pain 3 days #12 caps 06/15/21 [Rx Last Taken Unknown] tamsulosin 0.4 mg capsule 0.4 mg PO DAILY@1730 #7 caps 06/17/21 [Rx Last Taken Unknown] Allergy/AdvReac Type Severity Reaction Status Date / Time Penicillins Allergy Hives Verified 09/24/23 14:13 Family History Other Cancer Heart disease Social History Smoking Status: Never smoker substance use type: does not use ROS ROS ED Constitutional Constitutional ED: Denies chills, fever(s), subjective or sweats Eyes Eyes: Denies blurry vision or change in vision ENT ENT ED: Denies ear pain, rhinorrhea or sore throat Cardiovascular Cardiovascular: Denies chest pain, palpitations or racing heartbeat Respiratory/Chest Respiratory/Chest: Denies cough, dyspnea or dyspnea on exertion Gastrointestinal Gastrointestinal: Reports abdominal pain and nausea; Denies constipation, diarrhea, melena or vomiting Genitourinary Genitourinary ED: Reports dysuria and urinary frequency; Denies hematuria Musculoskeletal Musculoskeletal: Reports back pain; Denies arthralgias, myalgias or neck pain Integumentary Denies rash Neurologic Neurologic: Denies headache(s) or paresthesias Psychiatric Psychiatric: Reports anxiety Endocrine Endocrinology: Denies cold intolerance or heat intolerance Hematologic/Lymphatic Hematologic/Lymphatic: Reports systems reviewed and no addt'l complaints, exceptas documented EXAM Physical Exam Const Vital Signs: 09/24/23 14:14 Temperature 97.2 F L Temperature Source Temporal Pulse Rate 91 Respiratory Rate 18 Blood Pressure 148/105 H Blood Pressure Mean 119 Pulse Ox 100 Oxygen Delivery Method Room Air Positive well nourished, well developed and obese General Appearance ED: well developed and NAD; Negative for cyanotic, diaphoretic or pallor Nutritional Appearance: obese HEENT Reports moist mucous membranes HEENT Narrative: Head is atraumatic and normocephalic. Ears normal. Nares patent. Posterior pharynx is normal. Eyes PERRL and EOMs intact bilaterally General Eye ED: Negative for pale conjunctiva or scleral icterus Neck no lymphadenopathy, supple and no JVD Chest Wall inspection of chest normal and palpation of chest normal Resp normal respiratory effort and clear to auscultation bilaterally Cardio regular rate, regular rhythm, S1 normal heart sound, S2 normal heart sound and no murmurs GI normal to inspection, nondistended, normoactive bowel sounds, non-tender, non-distended and no masses; Negative for hepatosplenomegaly Auscultation: normoactive bowel sounds Palpation: soft Back/Spine no CVA tenderness Extremity normal to inspection General Extremety ED: Negative for edema or tenderness General Extremity: Negative for edema Neuro oriented x3, CN's II-XII intact bilaterally and no sensory deficits noted Sensorium / Orientation: alert Motor Exam: strength 5/5 throughout Psych mental status grossly normal Skin no rashes or lesions noted, no wounds and skin turgor normal General Skin Exam: elasticity normal; Negative for jaundice or pallor MDM MDM MDM Narrative Medical decision making narrative: Differential diagnosis could include urinary tract infection, pyelonephritis, obstructing ureteral stone. Since she has known right ovarian cyst and pains onthe left doubt this is due to ovarian cyst. Need to rule out . If test is positive we will need to consider ectopic . Lab Data Attestation: I reviewed the patient's lab results. Lab results narrative: CBC differential normal. Electrolyte panel normal. He UA normal. Serum test negative Labs: Laboratory Results - last 24 hr 09/24/23 09/24/23 14:30 14:55 WBC 8.9 RBC 4.65 Hgb 14.0 Hct 41.9 MCV 90.1 MCH 30.1 MCHC 33.4 RDW Std Deviation 41.9 RDW Coeff of Valencia 12.7 Plt Count 295 MPV 10.0 Immature Gran % (Auto) 0.200 Neut % (Auto) 58.9 Lymph % (Auto) 33.7 Antelope % (Auto) 6.0 Eos % (Auto) 0.5 Baso % (Auto) 0.7 Absolute Neuts (auto) 5.2 Absolute Lymphs (auto) 2.99 Nucleated RBC % 0 Sodium 141 Potassium 3.5 Chloride 110 H Carbon Dioxide 26.0 Anion Gap 5 BUN 8 Creatinine 0.74 Estim Creat Clear Calc 101.44 Est GFR (MDRD) Af Amer 113 Est GFR (MDRD) Non-Af 93 BUN/Creatinine Ratio 10.7 Glucose 106 Calcium 9.0 Serum , Qual NEGATIVE Urine Color Yellow Urine Clarity Sl. Cloudy Urine pH 7.0 Ur Specific Primrose 1.010 Urine Protein Negative Urine Glucose (UA) Normal Urine Ketones Negative Urine Occult Blood Negative Urine Nitrite Negative Urine Bilirubin Negative Urine Urobilinogen Normal Ur Leukocyte Esterase Negative Urine RBC 0 SEEN Urine WBC 0 SEEN Ur Squamous Epith Cells 0 SEEN Urine Bacteria 0 SEEN Urine Mucus 0 SEEN Treatment and Re-Evaluation :: Patient's workup is negative. Patient was informed the cause of her left-sided pain is unknown. She does have history ovarian cyst. Urine reveals no evidenceof blood or infection. Discharge Plan Triage Chief Complaint: Complaint ED Provider: Toni Parikh Dx/Rx/DC Orders Clinical Impression: Acute left flank pain, Ovarian cyst, Hx of renal calculi Instructions: ED Flank Pain, Uncertain Cause Prescriptions: No Action norgestimate-ethinyl estradiol [Tri-Sprintec (28)] 0.18/0.215/0.25 mg-35 mcg (28) tablet 1 tab PO DAILY oxycodone 5 mg capsule 5 mg PO BID PRN (Reason: pain) 3 Days Qty: 12 0RF ondansetron 4 mg tablet,disintegrating 4 mg PO Q8H PRN PRN (Reason: Nausea) Qty: 14 0RF tamsulosin 0.4 mg Capsule 0.4 mg PO DAILY@1730 Qty: 7 0RF Primary Care Provider: Dileep Lira Referrals: Dileep Lira MD [Primary Care Provider] - 3-5 Days if not improving Activity Restrictions/Additional Instructions: Take ibuprofen or Aleve for your pain. Disposition Disposition: Home, Self Care What to do if you have Problems For any increased pain, shortness of breath, bleeding, nausea or vomiting, chestpain, or any unexpected problems, contact your Primary Care Provider. Call [facility] ([phone]) or report to the closest Emergency Room. Call 911 if necessary. 09/24/23 1619 <Electronically signed by Toni Parikh MD> Cosigner Signature (if applicable): CC: Dr. Dileep Lira MD ~ Signed [facility] Work Phone: [phone] 853-989802-10-2024 Note. MICRO - Microbiology PROCEDURE: Urine Culture [*1] SOURCE: Urine, Clean Catch BODY SITE: COLLECTED DATE/TIME: 08/28/2023 17:20 EST RECEIVED DATE/TIME: 08/29/2023 14:20 EST START DATE/TIME: 08/29/2023 14:21 EST FREE TEXT SOURCE: FINAL REPORTS Final Report [] Verified Date/Time/Personnel: 08/30/2023 14:01 EST 50,000 - 100,000 cfu/ml Mixed growth consistent with normal urogenital anselmo. Performing Locations *1: This test was performed at: [facility], [address] [place] [address], [id number] , [facility] ([place])Evaluation + Plan note Future Appointments Appointment Date:09/11/2022 02:00:00 PM Scheduled Provider: Location:[facility] Appointment Type:CT Abdomen and Pelvis w/o Contrast Future Scheduled Tests Laboratory* Urine Culture 09/06/22 * Urine Culture 09/03/22 Radiology* CT Abdomen and Pelvis w/o contrast 09/11/22 [facility] Evaluation + Plan note Future Appointments Appointment Date:09/04/2023 01:30:00 PM Scheduled Provider:DILEEP LIRA MD Location:[facility] Appointment Type:PC OV Follow Up Appointment Date:01/27/2024 03:00:00 PM Scheduled Provider:DILEEP LIRA MD Location:[facility] Appointment Type:PC OV Controlled Medication Future Scheduled Tests Laboratory* Urine Culture 09/06/22 * Urine Culture 09/03/22 [facility] Evaluation + Plan note Future Appointments Appointment Date:09/11/2023 11:00:00 AM Scheduled Provider:SHANIQUE GARSIA MD Location: [facility] Appointment Type: PUBLIC DEFENDER Appointment Date:01/27/2024 03:00:00 PM Scheduled Provider:DILEEP LIRA MD Location:[facility] Appointment Type:PC OV Controlled Medication [facility] Evronyation + Plan note Future Appointments Appointment Date:12/08/2023 08:30:00 AM Scheduled Provider:SHANIQUE GARSIA MD Location: [facility] Appointment Type:WH OV Appointment Date:01/27/2024 03:00:00 PM Scheduled Provider:DILEEP LIRA MD Location:[facility] Appointment Type:PC OV Controlled Medication [facility] Evronyation + Plan note Future Appointments Appointment Date:09/26/2023 09:30:00 AM Scheduled Provider:DILEEP LIRA MD Location:[facility] Appointment Type:PC OV ED Follow Up Appointment Date:10/28/2023 03:00:00 PM Scheduled Provider:DILEEP LIRA MD Location:[facility] Appointment Type:PC OV Controlled Medication Appointment Date:12/08/2023 08:30:00 AM Scheduled Provider:SHANIQUE GARSIA MD Location:[facility] Appointment Type:[facility] Evaluation + Plan note Future Appointments Appointment Date:07/28/2024 03:00:00 PM Scheduled Provider:DILEEP LIRA MD Location:[facility] Appointment Type:PC OV Controlled Medication Future Scheduled Tests Radiology* MA Mammo Diagnostic Right w/ Maninder 03/11/24 * MA Mammo Diagnostic Right w/ Maninder 03/31/24 * MA Mammo Diagnostic Right w/ Maninder 04/07/24 * US Breast Right Complete 03/11/24 * US Breast Right Complete 03/31/24 * US Breast Right Complete 04/07/24 [facility] evaluation + Plan note Future Appointments Appointment Date:04/28/2024 01:00:00 PM Scheduled Provider:DILEEP LIRA MD Location:[facility] Appointment Type:PC OV Appointment Date:07/28/2024 03:00:00 PM Scheduled Provider:DILEEP LIRA MD Location:[facility] Appointment Type:PC OV Controlled Medication Diagnostic Tests Pending * PEYTON by IFA Screen 04/23/24 * EBV Antibody Profile 04/23/24 * Estrogens Fractionated, S 04/23/24 * Lyme Disease Serology w/Reflex 04/23/24 Future Scheduled Tests Radiology* MA Mammo Diagnostic Right w/ Maninder 03/11/24 * MA Mammo Diagnostic Right w/ Maninder 03/31/24 * MA Mammo Diagnostic Right w/ Maninder 04/07/24 * US Breast Right Complete 03/11/24 * US Breast Right Complete 03/31/24 * US Breast Right Complete 04/07/24 [facility] Evaluation + Plan note Future Appointments Appointment Date:05/11/2024 01:30:00 PM Scheduled Provider: Location:[facility] Appointment Type:CT Soft Tissue Neck w/ Contrast Appointment Date:05/18/2024 08:00:00 AM Scheduled Provider:DILEEP LIRA MD Location:[facility] Appointment Type:PC OV ED Follow Up Appointment Date:07/28/2024 03:00:00 PM Scheduled Provider:DILEEP LIRA MD Location:[facility] Appointment Type:PC OV Controlled Medication Future Scheduled Tests Radiology* MA Mammo Diagnostic Right w/ Maninder 03/11/24 * MA Mammo Diagnostic Right w/ Maninder 03/31/24 * MA Mammo Diagnostic Right w/ Maninder 04/07/24 * CT Soft Tissue Neck w/ Contrast 05/11/24 * US Breast Right Complete 03/11/24 * US Breast Right Complete 03/31/24 * US Breast Right Complete 04/07/24 [facility] Evaluation + Plan note Future Appointments Appointment Date:05/18/2024 08:00:00 AM Scheduled Provider:DILEEP LIRA MD Location:[facility] Appointment Type:PC OV ED Follow Up Appointment Date:07/28/2024 03:00:00 PM Scheduled Provider:DILEEP LIRA MD Location:[facility] Appointment Type:PC OV Controlled Medication Future Scheduled Tests Radiology* MA Mammo Diagnostic Right w/ Maninder 03/11/24 * MA Mammo Diagnostic Right w/ Maninder 03/31/24 * MA Mammo Diagnostic Right w/ Maninder 04/07/24 * US Breast Right Complete 03/11/24 * US Breast Right Complete 03/31/24 * US Breast Right Complete 04/07/24 [facility] Evaluation + Plan note Future Appointments Appointment Date:07/28/2024 03:00:00 PM Scheduled Provider:DILEEP LIRA MD Location:[facility] Appointment Type:PC OV Controlled Medication Diagnostic Tests Pending * PEYTON by IFA Screen 05/18/24 * Queenie Cardona Virus Antibody Titer 05/18/24 Future Scheduled Tests Radiology* MA Mammo Diagnostic Right w/ Maninder 03/11/24 * MA Mammo Diagnostic Right w/ Maninder 03/31/24 * MA Mammo Diagnostic Right w/ Maninder 04/07/24 * US Breast Right Complete 03/11/24 * US Breast Right Complete 03/31/24 * US Breast Right Complete 04/07/24 * CT Abdomen and Pelvis w/ contrast 05/18/24 [facility] Evaluation + Plan note Future Appointments Appointment Date:07/28/2024 03:00:00 PM Scheduled Provider:DILEEP LIRA MD Location:[facility] Appointment Type:PC OV Controlled Medication Appointment Date:09/16/2024 10:30:00 AM Scheduled Provider:PRESTON SOLIS MD Location:[facility] Appointment Type:ENDO PUBLIC DEFENDER Future Scheduled Tests Radiology* MA Mammo Diagnostic Right w/ Maninder 03/11/24 * MA Mammo Diagnostic Right w/ Maninder 03/31/24 * MA Mammo Diagnostic Right w/ Maninder 04/07/24 * US Breast Right Complete 03/11/24 * US Breast Right Complete 03/31/24 * US Breast Right Complete 04/07/24 [facility] Evaluation + Plan note Future Appointments Appointment Date:07/28/2024 03:00:00 PM Scheduled Provider:DILEEP LIRA MD Location:[facility] Appointment Type:PC OV Controlled Medication Appointment Date:09/16/2024 10:30:00 AM Scheduled Provider:PRESTON SOLIS MD Location:[facility] Appointment Type:ENDO PUBLIC DEFENDER Diagnostic Tests Pending * Rapid Plasma Reagin Test 07/06/24 * CMV PCR 07/06/24 * Cytomegalovirus Antibody 07/06/24 * Miscellaneous LC Test 07/06/24 Future Scheduled Tests Radiology* MA Mammo Diagnostic Right w/ Maninder 03/11/24 * MA Mammo Diagnostic Right w/ Maninder 03/31/24 * MA Mammo Diagnostic Right w/ Maninder 04/07/24 * US Breast Right Complete 03/11/24 * US Breast Right Complete 03/31/24 * US Breast Right Complete 04/07/24 [facility] Evaluation + Plan note Future Appointments Appointment Date:12/23/2024 02:00:00 PM Scheduled Provider:DILEEP LIRA MD Location:[facility] Appointment Type:PC OV Controlled Medication Appointment Date:12/24/2024 02:30:00 PM Scheduled Provider: Location:[facility] Appointment Type:US Thyroid Appointment Date:01/06/2025 02:30:00 PM Scheduled Provider:PRESTON SOLIS MD Location:[facility] Appointment Type:ENDO OV Diagnostic Tests Pending * Thyroid Stim Immunoglobulin 12/18/24 * Testosterone,Free and Total 12/18/24 * Salivary Cortisol,MS 12/18/24 Future Scheduled Tests Radiology* MA Mammo Diagnostic Right w/ Maninder 03/11/24 * MA Mammo Diagnostic Right w/ Maninder 03/31/24 * MA Mammo Diagnostic Right w/ Maninder 04/07/24 * US Breast Right Complete 03/11/24 * US Breast Right Complete 03/31/24 * US Breast Right Complete 04/07/24 * US Thyroid 12/24/24 [facility] Evaluation + Plan note Future Appointments Appointment Date:01/06/2025 02:30:00 PM Scheduled Provider:PRESTON SOLIS MD Location:[facility] Appointment Type:ENDO OV Appointment Date:06/21/2025 02:00:00 PM Scheduled Provider:DILEEP LIRA MD Location:[facility] Appointment Type:PC OV Future Scheduled Tests Radiology* MA Mammo Diagnostic Right w/ Maninder 03/11/24 * MA Mammo Diagnostic Right w/ Maninder 03/31/24 * MA Mammo Diagnostic Right w/ Maninder 04/07/24 * US Breast Right Complete 03/11/24 * US Breast Right Complete 03/31/24 * US Breast Right Complete 04/07/24 [facility] Evaluation noteNo assessment information available [facility] Work Phone: Evaluation note* Diagnosis Onset Date Resolution Status Abnormal mammogram of right breast acute [facility] Work Phone: Hospital course Narrative No data available for this section [facility] Hospital Discharge instructions No data available for this section [facility] Hospital Discharge instructions Additional Instructions Take ibuprofen or Aleve for your pain.[facility] Work Phone: Progress note No data available for this section [facility] Summary Purpose Family History No Family History Records Found Relationship Condition Age at Onset Recorded Date/T ama Not Specified Cardiac disease Unknown Malignant neoplasm Unknown Relationship Condition Age at Onset Recorded Date/T ama Not Specified Cardiac disease Unknown Malignant neoplasm Unknown aunt Malignant neoplasm of breast Unknown Advance Directives No Advanced Directives Records Found Advance Directive Response Recorded Date/ Time Living Will No September 24, 2023 3:00pm Power of Turbo Operator No September 23 3:00pm Advance Directive Response Recorded Date/ Time Living Will No September 24, 2023 4:00pm Power of Turbo Operator No September 23 4:00pm Chief Complaint and Reason for Visit Chief Complaint R/O KIDNEY STONE urinary symptoms Chief Complaint R/O KIDNEY STONE urinary symptoms Birads 3 R Breast POST BIOPSY Reason for Visit Abnormal mammogram o f right breast Additional Source Comments INFORMATION SOURCE (unrecogn ized section and content) DATE CREATED AUTHOR 01/06/2018 [facility] DATE CREATED AUTHOR AUTHOR'S ORGANIZ ATION 01/26/2019 [facility] DATE CREATED AUTHOR AUTHOR'S ORGANIZ ATION 07/27/2020 [facility] DATE CREATED AUTHOR AUTHOR'S ORGANIZ ATION 07/29/2020 [facility] DATE CREATED AUTHOR AUTHOR'S ORGANIZ ATION 09/13/2021 [facility] DATE CREATED AUTHOR AUTHOR'S ORGANIZ ATION 09/15/2021 [facility] DATE CREATED AUTHOR AUTHOR'S ORGANIZ ATION 09/30/2023 [facility] DATE CREATED AUTHOR AUTHOR'S ORGANIZ ATION 12/26/2024 [facility] DATE CREATED AUTHOR AUTHOR'S ORGANIZ ATION 03/17/2025 [facility] Care Team (unrecognized sect ion and content) Care Team Personnel Name: DILEEP LIRA MD Position: P4 Physician - Primary Care Member Role: Primary Care Physician Address: Address: [address] [place] [address] [address] [facility] [place], [place] [address] Care Team Related Persons Name: NONE, NONE Patient Care team informatio n (unrecognized section and content) Team Status: Active Member Role Status Dates Dr. Dileep Lira MD Primary Care Provider Active Team Status: Inactive Member Role Status Dates Dr. Hema Londono MD Attending Provider, Referr ing Provider Active Dr. Dileep Lira MD Primary Care Provider Active Team Status: Inactive Member Role Status Dates Dr. Dileep Lira MD Primary Care Provider Active Dr. Toni Parikh MD Emergency Provider Active Team Status: Inactive Member Role Status Dates Dr. Dileep Lira MD Primary Care Provider, Referrin g Provider Active Dr. Ole Perdue MD Attending Provider Active Team Status: Inactive Member Role Status Dates Dr. Dileep Lira MD Primary Care Provider Active Dr. Toni Parikh MD Attending Provider, Emergency Provi sergey Active Team Status: Inactive Member Role Status Dates Dr. Dileep Lira MD Primary Care Provider Active Dr. Ole Perdue MD Attending Provider, Referring Provider Active Team Status: Active Member Role Status Dates Dr. Dileep Lira MD Primary Care Provider Active Dr. Hema Londono MD Attending Provider, Referr ing Provider Active Team Status: Inactive Member Role Status Dates Dr. Dileep Lira MD Primary Care Provider Active Dr. Hema Londono MD Attending Provider, Referr ing Provider Active Goals (unrecognized section and content) Goals may be documented in a n alternate section FOR RECORDS PERTAINING TO PATIENTS WHO ARE [...] BE BASED ON THE PRIMARY CLINICAL RECORDS. [employer] provides no warranty or guarantee of the accuracy or completeness of information in this document.
== END | disposition home or self-care (01) ==
LOC: OPBI 13:28
PROVIDERS: PCP Family Medicine; Referring Provider Obstetrics & Gynecology; Visit Provider Obstetrics & Gynecology
DX: Z12.31 Encounter for screening mammogram for malignant neoplasm of breast (principal)
CPT/HCPCS: 77063; 77067

== ENCOUNTER → 2025-03-25 | Outpatient (CLI) | payer BC, SELFPAY ==
--- NOTE | 2025-03-25 13:45 | BI_ITS ---
EXAM: DIAG MAMM W/CAD, UNILAT; RT BRST UNILAT ALEK ADD-ON; BREAST LIMITED UNILATERAL 03/25/2025 CLINICAL HISTORY: F, Age 40 y/o , ABN MAMM; ABD MAMMO; ABD MAMM TECHNIQUE: Procedure Code: [id number]; BIRTUNITOMO; USBRSTLIMIT Modality: MG; US Procedure: DIAG MAMM W/CAD, UNILAT; RT BRST UNILAT ALEK ADD-ON; BREAST LIMITED UNILATERAL. COMPARISON: Prior exam(s) dated 03/18/2025, 09/09/2023. FINDINGS: MAMMOGRAM: TISSUE DENSITY: The breasts are heterogeneously dense, which may obscure small masses. The mammogram demonstrates that the patient has dense breasts. Supplemental screening with whole breast ultrasound or MRI may be considered for further evaluation. Unilateral Right Breast Mammographic Findings: Follow-up examination performed for the right breast mass on examination of 03/18/2025. On the present examination, the mass in the retroareolar right breast does not persist. ULTRASOUND: Ultrasound performed of the retroareolar right breast demonstrates no suspicious sonographic findings. There are no solid masses or abnormal cystic elements. BI/Rt Brst Unilat Alek Add-On IMPRESSION: There is no evidence of malignancy in the right breast. OVERALL FINAL ASSESSMENT BI-RADS 1: NEGATIVE RECOMMENDATION: Routine annual follow-up in 1 Year A letter with findings and recommendations will be mailed to the patient. Reading Location: [id number]
--- NOTE | 2025-03-25 13:48 | BI_ITS ---
EXAM: DIAG MAMM W/CAD, UNILAT; RT BRST UNILAT ALEK ADD-ON; BREAST LIMITED UNILATERAL 03/25/2025 CLINICAL HISTORY: F, Age 40 y/o , ABN MAMM; ABD MAMMO; ABD MAMM TECHNIQUE: Procedure Code: [id number]; BIRTUNITOMO; USBRSTLIMIT Modality: MG; US Procedure: DIAG MAMM W/CAD, UNILAT; RT BRST UNILAT ALEK ADD-ON; BREAST LIMITED UNILATERAL. COMPARISON: Prior exam(s) dated 03/18/2025, 09/09/2023. FINDINGS: MAMMOGRAM: TISSUE DENSITY: The breasts are heterogeneously dense, which may obscure small masses. The mammogram demonstrates that the patient has dense breasts. Supplemental screening with whole breast ultrasound or MRI may be considered for further evaluation. Unilateral Right Breast Mammographic Findings: Follow-up examination performed for the right breast mass on examination of 03/18/2025. On the present examination, the mass in the retroareolar right breast does not persist. ULTRASOUND: Ultrasound performed of the retroareolar right breast demonstrates no suspicious sonographic findings. There are no solid masses or abnormal cystic elements. BI/DIAG MAMM W/CAD, UNILAT IMPRESSION: There is no evidence of malignancy in the right breast. OVERALL FINAL ASSESSMENT BI-RADS 1: NEGATIVE RECOMMENDATION: Routine annual follow-up in 1 Year A letter with findings and recommendations will be mailed to the patient. Reading Location: [id number]
== END | disposition home or self-care (01) ==
LOC: OPBI 13:40
PROVIDERS: PCP Family Medicine; Referring Provider Obstetrics & Gynecology; Visit Provider Obstetrics & Gynecology
DX: R92.8 Other abnormal and inconclusive findings on diagnostic imaging of breast (principal)
CPT/HCPCS: 76642; 77061; 77065; G0279

== ENCOUNTER 2025-07-05 10:43 | Emergency (ER) | payer BC, SELFPAY ==
[2025-07-05 10:44] VITALS: BP 149/100; PULSE 104; RESP 18; TEMP 37.2; O2SAT 98; BMI 33.0
--- NOTE | 2025-07-05 11:22 | EDS_ITS ---
HPI HPI - GI History of Present Illness Chief Complaint: Abd Pain Detail of Chief Complaint: Left upper quadrant abdominal pain. Informant: patient Abdominal Pain/Flank Pain Onset: Days Context: Gradual Onset Timing: Continuous Quality: Aching Location: LUQ Maximum Severity: Moderate Worsened by: Nothing Relieved by: Nothing Nausea/Vomiting/Emesis GI Symptom: Negative for Nausea or Vomiting Diarrhea/Melena/Hematochezia GI Symptom: Negative for Diarrhea, Melena or Hematochezia Associated Symptoms Associated Symptoms: Negative for Dysuria, Frequency, Hematuria or Urgency Narrative Narrative: 40-year-old female complaining of hide a left upper quadrant flank abdominal pain. History of IBS think she may be constipated. Also history of prior kidney stones but since stenting this is exactly the way she can remember kidney stones and fell. States she has had some intermittent loose stools intermittent constipation. Last bowel movement was yesterday it was liquid. Denies any dysuria. Subjectively thinks she may have had a fever. Denies any dysuria or hematuria. Last menstrual period was 3 weeks ago and does not believe there is any way she can be . Denies any prior abdominal surgeries. No abdominal trauma. Prior similar symptoms: Yes Recent Illness/Hospitalization: No PFSH PFSH Medical History Abnormal mammogram of right breast Ovarian cyst Renal colic on left side Ureterolithiasis Kidney stones Unspecified renal colic Home Medications ?Medication ?Instructions ?Recorded ?Last Taken ?Type norgestimate-ethinyl estradiol 1 tab PO DAILY hormones 06/15/21 Unknown History 0.18mg/0.215mg/0.25mg-0.035mg(28)tablet (Tri-Sprintec (28)) B-complex with vitamin C 1 cap PO DAILY 10/24/23 Unkn own History cholecalciferol (vitamin D3) 250 250 mcg PO DAILY 12/11 Unknown History mcg (10,000 unit) capsule dextroamphetamine-amphetamine 20 20 mg PO DAILY Unknown History mg tablet (Adderall) multivitamin 1 tab PO DAILY 10/24/23 Unkn own History linaclotide 290 mcg capsule 290 mcg PO DAILY 08/30/24 Unknown History (Linzess) Allergy/AdvReac Type Severity Reaction Status Date / Time Penicillins Allergy Hives Verified 07/05/25 10:44 Family History Aunt Breast cancer Aunts x2 Other Cancer Heart disease Surgical History History of lithotripsy Social History Smoking Status: Never smoker alcohol intake: never substance use type: does not use ROS ROS ED ROS Narrative Left upper quadrant abdominal pain. Intermittent diarrhea and constipation history of IBS. Constitutional Constitutional ED: Reports fever(s) and subjective ENT ENT ED: Denies ear pain Cardiovascular Cardiovascular: Denies chest pain Respiratory/Chest Respiratory/Chest: Denies cough or dyspnea Gastrointestinal Gastrointestinal: Reports abdominal pain, constipation and diarrhea; Denies melena, nausea or vomiting Genitourinary Genitourinary ED: Denies dysuria, hematuria or urinary frequency Musculoskeletal Musculoskeletal: Denies arthralgias Integumentary Denies abscess Neurologic Neurologic: Denies headache(s) Psychiatric Psychiatric: Denies anxiety Endocrine Endocrinology: Denies polydipsia Allergic/Immunologic Allergic/Immunologic ED: Denies mouth swelling, tongue swelling or urticaria EXAM Physical Exam Narrative Exam Narrative: Well-appearing 40-year-old female vital signs stable afebrile pulse ox 98% on room air no hypoxia. No distress. No body currently with her. H EENT exam pupils round react light. Mildly dry mucous membranes. Neck nontender no JVD. No lymphadenopathy. Lungs clear to auscultation bilaterally. Heart regular rhythm rate about 100 no murmur. Chest wall and ribs nontender. Abdomen soft nondistended normal bowel sounds no peritoneal signs. Mild left upper and left CVA tenderness. No ecchymosis or bruising. No rashes or redness. No hernia no mass no obstruction. Back left-sided CVA tenderness. Moving all 4 extremities. Nontender no edema. Neurologically she is awake alert. Answering questions following commands. No focal motor deficits. Const Vital Signs: 07/05/25 10:44 07/05/25 12:43 07/05/25 14:11 Temperature 98.9 F Temperature Source Oral Pulse Rate 104 H 82 82 Respiratory Rate 18 18 14 Blood Pressure 149/100 H 138/90 H 125/80 H Blood Pressure Mean 116 106 95 Pulse Ox 98 99 99 Oxygen Delivery Method Room Air Room Air Room Air 07/05/25 16:00 Temperature Temperature Source Pulse Rate 81 Respiratory Rate 16 Blood Pressure 128/76 H Blood Pressure Mean 93 Pulse Ox 99 Oxygen Delivery Method MDM MDM MDM Narrative Medical decision making narrative: 40-year-old complaining of left upper quadrant and flank pain. History of kidney stones and IBS. CAT scan labs to be obtained. Should be given Toradol for pain. Repeat exam no significant change. The pain is reproducible over left lower rib cage. I have added a chest x-ray. But she has no history of trauma. Not cardiac sounding chest pain. Retry morphine discharged home Tylenol Motrin for pain. Outpatient follow-up. History & Record Review Discussion w/independent historian: Patient Additional record(s) reviewed:: Prior outpatient record, Prior ED visit and Prior labs Lab Data Attestation: I reviewed the patient's lab results. Lab results narrative: CBC shows a white count 9. H&H 15 and 44. Platelets 290. Unremarkable. Elect rolytes show a gap of 12. Normal BUN of 8 creatinine 0.8. Glucose 86. Liver enzymes unremarkable. Lipase is elevated 592. Serum test negative. UA shows no nitrates. 0 red cells. 0 white cells. 0 bacteria. Chest x-ray unremarkable. Labs: Laboratory Results - last 24 hr 07/05/25 11:36 WBC 9.2 RBC 4.87 Hgb 15.2 H Hct 44.5 MCV 91.4 MCH 31.2 MCHC 34.2 RDW Std Deviation 39.6 RDW Coeff of [place] 11.9 Plt Count 290 MPV 10.4 Immature Gran % (Auto) 0.300 Neut % (Auto) 67.8 Lymph % (Auto) 26.2 [place] % (Auto) 4.9 Eos % (Auto) 0.4 Baso % (Auto) 0.4 Absolute Neuts (auto) 6.2 Absolute Lymphs (auto) 2.40 Nucleated RBC % 0 Sodium 138 Potassium 3.8 Chloride 107 Carbon Dioxide 19.9 L Anion Gap 12 BUN 8 Creatinine 0.81 Estim Creat Clear Calc 89.84 Est GFR (MDRD) Non-Af 95 BUN/Creatinine Ratio 9.8 L Glucose 86 Calcium 8.9 Total Bilirubin 0.26 AST 29 ALT 17 Alkaline Phosphatase 44 Total Protein 7.0 Albumin 4.3 Globulin 2.7 Albumin/Globulin Ratio 1.6 Lipase 592 H Serum , Qual NEGATIVE Urine Color Yellow Urine Clarity Clear Urine pH 6.0 Ur Specific [place] 1.020 Urine Protein 15 H Urine Glucose (UA) Normal Urine Ketones Negative Urine Occult Blood 10 H Urine Nitrite Negative Urine Bilirubin Negative Urine Urobilinogen Normal Ur Leukocyte Esterase Negative Urine RBC 0 SEEN Urine WBC 0-5 SEEN Ur Squamous Epith Cells 0-5 SEEN Urine Bacteria 0 SEEN Urine Mucus 1+ Radiography Chest X-Ray - ED: 2 View, Read by ED Physician, Normal, Heart, Lungs, Mediastinum, Bony Structures, No Acute Disease and Chronic Changes Diagnostic Testing: Clinical Impression(s) from Imaging Studies Abdomen/Pelvis CT 07/05/25 11:50 IMPRESSION: 1. Correlate for mild cystitis although the appearance may also be related to underdistention. 2. Additional description as above. Reading Location: [facility] Chest x-ray, 2 views, AP and lateral, interpreted by myself shows normal cardiac silhouette. Normal lung regan. No pneumonia. No effusion. No acute process. Discharge Plan Triage Chief Complaint: Abd Pain ED Provider: Jean Carlos Guerrero Dx/Rx/DC Orders Clinical Impression: Abdominal pain Instructions: Abdominal Pain Prescriptions: No Action multivitamin Tablet 1 tab PO DAILY cholecalciferol (vitamin D3) 250 mcg (10,000 unit) capsule 250 mcg PO DAILY dextroamphetamine-amphetamine [Adderall] 20 mg tablet 20 mg PO DAILY B-complex with vitamin C Capsule 1 cap PO DAILY norgestimate-ethinyl estradiol [Tri-Sprintec (28)] 0.18/0.215/0.25 mg-35 mcg (28) tablet 1 tab PO DAILY Linzess 290 mcg capsule 290 mcg PO DAILY Primary Care Provider: Reyes Lira Referrals: Reyes Lira MD [Primary Care Provider, Family Practice] - 3-5 Days if not improving Activity Restrictions/Additional Instructions: Your blood work, urinalysis, CAT scan are all basically unremarkable. No specific cause for your pain. Motrin and Tylenol for pain. Follow-up with your doctor if not improving return if feeling a lot worse. Print Language: Macanese Disposition Disposition: Home, Self Care
[2025-07-05] MEDS: 0.9% Normal Saline (1000mL) 1,000 ML 999 ML IV (11:37)
[2025-07-05] MEDS: Ketorolac 30 MG/ML Syringe IV (11:37)
[2025-07-05 11:44] LABS: Color, Urine Yellow (Yellow); Glucose, Dipstick Normal (Normal); Hematocrit 44.5 % (37-47); Hemoglobin 15.2 g/dL (12.0-15.0); Immature Granulocytes Count 0.030 X10^3/uL (0.0-0.0); Ketone-Dipstick Negative (Negative); Leukocyte Esterase-Dipstick Negative /ul (Negative); Mean Corp Hgb Conc 34.2 g/dL (32-36); Mean Corpuscular Volume 91.4 fL (81-99); Mean Platelet Vol. 10.4 fl (6.2-12.0); NRBC Flagged by Analyzer 0 % (0-5); Nitrite-Dipstick Negative (Negative); Occult Blood-Urine 10 /ul (Negative); Platelet Count 290 K/mm3 (150-450); Protein-Dipstick 15 mg/dl (Negative); RBC Distribution Width CV 11.9 % (11.6-14.6); RBC Distribution Width SD 39.6 fl (35.1-43.9); Red Blood Cells-Urine 0 SEEN /hpf (0-5); Red Blood Count 4.87 M/mm3 (4.2-5.4); Specific Gravity, Urine 1.020 (1.002-1.030); Urine Bilirubin Dipstick Negative (Negative); White Blood Count 9.2 K/mm3 (4.4-11.0)
--- NOTE | 2025-07-05 11:50 | CT_ITS ---
PROCEDURE: ABDOMEN/PELVIS WITHOUT CONT 07/05/2025 REASON FOR EXAM: PAIN TECHNIQUE: Procedure Code: [id number] Modality: CT Procedure: ABDOMEN/PELVIS WITHOUT CONT Noncontrast technique limits evaluation of the abdominal and pelvic viscera. Coronal and Sagittal reconstruction series were generated. One or more dose reduction techniques were used (e.g., Automated exposure control, adjustment of the mA and/or kV according to patient size, use of iterative reconstruction technique). RADIATION DOSE SUMMARY: CTDlvol: 10.89 mGy DLP: 598.7 mGycm COMPARISON: 06/15/2021 ; note that images only are available for review, the report is not available at the time of the dictation. FINDINGS: Vasculature and remaining abdominopelvic soft tissues is limited in the absence of IV contrast. Lung bases: Unremarkable. Liver: Unremarkable. Spleen: Unremarkable. Gallbladder: Unremarkable. Pancreas: Unremarkable. Adrenals: Unremarkable. Kidneys: Punctate nonobstructing intrarenal calculi bilaterally up to 2 mm on the LEFT. Difficult to trace portions of the ureters. No hydronephrosis or definite ureteral calculus identified. Grossly similar presumed pelvic phleboliths near the expected locations of the distal ureters compared with 07/15/2021. Bowel: Unremarkable. Normal caliber appendix. Lymph nodes: Unremarkable. Vasculature: Unremarkable. Peritoneum: Unremarkable. Bladder: Underdistended and suboptimally evaluated. Bladder wall thickening appears potentially borderline slightly disproportionate to the degree of distention. Reproductive Organs: Unremarkable. Body Wall: Tiny fat containing umbilical hernia.. Bones: Unremarkable. CT/Abdomen/Pelvis without Cont IMPRESSION: 1. Correlate for mild cystitis although the appearance may also be related to u nderdistention. 2. Additional description as above. Reading Location: [id number]
[2025-07-05 11:57] LABS: Internal QC Validated? YES +Cl - CLEAR BKGD; Pregnancy, Serum, hCG Quali. NEGATIVE Negative
[2025-07-05 12:07] LABS: Mucous, Urine 1+ /hpf (<or=2+); Squamous Epithelial Cells - UA 0-5 SEEN /hpf (5-10)
[2025-07-05 12:28] LABS: AST(SGOT) 29 U/L (<=31); Alanine Aminotransfer ALT/SGPT 17 U/L (<=34); Albumin, Serum 4.3 g/dL (3.5-5.0); Alkaline Phosphatase 44 U/L (35-104); Anion Gap 12 (5-15); BUN 8 mg/dL (4-19); BUN/Creat Ratio 9.8 RATIO (10-20); Calcium,Total 8.9 mg/dL (7.6-11.0); Carbon Dioxide 19.9 mmol/L (21.0-32.0); Chloride 107 mmol/L (98-108); Estimated Creatinine Clearance 89.84 ml/min (50-250); Globulin 2.7 g/dL (2.2-4.2); Glucose 86 mg/dL (70-99); Potassium 3.8 mmol/L (3.3-5.1)
[2025-07-05 12:35] LABS: Lipase 592 U/L (13-75)
[2025-07-05 12:43] VITALS: BP 138/90; PULSE 82; RESP 18; O2SAT 99
[2025-07-05 14:11] VITALS: BP 125/80; PULSE 82; RESP 14; O2SAT 99
[2025-07-05 16:00] VITALS: BP 128/76; PULSE 81; RESP 16; O2SAT 99
--- NOTE | 2025-07-05 16:30 | RAD_ITS ---
PROCEDURE: CHEST PA AND LATERAL 07/05/2025 REASON FOR EXAM: ATYPICAL LEFT LOWER LATERAL CHEST PAIN TECHNIQUE: Procedure Code: RADCXR Modality: DX Procedure: CHEST PA AND LATERAL COMPARISON: 08/30/2024 FINDINGS: Lungs/Pleura: Clear. Heart/Mediastinum: Normal in size. Bones/Soft tissues: Unremarkable. RAD/Chest PA and Lateral IMPRESSION: No acute cardiopulmonary disease. Reading Location: [id number]
== END 2025-07-05 16:52 | disposition home or self-care (01) ==
PROVIDERS: Emergency Provider Emergency Medicine; PCP Family Medicine; Visit Provider Emergency Medicine
DX: R10.32 Left lower quadrant pain (principal); R07.81 Pleurodynia
CPT/HCPCS: 71046; 74176; 80053; 81001; 83690; 84703; 85025; 96361; 96374; 96375; 99283; A4216; J2405